=== PATIENT | female | born 1940 | race Caucasian/White ===

== ENCOUNTER → 2018-02-01 | Outpatient (CLI) | payer MEDICARE ==
--- NOTE | 2018-02-01 12:49 | CT ---
EXAMINATION TYPE: CT brain wo con, CT soft tissue neck wo con DATE OF EXAM: 02/01/2018 COMPARISON: NONE HISTORY: 77-year-old female Neoplasm of uncertain behavior involving, oral cavity, and pharynx. TECHNIQUE: Examination was done in axial plane of the head and neck without intravenous contrast. C oronal and sagittal reconstructions performed. CT DLP: 1064 (accession [id number]), 436 (accession [id number]) mGycm Automated exposure control for dose reduction was used. FINDINGS: HEAD: There is no evidence of acute intracranial hemorrhage, acute ischemic changes, mass, mass-effect, or extra-axial fluid collection. There is no effacement of cerebral sulci or basal subarachnoid cister ns. There is no hydrocephalus. There is no midline shift. Ospina-white matter distinction is preserv ed. There is a large heterogeneous lobulated mass partially filling the left maxillary sinus, extending t o the posterior right nasopharynx, history of posterior wall of the left maxillary sinus and extendin g into the medical aide space and marginating the lateral aspect of the left parapharyngeal space. Slig ht bony dehiscence along the floor of the left orbit scalloping of the medial margin of the left valente ibular condyle, neck, and mandibular ramus. There is erosion of the lateral pterygoid plate. No intra cranial extension is seen. On the axial plane, this measures 4.5 cm wide and 7.4 cm AP. Opacification of the left middle ear cavity and left mastoid air cells suggest some degree of eustach nidia tube obstruction at the nasopharynx. NECK: On the neck exam, the mass measures 6.9 cm craniocaudal as it extends down along the left soft palate to the level of the left tubal tonsils. There is some narrowing and rightward shift of the lower nasopharyngeal airway but no patricia airway co mpromise. Some motion artifacts are present. The submandibular and thyroid glands appear satisfactory. Parotid gland is atrophic. No obvious cervical lymphadenopathy identified. Limitations due to noncontrast technique. The oropharynx appears clear. The glottic and subglottic airway in the tail,. There is a partially visualized large medial right apical mass measuring at least 6.7 cm. This destro ys the right lateral aspect of the T2 vertebra and anterior aspect of the proximal right third rib. COMBINED IMPRESSION: 1. No acute intracranial abnormality seen. 2. Large destructive mass involving the left side nearly filling the left maxillary sinus, destroying through the posterior wall of the sinus, filling the left medical aide space, and extending down along the left soft palate into the lower left nasopharynx. There is some dehiscence through the floor of the left orbit as well and erosive scalloping along the medial margin of the left mandibular ramus. A pproximate dimensions are 4.5 x 7.4 x 6.9 cm. Tissue sampling recommended. 3. Second mass partially visualized measuring 6.7 cm in the medial right apex of the lung destroying the right lateral aspect of the T2 vertebral body and the anterior aspect of the proximal right third rib. Again, tissue sampling recommended. CT chest abdomen pelvis can survey the rest of the body.
== END | disposition home or self-care (01) ==
LOC: RADCTMAIN 11:25
PROVIDERS: ATTEND Otolaryngology
DX: D37.09 Neoplasm of uncertain behavior of other specified sites of the oral cavity (principal); R91.8 Other nonspecific abnormal finding of lung field
CPT/HCPCS: 70450; 70490

== ENCOUNTER 2018-02-04 19:38 | Inpatient (IN) | payer MEDICARE ==
[2018-02-04] MEDS ORDERED: SODIUM CHLORIDE 0.9% 1,000 ML IV STA (22:36)
[2018-02-04] MEDS ORDERED: MORPHINE SULFATE 4 MG/ML SYRINGE IV STA (22:36)
--- NOTE | 2018-02-04 23:02 | ED ---
General Adult HPI - General Chief complaint: Headache Stated complaint: headache; backache; eye pain Time Seen by Provider: 02/04/18 21:17 Source: patient, RN notes reviewed, old records reviewed Mode of arrival: ambulatory Limitations: no limitations - History of Present Illness Initial comments: This is a 77-year-old female to the ER for evaluation. Patient was essay for evaluation regards to throat pain. Severe facial pain and back pain. Patient has no prior history of similar symptoms, to see chiropractor with no help. Patient outpatient CAT scan for cause of pain. Patient is not taking anything for pain control, no symptoms seem to make pain worse - Related Data Home Medications Medication Instructions Recorded Confirmed Ibuprofen [Advil] 200 mg PO Q6HR PRN 02/04/18 02/04/18 Allergies Allergy/AdvReac Type Severity Reaction Status Date / Time No Known Allergies Allergy Verified 02/04/18 19:45 Review of Systems ROS Statement: Those systems with pertinent positive or pertinent negative responses have been documented in the HPI. ROS Other: All systems not noted in ROS Statement are negative. Past Medical History Past Medical History: No Reported History History of Any Multi-Drug Resistant Organisms: None Reported Past Surgical History: Orthopedic Surgery Past Psychological History: No Psychological Hx Reported Smoking Status: Current every day smoker Past Alcohol Use History: Occasional Past Drug Use History: None Reported General Exam Limitations: no limitations General appearance: alert, in no apparent distress Head exam: Present: atraumatic, normocephalic, normal inspection Eye exam: Present: normal appearance, PERRL, EOMI. Absent: scleral icterus, conjunctival injection, periorbital swelling ENT exam: Present: other (Large mass protruding from superior aspect of the oropharynx) Neck exam: Present: normal inspection. Absent: tenderness, meningismus, lymphadenopathy Respiratory exam: Present: normal lung sounds bilaterally. Absent: respiratory distress, wheezes, rales, rhonchi, stridor Cardiovascular Exam: Present: regular rate, normal rhythm, normal heart sounds. Absent: systolic murmur, diastolic murmur, rubs, gallop, clicks GI/Abdominal exam: Present: soft, normal bowel sounds. Absent: distended, tenderness, guarding, rebound, rigid Extremities exam: Present: normal inspection, full ROM, normal capillary refill. Absent: tenderness, pedal edema, joint swelling, calf tenderness Back exam: Present: normal inspection Neurological exam: Present: alert, oriented X3, CN II-XII intact Psychiatric exam: Present: normal affect, normal mood Skin exam: Present: warm, dry, intact, normal color. Absent: rash Course Vital Signs 02/04/18 02/04/18 19:41 20:45 Temperature 97.2 F L Pulse Rate 83 79 Respiratory 20 18 Rate Blood Pressure 207/91 182/87 O2 Sat by Pulse 98 96 Oximetry - Reevaluation(s) Reevaluation #1: 02/04/18 23:05 Spoke with patient at length regarding diagnosis, patient's daughter is at bedside, questions are answered Reevaluation #2: 02/04/18 23:05 Patient does have mild pain control improved EKG Findings - EKG Comments: EKG Findings:: EKG shows normal sinus rhythm rate of 70, WA 162, QRS 72, QTc 424 Medical Decision Making - Medical Decision Making 77 female the ER for evaluation of uncontrolled pain. Patient has pain related to cancer. Patient be admitted for pain control, oncology and ENT and pulmonary consultations - Radiology Data Radiology results: report reviewed (Patient computed tomography scan is reviewed including positive findings of metastatic cancer) Disposition Clinical Impression: Metastatic cancer, Oral cancer, Lung cancer, Headache Disposition: [facility]ITT[facility] Condition: Fair Referrals: Tao Gonzalez MD [Primary Care Provider] - 1-2 days
[2018-02-04 23:05] LABS: Basophils # (A) 0.1 k/uL (0-0.2); Basophils % (A) 1 %; Eosinophils # (A) 0.1 k/uL (0-0.7); Eosinophils % (A) 1 %; HCT 37.3 % (34.0-46.0); HGB 12.3 gm/dL (11.4-16.0); Lymphocytes # (A) 1.5 k/uL (1.0-4.8); Lymphocytes % (A) 12 %; MCH 27.4 pg (25.0-35.0); MCHC 32.9 g/dL (31.0-37.0); MCV 83.4 fL (80.0-100.0); Monocytes # (A) 0.5 k/uL (0-1.0); Monocytes % (A) 4 %; Neutrophils % (A) 81 %; Platelet Count 494 k/uL (150-450); RBC 4.48 m/uL (3.80-5.40); RDW 13.7 % (11.5-15.5); WBC 12.5 k/uL (3.8-10.6)
[2018-02-04 23:08] LABS: Creatine Kinase <20 U/L (30-135)
[2018-02-04 23:10] LABS: ALT 15 U/L (9-52); AST 14 U/L (14-36); Albumin 3.7 g/dL (3.5-5.0); Alkaline Phosphatase 121 U/L (38-126); Anion Gap 11 mmol/L; Blood Urea Nitrogen 11 mg/dL (7-17); Calcium 10.1 mg/dL (8.4-10.2); Carbon Dioxide 26 mmol/L (22-30); Chloride 99 mmol/L (98-107); Glucose 99 mg/dL (74-99); Phosphorus 3.3 mg/dL (2.5-4.5); Potassium 3.5 mmol/L (3.5-5.1); Sodium 136 mmol/L (137-145); Total Bilirubin 0.5 mg/dL (0.2-1.3); Total Protein 7.1 g/dL (6.3-8.2)
[2018-02-04 23:17] LABS: Partial Thromboplastin Time 23.3 sec (22.0-30.0); Prothrombin Time 10.2 sec (9.0-12.0)
[2018-02-04 23:20] LABS: Creatine Kinase MB <0.2 ng/mL (0.0-2.4); Troponin I <0.012 ng/mL (0.000-0.034)
[2018-02-05] MEDS: MORPHINE SULFATE 4 MG/ML SYRINGE IVP PRN ×5 (03:38→19:35)
[2018-02-05] MEDS ORDERED: KETOROLAC 30 MG/ML 1 ML VIAL IVP PRN (08:05)
[2018-02-05] MEDS: ENOXAPARIN 40 MG/0.4 ML SYRINGE SQ SCH (08:08)
[2018-02-05] MEDS ORDERED: RX INFO: IV CONTRAST WAS GIVEN 1 EACH MISC MISCELLANE PRN (11:00)
--- NOTE | 2018-02-05 11:00 | P.CONS ---
History of Present Illness - Reason for Consult Consult date: 02/05/18 Left maxillary sinus, right upper lung masses - History of Present Illness The patient is 77-year-old white female, who had presented to her PCP with complains of pain in the right upper back right neck and base of skull, since early 2018. This had been progressive. Patient was also complaining of some nasal congestion and fullness in the left side of her face. She was referred to ENT, and had a CT of the brain as well as soft tissue of the neck done. This revealed a 7.4 cm mass in the left maxillary sinus, causing some destruction of the inferior orbital floor, and extending into the nasopharynx and pharynx. In addition another mass at least 6.7 cm was seen in the right lung [place] with destruction of the T2 vertebra. Before the patient could follow-up with ENT, she came into the emergency room , due to progressive pain in the right neck and right upper back. In addition over the last couple of days she had also developed increasing discomfort in the left side of her face as well as mild blurring of vision from the left eye. She was therefore admitted for further management and consult placed. She denied any prior history of malignancy. She does have a long-standing history of smoking and had been cutting down recently to half pack a day Review of Systems Constitutional: Reports chronic pain, Reports weakness Eyes: left blurred vision Ears: left: decreased hearing Ears, nose, mouth and throat: Reports nasal congestion, Reports sinus pain, Reports sinus pressure Cardiovascular: Denies chest pain, Denies shortness of breath Respiratory: Denies cough Gastrointestinal: Denies abdominal pain, Denies diarrhea, Denies nausea, Denies vomiting Genitourinary: Denies dysuria, Denies hematuria Menstruation: Reports postmenopausal Musculoskeletal: Denies myalgias Integumentary: Denies pruritus, Denies rash Neurological: Denies numbness, Denies weakness Psychiatric: Denies anxiety, Denies depression Endocrine: Denies fatigue, Denies weight change Hematologic/Lymphatic: Reports as per HPI Past Medical History Past Medical History: No Reported History History of Any Multi-Drug Resistant Organisms: None Reported Past Surgical History: Orthopedic Surgery Additional Past Surgical History / Comment(s): ankle Past Anesthesia/Blood Transfusion Reactions: No Reported Reaction Past Psychological History: No Psychological Hx Reported Smoking Status: Current every day smoker Past Alcohol Use History: Occasional Past Drug Use History: None Reported - Past Family History Father Family Medical History: No Reported History, Unable to Obtain Mother Family Medical History: CVA/TIA Medications and Allergies Home Medications Medication Instructions Recorded Confirmed Type Ibuprofen [Advil] 200 mg PO Q6HR PRN 02/04/18 02/05/18 History Allergies Allergy/AdvReac Type Severity Reaction Status Date / Time No Known Allergies Allergy Verified 02/05/18 08:38 Physical Exam Vitals: Vital Signs Temp Pulse Pulse Resp BP BP Pulse Ox 02/05/18 07:00 98.3 F 88 16 159/68 95 02/05/18 00:40 186/79 02/04/18 23:45 97.9 F 82 18 199/84 96 02/04/18 23:27 82 18 181/81 97 02/04/18 22:00 86 18 189/86 97 02/04/18 20:45 79 18 182/87 96 02/04/18 19:41 97.2 F L 83 20 207/91 98 Intake and Output 02/04/18 02/05/18 02/05/18 21:59 06:59 14:59 Intake Total Balance Intake: Intake, IV Titration Amount Sodium Chloride 0.9% 1, 000 ml @ 100 mls/hr IV . Q10H STA Rx#:[id number] Other: Voiding Method Toilet Weight - Constitutional General appearance: no acute distress - EENT Mild conjunctival injection and watering left eye Eyes: EOMI, PERRLA - Neck Neck: no lymphadenopathy Thyroid: bilateral: normal size - Respiratory Respiratory: bilateral: diminished - Cardiovascular Rhythm: regular Heart sounds: normal: S1, S2 - Gastrointestinal General gastrointestinal: normal bowel sounds, soft - Integumentary Integumentary: normal - Neurologic Neurologic: CNII-XII intact - Musculoskeletal Musculoskeletal: strength equal bilaterally - Psychiatric Psychiatric: A&O x's 3, appropriate affect Results CBC & Chem 7: 02/04/18 22:45 02/04/18 22:45 Labs: Abnormal Lab Results - Last 24 Hours (Table) 02/04/18 02/04/18 02/04/18 Range/Units 22:45 22:45 22:45 WBC 12.5 H (3.8-10.6) k/uL Plt Count 494 H (150-450) k/uL Neutrophils # 10.0 H (1.3-7.7) k/uL Sodium 136 L (137-145) mmol/L Creatinine 0.40 L (0.52-1.04) mg/dL Total Creatine Kinase <20 L (30-135) U/L Comments: CT neck report reviewed CT Scan - head: report reviewed Assessment and Plan (1) Mass of right lung Narrative/Plan: This appears to be the main source of her presenting complains, as the neck and right upper back pain or the most prominent symptoms. This appears to be involving the T2 vertebra in the visualized portion. The patient will be started on steroids. Computed tomography scan of the chest will be ordered. At this point this could represent a primary site or metastasis. Lung biopsy will be ordered. Current Visit: Yes Status: Acute Code(s): R91.8 - OTHER NONSPECIFIC ABNORMAL FINDING OF LUNG FIELD SNOMED Code(s): 566281193 (2) Maxillary sinus mass Narrative/Plan: The patient is starting to develop symptoms from this, over the last 2-3 days mostly. Again, this could be a primary site with metastasis less likely. Case was extensively discussed with ENT. They will plan on an endoscopic sinus biopsy Current Visit: Yes Status: Acute Code(s): R22.0 - LOCALIZED SWELLING, MASS AND LUMP, HEAD SNOMED Code(s): 668267306 (3) Neoplasm related pain Narrative/Plan: The patient is currently on IV morphine. Toradol will be discontinued. Steroids are being added which should also help with the pain. Current Visit: Yes Status: Acute Code(s): G89.3 - NEOPLASM RELATED PAIN ( ACUTE) (CHRONIC) SNOMED Code(s): 761677711 Plan: The CT findings and implications were discussed in detail with the patient and her daughter. At this time it is not known as the patient has one primary malignancy with metastasis versus 2 separate primaries. Both are possibilities. Therefore, the plan to have biopsies from the sinus mass as well as a lung mass. At this time the patient does not have any neurologic deficits. MRI of the T -spine will be ordered and radiation oncology consulted. As noted, steroids are being started.
--- NOTE | 2018-02-05 11:20 | CONS ---
CONSULTATION REASON FOR CONSULTATION: Sinus mass. HISTORY: This is a 77-year-old white female who has a recent history of pain mainly right upper back pain, but also has developed facial pain in the left maxillary area also. The patient states that her pain in the back has been for a few months. Apparently did see a chiropractor with no improvement. She was seen in her primary care physician's office about a week ago and an oral lesion was noted and a CT scan was obtained which showed a large mass in the left nasal cavity and maxillary sinus and extending outside the sinus into the slab puller space and parapharyngeal space. There was also involvement of the nasopharynx with a left middle ear effusion noted. Incidental finding on the neck CT was a right apex lung mass with destruction of the T2 vertebrae and the 3rd rib. The patient states that she has pain in the right upper back and also left maxilla. She is admitted for pain control. Dr. Pimentel is consulted also. PAST MEDICAL HISTORY: Positive for COPD, but otherwise negative for heart, liver, kidney disease, diabetes mellitus, seizure disorder, bleeding disorder. PAST SURGICAL HISTORY: Ankle surgery. SOCIAL HISTORY: Does smoke. Alcohol consumption is occasional. MEDICATIONS: Medications at home: Ibuprofen. ALLERGIES: No known drug allergies. REVIEW OF SYSTEMS: Noncontributory other than as above. PHYSICAL EXAM: The patient is afebrile. VITAL SIGNS: Overall stable otherwise. GENERAL: A thin elderly white female in no acute distress. There is some mild fullness to the voice. HEENT: Head normocephalic and atraumatic. Ears on the right canals clear, tympanic membranes unremarkable and mobile; on the left canals clear, tympanic membrane shows a middle ear effusion, which is serous. Decreased mobility noted with pneumatic otoscopy. Nose anteriorly shows no abnormal masses or lesions. Posteriorly on the left, there is a mass lesion extending into the nasopharynx which is pink and fleshy appearing. No bleeding points. The oral cavity shows that she is edentulous. There is a mass of the left soft palate, which is rounded, smooth, pink, and solid on palpation. This is soft and nontender. There is no trismus. Good airway overall including oropharynx, hypopharynx, larynx shows no abnormal masses or lesions. No facial tenderness on palpation or masses palpated. Again, no trismus is noted with good range of motion oral excursion. NECK: Supple without adenopathy or tenderness. ASSESSMENT: 1. Left oral, nasal, maxillary sinus, nasopharynx mass. 2. Right lung mass. PLAN: I have recommended a biopsy of the left oral/sinus mass. I recommend this be done under anesthesia due to the potential of bleeding and easier to control bleeding under anesthesia and also for comfort measures and for further evaluation. I reviewed the indications, alternatives, potential benefits, risks of the procedure with the patient with the risks including, but not inclusive of the risk of general anesthesia, bleeding, infection, scarring, nondiagnostic study, need for further procedures in the future, depending on final pathology and healing. The patient understands the risks and agrees to proceed. This will likely be done tomorrow as this will need to be arranged. The patient did originally have appointment 2 days from now in the office as an outpatient. This will be canceled. The middle-ear effusion on the left is secondary to nasopharyngeal involvement. Could consider ventilation tube placement. However, this may result in chronic otorrhea also and I reviewed this option with the patient and she declined a ventilation tube at this point. In addition, the patient obviously has a 2nd lesion in the lung. Whether or not these are related or not is unknown at this point, but would potentially need biopsy at that site also. Dr. Pimentel will be seeing the patient in consultation also to manage her oncologically. Due to the lesion in the lung as well as the extent of the lesion in the maxilla on the left, the maxillary lesion would not likely be surgical even due to its extent alone. This may be dependent on the etiology amenable to radiotherapy and/or chemotherapy but histologic evaluation of the tissue would need to play a role in this also. The patient will be made n.p.o. after midnight in light of the potential biopsy tomorrow. Will work on scheduling tomorrow morning and this is likely later in the day tomorrow depending on the operating room schedule and the patient and her daughter are aware of this. If there are questions or concerns, please free to contact me. Approximately 45 minutes was spent on consultation with greater than 75% of this in consultation. MMODL / IJN: [id number] /
--- NOTE | 2018-02-05 11:23 | PCN ---
PROCEDURE NOTE PREOPERATIVE DIAGNOSIS: Left maxillary mass. POSTOP DIAGNOSIS: Left maxillary mass. PROCEDURE: Flexible laryngoscopy/nasopharyngoscopy. ANESTHESIA: None. COMPLICATIONS: None. FINDINGS: Left oral/soft palate and nasal mass as well as extending into the nasopharynx. PROCEDURE: The patient in her hospital bed in a sitting position. Informed consent was obtained. Flexible nasopharyngoscopy was performed within both nasal cavities with the above findings noted. The patient tolerated this well with no complications. No blood loss. Flexible nasopharyngoscopy was performed with systematic evaluation of the left and right nasal cavities, nasopharynx, oropharynx, hypopharynx and larynx with the above findings noted. MMODL / IJN: [id number] /
[2018-02-05] MEDS: DEXAMETHASONE SOD PHOSPHATE 4 MG/ML 1 ML VIAL IV SCH ×2 (11:52→17:45)
--- NOTE | 2018-02-05 13:50 | CT ---
EXAMINATION TYPE: CT chest w con DATE OF EXAM: 02/05/2018 COMPARISON: NONE HISTORY: Lung Mass CT DLP: 117.9 mGycm. Automated Exposure Control for Dose Reduction was Utilized. TECHNIQUE: CT scan of the thorax is performed following with IV Contrast, patient injected with 100 mL of Omnipaque 300. FINDINGS: LUNGS AND MEDIASTINUM: There is a large heterogenous right apical mass with invasion into the mediast inum measuring at least 7.0 x 5.3 x 8.0 cm in transverse by anterior posterior by craniocaudal dimens ion. There is no current compression or abutment with the superior vena cava. Adjacent mediastinal ad enopathy on the right paratracheal space and right hilum measuring up to 1.5 cm in short axis. There is impression upon the azygos vein and an deviation and the esophagus leftward. Also there is invasio n into the adjacent T2 vertebral body and posterior aspect of the second and third ribs. Focal pleura l thickening is seen lateral to this with postobstructive atelectasis on image 16 Additionally within the left lower lobe there is a spiculated heterogenous 2.2 x 1.8 x 2.1 cm nodule findings are superi mposed upon moderate centrilobular emphysematous change. OTHER: Indeterminate left adrenal gland mass has an average Hounsfield unit of 51 and measures 3.8 x 2.1 cm suspicious for metastasis. Nonspecific scattered hypointense left splenic lesions are also see n. IMPRESSION: 1. Large heterogenous right apical pulmonary mass measuring up to 7.0 x 5.3 x 8.0 cm with mass effect upon the trachea and azygos vein, adjacent osseous destruction and associated mediastinal adenopathy with segment left lower lobe pulmonary nodule. In a patient with head and neck known carcinoma be sh ould be considered metastasis until proven otherwise. 2. Indeterminate left adrenal gland mass measuring 3.8 cm highly suspicious for metastasis. 3. Nonspecific left splenic lesions. 4. Background moderate centrilobular emphysematous change.
--- NOTE | 2018-02-05 16:13 | P.CNPUL ---
History of Present Illness Consult date: 02/05/18 Reason for consult: lung mass History of present illness: 77-year-old female patient who presented to the hospital because of pain in her upper neck and upper back area posteriorly that has been gradually getting worse over this past few months. The patient prior to her presentation also felt some pain and discomfort and fullness across her left face and the face was becoming more asymmetric and swollen the left. She denied having any difficulties in swallowing. No hemoptysis. Upon arrival to the hospital the patient was found to have significant abnormalities. First and foremost, the CAT scan of the head and neck was done and showed significant amount of abnormality. Specifically, a large destructive mass was seen in the left side completely filling the left maxillary sinus and is throwing the posterior wall of the sinus and filling the left mastoid dural space and extending down to the left soft palate and extending into the nasopharynx and oropharynx. This is a large lesion and on physical exam we can visualize a large mass in the posterior oropharynx, completely invading through the soft palate and causing a shift and anatomic narrowing. The mass itself is very much vascular and irregular and friable. Note that the maxillary mass as mentioned and a CAT scan of the chest measures 4.5 x 7.4 x 6.9 cm in size. Also, a CAT scan of the chest was done that showed a 7 x 8 cm cm mass in the right upper lobe this during the right lateral aspect of the T2 vertebral spine and anterior aspect of the proximal right third rib. There is also mediastinal lymphadenopathy largest in the right hilum measuring 1.5 cm in size and there is additionally left lower lobe spiculated lesion measuring 2.2 x 1.8 x 2.1 cm in size and there is also background emphysema. And a indeterminate left adrenal mass lesion was seen 3.8 cm in size, suspicious for metastases. The patient denies having any difficulty in swallowing. She denies having any difficulties with speech. She denies having any hemoptysis. She has some chronic exertional dyspnea. She is mainly focused on her pain which is across the upper neck and upper back area. She is a chronic smoker. Review of Systems Constitutional: Reports chronic pain, Reports weakness Eyes: left blurred vision Ears: left: decreased hearing Ears, nose, mouth and throat: Reports nasal congestion, Reports sinus pain, Reports sinus pressure Cardiovascular: Denies chest pain, Denies shortness of breath Respiratory: Denies cough Gastrointestinal: Denies abdominal pain, Denies diarrhea, Denies nausea, Denies vomiting Genitourinary: Denies dysuria, Denies hematuria Menstruation: Reports postmenopausal Musculoskeletal: Denies myalgias, she has pain across her upper neck area and upper back posteriorly. Integumentary: Denies pruritus, Denies rash Neurological: Denies numbness, Denies weakness Psychiatric: Denies anxiety, Denies depression Endocrine: Denies fatigue, Denies weight change Hematologic/Lymphatic: Reports as per HPI Past Medical History Past Medical History: No Reported History History of Any Multi-Drug Resistant Organisms: None Reported Past Surgical History: Orthopedic Surgery Additional Past Surgical History / Comment(s): ankle Past Anesthesia/Blood Transfusion Reactions: No Reported Reaction Past Psychological History: No Psychological Hx Reported Smoking Status: Current every day smoker Past Alcohol Use History: Occasional Past Drug Use History: None Reported - Past Family History Father Family Medical History: No Reported History, Unable to Obtain Mother Family Medical History: CVA/TIA Medications and Allergies Home Medications Medication Instructions Recorded Confirmed Type Ibuprofen [Advil] 200 mg PO Q6HR PRN 02/04/18 02/05/18 History Allergies Allergy/AdvReac Type Severity Reaction Status Date / Time No Known Allergies Allergy Verified 02/05/18 08:38 Physical Exam Vitals: Vital Signs Temp Pulse Pulse Resp BP BP Pulse Ox 02/05/18 15:00 98.6 F 86 18 136/78 93 L 02/05/18 07:00 98.3 F 88 16 159/68 95 02/05/18 00:40 186/79 02/04/18 23:45 97.9 F 82 18 199/84 96 02/04/18 23:27 82 18 181/81 97 02/04/18 22:00 86 18 189/86 97 02/04/18 20:45 79 18 182/87 96 02/04/18 19:41 97.2 F L 83 20 207/91 98 Intake and Output 02/05/18 02/05/18 02/05/18 06:59 14:59 22:59 Intake Total Balance Intake: Intake, IV Titration Amount Sodium Chloride 0.9% 1, 000 ml @ 100 mls/hr IV . Q10H STA Rx#:[id number] Other: Voiding Method Toilet Toilet # Voids 2 - Constitutional General appearance: no acute distress - EENT Mild conjunctival injection and watering left eye, and there is also some fullness in the left face compared to the right. The size and dimension of the left eye orbit is smaller on the left compared to the right. In the posterior oropharynx, the patient has a very irregular vascular mass or Buying the soft palate and this is all just dating from the nasopharyngeal area and extending to the oropharynx and it is distorting the uvula. The masses very close to the tongue and the patient has significant crowding of the posterior pharynx. There is obvious anatomic distortion and shift of the structures due to this large mass that can be easily visualized on inspection. On the nasopharyngeal unable to visualize any abnormalities by routine examination. Eyes: EOMI, PERRLA - Neck Neck: no lymphadenopathy Thyroid: bilateral: normal size - Respiratory Respiratory: bilateral: diminished - Cardiovascular Rhythm: regular Heart sounds: normal: S1, S2 - Gastrointestinal General gastrointestinal: normal bowel sounds, soft - Integumentary Integumentary: normal - Neurologic Neurologic: CNII-XII intact - Musculoskeletal Musculoskeletal: strength equal bilaterally - Psychiatric Psychiatric: A&O x's 3, appropriate affect Results - Laboratory Findings CBC and BMP: 02/04/18 22:45 02/04/18 22:45 PT/INR, D-dimer PT 10.2 sec (9.0-12.0) 02/04/18 22:45 INR 1.0 (<1.2) 02/04/18 22:45 Abnormal lab findings: Abnormal Labs 02/04/18 02/04/18 02/04/18 22:45 22:45 22:45 WBC 12.5 H Plt Count 494 H Neutrophils # 10.0 H Sodium 136 L Creatinine 0.40 L Total Creatine Kinase <20 L - Diagnostic Findings CT scan - chest: image reviewed Assessment and Plan Plan: Assessment 1 right upper lobe mass measuring 7 x 8 cm in size that is invading the mediastinum without evidence of any SVC compression and there is also lesion in the left lower lobe and questionable adrenal metastases as the patient has adrenal lesion measuring 2.8 cm in size. In addition the patient has involvement of the T2 vertebral spine and possibly the ribs posteriorly. Findings are very highly suspicious for primary bronchogenic cancer which is metastatic at this stage 2 left maxillary sinus mass extending through the sinus structures causing this section of the sinus bone and extending posteriorly into the nasopharynx and to the oropharynx and the patient has a large visualized mass in the posterior oropharyngeal wall causing significant anatomic obstruction and narrowing on routine examination. This could be another primary versus metastatic disease from the lungs 3 back and neck pain, likely related to underlying malignancy with a possibility of metastasis involving the skeletal system and the spine 4 COPD 5 smoker Plan Would like to biopsy the lung mass. Would also like to biopsy the sinus and the posterior oropharyngeal mass which is obviously a 1 mass starting in the maxillary sinus and extending into the nasopharynx and oropharynx. This may ultimately heel turner to be 1 cancer which is metastatic although the possibility of 2 primaries cannot be completely excluded. ENT will biopsy the sinus mass tomorrow. As for the lung mass, bronchoscopy is not possible as the patient has significant narrowing of the posterior oropharynx and this makes of the sinuses extending into the nasopharynx and oropharynx and is setting a bronchoscope will cause an subject this patient to a risk of bleed which can be quite risky and subject this patient in to respiratory failure should she have excess amount of bleeding. For that reason , a fine-needle aspirate of the right lung mass needs to be considered even if this would subject this patient to a high risk of pneumothorax which could be manageable by a chest tube insertion. I would prefer to do a fine-needle aspirate over bronchoscopy for the above-mentioned reasons and I'm going to consult interventional radiology regarding the fine-needle aspirate. Unfortunately, bronchoscopy will be quite risky in this patient with a large posterior oropharyngeal and nasopharyngeal mass. Prognosis obviously poor. Patient is complaining of neck pain and ultimately she would need an MRI of the thoracic spine to rule out compression and following that the radiation therapy may need to pad this patient with some radiation and pain control. Prognosis poor. Case was discussed with the family.
[2018-02-05] MEDS: NICOTINE 21MG/24HR PATCH TRANSDERM SCH (17:45)
--- NOTE | 2018-02-05 18:17 | HP ---
HISTORY AND PHYSICAL DATE OF ADMISSION: February 04, 2018. PRESENT COMPLAINT: Pain in right upper back, face pain. HISTORY OF PRESENTING COMPLAINT: This is a patient who is a smoker, unremarkable past medical history. The patient presented to the family doctor's office with increasing pain in the throat and neck, and on February 01, 2018, the patient underwent soft tissue CT scan of the neck and that showed a large heterogeneous lobulated mass filling the left maxillary sinus extending to the posterior right nasopharynx and into the cloud infrastructure architect space. There is also slight bony dehiscence along the floor of the left orbit scalloping of the medial margin of the left mandible condyle, neck and mandibular ramus. Also erosion of the lateral pterygoid plate along with opacification of the left middle ear cavity, left some element of eustachian tube obstruction. The patient's voice slightly changed, though she is able to swallow, slightly short of breath. The patient is a smoker. According to the daughter who was in the room, the patient also losing weight. The patient has always been a small eater. CT scan of the chest also shows a large apical mass going into the mediastinum with a mass on the left side of the lung and also some affliction of the spleen and the left adrenal mass. REVIEW OF SYSTEMS: Constitutional, decreased appetite, weight loss. HEENT: Change of voice, pain in the left side of the face, and ear. Respiratory some short of breath, cardiovascular none. Gastrointestinal none. Genitourinary: None. Musculoskeletal: Pain in the right side of the back around the scapula. Gastrointestinal: None. Genitourinary: None. Psychiatry none. Neurological none. PAST MEDICAL HISTORY: None. SURGICAL HISTORY: Ankle surgery. SOCIAL HISTORY: Smokes a pack a day. Lives by herself. Alcohol occasionally. FAMILY HISTORY: Reviewed, noncontributory to presentation. HOME MEDICATIONS: Advil 200 mg q.6h p.r.n. ALLERGIES: None. PHYSICAL EXAMINATION: Temperature 98.3, pulse 88, respiration 16, blood pressure 159/68, pulse ox 95% on room air. GENERAL APPEARANCE: Thin build, sitting up. Slight facial asymmetry. Eyes pupils equal. Conjunctivae normal. HEENT: Fullness on the left side of the face. There is a mass on the roof of the mouth on the left side projecting into the oral cavity. Neck: JVD not raised. Mass not palpable. Respiratory effort increased. LUNGS: Diminished breath sounds. Cardiovascular: 1st and 2nd sounds normal. No edema. ABDOMEN: Soft, nontender. Liver and spleen not palpable. Lymphatics: No lymph nodes palpable in the neck or axilla. Psychiatry: Alert and oriented times three. Mood is slightly anxious-appearing. Neurological: Pupils equal. Cranial nerves grossly intact. Power and sensation grossly intact. INVESTIGATIONS: White count 12.5, hemoglobin 12.3, potassium 3.5. CT scan of the soft tissue of the neck and CT scan of the lungs as above including showing a mass in the right upper apex, mass in the left lung and some possible metastatic disease in the spleen and the left adrenal mass. ASSESSMENT: 1. The patient has a mass in the right upper lung and also in the nasopharyngeal area. At this point, it is not clear if these are 2 separate primaries or metastatic disease. The patient has also got involvement of the vertebral body in the ribs and possibly involvement of the adrenal gland and the spleen. 2. Chronic nicotine dependence patient is a cigarette smoker. 3. Emphysema in a smoker. PLAN: The patient is seen by Dr. José Miguel George from ENT who I spoke to who will be doing a biopsy tomorrow under anesthesia. The patient also will be seen by Dr. Galo from Pulmonary and will probably need a lung mass biopsy too. The patient also seen by Dr. Pimentel from Oncology whom I discussed. I also discussed the care with the patient and daughter at the bedside. Nicotine patch will be given. Pain control is in place. We will also start the patient on nebulized bronchodilators. Copy to Dr. Gonzalez. BONILLA / GEETHA: [id number] /
[2018-02-05] MEDS: NAPROXEN 250 MG TAB PO SCH (21:17)
[2018-02-05] MEDS: IPRATROPIUM-ALBUTEROL 3 ML NEB INHALATION SCH (21:44)
[2018-02-06] MEDS: DEXAMETHASONE SOD PHOSPHATE 4 MG/ML 1 ML VIAL IV SCH ×5 (00:38→23:50)
[2018-02-06] MEDS: IPRATROPIUM-ALBUTEROL 3 ML NEB INHALATION SCH ×3 (07:33→21:19)
[2018-02-06] MEDS: NICOTINE 21MG/24HR PATCH TRANSDERM SCH (08:54)
[2018-02-06] MEDS: NAPROXEN 250 MG TAB PO SCH ×2 (08:54→22:10)
[2018-02-06] MEDS: ENOXAPARIN 40 MG/0.4 ML SYRINGE SQ SCH (08:54)
--- NOTE | 2018-02-06 14:50 | P.CONS ---
History of Present Illness - Reason for Consult Consult date: 02/06/18 lung, head/neck mass Requesting physician: Avelino Pimentel - Chief Complaint right upper back pain - History of Present Illness The patient presented with complaints of progressive pain in the right upper back and shoulder area. She notes these have been going on for the past month, and initially she would have complete response with Advil. When the pain did not improve, she was seen and evaluated by her chiropractor and reports that that did not help either. She was ultimately assessed in the office of her primary care physician, who had noticed the abnormal mass in her soft/hard palate. She subsequently was ordered to undergo a CT scan of the brain and neck on February 01, 2018. This revealed a lobulated mass which nearly fill the left maxillary sinus, with extension to the right nasopharynx, destroying the posterior wall of the sinus entering in the reactor service operator space with bony dehiscence along the left orbit and erosion of the left lateral pterygoid plate. The mass was seen to extend along the left soft palate and was approximately 7.4 x 4.5 cm. There is also note made of a large right apical lung mass extending into the T2 vertebral body. The patient was referred to see ENT, however her symptoms progressed over the weekend and she presented to the emergency room. She presented complaining of increasing pain and pressure sensation along the left medial canthus and down the nose. She notes this just started on Tuesday, as she's previously had no difficulties with pain in the head/neck region. She notes that her dentures have been poorly fitting, however these are quite old and she felt she needed to replace them. She reports that she has occasional blurriness of her vision, left greater than right. But she denies diplopia, dyspnea, cough, hemoptysis or difficulty eating. Following admission, Dr. Rojas performed a fiberoptic exam at the bedside. This revealed a large left soft palate/nasal mass extending to the nasopharynx. A CT scan of the chest from February 05 revealed a large right apical lung mass up to 7 cm, with a 1.5 cm right paratracheal node. The lung mass was noted to extend into the mediastinum causing deviation of the esophagus, and also invades the T2 vertebral body as well as the second and third ribs. There is a 2.2 cm spiculated nodule in the left lower lung, as well as a 3.8 cm left adrenal lesion, both suspicious for metastases. Review of Systems Constitutional: Denies chills, Denies fever Eyes: left blurred vision Ears: deny: decreased hearing Ears, nose, mouth and throat: Reports sinus pressure, Denies ant. neck pain, Denies bleeding gums, Denies dental pain, Denies neck lump Cardiovascular: Denies chest pain Respiratory: Denies cough, Denies hemoptysis Gastrointestinal: Denies abdominal pain Musculoskeletal: Reports as per HPI Musculoskeletal: right: shoulder pain Neurological: Reports headaches, Denies motor disturbance, Denies numbness, Denies tingling Psychiatric: Denies confusion Past Medical History Past Medical History: No Reported History Additional Past Medical History / Comment(s): Multiple skin cancers removed History of Any Multi-Drug Resistant Organisms: None Reported Past Surgical History: Orthopedic Surgery Additional Past Surgical History / Comment(s): ankle Past Anesthesia/Blood Transfusion Reactions: No Reported Reaction Past Psychological History: No Psychological Hx Reported Smoking Status: Current every day smoker (Smoked 1 pack per day x 50 years) Past Alcohol Use History: Occasional Past Drug Use History: None Reported - Past Family History Father Family Medical History: No Reported History, Unable to Obtain Mother Family Medical History: CVA/TIA Medications and Allergies Home Medications Medication Instructions Recorded Confirmed Type Ibuprofen [Advil] 200 mg PO Q6HR PRN 02/04/18 02/05/18 History Allergies Allergy/AdvReac Type Severity Reaction Status Date / Time No Known Allergies Allergy Verified 02/05/18 08:38 Physical Exam Vitals: Vital Signs Temp Pulse Pulse Pulse Resp BP Pulse Ox 02/06/18 11:04 76 02/06/18 10:53 72 02/06/18 07:00 97.9 F 90 16 154/75 96 02/05/18 23:00 98.3 F 75 16 117/62 94 L 02/05/18 21:47 84 02/05/18 15:00 98.6 F 86 18 136/78 93 L Intake and Output 02/05/18 02/06/18 02/06/18 22:59 06:59 14:59 Intake Total 320 400 Balance 320 400 Intake: IV 200 400 normal saline 200 400 Oral 120 Other: Voiding Method Toilet Toilet Toilet # Voids 1 - Constitutional General appearance: average body habitus - EENT Eyes: EOMI, PERRLA, ptosis (Slight left ptosis) ENT: other (Large mass seen along hard/soft palate. Violaceous in appearance, replaces soft palate), no thrush - Neck Neck: no lymphadenopathy - Respiratory Respiratory: bilateral: CTA - Cardiovascular Rhythm: regular - Gastrointestinal General gastrointestinal: normal bowel sounds, no tenderness - Integumentary Integumentary: no flushed, no jaundiced - Neurologic Neurologic: CNII-XII intact - Musculoskeletal Musculoskeletal: strength equal bilaterally - Psychiatric Psychiatric: A&O x's 3 Results CBC & Chem 7: 02/04/18 22:45 02/04/18 22:45 CT scan - chest: report reviewed, image reviewed CT Scan - head: report reviewed, image reviewed Assessment and Plan Plan: 1. 77 year old female with long smoking history presents with large mass involving the soft palate, left nasal cavity, maxillary sinus with local destruction. Outside of poorly fitting dentures, the patient reports she has not had any symptoms up until this past week when she developed some pressure along the left medial canthus. This is highly suspicious for a head and neck primary. Regardless of its origin is within the oral cavity, nasal cavity or maxillary sinus, this locally extensive process would likely to be surgically inoperable. Biopsy will be performed later today. The patient will likely require palliative radiotherapy in the future. Although her noncontrast CT scan of the head was negative, the patient should also have an MRI of the brain/ skull base to rule out brain metastasis as well as direct extension of this mass. 2. Large right apical lung mass: This lesion is highly suspicious for a separate lung primary versus less likely metastasis from head and neck cancer. This mass is seen to invade the T2 vertebral body, as well as the second and third ribs on the right likely causing the patient's right upper back pain. I agree this should be biopsied as well, and should be amenable to stereotactic biopsy. The patient has an MRI of the thoracic spine pending, and based on my preliminary review there appears to be no mass effect on the spinal cord. The patient does not appear to have any radicular symptoms. As above, she will likely require palliative radiotherapy to help with control of her pain. 3. Metastatic disease: Even if the 2 dominant lesions represent separate primaries, there is still a left adrenal mass as well as a left lower lung mass which are suspicious for metastasis. Outpatient PET CT should be considered to complete this workup. We will discuss her case with the other physicians involved, and we will await final pathology. She will likely benefit from palliative radiotherapy, but as she has no emergent indication at this time we will finish her inpatient work- up. Time with Patient: Greater than 30
--- NOTE | 2018-02-06 16:50 | P.PN ---
Subjective Progress Note Date: 02/06/18 Principal diagnosis: Right upper lobe mass, rule out primary bronchogenic cancer with metastasis. Left maxillary sinus mass, rule out primary versus metastatic disease from the lungs 77-year-old female patient who presented to the hospital because of pain in her upper neck and upper back area posteriorly that has been gradually getting worse over this past few months. The patient prior to her presentation also felt some pain and discomfort and fullness across her left face and the face was becoming more asymmetric and swollen the left. She denied having any difficulties in swallowing. No hemoptysis. Upon arrival to the hospital the patient was found to have significant abnormalities. First and foremost, the CAT scan of the head and neck was done and showed significant amount of abnormality. Specifically, a large destructive mass was seen in the left side completely filling the left maxillary sinus and is throwing the posterior wall of the sinus and filling the left mastoid dural space and extending down to the left soft palate and extending into the nasopharynx and oropharynx. This is a large lesion and on physical exam we can visualize a large mass in the posterior oropharynx, completely invading through the soft palate and causing a shift and anatomic narrowing. The mass itself is very much vascular and irregular and friable. Note that the maxillary mass as mentioned and a CAT scan of the chest measures 4.5 x 7.4 x 6.9 cm in size. Also, a CAT scan of the chest was done that showed a 7 x 8 cm cm mass in the right upper lobe this during the right lateral aspect of the T2 vertebral spine and anterior aspect of the proximal right third rib. There is also mediastinal lymphadenopathy largest in the right hilum measuring 1.5 cm in size and there is additionally left lower lobe spiculated lesion measuring 2.2 x 1.8 x 2.1 cm in size and there is also background emphysema. And a indeterminate left adrenal mass lesion was seen 3.8 cm in size, suspicious for metastases. The patient denies having any difficulty in swallowing. She denies having any difficulties with speech. She denies having any hemoptysis. She has some chronic exertional dyspnea. She is mainly focused on her pain which is across the upper neck and upper back area. She is a chronic smoker. On 02/06/2018 patient seen in follow-up on oncology floor. She is resting comfortably in bed, in no acute distress. She is on room air, vital signs are stable, pulse ox is 96%. She is afebrile, lung sounds are positive for diminished breath sounds over right lower lobe, with scattered crackles. Clear on the left. Patient has slight speech slurring related to the oral pharyngeal mass originating from the left maxillary sinuses. She denies right shoulder blade or right neck pain today. She remains on Decadron IV. She is awaiting direct laryngoscopy, nasal endoscopy and biopsy of the oral pharyngeal mass by Dr. Rojas at 1700 this afternoon. She was seen by medical oncology, and radiation oncology. She is on fentanyl patch with morphine IV push for breakthrough pain. Objective - Vital Signs Vital signs: Vital Signs Temp 97.9 F 02/06/18 07:00 Pulse 76 02/06/18 11:04 Resp 16 02/06/18 07:00 BP 154/75 02/06/18 07:00 Pulse Ox 96 02/06/18 07:00 Intake & Output 02/05/18 02/06/18 02/06/18 18:59 06:59 18:59 Intake Total 720 Balance 720 Intake: IV 600 normal saline 600 Oral 120 Other: Voiding Method Toilet Toilet Toilet # Voids 2 1 - Exam Constitutional General appearance: no acute distress - EENT Mild conjunctival injection and watering left eye, and there is also some fullness in the left face compared to the right. The size and dimension of the left eye orbit is smaller on the left compared to the right. In the posterior oropharynx, the patient has a very irregular vascular mass or Buying the soft palate and this is all just dating from the nasopharyngeal area and extending to the oropharynx and it is distorting the uvula. The masses very close to the tongue and the patient has significant crowding of the posterior pharynx. There is obvious anatomic distortion and shift of the structures due to this large mass that can be easily visualized on inspection. On the nasopharyngeal unable to visualize any abnormalities by routine examination. Eyes: EOMI, PERRLA - Neck Neck: no lymphadenopathy Thyroid: bilateral: normal size - Respiratory Respiratory: bilateral: diminished, coarse crackles over right lower lobe noted. No wheezing, no rhonchi - Cardiovascular Rhythm: regular Heart sounds: normal: S1, S2 - Gastrointestinal General gastrointestinal: normal bowel sounds, soft - Integumentary Integumentary: normal - Neurologic Neurologic: CNII-XII intact - Musculoskeletal Musculoskeletal: strength equal bilaterally - Psychiatric Psychiatric: A&O x's 3, appropriate affect - Labs CBC & Chem 7: 02/04/18 22:45 02/04/18 22:45 Assessment and Plan Plan: Assessment: 1 right upper lobe mass measuring 7 x 8 cm in size that is invading the mediastinum without evidence of any SVC compression and there is also lesion in the left lower lobe and questionable adrenal metastases as the patient has adrenal lesion measuring 2.8 cm in size. In addition the patient has involvement of the T2 vertebral spine and possibly the ribs posteriorly. Findings are very highly suspicious for primary bronchogenic cancer which is metastatic at this stage 2 left maxillary sinus mass extending through the sinus structures causing this section of the sinus bone and extending posteriorly into the nasopharynx and to the oropharynx and the patient has a large visualized mass in the posterior oropharyngeal wall causing significant anatomic obstruction and narrowing on routine examination. This could be another primary versus metastatic disease from the lungs 3 back and neck pain, likely related to underlying malignancy with a possibility of metastasis involving the skeletal system and the spine 4 COPD 5 smoker Plan Patient is awaiting direct laryngoscopy, nasal endoscopy and biopsy of the oropharyngeal mass today by Dr. Rojas at 1700. Right shoulder blade and right neck pain are well controlled with a combination of IV Decadron, fentanyl patch, and IV morphine for breakthrough pain. She denies acute dyspnea, denies hemoptysis, remains on room air. Consult interventional radiology for CT- guided fine-needle aspiration biopsy of the right upper lobe mass. I performed a history & physical examination of the patient and discussed their management with my nurse practitioner, Samia Womack. I reviewed the nurse practitioner's note and agree with the documented findings and plan of care. Lung sounds are positive coarse rales over right posterior lower lobe. The findings and the impression was discussed with the patient. I attest to the documentation by the nurse practitioner. Time with Patient: Less than 30
--- NOTE | 2018-02-06 17:21 | PN ---
PROGRESS NOTE DATE OF SERVICE: February 06, 2018 PRESENTING COMPLAINT: Pain in the right upper back. INTERVAL HISTORY: This patient presented with lung mass and maxillofacial mask. Pain is reasonably well controlled. The patient is currently n.p.o. Daughter at the bedside. The patient due for a nasal mass biopsy today. REVIEW OF SYSTEMS: Done for constitutional, cardiovascular, GI, pulmonary, relevant findings as above. CURRENT MEDICATIONS: Reviewed that include fentanyl patch, IV Decadron. PHYSICAL EXAMINATION: Temperature 97.9, pulse 91, respiratory rate 16, blood pressure 150/75, pulse ox 96% on room air. GENERAL APPEARANCE: Sitting up comfortable. Eyes: Pupils equal. Conjunctivae normal. HEENT: Some facial asymmetry, fullness of the left side of the face. Oral cavity got a mass from the roof of the mouth on the left side. LUNGS: Decreased breath sounds. Respiratory effort normal. Cardiovascular 1st and 2nd sounds no edema. ABDOMEN: Soft nontender. Liver and spleen not palpable. Psychiatry: Alert and oriented x3. Mood and affect slightly anxious-appearing. INVESTIGATIONS: No blood work from today. ASSESSMENT: 1. 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 2. Chronic nicotine dependence in a cigarette smoker. 3. Emphysema in a smoker. PLAN: As per Pulmonary, we will order Interventional Radiology consultation for the FNAC of the lung mass. Dr. George is doing the nasal mass biopsy today. Care was discussed with the patient and daughter at the bedside. Follow. MMODL / IJN: [id number] /
[2018-02-06] MEDS ORDERED: PROPOFOL 10 MG/ML 20 ML VIAL IV ONE (17:54)
[2018-02-06] MEDS ORDERED: SUCCINYLCHOLINE CHLORIDE 100 MG/5 ML SYR IV ONE (17:54)
[2018-02-06] MEDS ORDERED: LIDOCAINE 1% INJ 10MG/ML (20 ML MDV) ONE (17:54)
[2018-02-06] MEDS ORDERED: IV FLUID CONTINUATION 700 ML IV ONE ×2 (17:54)
[2018-02-06] MEDS ORDERED: MIDAZOLAM 2 MG/2 ML VIAL ONE (17:54)
--- NOTE | 2018-02-06 18:09 | MR ---
EXAMINATION TYPE: MR thoracic spine wo/w con DATE OF EXAM: 02/06/2018 COMPARISON: NONE HISTORY: mets, spinal cord compression CONTRAST: Performed utilizing 7 mL intravenous Gadavist gadolinium contrast. TECHNIQUE: Multiplanar, multiecho imaging on a 3.0 Lucina magnet is performed through the thoracic spi ne. Spinal cord maintains normal signal through its visualized course. Vertebral body alignment is normal. Vertebral body heights are preserved. There is a large right posterior medial apical mass. This has extension towards the right foramen. Ne rve roots are in close approximation is the exit the foramen. The T2-3 and T3 exiting nerve roots are in close approximation with the paraspinal mass. This mass invades the T2 vertebral body and extends towards the posterior wall. This brings the mass in close approximation to but does not compress or invade thecal sac based on these images. There is some signal abnormality within the T2 and T3 verteb ral bodies. No spinal canal stenosis is evident. No neural foraminal invasion is identified. IMPRESSIONS: 1. Large posterior medial right apical mass extends towards the exiting neural foramen. The exiting n erve roots are in close approximation with the mass at the T2 and T3 levels on the right. 2. Apparent direct invasion of the T2 level with extension towards the posterior wall. Extension beyo nd the posterior wall is not identified and no thecal sac invasion or nerve root or foramen invasion is evident.
--- NOTE | 2018-02-06 18:36 | P.OP ---
Date of Procedure: 02/06/18 Preoperative Diagnosis: Left maxillary/oral mass Postoperative Diagnosis: Same Procedure(s) Performed: Nasal endoscopy Direct laryngoscopy Biopsy left soft palate lesion Anesthesia: GETA Surgeon: José Miguel George Estimated Blood Loss (ml): 2 Pathology: other (Left soft palate lesion) Condition: stable Disposition: PACU Indications for Procedure: This is a 77-year-old white female who has noticed a lesion left soft palate and her primary care physician also notices last week. Computed tomography scan shows a large lesion involving the left maxillary sinus left nasal cavity and physical exam shows a left soft palate lesion. Patient also has a large right apex of long mass. Operative Findings: Soft tissue lesion left nasal cavity, large proximal 4 cm exophytic mass left soft palate Description of Procedure: The patient was brought in the operative suite and placed in supine position. The patient underwent induction of general anesthesia with oral endotracheal intubation without difficulty. The patient was prepped and draped in usual aseptic fashion. Nasal endoscopy was performed bilaterally. There was noted to be some bulging of the medial maxillary wall with some soft tissue swelling. This also extended back into the nasopharynx with mass effect. A tooth guard was then placed and direct laryngoscopy was performed with systematic evaluation of the oropharynx hypopharynx and larynx with no abnormalities noted in these areas. The laryngoscope and tooth guard were then removed. The McIvor mouth gag was then placed to visualize the left soft and hard palate mass. This is a large fungating exophytic lesion. A biopsy approximately 1 cm in diameter was obtained with needlepoint electrocautery and sent for permanent section. Hemostasis was gained with cautery. Palpation of this mass appeared to have direct extension from the hard and soft palate into the left maxillary sinus and even mobility of the left anterior cheek. There was indicated direct bony erosion. Once hemostasis was obtained the McIvor mouth gag was removed. The patient was allowed to emerge from general anesthesia having tolerated procedure well was extubated in the operating suite and transferred to postop recovery area in satisfactory condition.
[2018-02-07] MEDS: DEXAMETHASONE SOD PHOSPHATE 4 MG/ML 1 ML VIAL IV SCH ×4 (06:15→23:46)
[2018-02-07] MEDS: IPRATROPIUM-ALBUTEROL 3 ML NEB INHALATION SCH ×3 (08:45→19:47)
[2018-02-07] MEDS: NICOTINE 21MG/24HR PATCH TRANSDERM SCH (09:08)
[2018-02-07] MEDS: NAPROXEN 250 MG TAB PO SCH ×2 (09:09→20:26)
--- NOTE | 2018-02-07 13:14 | P.PN ---
Subjective Progress Note Date: 02/07/18 Principal diagnosis: Right shoulder pain, lung mass, adrenal masses Patient is seen today in follow-up. Her shoulder pain is much better controlled , she is rating it as mild, she does have some swelling on the left side of her face, her throat is a little sore and she has a new cough after her procedure yesterday, denies fever, hemoptysis, shortness of breath. Objective - Vital Signs Vital signs: Vital Signs Temp 99 F 02/07/18 07:00 Pulse 84 02/07/18 08:54 Resp 16 02/07/18 08:00 BP 156/73 02/07/18 07:00 Pulse Ox 95 02/07/18 07:00 Intake & Output 02/06/18 02/07/18 02/07/18 18:59 06:59 18:59 Intake Total 500 1410 Output Total 2 Balance 498 1410 Intake: IV 500 100 normal saline 50 Oral 1310 Output: Estimated Blood Loss 2 Other: Voiding Method Toilet Toilet Toilet # Voids 3 1 - Constitutional General appearance: Present: no acute distress, thin - EENT EENT Comment(s): posterior oropharynx, 3-4 cm mass Eyes: Present: anicteric sclerae ENT: Present: hard of hearing - Respiratory Respiratory: bilateral: diminished - Cardiovascular Heart sounds: normal: S1, S2 - Gastrointestinal General gastrointestinal: Present: normal bowel sounds - Musculoskeletal Musculoskeletal: Present: strength equal bilaterally - Psychiatric Psychiatric: Present: A&O x's 3, appropriate affect, intact judgment & insight - Labs CBC & Chem 7: 02/04/18 22:45 02/04/18 22:45 Assessment and Plan (1) Mass of right lung Current Visit: Yes Status: Acute Priority: High Code(s): R91.8 - OTHER NONSPECIFIC ABNORMAL FINDING OF LUNG FIELD SNOMED Code(s): 946158381 (2) Maxillary sinus mass Current Visit: Yes Status: Acute Priority: High Code(s): R22.0 - LOCALIZED SWELLING, MASS AND LUMP, HEAD SNOMED Code(s): 647618216 Plan: Case was reviewed with Dr. Jon. Reviewed with the patient and her family high suspicion of malignancy, explained that this must be confirmed with pathology. Concern is also for more than 1 primary that is why the lung is being biopsied as well. We discussed completion of staging with additional imaging, as needed based on biopsy results. Reviewed with the patient and family the role of radiation for palliation of symptoms. Anticipate initial biopsy to be resulted in the next 24-48 hours. Currently lung biopsy is planned for today, anticipate pathology late this week or early next week. We discussed likely having a definitive plan of care by next week. All of the patient's and her family's questions were answered to the best of my ability. Pt family has requested that they be contacted and family meetings scheduled for delivery of results and/or plan of care. >30min spent with pt and family counseling and coordinating care.
--- NOTE | 2018-02-07 14:25 | P.PN ---
Subjective Progress Note Date: 02/07/18 Principal diagnosis: Right upper lobe mass, rule out primary bronchogenic cancer with metastasis. Left maxillary sinus mass, rule out primary versus metastatic disease from the lungs 77-year-old female patient who presented to the hospital because of pain in her upper neck and upper back area posteriorly that has been gradually getting worse over this past few months. The patient prior to her presentation also felt some pain and discomfort and fullness across her left face and the face was becoming more asymmetric and swollen the left. She denied having any difficulties in swallowing. No hemoptysis. Upon arrival to the hospital the patient was found to have significant abnormalities. First and foremost, the CAT scan of the head and neck was done and showed significant amount of abnormality. Specifically, a large destructive mass was seen in the left side completely filling the left maxillary sinus and is throwing the posterior wall of the sinus and filling the left mastoid dural space and extending down to the left soft palate and extending into the nasopharynx and oropharynx. This is a large lesion and on physical exam we can visualize a large mass in the posterior oropharynx, completely invading through the soft palate and causing a shift and anatomic narrowing. The mass itself is very much vascular and irregular and friable. Note that the maxillary mass as mentioned and a CAT scan of the chest measures 4.5 x 7.4 x 6.9 cm in size. Also, a CAT scan of the chest was done that showed a 7 x 8 cm cm mass in the right upper lobe this during the right lateral aspect of the T2 vertebral spine and anterior aspect of the proximal right third rib. There is also mediastinal lymphadenopathy largest in the right hilum measuring 1.5 cm in size and there is additionally left lower lobe spiculated lesion measuring 2.2 x 1.8 x 2.1 cm in size and there is also background emphysema. And a indeterminate left adrenal mass lesion was seen 3.8 cm in size, suspicious for metastases. The patient denies having any difficulty in swallowing. She denies having any difficulties with speech. She denies having any hemoptysis. She has some chronic exertional dyspnea. She is mainly focused on her pain which is across the upper neck and upper back area. She is a chronic smoker. On 02/06/2018 patient seen in follow-up on oncology floor. She is resting comfortably in bed, in no acute distress. She is on room air, vital signs are stable, pulse ox is 96%. She is afebrile, lung sounds are positive for diminished breath sounds over right lower lobe, with scattered crackles. Clear on the left. Patient has slight speech slurring related to the oral pharyngeal mass originating from the left maxillary sinuses. She denies right shoulder blade or right neck pain today. She remains on Decadron IV. She is awaiting direct laryngoscopy, nasal endoscopy and biopsy of the oral pharyngeal mass by Dr. Rojsa at 1700 this afternoon. She was seen by medical oncology, and radiation oncology. She is on fentanyl patch with morphine IV push for breakthrough pain. On 02/07/2018 patient seen in follow-up on oncology floor. She underwent laryngoscopy and biopsy of the oral pharyngeal mass by Dr. Rojas on 2017. Biopsy results are pending at this time. Patient was scheduled for CT- guided fine-needle aspiration biopsy of the right apical lung mass. She is on room air, with pulse ox of 95%. Hemodynamically stable, afebrile. Denies any acute distress, denies any acute dyspnea. Lung sounds are positive for crackles at the right lower lobe. She has an occasional dry nonproductive cough. She is tolerating oral intake. [place] any fever, chills, hemoptysis. Objective - Vital Signs Vital signs: Vital Signs Temp 99 F 02/07/18 07:00 Pulse 80 02/07/18 13:38 Resp 16 02/07/18 08:00 BP 156/73 02/07/18 07:00 Pulse Ox 95 02/07/18 07:00 Intake & Output 02/06/18 02/07/18 02/07/18 18:59 06:59 18:59 Intake Total 500 1410 Output Total 2 Balance 498 1410 Intake: IV 500 100 normal saline 50 Oral 1310 Output: Estimated Blood Loss 2 Other: Voiding Method Toilet Toilet Toilet # Voids 3 1 - Exam Constitutional General appearance: no acute distress - EENT Mild conjunctival injection and watering left eye, and there is also some fullness in the left face compared to the right. The size and dimension of the left eye orbit is smaller on the left compared to the right. In the posterior oropharynx, the patient has a very irregular vascular mass or Buying the soft palate and this is all just dating from the nasopharyngeal area and extending to the oropharynx and it is distorting the uvula. The masses very close to the tongue and the patient has significant crowding of the posterior pharynx. There is obvious anatomic distortion and shift of the structures due to this large mass that can be easily visualized on inspection. On the nasopharyngeal unable to visualize any abnormalities by routine examination. Eyes: EOMI, PERRLA - Neck Neck: no lymphadenopathy Thyroid: bilateral: normal size - Respiratory Respiratory: bilateral: diminished, coarse crackles over right lower lobe noted. No wheezing, no rhonchi - Cardiovascular Rhythm: regular Heart sounds: normal: S1, S2 - Gastrointestinal General gastrointestinal: normal bowel sounds, soft - Integumentary Integumentary: normal - Neurologic Neurologic: CNII-XII intact - Musculoskeletal Musculoskeletal: strength equal bilaterally - Psychiatric Psychiatric: A&O x's 3, appropriate affect - Labs CBC & Chem 7: 02/04/18 22:45 02/04/18 22:45 Assessment and Plan Plan: Assessment: 1 right upper lobe mass measuring 7 x 8 cm in size that is invading the mediastinum without evidence of any SVC compression and there is also lesion in the left lower lobe and questionable adrenal metastases as the patient has adrenal lesion measuring 2.8 cm in size. In addition the patient has involvement of the T2 vertebral spine and possibly the ribs posteriorly. Findings are very highly suspicious for primary bronchogenic cancer which is metastatic at this stage 2 left maxillary sinus mass extending through the sinus structures causing this section of the sinus bone and extending posteriorly into the nasopharynx and to the oropharynx and the patient has a large visualized mass in the posterior oropharyngeal wall causing significant anatomic obstruction and narrowing on routine examination. This could be another primary versus metastatic disease from the lungs. Patient is status post laryngoscopy and biopsy of the oropharyngeal mass on 02/06/2018, biopsy results pending 3 back and neck pain, likely related to underlying malignancy with a possibility of metastasis involving the skeletal system and the spine 4 COPD 5 smoker Plan Proceed with CT-guided fine-needle aspiration biopsy of the right upper lobe mass. Awaiting the results of the oropharyngeal mass biopsy. Patient denies any acute distress, no dyspnea, does have a occasional dry cough since her biopsy of the oropharyngeal mass, but is not causing her any acute distress. I performed a history & physical examination of the patient and discussed their management with my nurse practitioner, Samia Womack. I reviewed the nurse practitioner's note and agree with the documented findings and plan of care. Lung sounds are positive coarse rales over right posterior lower lobe. The findings and the impression was discussed with the patient. I attest to the documentation by the nurse practitioner. Time with Patient: Less than 30
--- NOTE | 2018-02-07 14:50 | PN ---
PROGRESS NOTE NARRATIVE: Patient had biopsy of a left soft palate lesion which is a maxillary mass yesterday. Pathology is still pending. She also has a pending workup of a right upper lung mass. This is not felt to be an operative mass and certainly in light of the fact that she has other issues with the lung mass. I will be out of town for the next few days and therefore will have the have Dr. Pimentel and Dr. Jon confer as far as her pathology. If there are any questions regarding this, Dr. Judge will be available or I could be reached through the office with my cell phone if necessary in the meantime. MMODL / IJN: [id number] /
--- NOTE | 2018-02-07 16:25 | PN ---
PROGRESS NOTE DATE OF SERVICE: 02/07/18. PRESENTING COMPLAINT: Pain right upper back. INTERVAL HISTORY: The patient presented with a maxillofacial mass and a lung mass. Dr. George did a biopsy of the mass in the mouth. The patient this afternoon is due for a fine-needle biopsy by Interventional Radiology. Pain is controlled. Breathing is stable. Daughter is at the bedside and a patient's cousin. REVIEW OF SYSTEMS: Done for constitutional, cardiovascular, GI, pulmonary; relevant findings as above. CURRENT MEDICATIONS: Reviewed include fentanyl patch. PHYSICAL EXAMINATION: Temperature 99, pulse 82, respiratory 16, blood pressure 156/73, pulse ox 95% on room air. GENERAL APPEARANCE: Sitting up, comfortable. EYES: Pupils equal. Conjunctivae normal. HEENT: Facial asymmetry present. There is a fullness in the left side of the face. Oral cavity mass in the roof of the mouth. LUNGS: Decreased breath sounds. No wheezing. CARDIOVASCULAR: First and second sounds, no edema. ABDOMEN: Soft, nontender. Liver and spleen not palpable. PSYCHIATRY: Alert and oriented x3. Mood and affect normal. INVESTIGATIONS: No blood work today. ASSESSMENT: 1. The patient presented with lung mass and a mass in the maxillary and the surrounding area with metastasis including the vertebral body, ribs, adrenal glands and spleen. 2. Chronic nicotine dependence in a cigarette smoker. 3. Emphysema in a smoker. PLAN: Await biopsy results. The patient is due for a fine-needle biopsy of the lung this afternoon. Care was discussed the patient and family at the bedside. MMODL / IJN: [id number] /
[2018-02-08] MEDS: DEXAMETHASONE SOD PHOSPHATE 4 MG/ML 1 ML VIAL IV SCH ×2 (05:33→12:47)
[2018-02-08] MEDS: IPRATROPIUM-ALBUTEROL 3 ML NEB INHALATION SCH ×2 (09:13→12:16)
[2018-02-08] MEDS: NICOTINE 21MG/24HR PATCH TRANSDERM SCH (09:51)
[2018-02-08] MEDS: MORPHINE SULFATE 4 MG/ML SYRINGE IVP PRN (10:02)
--- NOTE | 2018-02-08 10:33 | XR ---
EXAMINATION TYPE: XR chest 1V portable DATE OF EXAM: 02/08/2018 COMPARISON: NONE HISTORY: Post right lung biopsy TECHNIQUE: Single frontal view of the chest is obtained. FINDINGS: No sizable pneumothorax. Large right apical lung mass. Left lower lobe mass also seen. Und erlying COPD noted. Biapical pleural thickening. Diffuse osteopenia and arthropathy of the shoulders. IMPRESSION: 1. No pneumothorax post lung biopsy
--- NOTE | 2018-02-08 11:30 | CT ---
EXAMINATION TYPE: CT biopsy lung RT DATE OF EXAM: 02/08/2018 COMPARISON: NONE HISTORY: Rt lung mass bx CT DLP: 768 mGycm The procedure is discussed with the patient, the risks, complications, benefits and alternatives, wer e discussed and any questions were answered. Informed consent was obtained. The patient is placed p serge on the CT table, prepped and draped in the usual sterile fashion. Utilizing a 18-gauge core biopsy needle access into the right upper lobe mass was achieved with a sin gle 18-gauge core sample obtained. Pathology pending. All elements of maximal barrier and sterile t echnique were utilized. The patient remained stable throughout the procedure with no immediate postp rocedural complication. IMPRESSION: 1. Successful CT guided core biopsy of a right upper lobe lung mass
[2018-02-08] MEDS: NAPROXEN 250 MG TAB PO SCH (12:48)
[2018-02-08 13:08] VITALS: PULSE 73; RESP 18; TEMP 98.1
[2018-02-08 13:15] VITALS: BP 184/84
[2018-02-08] MEDS ORDERED: LISINOPRIL-HCTZ 20-12.5 MG 1 EACH TAB PO STA (13:38)
--- NOTE | 2018-02-08 13:42 | P.PN ---
Subjective Progress Note Date: 02/08/18 Principal diagnosis: Right upper lobe mass, rule out primary bronchogenic cancer with metastasis. Left maxillary sinus mass, rule out primary versus metastatic disease from the lungs 77-year-old female patient who presented to the hospital because of pain in her upper neck and upper back area posteriorly that has been gradually getting worse over this past few months. The patient prior to her presentation also felt some pain and discomfort and fullness across her left face and the face was becoming more asymmetric and swollen the left. She denied having any difficulties in swallowing. No hemoptysis. Upon arrival to the hospital the patient was found to have significant abnormalities. First and foremost, the CAT scan of the head and neck was done and showed significant amount of abnormality. Specifically, a large destructive mass was seen in the left side completely filling the left maxillary sinus and is throwing the posterior wall of the sinus and filling the left mastoid dural space and extending down to the left soft palate and extending into the nasopharynx and oropharynx. This is a large lesion and on physical exam we can visualize a large mass in the posterior oropharynx, completely invading through the soft palate and causing a shift and anatomic narrowing. The mass itself is very much vascular and irregular and friable. Note that the maxillary mass as mentioned and a CAT scan of the chest measures 4.5 x 7.4 x 6.9 cm in size. Also, a CAT scan of the chest was done that showed a 7 x 8 cm cm mass in the right upper lobe this during the right lateral aspect of the T2 vertebral spine and anterior aspect of the proximal right third rib. There is also mediastinal lymphadenopathy largest in the right hilum measuring 1.5 cm in size and there is additionally left lower lobe spiculated lesion measuring 2.2 x 1.8 x 2.1 cm in size and there is also background emphysema. And a indeterminate left adrenal mass lesion was seen 3.8 cm in size, suspicious for metastases. The patient denies having any difficulty in swallowing. She denies having any difficulties with speech. She denies having any hemoptysis. She has some chronic exertional dyspnea. She is mainly focused on her pain which is across the upper neck and upper back area. She is a chronic smoker. On 02/06/2018 patient seen in follow-up on oncology floor. She is resting comfortably in bed, in no acute distress. She is on room air, vital signs are stable, pulse ox is 96%. She is afebrile, lung sounds are positive for diminished breath sounds over right lower lobe, with scattered crackles. Clear on the left. Patient has slight speech slurring related to the oral pharyngeal mass originating from the left maxillary sinuses. She denies right shoulder blade or right neck pain today. She remains on Decadron IV. She is awaiting direct laryngoscopy, nasal endoscopy and biopsy of the oral pharyngeal mass by Dr. Rojas at 1700 this afternoon. She was seen by medical oncology, and radiation oncology. She is on fentanyl patch with morphine IV push for breakthrough pain. On 02/07/2018 patient seen in follow-up on oncology floor. She underwent laryngoscopy and biopsy of the oral pharyngeal mass by Dr. Rojas on 2017. Biopsy results are pending at this time. Patient was scheduled for CT- guided fine-needle aspiration biopsy of the right apical lung mass. She is on room air, with pulse ox of 95%. Hemodynamically stable, afebrile. Denies any acute distress, denies any acute dyspnea. Lung sounds are positive for crackles at the right lower lobe. She has an occasional dry nonproductive cough. She is tolerating oral intake. [place] any fever, chills, hemoptysis. On 02/08/2018 patient seen in follow-up. She is status post right apical pulmonary mass CT-guided fine-needle aspiration biopsy, tolerated the procedure well, no immediate complications were encountered. Patient has returned to her room on the oncology floor in stable condition. She denies any dyspnea, she is on room air, vital signs are stable. On sounds are positive for coarse rales over right lower lobe, clear on the left. Oropharyngeal mass biopsy from 2017 is still pending at this time. Patient remains on full liquid diet. Her right shoulder and neck pain are controlled at this time. She remains on a combination of IV Decadron, fentanyl patch and morphine for breakthrough pain, in addition to Naproxen. From pulmonary standpoint patient is stable for discharge home today, with follow-up with Dr. Galo early next week. Objective - Vital Signs Vital signs: Vital Signs Temp 98.1 F 02/08/18 13:06 Pulse 73 02/08/18 13:06 Resp 18 02/08/18 13:06 BP 160/74 02/08/18 13:06 Pulse Ox 97 02/08/18 13:06 Intake & Output 02/07/18 02/08/18 02/08/18 18:59 06:59 18:59 Intake Total 200 790 200 Balance 200 790 200 Intake: Oral 200 790 200 Other: Voiding Method Toilet Toilet Toilet # Voids 4 1 3 - Exam Constitutional General appearance: no acute distress - EENT Mild conjunctival injection and watering left eye, and there is also some fullness in the left face compared to the right. The size and dimension of the left eye orbit is smaller on the left compared to the right. In the posterior oropharynx, the patient has a very irregular vascular mass or Buying the soft palate and this is all just dating from the nasopharyngeal area and extending to the oropharynx and it is distorting the uvula. The masses very close to the tongue and the patient has significant crowding of the posterior pharynx. There is obvious anatomic distortion and shift of the structures due to this large mass that can be easily visualized on inspection. On the nasopharyngeal unable to visualize any abnormalities by routine examination. Eyes: EOMI, PERRLA - Neck Neck: no lymphadenopathy Thyroid: bilateral: normal size - Respiratory Respiratory: bilateral: diminished, coarse crackles over right lower lobe noted. No wheezing, no rhonchi - Cardiovascular Rhythm: regular Heart sounds: normal: S1, S2 - Gastrointestinal General gastrointestinal: normal bowel sounds, soft - Integumentary Integumentary: normal - Neurologic Neurologic: CNII-XII intact - Musculoskeletal Musculoskeletal: strength equal bilaterally - Psychiatric Psychiatric: A&O x's 3, appropriate affect - Labs CBC & Chem 7: 02/04/18 22:45 02/04/18 22:45 Assessment and Plan Plan: Assessment: 1 right upper lobe mass measuring 7 x 8 cm in size that is invading the mediastinum without evidence of any SVC compression and there is also lesion in the left lower lobe and questionable adrenal metastases as the patient has adrenal lesion measuring 2.8 cm in size. In addition the patient has involvement of the T2 vertebral spine and possibly the ribs posteriorly. Findings are very highly suspicious for primary bronchogenic cancer which is metastatic at this stage 2 left maxillary sinus mass extending through the sinus structures causing this section of the sinus bone and extending posteriorly into the nasopharynx and to the oropharynx and the patient has a large visualized mass in the posterior oropharyngeal wall causing significant anatomic obstruction and narrowing on routine examination. This could be another primary versus metastatic disease from the lungs. Patient is status post laryngoscopy and biopsy of the oropharyngeal mass on 02/06/2018, biopsy results pending 3 back and neck pain, likely related to underlying malignancy, MRI of the thoracic spine from 02/06/2018 showed large posterior medial right apical mass extending towards the exiting neural valencia. There is apparent direct invasion of the T2 level with extension towards the posterior wall. 4 COPD 5 smoker Plan Patient is status post CT-guided fine-needle biopsy of the right apical mass, tolerated the procedure well, denies any dyspnea, vital signs remain stable. No evidence of any complication postprocedure. From pulmonary standpoint she stable for discharge home today, with follow-up appointment with Dr. Galo early next week to go over the results of the right lung biopsy. Patient will also follow-up with Dr. George in regards to the biopsy results of the oropharyngeal mass, as well as follow-up with Dr. Pimentel I performed a history & physical examination of the patient and discussed their management with my nurse practitioner, Samia Womack. I reviewed the nurse practitioner's note and agree with the documented findings and plan of care. Lung sounds are positive coarse rales over right posterior lower lobe. The findings and the impression was discussed with the patient. I attest to the documentation by the nurse practitioner. Time with Patient: Less than 30
--- NOTE | 2018-02-08 23:23 | DS ---
DISCHARGE SUMMARY DATE OF ADMISSION: 02/05/2018. DATE OF DISCHARGE: 02/08/2018. FINAL DIAGNOSES: 1. Lung mass and maxillary mass with suspicious metastasis to the vertebral body, ribs, adrenal glands and spleen. 2. Chronic nicotine dependence in a cigarette smoker. 3. Emphysema in a smoker. 4. Essential hypertension, new diagnosis. HOSPITAL COURSE: This patient presented with upper back pain, found to have a mass in the maxilla extending to the roof of the mouth and also right lung mass extending to the vertebral body, ribs, and possibly involving the spleen and adrenal gland. Interventional Radiology did carry out a fine-needle core biopsy of the lung today. Dr. George did a biopsy of the oromaxillary mass, results of which are pending. The patient, post procedure, is doing well. I did talk to the patient and daughter. They will follow up on the biopsy results with different consultants. Prognosis does not appear to be good. CONSULTATIONS: 1. Dr. Hinds/Clover from Pulmonary. 2. Dr. Scott from Interventional Radiology. 3. Dr. Pimentel from Oncology. 4. Dr. George from ENT. DISCHARGE MEDICATIONS: 1. Dexamethasone 4 mg p.o. q.i.d. 2. DuoNeb t.i.d. 3. Zestoretic 16/11.5 one tab p.o. b.i.d. 4. Naproxen 5 mg p.o. b.i.d. 5. Nicotine patch. 6. Fentanyl 25 mcg patch every 72 hours. FOLLOWUP: 1. Dr. Pimentel on 02/15/2018. 2. Dr. Gonzalez on 02/14/2018. 3. Dr. George on 02/15/2018. 4. Dr. Galo on 03/21/2018. EXAM: Lungs decreased breath sounds. The patient has a mass in the oromaxillary area. Psychiatry, AO x3. . MMODL / IJN: [id number] /
== END 2018-02-08 16:25 | disposition home or self-care (01) | DRG 137 ==
LOC: EC 19:38 → 5ONC 22:36 → OBSVTOIN 02-05 16:56
PROVIDERS: ADMIT Hospitalist; ATTEND Hospitalist
PROC: 0CJY8ZZ Inspection of Mouth and Throat, Via Natural or Artificial Opening Endoscopic (ICD-10-PCS; 2018-02-05)
PROC: 0CJS8ZZ Inspection of Larynx, Via Natural or Artificial Opening Endoscopic (ICD-10-PCS; 2018-02-05)
PROC: 0CB3XZX Excision of Soft Palate, External Approach, Diagnostic (ICD-10-PCS; principal; 2018-02-06 12:35)
PROC: 0CJS8ZZ Inspection of Larynx, Via Natural or Artificial Opening Endoscopic (ICD-10-PCS; 2018-02-06 12:35)
PROC: 0BBC3ZX Excision of Right Upper Lung Lobe, Percutaneous Approach, Diagnostic (ICD-10-PCS; 2018-02-08)
DX: C31.0 Malignant neoplasm of maxillary sinus (principal); C34.11 Malignant neoplasm of upper lobe, right bronchus or lung; C79.51 Secondary malignant neoplasm of bone; C79.72 Secondary malignant neoplasm of left adrenal gland; J43.9 Emphysema, unspecified; F17.210 Nicotine dependence, cigarettes, uncomplicated; G89.3 Neoplasm related pain (acute) (chronic); I10 Essential (primary) hypertension
CPT/HCPCS: 36415; 71045; 71260; 72157; 77012; 77334; 80053; 82550; 82553; 83735; 84100; 84484; 85025; 85610; 85730; 88305; 88341; 88342; 93005; 94640; 96361; 96374; 99285

== ENCOUNTER → 2018-02-11 | Outpatient (CLI) | payer MEDICARE ==
--- NOTE | 2018-02-14 15:52 | PE ---
EXAMINATION TYPE: PET CT fusion skull to thigh DATE OF EXAM: 02/11/2018 COMPARISON: Exams dated 02/01/2018, 02/05/2018, 02/06/2018 and 02/08/2018. HISTORY: Initial treatment strategy (PS). 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 No prior radiation therapy, ch emotherapy, or surgical excision. TECHNIQUE: Following the intravenous administration of 13.742 mCi of F-18 FDG, whole body images are performed from the skull base to the midthigh. Images are reviewed on the computer in the coronal, axial, and sagittal planes. Reconstructed rotating images are created on independent workstation and reviewed on the computer. A localization and attenuation correction CT is performed in conjunction with the PET scan. SCAN: Initial FINDINGS: Mediastinal background: 2.03 Abdominal background: 2.81 SKULL BASE AND NECK: There is hypermetabolic activity within the expansile, destructive, erosive lef t maxillary mass that extends into the jig and fixture builder apprentice space, nasopharynx and oropharynx. The maximum SUV of this mass is 14.47. Again this is difficult to accurately measure however this measures at least u p to 7.0 x 6.4 cm in anterior posterior by transverse dimension. Incidental note is made of upper eso phageal activity with a maximum SUV of 2.89, likely physiologic. CHEST, MEDIASTINUM, AND HILAR REGION: Intense hypermetabolic activity is seen of predominantly the pe riphery of the right low upper lobe mass with central necrosis measuring at least 9.9 x 6.9 cm. Maxim um SUV of 22.88. This mass is again noted to be destructive of the T3 vertebral body and rib with upt tiffani in the T3 vertebral body of up to 9.76. This mass also blends in with right hilar medial temporal lymph nodes. No enlarged pretracheal, right paratracheal, left paratracheal, subcarinal, or left hil ar adenopathy is seen. No supraclavicular adenopathy is noted. The left lower lobe approximately 2.3 cm pulmonary nodule is also hypermetabolic with a maximum SUV of 6.33. ABDOMEN AND PELVIS: No suspicious hypermetabolic uptake. Physiologic excretion is seen within an ecta tic right ureter and right lateral urinary bladder diverticulum. The previously seen indeterminate le ft adrenal gland mass measuring 3.8 cm demonstrates fat attenuation on this noncontrast exam and is c ompatible with a benign adrenal myelolipoma or lipid rich adenoma. No hypermetabolic uptake is seen w ithin this adrenal gland mass. No uptake is seen within the indeterminate splenic lesions, favored to represent benign cysts or lymphangiomas. OSSEOUS STRUCTURES: Diffuse osseous activity is similar to that of abdominal background with a maximu m SUV of 2.86 (abdominal background 2.81). OTHER CT: There is moderate background centrilobular emphysematous change. Biliary sludge is incident ally noted within the gallbladder. Extensive calcific atheromatous changes are seen of the abdominal aorta and its branches. No evidence of bowel dilatation. Moderate amount retained colonic stool is no jasmyne. The unenhanced liver, pancreas, right adrenal gland kidneys are grossly unremarkable. No focal s uspicious osseous lesion. IMPRESSION: 1. Large erosive and destructive left maxillary sinus mass extending into the nasopharynx and orophar ynx as well as the jig and fixture builder apprentice space, biopsy-proven neoplasm, with no surrounding adjacent adenopathy or suspicious hypermetabolic adenopathy within the head or neck. 2. Aggressive and erosive right upper lobe pulmonary mass (biopsy proven neoplasm) with intense hyper metabolic activity and findings compatible with contralateral metastasis of the left lower lobe as we ll as metastatic right hilar adenopathy. Focal hypermetabolic uptake activity within the T3 vertebral body and rib relate to the osseous erosion. 3. No evidence of intra-abdominal metastatic disease below the diaphragm.
== END | disposition home or self-care (01) ==
LOC: RADPETMAIN 14:28
PROVIDERS: ATTEND Internal Medicine Hematology & Oncology
DX: C34.11 Malignant neoplasm of upper lobe, right bronchus or lung (principal); C31.0 Malignant neoplasm of maxillary sinus
CPT/HCPCS: 78815; A9552

== ENCOUNTER 2018-02-19 00:09 | Inpatient (IN) | payer MEDICARE ==
--- NOTE | 2018-02-19 00:29 | ED ---
Dizziness HPI - General Chief Complaint: Dizziness Stated Complaint: Dizziness Time Seen by Provider: 02/19/18 00:18 Source: patient, family, EMS Mode of arrival: EMS Limitations: no limitations - History of Present Illness Initial Comments: This patient is a 77-year-old woman who presents to be evaluated for constellation of symptoms that are been developing over the course the evening. She was having some dizziness, feeling nauseated, and vomited 3 times feeling clammy and having some generalized weakness and fatigue. The symptoms did come on tonight after she had taken medication. Patient's daughters phoned her oncologist who recommended that they go to the emergency department if the symptoms did not resolve. When the symptoms continued she presented here. 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 She was scheduled to start oncology treatments next week. MD Complaint: dizziness -: hour(s) Description: off-balance History of Same: No History of Trauma: No Severity: severe Improves With: nothing Worsens With: nothing Associated Symptoms: weakness - Related Data Home Medications Medication Instructions Recorded Confirmed Dexamethasone 4 mg PO TID 02/19/18 02/19/18 HYDROcodone/APAP 5-325MG [[place] 1 tab PO Q4H PRN 02/19/18 02/19/18 5-325] Omeprazole [PriLOSEC] 40 mg PO AC-BID 02/19/18 02/19/18 Previous Rx's Medication Instructions Recorded Ipratropium-Albuterol Nebulize 3 ml INHALATION RT-TID #90 02/08/18 [Duoneb 0.5 mg-3 mg/3 ml Soln] ampul.neb Naproxen [Naprosyn] 500 mg PO BID #30 tab 02/08/18 fentaNYL 25MCG/HR PATCH [Duragesic 1 patch TRANSDERM Q72H #5 patch 02/08/18 25MCG/HR] Allergies Allergy/AdvReac Type Severity Reaction Status Date / Time No Known Allergies Allergy Verified 02/19/18 00:13 Review of Systems ROS Statement: Those systems with pertinent positive or pertinent negative responses have been documented in the HPI. ROS Other: All systems not noted in ROS Statement are negative. Constitutional: Reports: chills, weakness. Denies: fever Respiratory: Denies: cough, dyspnea Cardiovascular: Denies: chest pain, palpitations Gastrointestinal: Reports: nausea, vomiting, constipation. Denies: abdominal pain, diarrhea Genitourinary: Denies: dysuria, hematuria Musculoskeletal: Reports: back pain Skin: Denies: rash Neurological: Reports: weakness. Denies: headache, numbness, paresthesias Past Medical History Past Medical History: No Reported History Additional Past Medical History / Comment(s): Multiple skin cancers removed, Lung CA (per daughter cancer is within neck/head.) History of Any Multi-Drug Resistant Organisms: None Reported Past Surgical History: Orthopedic Surgery Additional Past Surgical History / Comment(s): ankle Past Anesthesia/Blood Transfusion Reactions: No Reported Reaction Past Psychological History: No Psychological Hx Reported Smoking Status: Former smoker Past Alcohol Use History: Occasional Past Drug Use History: None Reported - Past Family History Father Family Medical History: No Reported History, Unable to Obtain Mother Family Medical History: CVA/TIA General Exam Limitations: no limitations General appearance: alert, in no apparent distress, cachectic Head exam: Present: atraumatic, normocephalic Eye exam: Present: normal appearance. Absent: scleral icterus, conjunctival injection ENT exam: Present: other (Patient has mass from the hard palate, there is an open ulcer healing by secondary intention related to recent biopsy.) Neck exam: Present: normal inspection, full ROM Respiratory exam: Present: normal lung sounds bilaterally, wheezes (Trace expiratory wheeze). Absent: respiratory distress, rales, rhonchi, stridor Cardiovascular Exam: Present: normal rhythm, bradycardia (Rate proximally 56 bpm ), normal heart sounds. Absent: systolic murmur, diastolic murmur, rubs, gallop GI/Abdominal exam: Present: soft, hypoactive bowel sounds. Absent: distended, tenderness, guarding, rebound, organomegaly, mass, bruit Extremities exam: Present: normal inspection, normal capillary refill. Absent: pedal edema, calf tenderness Back exam: Present: normal inspection. Absent: CVA tenderness (R), CVA tenderness (L) Neurological exam: Present: alert. Absent: motor sensory deficit Skin exam: Present: warm, dry, intact, normal color. Absent: rash Course Vital Signs 02/19/18 02/19/18 02/19/18 00:13 00:34 00:39 Temperature 96.5 F L Pulse Rate 56 L 57 L Pulse Rate [ 57 L Radiologist ] Respiratory 18 18 Rate Blood Pressure 180/79 158/70 O2 Sat by Pulse 96 96 Oximetry 02/19/18 01:53 Temperature 97.0 F L Pulse Rate 64 Pulse Rate [ Radiologist ] Respiratory 18 Rate Blood Pressure 155/66 O2 Sat by Pulse 97 Oximetry Medical Decision Making - Lab Data Result diagrams: 02/19/18 00:30 02/19/18 00:30 Lab Results 02/19/18 02/19/18 02/19/18 Range/Units 00:30 00:30 00:30 WBC 17.7 H (3.8-10.6) k/uL RBC 4.92 (3.80-5.40) m/uL Hgb 13.2 (11.4-16.0) gm/dL Hct 40.7 (34.0-46.0) % MCV 82.7 (80.0-100.0) fL MCH 26.8 (25.0-35.0) pg MCHC 32.3 (31.0-37.0) g/dL RDW 13.8 (11.5-15.5) % Plt Count 405 (150-450) k/uL Neutrophils % 91 % Lymphocytes % 3 % Monocytes % 4 % Eosinophils % 0 % Basophils % 0 % Neutrophils # 16.2 H (1.3-7.7) k/uL Lymphocytes # 0.5 L (1.0-4.8) k/uL Monocytes # 0.8 (0-1.0) k/uL Eosinophils # 0.0 (0-0.7) k/uL Basophils # 0.0 (0-0.2) k/uL PT 10.2 (9.0-12.0) sec INR 1.0 (<1.2) APTT 21.0 L (22.0-30.0) sec D-Dimer 1.30 H (<0.60) mg/L FEU Sodium 124 L (137-145) mmol/L Potassium 4.8 (3.5-5.1) mmol/L Chloride 94 L (98-107) mmol/L Carbon Dioxide 21 L (22-30) mmol/L Anion Gap 9 mmol/L BUN 25 H (7-17) mg/dL Creatinine 0.40 L (0.52-1.04) mg/dL Est GFR (CKD-EPI)AfAm >90 (>60 ml/min/1.73 sqM) Est GFR (CKD-EPI)NonAf >90 (>60 ml/min/1.73 sqM) Glucose 139 H (74-99) mg/dL Calcium 9.5 (8.4-10.2) mg/dL Magnesium 2.0 (1.6-2.3) mg/dL Total Bilirubin 0.6 (0.2-1.3) mg/dL AST 13 L (14-36) U/L ALT 16 (9-52) U/L Alkaline Phosphatase 101 (38-126) U/L Troponin I (0.000-0.034) ng/mL Total Protein 6.2 L (6.3-8.2) g/dL Albumin 3.4 L (3.5-5.0) g/dL Urine Color Urine Appearance (Clear) Urine pH (5.0-8.0) Ur Specific [place] (1.001-1.035) Urine Protein (Negative) Urine Glucose (UA) (Negative) Urine Ketones (Negative) Urine Blood (Negative) Urine Nitrite (Negative) Urine Bilirubin (Negative) Urine Urobilinogen (<2.0) mg/dL Ur Leukocyte Esterase (Negative) 02/19/18 02/19/18 Range/Units 00:30 01:50 WBC (3.8-10.6) k/uL RBC (3.80-5.40) m/uL Hgb (11.4-16.0) gm/dL Hct (34.0-46.0) % MCV (80.0-100.0) fL MCH (25.0-35.0) pg MCHC (31.0-37.0) g/dL RDW (11.5-15.5) % Plt Count (150-450) k/uL Neutrophils % % Lymphocytes % % Monocytes % % Eosinophils % % Basophils % % Neutrophils # (1.3-7.7) k/uL Lymphocytes # (1.0-4.8) k/uL Monocytes # (0-1.0) k/uL Eosinophils # (0-0.7) k/uL Basophils # (0-0.2) k/uL PT (9.0-12.0) sec INR (<1.2) APTT (22.0-30.0) sec D-Dimer (<0.60) mg/L FEU Sodium (137-145) mmol/L Potassium (3.5-5.1) mmol/L Chloride (98-107) mmol/L Carbon Dioxide (22-30) mmol/L Anion Gap mmol/L BUN (7-17) mg/dL Creatinine (0.52-1.04) mg/dL Est GFR (CKD-EPI)AfAm (>60 ml/min/1.73 sqM) Est GFR (CKD-EPI)NonAf (>60 ml/min/1.73 sqM) Glucose (74-99) mg/dL Calcium (8.4-10.2) mg/dL Magnesium (1.6-2.3) mg/dL Total Bilirubin (0.2-1.3) mg/dL AST (14-36) U/L ALT (9-52) U/L Alkaline Phosphatase (38-126) U/L Troponin I <0.012 (0.000-0.034) ng/mL Total Protein (6.3-8.2) g/dL Albumin (3.5-5.0) g/dL Urine Color Yellow Urine Appearance Clear (Clear) Urine pH 7.0 (5.0-8.0) Ur Specific [place] 1.010 (1.001-1.035) Urine Protein Negative (Negative) Urine Glucose (UA) Negative (Negative) Urine Ketones Negative (Negative) Urine Blood Negative (Negative) Urine Nitrite Negative (Negative) Urine Bilirubin Negative (Negative) Urine Urobilinogen <2.0 (<2.0) mg/dL Ur Leukocyte Esterase Negative (Negative) - EKG Data -: EKG Interpreted by Mo EKG shows normal: sinus rhythm, axis (Normal), intervals (Normal), QRS complexes (Normal), ST-T waves (Normal) Rate: bradycardia (Rate 55 bpm) Interpretation: normal EKG Disposition Clinical Impression: Metastatic cancer, Hyponatremia Disposition: ADMITTED IP TO THIS HOSP
[2018-02-19 00:42] LABS: Basophils % (A) 0 %; Eosinophils % (A) 0 %; HCT 40.7 % (34.0-46.0); HGB 13.2 gm/dL (11.4-16.0); Lymphocytes # (A) 0.5 k/uL (1.0-4.8); Lymphocytes % (A) 3 %; MCH 26.8 pg (25.0-35.0); MCHC 32.3 g/dL (31.0-37.0); MCV 82.7 fL (80.0-100.0); Mean Platelet Volume 7.6; Monocytes # (A) 0.8 k/uL (0-1.0); Monocytes % (A) 4 %; Neutrophils # (A) 16.2 k/uL (1.3-7.7); Neutrophils % (A) 91 %; Platelet Count 405 k/uL (150-450); RBC 4.92 m/uL (3.80-5.40); RDW 13.8 % (11.5-15.5); WBC 17.7 k/uL (3.8-10.6)
[2018-02-19 00:53] LABS: ALT 16 U/L (9-52); AST 13 U/L (14-36); Albumin 3.4 g/dL (3.5-5.0); Alkaline Phosphatase 101 U/L (38-126); Anion Gap 9 mmol/L; Blood Urea Nitrogen 25 mg/dL (7-17); Calcium 9.5 mg/dL (8.4-10.2); Carbon Dioxide 21 mmol/L (22-30); Chloride 94 mmol/L (98-107); Glucose 139 mg/dL (74-99); Potassium 4.8 mmol/L (3.5-5.1); Sodium 124 mmol/L (137-145); Total Bilirubin 0.6 mg/dL (0.2-1.3); Total Protein 6.2 g/dL (6.3-8.2)
[2018-02-19 00:57] LABS: D-Dimer 1.3 mg/L FEU (<0.60)
[2018-02-19 01:03] LABS: Prothrombin Time 10.2 sec (9.0-12.0)
--- NOTE | 2018-02-19 01:04 | XR ---
EXAM: XR Chest, 1 View CLINICAL HISTORY: ITS.REASON XR Reason: syncope TECHNIQUE: Frontal view of the chest. COMPARISON: 02/08/18 IMPRESSION: No significant change since 02/08/18. No acute cardiopulmonary process. Mass in the right apical lung is again seen.
[2018-02-19 02:06] LABS: Appearance,Urine Clear (Clear); Bilirubin,Urine Negative (Negative); Blood,Urine Negative (Negative); Color,Urine Yellow; Glucose,Urine (UA) Negative (Negative); Ketones,Urine Negative (Negative); Leukocyte Esterase,Urine Negative (Negative); Nitrite,Urine Negative (Negative); Protein,Urine Negative (Negative); Urobilinogen,Urine <2.0 mg/dL (<2.0)
[2018-02-19] MEDS ORDERED: NALOXONE 0.4 MG/ML 1 ML VIAL IV PRN (02:23)
[2018-02-19] MEDS ORDERED: DOCUSATE 100 MG CAP PO PRN (02:23)
[2018-02-19] MEDS ORDERED: ACETAMINOPHEN TAB 325 MG TAB PO PRN (02:23)
[2018-02-19] MEDS ORDERED: ONDANSETRON 4 MG/2 ML VIAL IVP PRN (02:23)
[2018-02-19] MEDS ORDERED: RX INFO: IV CONTRAST WAS GIVEN 1 EACH MISC MISCELLANE PRN (02:25)
--- NOTE | 2018-02-19 03:03 | CT ---
EXAM: CT Angiography Chest With Intravenous Contrast CLINICAL HISTORY: ITS.REASON CT Reason: Pain TECHNIQUE: Axial computed tomographic angiography images of the chest with intravenous contrast using pulmonary embolism protocol. CTDI is 18 mGy and DLP is 250 mGy-cm. This CT exam was performed using one or more of the following dose reduction techniques: automated exposure control, adjustment of the mA and/or kV according to patient size, and/or use of iterative reconstruction technique. MIP reconstructed images were created and reviewed. COMPARISON: 02/05/2018 CTA of the chest IMPRESSION: No pulmonary embolism. No new acute changes. Otherwise unchanged right apical lung mass in addition to smaller lesions in the left lower lobe compared to 02/05/2018.
[2018-02-19] MEDS: MORPHINE SULFATE/PF 10MG/10ML VL IV PRN ×4 (03:46→21:09)
[2018-02-19] MEDS: SODIUM CHLORIDE 0.9% 1,000 ML IV SCH ×4 (03:47→23:18)
[2018-02-19] MEDS: IPRATROPIUM-ALBUTEROL 3 ML NEB INHALATION SCH ×3 (07:24→21:27)
[2018-02-19] MEDS: DEXAMETHASONE 4 MG TAB PO SCH ×4 (08:01→21:11)
[2018-02-19] MEDS: NAPROXEN 250 MG TAB PO SCH ×2 (08:01→21:10)
[2018-02-19] MEDS: PANTOPRAZOLE 40 MG TABLET PO SCH ×2 (09:27→16:50)
[2018-02-19] MEDS: SODIUM CHLORIDE TAB 1 GM TAB PO SCH ×2 (17:30→21:10)
[2018-02-19] MEDS: HYDROcodone/APAP 5-325MG 1 EACH TAB PO PRN (22:34)
[2018-02-19 23:08] VITALS: RESP 16
--- NOTE | 2018-02-20 00:01 | HP ---
HISTORY AND PHYSICAL PRESENTING COMPLAINT: Weak, tired, dizzy. HISTORY OF PRESENTING COMPLAINT: This is a pleasant 77-year-old patient who was in the hospital about 10 days ago. The patient unfortunately was found to have two tumors, one in the oral cavity and another one in the lung. Biopsies of both were carried out. 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 The patient was due to be started on chemotherapy by Dr. Pimentel shortly. The patient at home became very dizzy, lethargic, has not been eating much, only drinking some water. Was brought into the ER. The patient was discovered to have a sodium down to 124. Admitted for the same. The patient has been feeling weak and tired. Decreased appetite. Does have a bowel movement. Pain is reasonably controlled. REVIEW OF SYSTEMS: CONSTITUTIONAL: Tired, decreased appetite. Weight loss. HEENT: Tumor mass in the mouth. RESPIRATORY: Baseline some shortness of breath. CARDIOVASCULAR: None. GASTROINTESTINAL: None. GENITOURINARY: None. MUSCULOSKELETAL: None. DERMATOLOGIC: None. HEMATOLOGIC: None. LYMPHATICS: None. PSYCHIATRY: Some anxiety. NEUROLOGICAL: None. PAST MEDICAL HISTORY: Primary salivary gland tumor, adenocarcinoma, lung cancer, squamous cell, emphysema, essential hypertension but now blood pressure medications discontinued because blood pressure is running low. PAST SURGICAL HISTORY: Orthopedic surgery, ankle biopsy . SOCIAL HISTORY: The patient has smoked a pack a day for many years up until about 2 weeks ago. Living by herself. Alcohol occasionally in the past. FAMILY HISTORY: Reviewed and noncontributory to presentation. HOME MEDICATIONS: 1. Fentanyl 25 mcg patch every 72 hours. 2. Prilosec 40 mg b.i.d. 3. DuoNeb t.i.d. 4. [place] 5 one tab q.4h p.r.n. 5. Dexamethasone 4 mg t.i.d. ALLERGIES: None. PHYSICAL EXAMINATION: VITAL SIGNS ON PRESENTATION: Temperature 96.5, pulse 56, respiratory 18, blood pressure 158/70, pulse 96% on room air. Blood pressure later today 117/65. GENERAL APPEARANCE: Sitting up, tired appearing. EYES: Pupils equal. Conjunctivae pale. HEENT: External nose and ears normal. Oral cavity, soft palate tumor. Respiratory effort increased. LUNGS: Diminished breath sounds. CARDIOVASCULAR: First and second sounds, no edema. ABDOMEN: Soft, nontender. Liver and spleen not palpable. LYMPHATIC: No lymph node palpable in the neck or axillae. PSYCHIATRY: Alert and oriented x3. Mood and affect anxious-appearing. MUSCULOSKELETAL: Diffuse wasting of muscle, BMI 18.7. INVESTIGATIONS: White count 13.7, hemoglobin 13.2, sodium 124, potassium 4.8, BUN 25, creatinine 0.40, albumin 3.4. ASSESSMENT: 1. Hyponatremia suspect hypoosmolar from decreased solid intake, component of SIADH cannot be ruled out. 2. Metabolic acidosis. 3. Moderate protein calorie malnutrition with decreased muscle mass, low albumin from poor oral intake. 4. Emphysema. 5. likely reactive. PLAN: Patient is put on normal saline. Free fluids will be cut back. The patient will be put on fluid restriction of 1000 mL a day. Salt tablets also added. We will also add some bicarbonate. The patient's pain is otherwise controlled. Care was discussed at length with the patient's family at the bedside including her sister and daughter. It was emphasized that the patient will need some help at home and they will look into that. Perhaps the social work lecturer will look at the same. At the same time we will add some nutritional supplement. MMODL / IJN: [id number] /
[2018-02-20 05:58] VITALS: BP 123/66; TEMP 97.4
[2018-02-20] MEDS: DEXAMETHASONE 4 MG TAB PO SCH ×2 (07:45→13:51)
[2018-02-20] MEDS: SODIUM CHLORIDE TAB 1 GM TAB PO SCH ×2 (07:45→13:50)
[2018-02-20] MEDS: PANTOPRAZOLE 40 MG TABLET PO SCH (07:45)
[2018-02-20] MEDS: MORPHINE SULFATE/PF 10MG/10ML VL IV PRN (07:45)
[2018-02-20] MEDS: NAPROXEN 250 MG TAB PO SCH (07:47)
[2018-02-20] MEDS: IPRATROPIUM-ALBUTEROL 3 ML NEB INHALATION SCH ×2 (08:12→13:11)
[2018-02-20 08:42] LABS: Basophils % (A) 0 %; Eosinophils % (A) 0 %; HCT 37.4 % (34.0-46.0); HGB 11.6 gm/dL (11.4-16.0); Lymphocytes # (A) 0.9 k/uL (1.0-4.8); Lymphocytes % (A) 5 %; MCH 26.5 pg (25.0-35.0); MCHC 30.9 g/dL (31.0-37.0); MCV 85.6 fL (80.0-100.0); Mean Platelet Volume 7.7; Monocytes # (A) 0.8 k/uL (0-1.0); Monocytes % (A) 4 %; Neutrophils # (A) 16.5 k/uL (1.3-7.7); Neutrophils % (A) 90 %; Platelet Count 345 k/uL (150-450); RBC 4.38 m/uL (3.80-5.40); RDW 14.3 % (11.5-15.5); WBC 18.4 k/uL (3.8-10.6)
[2018-02-20 08:57] LABS: Anion Gap 9 mmol/L; Blood Urea Nitrogen 17 mg/dL (7-17); Calcium 9.7 mg/dL (8.4-10.2); Carbon Dioxide 26 mmol/L (22-30); Chloride 98 mmol/L (98-107); Glucose 90 mg/dL (74-99); Potassium 4.9 mmol/L (3.5-5.1); Sodium 133 mmol/L (137-145)
[2018-02-20] MEDS: HYDROcodone/APAP 5-325MG 1 EACH TAB PO PRN (10:24)
[2018-02-20 11:18] VITALS: BMI 18.7
[2018-02-20] MEDS ORDERED: DOCUSATE 100 MG CAP PO SCH (11:30)
[2018-02-20] MEDS ORDERED: HYDROcodone/APAP 5-325MG 1 EACH TAB PO PRN (11:30)
--- NOTE | 2018-02-20 13:05 | P.CONS ---
History of Present Illness - Reason for Consult Consult date: 02/20/18 2 primary malignancies Requesting physician: Florentin Celestin - Chief Complaint confusion, weakness, vomiting Review of Systems 10 point ROS as stated in HPI Past Medical History Past Medical History: No Reported History Additional Past Medical History / Comment(s): Multiple skin cancers removed, Lung CA (per daughter cancer is within neck/head.) History of Any Multi-Drug Resistant Organisms: None Reported Past Surgical History: Orthopedic Surgery Additional Past Surgical History / Comment(s): ankle Past Anesthesia/Blood Transfusion Reactions: No Reported Reaction Past Psychological History: No Psychological Hx Reported Smoking Status: Former smoker Past Alcohol Use History: Occasional Past Drug Use History: None Reported - Past Family History Father Family Medical History: No Reported History, Unable to Obtain Mother Family Medical History: CVA/TIA Medications and Allergies Home Medications Medication Instructions Recorded Confirmed Type Ipratropium-Albuterol Nebulize 3 ml INHALATION RT-TID #90 02/08/18 02/19/18 Rx [Duoneb 0.5 mg-3 mg/3 ml Soln] ampul.neb fentaNYL 25MCG/HR PATCH [Duragesic 1 patch TRANSDERM Q72H #5 patch 02/08/18 Rx 25MCG/HR] Dexamethasone 4 mg PO TID 02/19/18 History Dexamethasone See Taper PO DIRECTED 02/19/18 History Docusate [Colace] 200 mg PO HS 02/19/18 02/19/18 History HYDROcodone/APAP 5-325MG [[place] 1 tab PO Q4H PRN 02/19/18 02/19/18 History 5-325] Omeprazole [PriLOSEC] 40 mg PO AC-BID 02/19/18 02/19/18 History Allergies Allergy/AdvReac Type Severity Reaction Status Date / Time No Known Allergies Allergy Verified 02/19/18 07:53 Physical Exam Vitals: Vital Signs Temp Pulse Pulse Pulse Resp BP Pulse Ox 02/20/18 08:23 72 02/20/18 08:13 70 02/20/18 05:57 97.4 F L 97 16 123/66 99 02/19/18 23:00 96.6 F L 92 16 161/70 94 L 02/19/18 21:41 78 02/19/18 21:30 78 97 02/19/18 21:28 57 L 72 18 02/19/18 15:00 97.0 F L 72 18 117/65 98 Intake and Output 02/19/18 02/20/18 02/20/18 22:59 06:59 14:59 Intake Total 800 Output Total 4 Balance -4 800 Intake: Intake, IV Titration 800 Amount Sodium Chloride 0.9% 1, 800 000 ml @ 120 mls/hr IV . Q8H20M GRABIEL Rx#:[id number] Output: Stool 4 Other: # Voids 1 Weight 52.617 kg 52.617 kg - Constitutional General appearance: cooperative, no acute distress, thin - EENT left posterior hard/soft palet mass, approx 5cm, necrotic center, no bleeding or drainage, no airway/esophageal obstruction, no thrush Eyes: anicteric sclerae, EOMI - Neck Neck: no lymphadenopathy - Respiratory Respiratory: right: other (peripheral broncial breath sounds), left: diminished - Cardiovascular Rhythm: regular leg Peripheral Edema: bilateral: None - Gastrointestinal General gastrointestinal: normal bowel sounds, soft - Integumentary Integumentary: normal - Neurologic Neurologic: CNII-XII intact - Musculoskeletal Musculoskeletal: strength equal bilaterally - Psychiatric Psychiatric: A&O x's 3, appropriate affect, intact judgment & insight Results CBC & Chem 7: 02/20/18 08:06 02/20/18 08:06 Labs: Abnormal Lab Results - Last 24 Hours (Table) 02/20/18 02/20/18 Range/Units 08:06 08:06 WBC 18.4 H (3.8-10.6) k/uL MCHC 30.9 L (31.0-37.0) g/dL Neutrophils # 16.5 H (1.3-7.7) k/uL Lymphocytes # 0.9 L (1.0-4.8) k/uL Sodium 133 L (137-145) mmol/L Creatinine 0.46 L (0.52-1.04) mg/dL Chest x-ray: report reviewed CT scan - chest: report reviewed Assessment and Plan (1) Hyponatremia Narrative/Plan: Likely the underlying cause of her presenting symptoms. Likely secondary to malignancy. Presenting symptoms are much improved with correction of Na+. Pt will need to have Na+ supplementation and monitoring, it may improve with treatment of malignancy. 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 Plan is for neoadjuvant chemo followed by chem/radiation. There is potential for cure as the 2 masses (tonsil and lung ) represent primary malignancies with no definite evidence of metastatic disease. Pt is due to start chemotherapy this . She will keep this appt. Pt has requested her PPI Rx be changed to 40mg so she does not have to take as many pills at home-this will be prescribed. Pt has been using norco 1 tab every 4 hours, Rx adjusted Cont 2 colace daily Pt will need bicarb Rx
[2018-02-20 13:28] VITALS: PULSE 72
[2018-02-20] MEDS: SODIUM CHLORIDE 0.9% 1,000 ML IV SCH (13:44)
--- NOTE | 2018-02-21 06:13 | DS ---
DISCHARGE SUMMARY DATE OF ADMISSION: 02/19/2018. DATE OF DISCHARGE: 02/20/2018. FINAL DIAGNOSES: 1. Hyponatremia suspect hypoosmolar. 2. Metabolic acidosis. 3. Moderate protein calorie malnutrition from decreased oral intake. 4. Emphysema. 5. Squamous cell carcinoma of the lung. 6. Adenocarcinoma of the salivary glands. HOSPITAL COURSE: This pleasant, but unfortunate lady with 2 dual primary cancers as above presented not feeling well, tired, dizziness. Found to have a low sodium of 124. The patient responded well to IV fluids and salt tablets. Sodium did come up to 133. Feeling much better today, tolerating a diet. The patient is due to get chemotherapy by Dr. Pimentel. Care was discussed with the patient's sister. They are arranging for some help at home. Patient told to keep her salt intake a bit up. The patient's pain is well controlled with current medications. CONSULTATION: Dr. Pimentel from Oncology. DISCHARGE MEDICATIONS: 1. DuoNeb t.i.d. 2. Duragesic patch every 72 hours. 3. Dexamethasone 4 mg t.i.d. 4. [place] 5 one tablet q.4 p.r.n. 5. Protonix 40 mg a day. 6. Metamucil 0.4 gram p.o. q.48 hours. Follow up with Amanda Art on 02/22/2018; Dr. Gonzalez in 3 days. Diet as advised to the patient. MMSOFYL / GEETHA: [id number] /
== END 2018-02-20 15:47 | disposition home health service (06) | DRG 641 ==
LOC: EC 00:09 → 4MS4W 02:23
PROVIDERS: ADMIT Hospitalist; ATTEND Hospitalist
DX: E87.1 Hypo-osmolality and hyponatremia (principal); E44.0 Moderate protein-calorie malnutrition; C34.91 Malignant neoplasm of unspecified part of right bronchus or lung; E87.2 Acidosis; I95.9 Hypotension, unspecified; J43.9 Emphysema, unspecified; C08.9 Malignant neoplasm of major salivary gland, unspecified; I10 Essential (primary) hypertension; Z79.899 Other long term (current) drug therapy; Z79.52 Long term (current) use of systemic steroids; Z85.118 Personal history of other malignant neoplasm of bronchus and lung; Z85.828 Personal history of other malignant neoplasm of skin; Z87.891 Personal history of nicotine dependence
CPT/HCPCS: 36415; 71045; 71275; 80048; 80053; 81003; 83735; 83930; 84484; 85025; 85379; 85610; 85730; 93005; 94640; 99285

== ENCOUNTER 2018-03-18 03:39 | Inpatient (IN) | payer MEDICARE ==
[2018-03-18] MEDS ORDERED: MORPHINE SULFATE 4MG/4ML SYRG IV STA (04:04)
[2018-03-18] MEDS ORDERED: MORPHINE SULFATE 4MG/4ML SYRG ONE (04:08)
--- NOTE | 2018-03-18 04:09 | ED ---
General Adult HPI - General Chief complaint: Recheck/Abnormal Lab/Rx Stated complaint: Rt side pain Time Seen by Provider: 03/18/18 03:45 Source: patient, EMS Mode of arrival: EMS Limitations: no limitations - History of Present Illness Initial comments: This patient is a 77-year-old woman, currently receiving treatment for lung cancer, who presents with right sided chest wall pain. History is from both the patient and her daughter. They relate that the patient was having these pains at her last chemotherapy session . She describes pain as being sharp, moderate intensity, worse with movement and breathing, and it is somewhat relieved with the [place] though it is not resolved. Patient denies associated symptoms. No fever or chills. No cough or sputum. No leg pain or swelling. No dyspnea, diaphoresis, nausea or vomiting, palpitations or syncope. Onset/Timin -: days(s) Location: chest, right Radiation: non-radiation Quality: aching Consistency: constant Improves with: none Worsens with: none Treatments Prior to Arrival: none - Related Data Home Medications Medication Instructions Recorded Confirmed HYDROcodone/APAP 5-325MG [[place] 1 - 2 tab PO Q4-6H PRN 02/19/18 03/18/18 5-325] Cools Magic Mouthwash 5 ml PO QID 03/18/18 03/18/18 Docusate [Colace] 200 mg PO DAILY 03/18/18 03/18/18 Previous Rx's Medication Instructions Recorded Ipratropium-Albuterol Nebulize 3 ml INHALATION RT-TID #90 02/08/18 [Duoneb 0.5 mg-3 mg/3 ml Soln] ampul.neb fentaNYL 25MCG/HR PATCH [Duragesic 1 patch TRANSDERM Q72H #5 patch 02/08/18 25MCG/HR] Pantoprazole [Protonix] 40 mg PO DAILY #30 tablet. 02/20/18 Psyllium Husk [Metamucil] 0.4 gm PO Q48H #1 capsule 02/20/18 Allergies Allergy/AdvReac Type Severity Reaction Status Date / Time No Known Allergies Allergy Verified 03/18/18 11:02 Review of Systems ROS Statement: Those systems with pertinent positive or pertinent negative responses have been documented in the HPI. ROS Other: All systems not noted in ROS Statement are negative. Constitutional: Denies: fever, chills Respiratory: Denies: cough, dyspnea, hemoptysis Cardiovascular: Reports: chest pain. Denies: palpitations, dyspnea on exertion , orthopnea, edema, syncope Gastrointestinal: Denies: abdominal pain, nausea, vomiting Genitourinary: Denies: dysuria, hematuria Musculoskeletal: Denies: back pain Skin: Denies: rash Neurological: Denies: headache Past Medical History Past Medical History: No Reported History Additional Past Medical History / Comment(s): Multiple skin cancers removed, Lung CA (per daughter cancer is within neck/head.) History of Any Multi-Drug Resistant Organisms: None Reported Past Surgical History: Orthopedic Surgery Additional Past Surgical History / Comment(s): ankle Past Anesthesia/Blood Transfusion Reactions: No Reported Reaction Past Psychological History: No Psychological Hx Reported Smoking Status: Former smoker Past Alcohol Use History: Occasional Past Drug Use History: None Reported - Past Family History Father Family Medical History: No Reported History, Unable to Obtain Mother Family Medical History: CVA/TIA General Exam Limitations: no limitations General appearance: alert, in no apparent distress, cachectic Head exam: Present: atraumatic, normocephalic Eye exam: Present: normal appearance. Absent: scleral icterus, conjunctival injection Respiratory exam: Present: normal lung sounds bilaterally, chest wall tenderness (Right midaxillary line just above the costal margin). Absent: respiratory distress, wheezes, rales, rhonchi, stridor, decreased breath sounds , prolonged expiratory Cardiovascular Exam: Present: regular rate, normal rhythm, normal heart sounds. Absent: systolic murmur, diastolic murmur, rubs, gallop GI/Abdominal exam: Present: soft. Absent: distended, tenderness, guarding, rebound, rigid, mass Extremities exam: Present: normal inspection, normal capillary refill. Absent: pedal edema, calf tenderness Back exam: Present: normal inspection. Absent: CVA tenderness (R), CVA tenderness (L) Neurological exam: Present: alert Skin exam: Present: warm, dry, intact, normal color. Absent: rash Course Vital Signs 03/18/18 03/18/18 03:47 06:41 Temperature 97.6 F Pulse Rate 100 94 Respiratory 18 18 Rate Blood Pressure 121/68 115/61 O2 Sat by Pulse 95 98 Oximetry EKG Findings - EKG Results: EKG: sinus rhythm (Rate 99 bpm), normal axis, normal ST/T - UT, Pacemaker, Normal: Myocardial infarction: inferior UT (old age indeterminate) (Q waves in lead 3 suggestive of old inferior infarct.) Medical Decision Making - Lab Data Result diagrams: 03/19/18 05:45 03/18/18 04:00 Lab Results 03/18/18 03/18/18 03/18/18 Range/Units 04:00 04:00 04:00 WBC 7.7 (3.8-10.6) k/uL RBC 4.14 (3.80-5.40) m/uL Hgb 11.4 (11.4-16.0) gm/dL Hct 34.2 (34.0-46.0) % MCV 82.7 (80.0-100.0) fL MCH 27.4 (25.0-35.0) pg MCHC 33.2 (31.0-37.0) g/dL RDW 16.4 H (11.5-15.5) % Plt Count 269 (150-450) k/uL Neutrophils % 77 % Lymphocytes % 19 % Monocytes % 2 % Eosinophils % 0 % Basophils % 0 % Neutrophils # 6.0 (1.3-7.7) k/uL Lymphocytes # 1.5 (1.0-4.8) k/uL Monocytes # 0.2 (0-1.0) k/uL Eosinophils # 0.0 (0-0.7) k/uL Basophils # 0.0 (0-0.2) k/uL Anisocytosis Slight PT 10.2 (9.0-12.0) sec INR 1.0 (<1.2) APTT 20.1 L (22.0-30.0) sec D-Dimer 8.73 H (<0.60) mg/L FEU Sodium 126 L (137-145) mmol/L Potassium 5.4 H (3.5-5.1) mmol/L Chloride 92 L (98-107) mmol/L Carbon Dioxide 25 (22-30) mmol/L Anion Gap 9 mmol/L BUN 22 H (7-17) mg/dL Creatinine 0.30 L (0.52-1.04) mg/dL Est GFR (CKD-EPI)AfAm >90 (>60 ml/min/1.73 sqM) Est GFR (CKD-EPI)NonAf >90 (>60 ml/min/1.73 sqM) Glucose 82 (74-99) mg/dL Calcium 9.0 (8.4-10.2) mg/dL Total Bilirubin 0.8 (0.2-1.3) mg/dL AST 35 (14-36) U/L ALT 25 (9-52) U/L Alkaline Phosphatase 116 (38-126) U/L Total Protein 6.1 L (6.3-8.2) g/dL Albumin 3.3 L (3.5-5.0) g/dL Critical Care Time Critical Care Time: Yes (35 minutes) Disposition Clinical Impression: Acute pulmonary embolus, Chest pain Disposition: ADMITTED IP TO THIS [facility] Condition: Serious Is patient prescribed a controlled substance at d/c from ED?: No
[2018-03-18] MEDS ORDERED: MORPHINE SULFATE 4MG/4ML SYRG IVP STA (04:10)
--- NOTE | 2018-03-18 04:30 | XR ---
EXAM: XR Chest, 2 Views CLINICAL HISTORY: Chest pain TECHNIQUE: Frontal and lateral views of the chest. COMPARISON: Chest x-ray from 325 8 FINDINGS: Persistent right apical mass unchanged from prior study. Interval development of consolidation in the right lower lobe IMPRESSION: Interval development of right lower lobe infiltrate. Persistent right apical mass.
[2018-03-18 04:42] LABS: Albumin 3.3 g/dL (3.5-5.0); Anion Gap 9 mmol/L; Carbon Dioxide 25 mmol/L (22-30); Chloride 92 mmol/L (98-107); Glucose 82 mg/dL (74-99); Sodium 126 mmol/L (137-145); Total Bilirubin 0.8 mg/dL (0.2-1.3); Total Protein 6.1 g/dL (6.3-8.2)
[2018-03-18 04:43] LABS: Anisocytosis Slight; Basophils % (A) 0 %; Eosinophils % (A) 0 %; HCT 34.2 % (34.0-46.0); HGB 11.4 gm/dL (11.4-16.0); Lymphocytes # (A) 1.5 k/uL (1.0-4.8); Lymphocytes % (A) 19 %; MCH 27.4 pg (25.0-35.0); MCHC 33.2 g/dL (31.0-37.0); MCV 82.7 fL (80.0-100.0); Mean Platelet Volume 7.2; Monocytes # (A) 0.2 k/uL (0-1.0); Monocytes % (A) 2 %; Neutrophils % (A) 77 %; Platelet Count 269 k/uL (150-450); RBC 4.14 m/uL (3.80-5.40); RDW 16.4 % (11.5-15.5); WBC 7.7 k/uL (3.8-10.6)
[2018-03-18 05:00] LABS: ALT 25 U/L (9-52); AST 35 U/L (14-36); Alkaline Phosphatase 116 U/L (38-126); Blood Urea Nitrogen 22 mg/dL (7-17); Potassium 5.4 mmol/L (3.5-5.1)
[2018-03-18] MEDS ORDERED: SODIUM CHLORIDE 0.9% 500 ML IV STA (05:02)
[2018-03-18] MEDS ORDERED: LEVOFLOXACIN 750MG-D5W PMX 750 MG in DEXTROSE/WATER 1 150ML.BAG IVPB STA (05:02)
[2018-03-18 05:15] LABS: Prothrombin Time 10.2 sec (9.0-12.0)
[2018-03-18 05:18] LABS: D-Dimer 8.73 mg/L FEU (<0.60); Partial Thromboplastin Time 20.1 sec (22.0-30.0)
[2018-03-18] MEDS ORDERED: ENOXAPARIN 60 MG/0.6 ML SYRINGE SQ STA (05:18)
[2018-03-18] MEDS ORDERED: RX INFO: IV CONTRAST WAS GIVEN 1 EACH MISC MISCELLANE PRN (05:19)
[2018-03-18] MEDS ORDERED: HEPARIN SODIUM,PORCINE 10,000 UNIT/ML 1 ML VIAL IV ONE (05:47)
[2018-03-18] MEDS ORDERED: HEPARIN SODIUM,PORCINE 5,000 UNIT/ML 1 ML VIAL IV PRN (05:47)
[2018-03-18] MEDS ORDERED: ONDANSETRON 4 MG/2 ML VIAL IVP PRN (05:52)
[2018-03-18] MEDS ORDERED: HYDROcodone/APAP 5-325MG 1 EACH TAB PO PRN (05:52)
[2018-03-18] MEDS ORDERED: MORPHINE ORAL SOLN 10 MG/5 ML CUP PO PRN (05:52)
[2018-03-18] MEDS ORDERED: NALOXONE 0.4 MG/ML 1 ML VIAL IV PRN ×2 (05:52→08:45)
--- NOTE | 2018-03-18 06:12 | CT ---
EXAM: CT Angiography Chest With Intravenous Contrast CLINICAL HISTORY: Chest pain TECHNIQUE: Axial computed tomographic angiography images of the chest with intravenous contrast using pulmonary embolism protocol. CTDI is 54.20 mGy and DLP is 135.0 mGy-cm. This CT exam was performed using one or more of the following dose reduction techniques: automated exposure control, adjustment of the mA and/or kV according to patient size, and/or use of iterative reconstruction technique. MIP reconstructed images were created and reviewed. Coronal and sagittal reformatted images were created and reviewed. COMPARISON: 02/19/18 FINDINGS: Again noted is large right apical lung mass unchanged in size or configuration compared to 02/19/18. This demonstrates invasion into the vertebral bodies of the thoracic spine and appears to end stent and into the spinal canal at to at T2-3 Stable appearance to the left lower lobe mass. Interval development of bilateral pulmonary emboli. Emboli are identified within the right lower lobe left lower lobe right middle lobe pulmonary arterial tree. Interval development of lung changes in the distribution of pulmonary emboli suggestive of areas of pulmonary ischemia and/or infarct These correspond to IMPRESSION: Bilateral pulmonary emboli with parenchymal changes suggestive of pulmonary ischemia and/or infarct. Relatively stable appearance to right apical mass and left lower lobe mass [employer] 03/18/18 06:17 Call Doctor Regarding Pulmonary Embolism, called Dr. Hendricks on 03/18 06:17 (-04:00)
[2018-03-18] MEDS: HEPARIN SOD,PORK IN 0.45% NACL 25,000 UNIT in 0.45% NACL 1 500ML.BAG IV SCH (06:32)
[2018-03-18] MEDS: SODIUM CHLORIDE 0.9% 1,000 ML IV SCH (07:03)
[2018-03-18] MEDS ORDERED: CALCIUM CARBONATE 500 MG CHEWABLE PO PRN (08:45)
[2018-03-18] MEDS ORDERED: NON-FORMULARY DRUG (Psyllium Husk [Metamucil] 0.4 GM) PO SCH (08:45)
[2018-03-18] MEDS ORDERED: ACETAMINOPHEN TAB 325 MG TAB PO PRN (08:45)
[2018-03-18] MEDS ORDERED: ALPRAZolam 0.25 MG TAB PO PRN (08:45)
[2018-03-18] MEDS ORDERED: DEXAMETHASONE 4 MG TAB PO SCH (09:00)
[2018-03-18] MEDS: PANTOPRAZOLE 40 MG TABLET PO SCH (11:40)
[2018-03-18] MEDS: FAMOTIDINE 20 MG TAB PO SCH ×2 (11:40→20:41)
[2018-03-18 12:00] VITALS: BMI 19.2
[2018-03-18] MEDS: IPRATROPIUM-ALBUTEROL 3 ML NEB INHALATION SCH ×2 (12:57→20:11)
[2018-03-18] MEDS ORDERED: [UNRECOGNIZED DRUG - OTHER] PO SCH (13:00)
--- NOTE | 2018-03-18 13:03 | HP ---
HISTORY AND PHYSICAL DATE OF ADMISSION: 03/18/2018 DATE OF SERVICE: 03/18/2018 PRESENTING COMPLAINT: Right-sided chest pain. HISTORY OF PRESENTING COMPLAINT: This is a very pleasant 77-year-old patient who actually has two malignancies. 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 Patient did get a second round of her chemotherapy [address] Pimentel. Patient is also diagnosed to have SIADH. Other medical conditions include emphysema from smoking, protein-calorie malnutrition. Patient started having for the last 2-3 days increasing pain on the right side of the chest. She said it became much worse last night, early hours of this morning. She called her daughter, who brought her in. CT scan of the chest did show bilateral pulmonary embolism and possibly pulmonary infarction from multiple pulmonary emboli. She was started on IV heparin and admitted. Since chemotherapy, the patient has been eating a bit better. With starting on IV heparin, left-sided pleuritic chest pain is actually a bit better. REVIEW OF SYSTEMS: CONSTITUTIONAL: Tired. HEENT: Tumor, mass in the mouth. RESPIRATORY: As above. CARDIOVASCULAR: None. GASTROINTESTINAL: None. GENITOURINARY: None. MUSCULOSKELETAL: None. DERMATOLOGICAL: None. HEMATOLOGICAL: None. LYMPHATICS: None. PSYCHIATRY: Anxiety. NEUROLOGICAL: None. PAST MEDICAL HISTORY: 1. Primary salivary gland tumor, adenocarcinoma. 2. Lung cancer, squamous cell. 3. Emphysema. 4. Essential hypertension. Blood pressure was discontinued low blood pressure. 5. SIADH. PAST SURGICAL HISTORY: 1. Orthopedic surgery. 2. Ankle surgery. SOCIAL HISTORY: Patient smoked a pack a day for many years, stopped about a month ago. Lives alone. Alcohol occasionally. FAMILY HISTORY: Reviewed; noncontributory to presentation. HOME MEDICATIONS: 1. Fentanyl 25 mcg patch. 2. Metamucil every 48 hours. 3. Protonix 40 mg a day. 4. DuoNeb t.i.d. 5. [place] 5 one to two tablets q.4 p.r.n. 6. Cools Magic Mouthwash 5 mL p.o. q.i.d. ALLERGIES: NONE. PHYSICAL EXAMINATION: Temperature 97.7, pulse 91, respiration 16, blood pressure 100/58, pulse ox 95% on room air. GENERAL APPEARANCE: Sitting up, tired-appearing. EYES: Pupils equal. Conjunctivae pale. HEENT: External appearance of nose and ears normal. Oral cavity soft tumor. RESPIRATORY: Effort increased. LUNGS: Decreased breath sounds. CARDIOVASCULAR: First and second sounds normal. No edema. ABDOMEN: Soft, non-tender. Liver and spleen not palpable. LYMPHATIC: No lymph node palpable in neck or axillae. PSYCHIATRY: Alert and oriented x3. Mood and affect normal. MUSCULOSKELETAL: Diffuse wasting of the muscles. ASSESSMENT: 1. Acute pulmonary infarctions, primarily in the right side, secondary to pulmonary embolism. 2. Moderate protein-calorie malnutrition from decreased oral intake. 3. 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 4. Adenocarcinoma of the primary salivary gland. 5. Squamous cell carcinoma of the lung. 6. IV heparin monitoring. PLAN: Patient's home medications are resumed. Patient is put on IV heparin. Patient is on bedrest. Patient's pleuritic pain is actually getting better. Care was discussed with the patient and daughter at the bedside. Questions were answered. MMODL / IJN: [id number] /
--- NOTE | 2018-03-18 15:24 | P.CNPUL ---
History of Present Illness Consult date: 03/18/18 Reason for consult: chest pain History of present illness: A 77-year-old female patient presented to the hospital because of acute pain over the right lateral chest area that was sharp and somewhat pleuritic in nature. The pain was of a moderate intensity. No hemoptysis. No fever chills or night sweats. She is known to have extensive history of malignancy. I've seen her during her previous admission. The patient has a large lung mass that turned out to be's, cell carcinoma. 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 The patient is under the care of Dr. Pimentel. No nausea. No vomiting. No dysphagia. No abdominal pain. A CT angios the chest was done in the emergency department and the patient was found to have pulmonary embolism. The patient has bilateral pulmonary emboli, and emboli were identified in the right lower lobe in the left lower lobe along with the right middle lobe pulmonary artery branches. There is also evidence of limited parenchymal changes in the right lung base which could be related to ischemia/early infarct. The right upper lobe/apical mass was again visualized. There is the first episode and the patient does not have any previous history of DVT or pulmonary embolism. No swelling in lower extremities. The patient is currently on IV heparin. Review of Systems Constitutional: Reports chronic pain, Reports weakness Eyes: left blurred vision Ears: left: decreased hearing Ears, nose, mouth and throat: Reports nasal congestion, Reports sinus pain, Reports sinus pressure Cardiovascular: Pleuritic chest pain, Denies shortness of breath Respiratory: Denies cough, and the patient is having pleuritic chest pain on the right Gastrointestinal: Denies abdominal pain, Denies diarrhea, Denies nausea, Denies vomiting Genitourinary: Denies dysuria, Denies hematuria Menstruation: Reports postmenopausal Musculoskeletal: Denies myalgias, she has pain across her upper neck area and upper back posteriorly. 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, Multiple skin cancers, 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 History of Any Multi-Drug Resistant Organisms: None Reported Past Surgical History: Orthopedic Surgery Additional Past Surgical History / Comment(s): ankle Past Anesthesia/Blood Transfusion Reactions: No Reported Reaction Past Psychological History: No Psychological Hx Reported Smoking Status: Former smoker Past Alcohol Use History: Occasional Past Drug Use History: None Reported - Past Family History Father Family Medical History: No Reported History, Unable to Obtain Mother Family Medical History: CVA/TIA Medications and Allergies Home Medications Medication Instructions Recorded Confirmed Type Ipratropium-Albuterol Nebulize 3 ml INHALATION RT-TID #90 02/08/18 03/18/18 Rx [Duoneb 0.5 mg-3 mg/3 ml Soln] ampul.neb fentaNYL 25MCG/HR PATCH [Duragesic 1 patch TRANSDERM Q72H #5 patch 02/08/18 Rx 25MCG/HR] HYDROcodone/APAP 5-325MG [[place] 1 - 2 tab PO Q4-6H PRN 02/19/18 03/18/18 History 5-325] Pantoprazole [Protonix] 40 mg PO DAILY #30 tablet. 02/20/18 03/18/18 Rx Psyllium Husk [Metamucil] 0.4 gm PO Q48H #1 capsule 02/20/18 03/18/18 Rx Cools Magic Mouthwash 5 ml PO QID 03/18/18 03/18/18 History Docusate [Colace] 200 mg PO DAILY 03/18/18 03/18/18 History Allergies Allergy/AdvReac Type Severity Reaction Status Date / Time No Known Allergies Allergy Verified 03/18/18 11:02 Physical Exam Vitals: Vital Signs Temp Pulse Pulse Resp BP BP Pulse Ox 03/18/18 13:09 96 03/18/18 12:57 96 03/18/18 11:51 97.7 F 91 16 100/58 95 03/18/18 08:25 97.5 F L 93 16 100/58 96 03/18/18 07:50 97.5 F L 93 16 100/58 96 03/18/18 07:06 97.0 F L 70 18 91/51 95 03/18/18 06:41 94 18 115/61 98 03/18/18 03:47 97.6 F 100 18 121/68 95 Intake and Output 03/18/18 03/18/18 03/18/18 06:59 14:59 22:59 Intake Total 240 Balance 240 Intake: Oral 240 Other: Weight 53.977 kg 53.977 kg - Constitutional General appearance: no acute distress - EENT In the posterior oropharynx, the patient has a very irregular vascular mass over the soft palate Eyes: EOMI, PERRLA - Neck Neck: no lymphadenopathy Thyroid: bilateral: normal size - Respiratory Respiratory: bilateral: diminished - Cardiovascular Rhythm: regular Heart sounds: normal: S1, S2 - Gastrointestinal General gastrointestinal: normal bowel sounds, soft - Integumentary Integumentary: normal - Neurologic Neurologic: CNII-XII intact - Musculoskeletal Musculoskeletal: strength equal bilaterally - Psychiatric Psychiatric: A&O x's 3, appropriate affect Results - Laboratory Findings CBC and BMP: 03/18/18 04:00 03/18/18 04:00 PT/INR, D-dimer PT 10.2 sec (9.0-12.0) 03/18/18 04:00 INR 1.0 (<1.2) 03/18/18 04:00 D-Dimer 8.73 mg/L FEU (<0.60) H 03/18/18 04:00 Abnormal lab findings: Abnormal Labs 03/18/18 03/18/18 03/18/18 04:00 04:00 04:00 RDW 16.4 H APTT 20.1 L D-Dimer 8.73 H Sodium 126 L Potassium 5.4 H Chloride 92 L BUN 22 H Creatinine 0.30 L Total Protein 6.1 L Albumin 3.3 L 03/18/18 12:39 RDW APTT 59.5 H D-Dimer Sodium Potassium Chloride BUN Creatinine Total Protein Albumin - Diagnostic Findings CT scan - chest: image reviewed Assessment and Plan Plan: Assessment 1 acute bilateral pulmonary embolism with secondary pleuritic chest pain, currently on IV heparin. This is expected as the patient is extensive malignant history probably she is hypercoagulable. 2 squamous cell carcinoma of the lung and the patient has a large right upper lobe mass measuring 7 x 8 cm in size injury during the mediastinum without causing any SVC compression and the patient also has possible lesions in the left lower lobe and the adrenal and her disease likely metastatic in nature at this point in time. 3 adenocarcinoma of the soft palate and the patient has left maxillary sinus mass and the patient was found to have a large erosive and destructive left maxillary sinus mass extending into the nasopharynx and oropharynx as well as the section plotter operator space. 4 chronic back and neck pain, and the patient has a focal uptake within the T3 vertebral body and rib consistent with malignancy 5 chronic hyponatremia, malignancy-induced 6 COPD 7 smoker Plan Continued IV heparin the patient can be transitioned to oral anticoagulation tomorrow either any form of Xarelto or Eliquis. She will need long-term anticoagulation base and an underlying history of malignancy. Prognosis poor baseline above-mentioned comorbidities.
[2018-03-18] MEDS: MAG HYDROX/AL HYDROX/SIMETH 30 ML, diphenhydrAMINE ELIXIR 75 MG, LIDOCAINE VISCOUS 30 ML PO SCH ×6 (16:50→20:41)
[2018-03-18] MEDS: HYDROcodone/APAP 5-325MG 1 EACH TAB PO PRN ×2 (16:50→22:10)
[2018-03-18] MEDS ORDERED: MELATONIN 3 MG TABLET PO PRN (21:00)
[2018-03-19] MEDS: HEPARIN SOD,PORK IN 0.45% NACL 25,000 UNIT in 0.45% NACL 1 500ML.BAG IV SCH (05:27)
[2018-03-19] MEDS: HYDROcodone/APAP 5-325MG 1 EACH TAB PO PRN ×3 (05:29→22:09)
[2018-03-19] MEDS: SODIUM CHLORIDE 0.9% 1,000 ML IV SCH (05:38)
[2018-03-19 06:19] LABS: Anisocytosis Slight; Basophils % (A) 0 %; Eosinophils % (A) 0 %; HCT 32.4 % (34.0-46.0); HGB 10.6 gm/dL (11.4-16.0); Lymphocytes # (A) 0.8 k/uL (1.0-4.8); Lymphocytes % (A) 19 %; MCH 27.9 pg (25.0-35.0); MCHC 32.8 g/dL (31.0-37.0); MCV 85.1 fL (80.0-100.0); Mean Platelet Volume 7.3; Monocytes # (A) 0.1 k/uL (0-1.0); Monocytes % (A) 2 %; Neutrophils # (A) 3.3 k/uL (1.3-7.7); Neutrophils % (A) 78 %; Platelet Count 237 k/uL (150-450); RDW 16.4 % (11.5-15.5); WBC 4.2 k/uL (3.8-10.6)
[2018-03-19] MEDS: MAG HYDROX/AL HYDROX/SIMETH 30 ML, diphenhydrAMINE ELIXIR 75 MG, LIDOCAINE VISCOUS 30 ML PO SCH ×12 (06:33→22:03)
[2018-03-19] MEDS: FAMOTIDINE 20 MG TAB PO SCH ×2 (07:30→22:02)
[2018-03-19] MEDS: PANTOPRAZOLE 40 MG TABLET PO SCH (07:30)
[2018-03-19] MEDS: IPRATROPIUM-ALBUTEROL 3 ML NEB INHALATION SCH ×3 (08:27→20:19)
--- NOTE | 2018-03-19 12:33 | P.PN ---
Subjective Progress Note Date: 03/19/18 A 77-year-old female patient presented to the hospital because of acute pain over the right lateral chest area that was sharp and somewhat pleuritic in nature. The pain was of a moderate intensity. No hemoptysis. No fever chills or night sweats. She is known to have extensive history of malignancy. I've seen her during her previous admission. The patient has a large lung mass that turned out to be's, cell carcinoma. 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 The patient is under the care of Dr. Pimentel. No nausea. No vomiting. No dysphagia. No abdominal pain. A CT angios the chest was done in the emergency department and the patient was found to have pulmonary embolism. The patient has bilateral pulmonary emboli, and emboli were identified in the right lower lobe in the left lower lobe along with the right middle lobe pulmonary artery branches. There is also evidence of limited parenchymal changes in the right lung base which could be related to ischemia/early infarct. The right upper lobe/apical mass was again visualized. There is the first episode and the patient does not have any previous history of DVT or pulmonary embolism. No swelling in lower extremities. The patient is currently on IV heparin. On 03/19/2018, the patient is calm and comfortable. We are still looking for coverage regarding various oral anticoagulants for this patient to decide on her discharge. She is free of any chest pain. No pleurisy. No hemoptysis. She is on IV heparin. Hemodynamically stable. No other significant events overnight. She will need long-term anticoagulation regarding this pulmonary embolism that was diagnosed during this current hospitalization and she has history of extensive malignancies and she would be a good candidate for long- term anticoagulation. No bleeding complications. Hemoglobin stable at 10.6. Objective - Vital Signs Vital signs: Vital Signs Temp 97.7 F 03/19/18 11:45 Pulse 110 H 03/19/18 11:45 Resp 18 03/19/18 11:45 BP 138/71 03/19/18 11:45 Pulse Ox 97 03/19/18 11:45 Intake & Output 03/18/18 03/19/18 03/19/18 18:59 06:59 18:59 Intake Total 720 445.271 68.653 Output Total 200 Balance 720 245.271 68.653 Weight 53.977 kg 51.6 kg Intake: Intake, IV Titration 445.271 68.653 Amount Heparin Sod,Pork in 0.45% 445.271 68.653 NaCl 25,000 unit In 0.45 % NaCl 1 500ml.bag @ 18 UNITS/KG/HR 19.43 mls/hr IV .Q24H [facility] Rx#: [id number] Oral 720 Output: Urine 200 Other: Voiding Method Bedside Commode Bedside Commode # Voids 1 1 - Exam General appearance: no acute distress - EENT In the posterior oropharynx, the patient has a very irregular vascular mass over the soft palate Eyes: EOMI, PERRLA - Neck Neck: no lymphadenopathy Thyroid: bilateral: normal size - Respiratory Respiratory: bilateral: diminished - Cardiovascular Rhythm: regular Heart sounds: normal: S1, S2 - Gastrointestinal General gastrointestinal: normal bowel sounds, soft - Integumentary Integumentary: normal - Neurologic Neurologic: CNII-XII intact - Musculoskeletal Musculoskeletal: strength equal bilaterally - Psychiatric Psychiatric: A&O x's 3, appropriate affect - Labs CBC & Chem 7: 03/19/18 05:45 03/18/18 04:00 Labs: Abnormal Lab Results - Last 24 Hours (Table) 03/18/18 03/19/18 03/19/18 Range/Units 12:39 05:45 07:45 Hgb 10.6 L (11.4-16.0) gm/dL Hct 32.4 L (34.0-46.0) % RDW 16.4 H (11.5-15.5) % Lymphocytes # 0.8 L (1.0-4.8) k/uL APTT 59.5 H 45.4 H (22.0-30.0) sec Assessment and Plan Plan: Assessment 1 acute bilateral pulmonary embolism with secondary pleuritic chest pain, currently on IV heparin. This is expected as the patient is extensive malignant history probably she is hypercoagulable. 2 squamous cell carcinoma of the lung and the patient has a large right upper lobe mass measuring 7 x 8 cm in size injury during the mediastinum without causing any SVC compression and the patient also has possible lesions in the left lower lobe and the adrenal and her disease likely metastatic in nature at this point in time. 3 adenocarcinoma of the soft palate and the patient has left maxillary sinus mass and the patient was found to have a large erosive and destructive left maxillary sinus mass extending into the nasopharynx and oropharynx as well as the pyrometallurgical engineer space. 4 chronic back and neck pain, and the patient has a focal uptake within the T3 vertebral body and rib consistent with malignancy 5 chronic hyponatremia, malignancy-induced 6 COPD 7 smoker Plan Continued IV heparin the patient and the choice of anticoagulants with largely dependent on her coverage. Would recommend oral anticoagulation with either Xarelto or Eliquis. She is hemodynamically stable. She has no specific complaints. She wants to go home to continue her treatment for her malignancies. We'll sign off the case and we will leave the rest of the management up to medicine. The patient is stable for now.
[2018-03-19 20:50] LABS: Anion Gap 9 mmol/L; Blood Urea Nitrogen 13 mg/dL (7-17); Carbon Dioxide 27 mmol/L (22-30); Chloride 93 mmol/L (98-107); Glucose 93 mg/dL (74-99); Potassium 4.2 mmol/L (3.5-5.1); Sodium 129 mmol/L (137-145)
[2018-03-19 20:51] LABS: Calcium 8.3 mg/dL (8.4-10.2)
--- NOTE | 2018-03-19 21:55 | PN ---
PROGRESS NOTE DATE OF SERVICE: 03/19/2018. PRESENTING COMPLAINT: Right chest pain. INTERVAL HISTORY: This patient with dual malignancies presents with acute pulmonary embolism and pulmonary infarction. Right chest pain from infarction is actually better. Breathing is better. Patient getting IV heparin. Daughter at the bedside. The patient is coughing up some clear sputum, which is element probably from chronic bronchitis component of COPD. REVIEW OF SYSTEMS: Done for constitutional, cardiovascular, GI, pulmonary; relevant findings as above. CURRENT MEDICATIONS: Reviewed that include IV heparin. PHYSICAL EXAMINATION: Temperature 97.7 pulse 102, respirations 16, blood pressure 130/71, pulse ox 97% on room appearance. GENERAL APPEARANCE: Sitting up in bed, tired. EYES: Pupils equal. Conjunctivae pale. HEENT: The external nose and ears are normal. 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 Respiratory effort normal. LUNGS: Decreased breath sounds. CARDIOVASCULAR: First and second heart sounds normal. ABDOMEN: Soft, nontender. Liver and spleen not palpable. PSYCHIATRY: Alert and oriented x3. Mood and affect normal. INVESTIGATIONS: White count 4.2, hemoglobin 10.6. ASSESSMENT: 1. Acute pulmonary infarction secondary to to acute pulmonary embolism with clinical improvement. 2. IV heparin monitoring. 3. Moderate protein calorie malnutrition with decreased oral intake. 4. 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 6. Squamous cell carcinoma of the lung. 7. Patient undergoing chemotherapy therapy. 8. Normocytic anemia, likely from underlying malignancy. 9. Hyponatremia, likely hypoosmolar, probably from underlying malignancy. PLAN: The patient will be continued on IV heparin. Later tonight patient can be switched over to Eliquis. This was discussed in detail with the patient's daughter. Several questions were answered. Repeat check of patient's BMP. MMODL / IJN: [id number] /
[2018-03-19] MEDS: APIXABAN 5 MG TAB PO SCH (22:02)
[2018-03-20 06:01] LABS: Anisocytosis Slight; Basophils % (A) 1 %; Eosinophils % (A) 0 %; HCT 27.7 % (34.0-46.0); Lymphocytes # (A) 0.7 k/uL (1.0-4.8); Lymphocytes % (A) 25 %; MCH 27.7 pg (25.0-35.0); MCHC 32.6 g/dL (31.0-37.0); Monocytes # (A) 0.1 k/uL (0-1.0); Monocytes % (A) 2 %; Neutrophils % (A) 71 %; Platelet Count 267 k/uL (150-450); RBC 3.26 m/uL (3.80-5.40); RDW 16.1 % (11.5-15.5); WBC 2.9 k/uL (3.8-10.6)
[2018-03-20] MEDS: SODIUM CHLORIDE 0.9% 1,000 ML IV SCH (06:04)
[2018-03-20] MEDS: HYDROcodone/APAP 5-325MG 1 EACH TAB PO PRN ×2 (06:40→13:52)
[2018-03-20] MEDS: MAG HYDROX/AL HYDROX/SIMETH 30 ML, diphenhydrAMINE ELIXIR 75 MG, LIDOCAINE VISCOUS 30 ML PO SCH ×6 (06:43→13:53)
[2018-03-20] MEDS: APIXABAN 5 MG TAB PO SCH (07:26)
[2018-03-20] MEDS: FAMOTIDINE 20 MG TAB PO SCH (07:26)
[2018-03-20] MEDS: PANTOPRAZOLE 40 MG TABLET PO SCH (07:26)
[2018-03-20 07:33] VITALS: BP 116/55; RESP 16; TEMP 97.5
[2018-03-20] MEDS: IPRATROPIUM-ALBUTEROL 3 ML NEB INHALATION SCH ×2 (08:39→13:57)
[2018-03-20 14:09] VITALS: PULSE 90
--- NOTE | 2018-03-20 15:04 | P.PN ---
Subjective Progress Note Date: 03/20/18 Principal diagnosis: Acute bilateral pulmonary embolism and history of advanced metastatic squamous cell carcinoma of the lung. A 77-year-old female patient presented to the hospital because of acute pain over the right lateral chest area that was sharp and somewhat pleuritic in nature. The pain was of a moderate intensity. No hemoptysis. No fever chills or night sweats. She is known to have extensive history of malignancy. I've seen her during her previous admission. The patient has a large lung mass that turned out to be's, cell carcinoma. 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 The patient is under the care of Dr. Pimentel. No nausea. No vomiting. No dysphagia. No abdominal pain. A CT angios the chest was done in the emergency department and the patient was found to have pulmonary embolism. The patient has bilateral pulmonary emboli, and emboli were identified in the right lower lobe in the left lower lobe along with the right middle lobe pulmonary artery branches. There is also evidence of limited parenchymal changes in the right lung base which could be related to ischemia/early infarct. The right upper lobe/apical mass was again visualized. There is the first episode and the patient does not have any previous history of DVT or pulmonary embolism. No swelling in lower extremities. The patient is currently on IV heparin. On 03/19/2018, the patient is calm and comfortable. We are still looking for coverage regarding various oral anticoagulants for this patient to decide on her discharge. She is free of any chest pain. No pleurisy. No hemoptysis. She is on IV heparin. Hemodynamically stable. No other significant events overnight. She will need long-term anticoagulation regarding this pulmonary embolism that was diagnosed during this current hospitalization and she has history of extensive malignancies and she would be a good candidate for long- term anticoagulation. No bleeding complications. Hemoglobin stable at 10.6. Patient was reevaluated on 03/20/2018, feeling better, breathing easier, asymptomatic, no cough no wheezing no shortness of breath at rest. Patient was already started on the Eliquis, planning to be discharged home tomorrow. 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 Objective - Vital Signs Vital signs: Vital Signs Temp 97.5 F L 03/20/18 07:32 Pulse 90 03/20/18 14:07 Resp 16 03/20/18 07:32 BP 116/55 03/20/18 07:32 Pulse Ox 95 03/20/18 07:32 Intake & Output 03/19/18 03/20/18 03/20/18 18:59 06:59 18:59 Intake Total 1028.653 600 Output Total 600 350 Balance 1028.653 -600 250 Intake: Intake, IV Titration 68.653 Amount Heparin Sod,Pork in 0.45% 68.653 NaCl 25,000 unit In 0.45 % NaCl 1 500ml.bag @ 18 UNITS/KG/HR 19.43 mls/hr IV .Q24H [facility] Rx#: [id number] Oral 960 600 Output: Urine 600 350 Other: Voiding Method Bedside Commode Bedside Commode Bedside Commode # Voids 1 1 - Exam General appearance: no acute distress - EENT In the posterior oropharynx, the patient has a very irregular vascular mass over the hard palate Eyes: EOMI, PERRLA - Neck Neck: no lymphadenopathy Thyroid: bilateral: normal size - Respiratory Respiratory: bilateral: diminished - Cardiovascular Rhythm: regular Heart sounds: normal: S1, S2 - Gastrointestinal General gastrointestinal: normal bowel sounds, soft - Integumentary Integumentary: normal - Neurologic Neurologic: CNII-XII intact - Musculoskeletal Musculoskeletal: strength equal bilaterally - Psychiatric Psychiatric: A&O x's 3, appropriate affect - Labs CBC & Chem 7: 03/20/18 05:25 03/19/18 20:00 Labs: Abnormal Lab Results - Last 24 Hours (Table) 03/19/18 03/19/18 03/20/18 Range/Units 15:08 20:00 05:25 WBC 2.9 L (3.8-10.6) k/uL RBC 3.26 L (3.80-5.40) m/uL Hgb 9.0 L D (11.4-16.0) gm/dL Hct 27.7 L (34.0-46.0) % RDW 16.1 H (11.5-15.5) % Lymphocytes # 0.7 L (1.0-4.8) k/uL APTT 54.6 H (22.0-30.0) sec Sodium 129 L (137-145) mmol/L Chloride 93 L (98-107) mmol/L Creatinine 0.30 L (0.52-1.04) mg/dL Calcium 8.3 L (8.4-10.2) mg/dL Assessment and Plan Assessment: 1 acute bilateral pulmonary embolism with secondary pleuritic chest pain, currently on IV heparin. This is expected as the patient is extensive malignant history probably she is hypercoagulable. 2 squamous cell carcinoma of the lung and the patient has a large right upper lobe mass measuring 7 x 8 cm in size injury during the mediastinum without causing any SVC compression and the patient also has possible lesions in the left lower lobe and the adrenal and her disease likely metastatic in nature at this point in time. 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 Recommendation: Continue present supportive care measures, consider discharge planning in the next 24 hours. Follow-up on her sodium on outpatient basis. Time with Patient: Less than 30
--- NOTE | 2018-03-21 00:07 | DS ---
DISCHARGE SUMMARY DATE OF ADMISSION: 03/18/2018. DATE OF DISCHARGE: 03/20/2018 FINAL DIAGNOSES: 1. Acute bilateral pulmonary embolism causing acute pulmonary infarction secondary to underlying malignancy. 2. IV heparin monitoring. 3. Moderate protein-calorie malnutrition with decreased oral intake. 4. 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 6. Squamous cell cancer of the lung, getting chemotherapy. 7. Normocytic anemia, likely from underlying malignancy. 8. Hyponatremia, likely hypo-osmolar, from underlying malignancy. HOSPITAL COURSE: This patient has dual primary malignancy, getting chemotherapy. She presented with pain on the right side, found to have acute pulmonary embolism, pulmonary infarction; initially put on IV heparin. When symptoms improved, patient was switched over to Eliquis. Today care was discussed the patient and daughter in detail. Questions were answered. PHYSICAL EXAMINATION: LUNGS: Decreased breath sounds. CARDIOVASCULAR: First and second sounds normal. CONSULTATION: Dr. Galo from Pulmonary. DISCHARGE MEDICATIONS: 1. DuoNeb t.i.d. 2. Duragesic 25 mcg patch every 72 hours. 3. [place] 5 one to two tablets q.4 p.r.n. 4. Protonix 40 mg a day. 5. Cools Magic Mouthwash 5 mL p.o. q.i.d. 6. Eliquis 10 mg twice a day for 7 days, then 5 mg b.i.d. 7. Senokot S 1 tablet p.o. b.i.d. DISCONTINUED: Colace and Metamucil. FOLLOWUP: Follow up with Dr. Pimentel in one week. Follow up with Dr. Gonzalez in 3 days. Labs: CBC and BMP in 3-5 days. MMODL / IJN: [id number] /
== END 2018-03-20 15:35 | disposition home or self-care (01) | DRG 176 ==
LOC: EC 03:39 → 6SEL 05:52
PROVIDERS: ADMIT Hospitalist; ATTEND Hospitalist
DX: I26.99 Other pulmonary embolism without acute cor pulmonale (principal); E44.0 Moderate protein-calorie malnutrition; C34.11 Malignant neoplasm of upper lobe, right bronchus or lung; Z68.1 Body mass index [BMI] 19.9 or less, adult; E22.2 Syndrome of inappropriate secretion of antidiuretic hormone; I10 Essential (primary) hypertension; D63.0 Anemia in neoplastic disease; G89.29 Other chronic pain; C05.1 Malignant neoplasm of soft palate; M54.9 Dorsalgia, unspecified; M54.2 Cervicalgia; J43.9 Emphysema, unspecified; Z87.891 Personal history of nicotine dependence; Z82.3 Family history of stroke; Z92.21 Personal history of antineoplastic chemotherapy; Z79.899 Other long term (current) drug therapy; Z85.828 Personal history of other malignant neoplasm of skin
CPT/HCPCS: 36415; 71046; 71275; 80048; 80053; 85025; 85379; 85610; 85730; 93005; 94640; 94760; 96365; 96375; 99291

== ENCOUNTER 2018-03-28 23:37 | Observation (INO) | payer MEDICARE ==
--- NOTE | 2018-03-29 00:28 | ED ---
General Adult HPI - General Chief complaint: Shortness of Breath Stated complaint: TIAN Time Seen by Provider: 03/29/18 00:10 Source: patient, RN notes reviewed Mode of arrival: wheelchair Limitations: no limitations - History of Present Illness Initial comments: Patient is a pleasant 77-year-old female presenting to the emergency department with dyspnea. Patient had some fatigue the other day. Patient had 2 episodes of exertional dyspnea prior to arrival. Symptoms are now resolved. Patient believes oxygen helped. No significant cough. Patient is on chemotherapy for stage III lung cancer. 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 No chest pain. Patient was in the hospital less than 2 weeks ago and diagnosed with pulmonary embolism. Patient is on eliquis for this. - Related Data Home Medications Medication Instructions Recorded Confirmed HYDROcodone/APAP 5-325MG [[place] 1 - 2 tab PO Q4-6H PRN 02/19/18 03/28/18 5-325] Cools Magic Mouthwash 5 ml PO QID 03/18/18 03/28/18 Previous Rx's Medication Instructions Recorded Ipratropium-Albuterol Nebulize 3 ml INHALATION RT-TID #90 02/08/18 [Duoneb 0.5 mg-3 mg/3 ml Soln] ampul.neb fentaNYL 25MCG/HR PATCH [Duragesic 1 patch TRANSDERM Q72H #5 patch 02/08/18 25MCG/HR] Pantoprazole [Protonix] 40 mg PO DAILY #30 tablet. 02/20/18 Apixaban [Eliquis] 10 mg PO DIRECTED #60 tab 03/20/18 Sennosides-Docusate Sodium 1 tab PO BID #60 tablet 03/20/18 [Senokot-S] Allergies Allergy/AdvReac Type Severity Reaction Status Date / Time No Known Allergies Allergy Verified 03/18/18 11:02 Review of Systems ROS Statement: Those systems with pertinent positive or pertinent negative responses have been documented in the HPI. ROS Other: All systems not noted in ROS Statement are negative. Constitutional: Denies: fever Eyes: Denies: eye pain ENT: Denies: ear pain Respiratory: Reports: dyspnea Cardiovascular: Denies: chest pain Endocrine: Reports: fatigue Gastrointestinal: Denies: abdominal pain Genitourinary: Denies: dysuria Musculoskeletal: Denies: back pain Skin: Denies: rash Neurological: Denies: headache Past Medical History Past Medical History: No Reported History, Cancer Additional Past Medical History / Comment(s): Multiple skin cancers removed, Lung CA (per daughter cancer is within neck/head.) History of Any Multi-Drug Resistant Organisms: None Reported Past Surgical History: Orthopedic Surgery Additional Past Surgical History / Comment(s): ankle Past Anesthesia/Blood Transfusion Reactions: No Reported Reaction Past Psychological History: No Psychological Hx Reported Smoking Status: Former smoker Past Alcohol Use History: Occasional Past Drug Use History: None Reported - Past Family History Father Family Medical History: No Reported History, Unable to Obtain Mother Family Medical History: CVA/TIA General Exam Limitations: no limitations General appearance: alert, in no apparent distress Head exam: Present: atraumatic Eye exam: Present: normal appearance ENT exam: Present: other (Left upper mouth mass that is not obstructing the airway.) Neck exam: Present: normal inspection Respiratory exam: Present: normal lung sounds bilaterally Cardiovascular Exam: Present: tachycardia GI/Abdominal exam: Present: soft. Absent: tenderness Extremities exam: Present: normal inspection. Absent: pedal edema, calf tenderness Neurological exam: Present: alert Psychiatric exam: Present: normal affect, normal mood Skin exam: Present: normal color Course Vital Signs 03/28/18 03/29/18 23:38 00:35 Temperature 99.1 F Pulse Rate 117 H 99 Respiratory 20 15 Rate Blood Pressure 128/69 121/63 O2 Sat by Pulse 97 Oximetry EKG Findings - EKG Comments: EKG Findings:: Sinus tachycardia 105. IA 144. QRS 70. QT 294. QTC 388. Normal axis. Downward QRS in lead [address] No acute ST change. Medical Decision Making - Medical Decision Making Patient reevaluated. Patient remains tachycardic. Patient is still somewhat short of breath. Patient and family updated on results and plan. Practitioner Alysha livestock judging coach has been paged for admission for Dr. Saldaña, covering for Dr. villagran, who admits for Dr. Gonzalez. Dr. Hinds will be placed on consult. - Lab Data Result diagrams: 03/29/18 00:15 03/29/18 00:15 Lab Results 03/29/18 03/29/18 03/29/18 Range/Units 00:15 00:15 00:15 WBC 10.3 (3.8-10.6) k/uL RBC 3.52 L (3.80-5.40) m/uL Hgb 9.6 L (11.4-16.0) gm/dL Hct 29.3 L (34.0-46.0) % MCV 83.1 (80.0-100.0) fL MCH 27.3 (25.0-35.0) pg MCHC 32.8 (31.0-37.0) g/dL RDW 16.7 H (11.5-15.5) % Plt Count 611 H D (150-450) k/uL Neutrophils % 62 % Lymphocytes % 28 % Monocytes % 5 % Eosinophils % 0 % Basophils % 0 % Neutrophils # 6.4 (1.3-7.7) k/uL Lymphocytes # 2.9 (1.0-4.8) k/uL Monocytes # 0.5 (0-1.0) k/uL Eosinophils # 0.0 (0-0.7) k/uL Basophils # 0.0 (0-0.2) k/uL Anisocytosis Slight PT (9.0-12.0) sec INR (<1.2) APTT (22.0-30.0) sec Sodium 133 L (137-145) mmol/L Potassium 4.8 (3.5-5.1) mmol/L Chloride 100 (98-107) mmol/L Carbon Dioxide 23 (22-30) mmol/L Anion Gap 10 mmol/L BUN 13 (7-17) mg/dL Creatinine 0.30 L (0.52-1.04) mg/dL Est GFR (CKD-EPI)AfAm >90 (>60 ml/min/1.73 sqM) Est GFR (CKD-EPI)NonAf >90 (>60 ml/min/1.73 sqM) Glucose 98 (74-99) mg/dL Calcium 9.5 (8.4-10.2) mg/dL Total Bilirubin 0.2 (0.2-1.3) mg/dL AST 18 (14-36) U/L ALT 16 (9-52) U/L Alkaline Phosphatase 94 (38-126) U/L Total Creatine Kinase <20 L (30-135) U/L CK-MB (CK-2) 0.3 (0.0-2.4) ng/mL CK-MB (CK-2) Rel Index Troponin I <0.012 (0.000-0.034) ng/mL NT-Pro-B Natriuret Pep pg/mL Total Protein 5.6 L (6.3-8.2) g/dL Albumin 3.0 L (3.5-5.0) g/dL Influenza Type A RNA (Not Detectd) Influenza Type B (PCR) (Not Detectd) 03/29/18 03/29/18 03/29/18 Range/Units 00:15 00:15 00:27 WBC (3.8-10.6) k/uL RBC (3.80-5.40) m/uL Hgb (11.4-16.0) gm/dL Hct (34.0-46.0) % MCV (80.0-100.0) fL MCH (25.0-35.0) pg MCHC (31.0-37.0) g/dL RDW (11.5-15.5) % Plt Count (150-450) k/uL Neutrophils % % Lymphocytes % % Monocytes % % Eosinophils % % Basophils % % Neutrophils # (1.3-7.7) k/uL Lymphocytes # (1.0-4.8) k/uL Monocytes # (0-1.0) k/uL Eosinophils # (0-0.7) k/uL Basophils # (0-0.2) k/uL Anisocytosis PT 11.4 (9.0-12.0) sec INR 1.2 H (<1.2) APTT 26.6 (22.0-30.0) sec Sodium (137-145) mmol/L Potassium (3.5-5.1) mmol/L Chloride (98-107) mmol/L Carbon Dioxide (22-30) mmol/L Anion Gap mmol/L BUN (7-17) mg/dL Creatinine (0.52-1.04) mg/dL Est GFR (CKD-EPI)AfAm (>60 ml/min/1.73 sqM) Est GFR (CKD-EPI)NonAf (>60 ml/min/1.73 sqM) Glucose (74-99) mg/dL Calcium (8.4-10.2) mg/dL Total Bilirubin (0.2-1.3) mg/dL AST (14-36) U/L ALT (9-52) U/L Alkaline Phosphatase (38-126) U/L Total Creatine Kinase (30-135) U/L CK-MB (CK-2) (0.0-2.4) ng/mL CK-MB (CK-2) Rel Index Troponin I (0.000-0.034) ng/mL NT-Pro-B Natriuret Pep 267 pg/mL Total Protein (6.3-8.2) g/dL Albumin (3.5-5.0) g/dL Influenza Type A RNA Not Detected (Not Detectd) Influenza Type B (PCR) Not Detected (Not Detectd) - Radiology Data Radiology results: report reviewed (Computed tomography scan of the chest shows no significant change and pulmonary emboli. No new emboli. Multiple thoracic abnormalities consistent with malignancy. Increased pleural fluid. Increase atelectasis right base.), image reviewed (Two-view chest x-ray shows multiple chronic changes.) Disposition Clinical Impression: Dyspnea Disposition: ADMITTED IP TO THIS HOSP Is patient prescribed a controlled substance at d/c from ED?: No Referrals: Tao Gonzalez MD [Primary Care Provider] - 1-2 days Decision Time: 03:11
[2018-03-29 00:52] LABS: Anisocytosis Slight; Basophils % (A) 0 %; Eosinophils % (A) 0 %; HCT 29.3 % (34.0-46.0); HGB 9.6 gm/dL (11.4-16.0); Lymphocytes # (A) 2.9 k/uL (1.0-4.8); Lymphocytes % (A) 28 %; MCH 27.3 pg (25.0-35.0); MCHC 32.8 g/dL (31.0-37.0); MCV 83.1 fL (80.0-100.0); Mean Platelet Volume 6.9; Monocytes # (A) 0.5 k/uL (0-1.0); Monocytes % (A) 5 %; Neutrophils # (A) 6.4 k/uL (1.3-7.7); Neutrophils % (A) 62 %; RBC 3.52 m/uL (3.80-5.40); RDW 16.7 % (11.5-15.5); WBC 10.3 k/uL (3.8-10.6)
--- NOTE | 2018-03-29 01:00 | XR ---
EXAMINATION TYPE: XR chest 2V DATE OF EXAM: 03/29/2018 COMPARISON: 03/18/2018 HISTORY: Difficulty breathing TECHNIQUE: Frontal and lateral views of the chest are obtained. FINDINGS: There is pleural thickening at the right lung apex. There is infiltrate at the right later al lung base. There is no gross heart failure. Thoracic aorta is atheromatous. There is some mild inf iltrate in the lateral right upper lobe. The left lung is relatively clear. There is a 1.5 cm infiltr ate at the left lung base. IMPRESSION: No heart failure. Bilateral chronic pulmonary infiltrates that are worse on the right si de. There is significant pleural and pulmonary mass like thickening at the right lung apex. This is c onsistent with malignancy that is evident on the chest CT scan of 03/18/2018. I see no new pulmonary i nfiltrate compared to last exam.
[2018-03-29 01:01] LABS: ALT 16 U/L (9-52); AST 18 U/L (14-36); Alkaline Phosphatase 94 U/L (38-126); Anion Gap 10 mmol/L; Blood Urea Nitrogen 13 mg/dL (7-17); Calcium 9.5 mg/dL (8.4-10.2); Carbon Dioxide 23 mmol/L (22-30); Chloride 100 mmol/L (98-107); Glucose 98 mg/dL (74-99); Potassium 4.8 mmol/L (3.5-5.1); Sodium 133 mmol/L (137-145); Total Bilirubin 0.2 mg/dL (0.2-1.3); Total Protein 5.6 g/dL (6.3-8.2)
[2018-03-29 01:05] LABS: Platelet Count 611 k/uL (150-450)
[2018-03-29 01:19] LABS: Creatine Kinase <20 U/L (30-135)
[2018-03-29 01:20] LABS: INR 1.2 (<1.2); Partial Thromboplastin Time 26.6 sec (22.0-30.0); Prothrombin Time 11.4 sec (9.0-12.0)
[2018-03-29 01:31] LABS: Creatine Kinase MB 0.3 ng/mL (0.0-2.4); Troponin I <0.012 ng/mL (0.000-0.034)
[2018-03-29] MEDS ORDERED: RX INFO: IV CONTRAST WAS GIVEN 1 EACH MISC MISCELLANE PRN (02:10)
--- NOTE | 2018-03-29 02:46 | CT ---
EXAMINATION TYPE: CT angio chest DATE OF EXAM: 03/29/2018 2:28 AM COMPARISON: 03/18/2018 HISTORY: Pain, TIAN, R/O PE CT DLP: 123.30 mGycm Automated exposure control for dose reduction was used. CONTRAST: CTA scan of the thorax is performed with IV Contrast, patient injected with 70 mL of Isovue 370, pulm onary embolism protocol. There are 3-D post processed images.. FINDINGS: There is a 6.5 cm mass at the right lung apex. There is adjacent destructive changes in the upper tho racic spine involving T2 and T3 vertebral bodies. There is slight compression deformity of T3 vertebr a. There is mass extension also into the spinal canal at the T2 level with some effacement of the the aleida sac. There are multiple patchy areas of pulmonary infiltrate in the right mid and lower lung field. These measure up to 3 cm. There is also some lingular infiltrate on the left side in the lingula left upper lobe. There is atelectasis at the right posterior lung base with right pleural effusion. There is sm all left pleural effusion. There is a 2 cm area of infiltrate in the anterior segment left lower lobe . This is somewhat spiculated and could relate to a primary tumor or metastatic disease. There is a 2 .5 cm mass involving left adrenal gland that is partly visualized and consistent with metastatic dise ase. Thoracic aorta is atheromatous. There is no evidence of aortic aneurysm or dissection. There are small filling defects in both lower lobe pulmonary arteries. IMPRESSION: Bilateral lower lobe pulmonary emboli appear not significantly different than the recent CT scan of 03/18/2018. I see no evidence of any new emboli. Multiple thoracic abnormalities as above consistent with malignancy. There is increased pleural fluid compared to old exam. There is increased atelectasis at the right lung base compared to old exam.
[2018-03-29] MEDS ORDERED: NALOXONE 0.4 MG/ML 1 ML VIAL IV PRN (03:11)
[2018-03-29] MEDS ORDERED: ACETAMINOPHEN TAB 325 MG TAB PO PRN (03:11)
[2018-03-29] MEDS ORDERED: HYDROcodone/APAP 5-325MG 1 EACH TAB PO STA (04:14)
[2018-03-29 04:55] VITALS: BMI 18.3
[2018-03-29 08:18] VITALS: BP 124/58; PULSE 93; RESP 18; TEMP 98.3
[2018-03-29] MEDS ORDERED: IPRATROPIUM-ALBUTEROL 3 ML NEB INHALATION PRN (10:21)
--- NOTE | 2018-03-29 10:21 | P.CNPUL ---
History of Present Illness Consult date: 03/29/18 Reason for consult: dyspnea, cough, pneumonia, pulmonary embolism, abnormal CXR/ CT Chief complaint: Shortness of breath, chest congestion History of present illness: Pulmonary consult dated 03/29/2018 This is a 77-year-old female who presents to the emergency department with complaints of shortness of breath cough chest congestion minimal phlegm production. Hasn't been feeling well for a couple days prior to admission. She has a recent history of a diagnosis of non-small cell lung cancer. She apparently had a right upper lobe lesion which was biopsied by interventional radiology via fine-needle aspiration. Apparently she has stage III disease. She's undergone 2 rounds of chemotherapy with another one apparently planned. 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 The patient was also found recently to have pulmonary embolism. For that she was placed on a factor X a inhibitor. Repeat computed tomography scan showed similar findings of a large mass in the right upper lobe as well as chronic PE, unchanged from prior computed tomography scan. Clinically, the patient looks well in no acute distress. Her cough is wet and congested. A bit of phlegm production. No fever or chills. No nausea vomiting or diarrhea. No chest pain. The patient's prior medical history her past medical history is essentially otherwise unremarkable. She has no known ALLERGIES. Home medications included Eliquis Protonix fentanyl patch Senokot cools solution [place] and updrafts Review of Systems A 12 point review of system is positive for cough minimal shortness of breath chest congestion and minimal phlegm production. Past Medical History Past Medical History: Cancer Additional Past Medical History / Comment(s): Multiple skin cancers removed, Lung CA (per daughter cancer is within neck/head.) left sinus cancer. 2 cycles of chemo complete. radiation to begin soon. History of Any Multi-Drug Resistant Organisms: None Reported Past Surgical History: Orthopedic Surgery Additional Past Surgical History / Comment(s): ankle Past Anesthesia/Blood Transfusion Reactions: No Reported Reaction Past Psychological History: No Psychological Hx Reported Smoking Status: Former smoker Past Alcohol Use History: Occasional Past Drug Use History: None Reported - Past Family History Father Family Medical History: No Reported History, Unable to Obtain Mother Family Medical History: CVA/TIA Medications and Allergies Home Medications Medication Instructions Recorded Confirmed Type Ipratropium-Albuterol Nebulize 3 ml INHALATION RT-TID #90 02/08/18 03/29/18 Rx [Duoneb 0.5 mg-3 mg/3 ml Soln] ampul.neb fentaNYL 25MCG/HR PATCH [Duragesic 1 patch TRANSDERM Q72H #5 patch 02/08/1801/15 Rx 25MCG/HR] HYDROcodone/APAP 5-325MG [[place] 1 - 2 tab PO Q4-6H PRN 02/19/18 03/29/18 History 5-325] Pantoprazole [Protonix] 40 mg PO DAILY #30 tablet. 02/20/18 03/29/18 Rx Cools Magic Mouthwash 5 ml PO QID 03/18/18 03/29/18 History Apixaban [Eliquis] 5 mg PO BID 03/29/18 03/29/18 History Megestrol [Megace] 400 mg PO DAILY 03/29/18 03/29/18 History Sennosides-Docusate Sodium 2 tab PO HS 03/29/18 03/29/18 History [Senokot-S] Allergies Allergy/AdvReac Type Severity Reaction Status Date / Time No Known Allergies Allergy Verified 03/29/18 07:55 Physical Exam Osteopathic Statement: *. No significant issues noted on an osteopathic structural exam other than those noted in the History and Physical/Consult. Vitals: Vital Signs Temp Pulse Pulse Resp BP BP Pulse Ox 03/29/18 07:30 98.3 F 93 18 124/58 98 03/29/18 04:55 97.2 F L 100 16 96 03/29/18 03:00 99.2 F 98 19 135/61 98 03/29/18 00:35 99 15 121/63 03/28/18 23:38 99.1 F 117 H 20 128/69 97 Intake and Output 03/28/18 03/29/18 03/29/18 22:59 06:59 14:59 Intake Total 360 Balance 360 Intake: Oral 360 Other: Voiding Method Toilet Toilet # Voids 1 Weight 51.71 kg No acute distress, oriented 3. Not requiring oxygen therapy. HEENT examination is grossly unremarkable. Mucous membranes are moist. No oral lesions. Neck supple. Full range of motion. No adenopathy thyromegaly or neck vein distention. Cardiovascular examination reveals regular rhythm rate. S1-S2 normal. No S3 or S4. No discernible murmur noted. Lungs reveal coarse rhonchi. Breath sounds equal. Slight prolongation on forced maneuver. Her cough is wet and congested sounding. Abdomen soft bowel sounds are heard. No masses or tenderness. Extremities are intact. No cyanosis clubbing or edema. Skin is without rash or lesion. Neurologic examination is brief but nonfocal. Results - Laboratory Findings CBC and BMP: 03/29/18 00:15 03/29/18 00:15 PT/INR, D-dimer PT 11.4 sec (9.0-12.0) 03/29/18 00:15 INR 1.2 (<1.2) H 03/29/18 00:15 Abnormal lab findings: Abnormal Labs 03/29/18 03/29/18 03/29/18 00:15 00:15 00:15 RBC 3.52 L Hgb 9.6 L Hct 29.3 L RDW 16.7 H Plt Count 611 H D INR Sodium 133 L Creatinine 0.30 L Total Creatine Kinase <20 L Total Protein 5.6 L Albumin 3.0 L 03/29/18 00:15 RBC Hgb Hct RDW Plt Count INR 1.2 H Sodium Creatinine Total Creatine Kinase Total Protein Albumin - Diagnostic Findings Chest x-ray: image reviewed CT scan - chest: image reviewed (X-ray labs and CAT scans and medications are all reviewed.) Assessment and Plan Assessment: Assessment Shortness of breath and chest congestion without any new chest x-ray or CT findings, most consistent with a mild COPD exacerbation. Stage III non-small cell lung cancer, squamous cell type, status post 2 rounds of chemotherapy Tonsillar adenocarcinoma of the sinuses History of recent pulmonary embolism, currently on a factor X a inhibitor History of multiple skin cancers History of gastroesophageal reflux disease. Plan: Plan dated 03/29/2018 The patient's medications and labs will be reviewed. X-rays are reviewed including chest x-ray and CAT scan. There is no evidence of any progression of pulmonary emboli and there are no new pulmonary emboli. The patient is really on a factor X a inhibitor. We'll make sure the patient has adequate medication for her COPD exacerbation. She looks pretty good and I suspect discharge in the next 24-48 hours. No additional recommendations are made. We'll continue to follow. Prognosis is guarded. Time with Patient: Greater than 30
--- NOTE | 2018-03-29 10:47 | P.HPIM ---
History of Present Illness 77-year-old female who presents to the emergency department with complaints of shortness of breath cough chest congestion minimal phlegm production. Hasn't been feeling well for a couple days prior to admission. She has a recent history of a diagnosis of non-small cell lung cancer. She apparently had a right upper lobe lesion which was biopsied by interventional radiology via fine- needle aspiration. Apparently she has stage III disease. She's undergone 2 rounds of chemotherapy with another one apparently planned. 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 The patient was also found recently to have pulmonary embolism. For that she was placed on a factor X a inhibitor. Repeat computed tomography scan showed similar findings of a large mass in the right upper lobe as well as chronic PE, unchanged from prior computed tomography scan. Clinically, the patient looks well in no acute distress. Her cough is wet and congested. A bit of phlegm production. No fever or chills. No nausea vomiting or diarrhea. No chest pain. The patient' s prior medical history her past medical history is essentially otherwise unremarkable. She has no known ALLERGIES. Patient is pretty status improved there is no significant wheezing. Patient may have had mild COPD exacerbation CAT scan is not consistent with pneumonia patient will be discharged on Augmentin for bronchitis along with the shot steroid taper and will be discharged today area before discharge will ablate the patient make sure patient is saturating okay and patient's vitals are okay. Review of Systems REVIEW OF SYSTEMS: CONSTITUTIONAL: No fever, no malaise, no fatigue. HEENT: No recent visual problems or hearing problems. Denied any sore throat. CARDIOVASCULAR: No chest pain, orthopnea, PND, no palpitations, no syncope. PULMONARY: As mentioned in HPI GASTROINTESTINAL: No diarrhea, no nausea, no vomiting, no abdominal pain. Normoactive bowel sounds. NEUROLOGICAL: No headaches, no weakness, no numbness. HEMATOLOGICAL: Denies any bleeding or petechiae. GENITOURINARY: Denies any burning micturition, frequency, or urgency. MUSCULOSKELETAL/RHEUMATOLOGICAL: Denies any joint pain, swelling, or any muscle pain. ENDOCRINE: Denies any polyuria or polydipsia. The rest of the 14-point review of systems is negative. Past Medical History Past Medical History: Cancer Additional Past Medical History / Comment(s): Multiple skin cancers removed, Lung CA (per daughter cancer is within neck/head.) left sinus cancer. 2 cycles of chemo complete. radiation to begin soon. History of Any Multi-Drug Resistant Organisms: None Reported Past Surgical History: Orthopedic Surgery Additional Past Surgical History / Comment(s): ankle Past Anesthesia/Blood Transfusion Reactions: No Reported Reaction Past Psychological History: No Psychological Hx Reported Smoking Status: Former smoker Past Alcohol Use History: Occasional Past Drug Use History: None Reported - Past Family History Father Family Medical History: No Reported History, Unable to Obtain Mother Family Medical History: CVA/TIA Medications and Allergies Home Medications Medication Instructions Recorded Confirmed Type Ipratropium-Albuterol Nebulize 3 ml INHALATION RT-TID #90 02/08/18 03/29/18 Rx [Duoneb 0.5 mg-3 mg/3 ml Soln] ampul.neb fentaNYL 25MCG/HR PATCH [Duragesic 1 patch TRANSDERM Q72H #5 patch 02/08/1801/15 Rx 25MCG/HR] HYDROcodone/APAP 5-325MG [[place] 1 - 2 tab PO Q4-6H PRN 02/19/18 03/29/18 History 5-325] Pantoprazole [Protonix] 40 mg PO DAILY #30 tablet.dr 02/20/18 03/29/18 Rx Cools Magic Mouthwash 5 ml PO QID 03/18/18 03/29/18 History Amoxic-Pot Clav 875-125Mg 1 tab PO Q12HR #10 tablet 03/29/18 Rx [Augmentin 875-125] Apixaban [Eliquis] 5 mg PO BID 03/29/18 03/29/18 History Budesonide-Formot 160-4.5 Mcg 2 puff INHALATION BID #1 inhaler 03/29/18 Rx [Symbicort 160-4.5 Mcg Inhaler] Megestrol [Megace] 400 mg PO DAILY 03/29/18 03/29/18 History Sennosides-Docusate Sodium 2 tab PO HS 03/29/18 03/29/18 History [Senokot-S] predniSONE 10 mg PO DAILY #30 tab 03/29/18 Rx Allergies Allergy/AdvReac Type Severity Reaction Status Date / Time No Known Allergies Allergy Verified 03/29/18 07:55 Physical Exam Vitals: Vital Signs Temp Pulse Pulse Resp BP BP Pulse Ox 05/02/18 07:30 98.3 F 93 18 124/58 98 03/29/18 04:55 97.2 F L 100 16 96 03/29/18 03:00 99.2 F 98 19 135/61 98 03/29/18 00:35 99 15 121/63 03/28/18 23:38 99.1 F 117 H 20 128/69 97 Intake and Output 03/28/18 03/29/18 03/29/18 22:59 06:59 14:59 Intake Total 360 Balance 360 Intake: Oral 360 Other: Voiding Method Toilet Toilet # Voids 1 Weight 51.71 kg PHYSICAL EXAMINATION: GENERAL: The patient is alert and oriented x3, not in any acute distress. And built HEENT: Pupils are round and equally reacting to light. EOMI. No scleral icterus. No conjunctival pallor. Normocephalic, atraumatic. No pharyngeal erythema. No thyromegaly. CARDIOVASCULAR: S1 and S2 present. No murmurs, rubs, or gallops. PULMONARY: Chest is clear to auscultation, no wheezing or crackles. ABDOMEN: Soft, nontender, nondistended, normoactive bowel sounds. No palpable organomegaly. MUSCULOSKELETAL: No joint swelling or deformity. EXTREMITIES: No cyanosis, clubbing, or pedal edema. NEUROLOGICAL: Gross neurological examination did not reveal any focal deficits. SKIN: No rashes. Results CBC & Chem 7: 03/29/18 00:15 03/29/18 00:15 Labs: Abnormal Lab Results - Last 24 Hours (Table) 03/29/18 03/29/18 03/29/18 Range/Units 00:15 00:15 00:15 RBC 3.52 L (3.80-5.40) m/uL Hgb 9.6 L (11.4-16.0) gm/dL Hct 29.3 L (34.0-46.0) % RDW 16.7 H (11.5-15.5) % Plt Count 611 H D (150-450) k/uL INR (<1.2) Sodium 133 L (137-145) mmol/L Creatinine 0.30 L (0.52-1.04) mg/dL Total Creatine Kinase <20 L (30-135) U/L Total Protein 5.6 L (6.3-8.2) g/dL Albumin 3.0 L (3.5-5.0) g/dL 03/29/18 Range/Units 00:15 RBC (3.80-5.40) m/uL Hgb (11.4-16.0) gm/dL Hct (34.0-46.0) % RDW (11.5-15.5) % Plt Count (150-450) k/uL INR 1.2 H (<1.2) Sodium (137-145) mmol/L Creatinine (0.52-1.04) mg/dL Total Creatine Kinase (30-135) U/L Total Protein (6.3-8.2) g/dL Albumin (3.5-5.0) g/dL Thrombosis Risk Factor Assmnt - Choose All That Apply Other Risk Factors: Yes Each Risk Factor Represents 2 Points: Malignancy Each Risk Factor Represents 3 Points: Age 75 years or older, History of DVT/PE Other congenital or acquired thrombophilia - If yes, enter type in comment: No Thrombosis Risk Factor Assessment Total Risk Factor Score: 8 Thrombosis Risk Factor Assessment Level: High Risk Assessment and Plan Plan: Shortness of breath: Secondary to mild COPD exacerbation and chest CT is not consistent with pneumonia although there are some infiltrates patient will be discharged with antibiotics for bronchitis discharged steroid taper and the inhaled steroids patient does have her inhaled inhalational treatments at home which she'll continue which is albuterol and ipratropium. -History of lung cancer with recent pulmonary embolism patient is on anti- correlation will be continued Caitlyn PE appears to be fairly stable without any change. Stage III non-small cell lung cancer, squamous cell type, status post 2 rounds of chemotherapy Tonsillar adenocarcinoma of the sinuses History of recent pulmonary embolism, currently on a factor X a inhibitor History of multiple skin cancers History of gastroesophageal reflux disease.
--- NOTE | 2018-03-29 10:48 | P.DS ---
Providers Date of admission: 03/29/18 03:11 Attending physician: Dl Saldaña Consults: 03/29/18 03:12 Consult Physician Urgent Consulting Provider: Sanjay Hinds Consult Reason/Comments: Dyspnea Do you want consulting provider notified?: Yes Consult Physician Urgent Consulting Provider: Avelino Pimentel Consult Reason/Comments: Oncological care Do you want consulting provider notified?: Yes [facility] Course: Refer to my HPI Plan - Discharge Summary Discharge Rx Participant: No New Discharge Prescriptions: New Amoxic-Pot Clav 875-125Mg [Augmentin 875-125] 1 tab PO Q12HR #10 tablet Budesonide-Formot 160-4.5 Mcg [Symbicort 160-4.5 Mcg Inhaler] 2 puff INHALATION BID #1 inhaler predniSONE 10 mg PO DAILY #30 tab No Action fentaNYL 25MCG/HR PATCH [Duragesic 25MCG/HR] 1 patch TRANSDERM Q72H #5 patch Ipratropium-Albuterol Nebulize [Duoneb 0.5 mg-3 mg/3 ml Soln] 3 ml INHALATION RT-TID #90 ampul.neb HYDROcodone/APAP 5-325MG [[place] 5-325] 1 - 2 tab PO Q4-6H PRN PRN Reason: Breakthrough Pain Pantoprazole [Protonix] 40 mg PO DAILY #30 tablet.dr [place] Magic Mouthwash 5 ml PO QID Apixaban [Eliquis] 5 mg PO BID Sennosides-Docusate Sodium [Senokot-S] 2 tab PO HS Megestrol [Megace] 400 mg PO DAILY Discharge Medication List Ipratropium-Albuterol Nebulize [Duoneb 0.5 mg-3 mg/3 ml Soln] 3 ml INHALATION RT -TID #90 ampul.arnold 02/08/18 [Rx] fentaNYL 25MCG/HR PATCH [Duragesic 25MCG/HR] 1 patch TRANSDERM Q72H #5 patch [Rx] HYDROcodone/APAP 5-325MG [[place] 5-325] 1 - 2 tab PO Q4-6H PRN 02/19/18 [History] Pantoprazole [Protonix] 40 mg PO DAILY #30 tablet. 02/20/18 [Rx] Cools Magic Mouthwash 5 ml PO QID 03/18/18 [History] Amoxic-Pot Clav 875-125Mg [Augmentin 875-125] 1 tab PO Q12HR #10 tablet [Rx] Apixaban [Eliquis] 5 mg PO BID 03/29/18 [History] Budesonide-Formot 160-4.5 Mcg [Symbicort 160-4.5 Mcg Inhaler] 2 puff INHALATION BID #1 inhaler 03/29/18 [Rx] Megestrol [Megace] 400 mg PO DAILY 03/29/18 [History] Sennosides-Docusate Sodium [Senokot-S] 2 tab PO HS 03/29/18 [History] predniSONE 10 mg PO DAILY #30 tab 03/29/18 [Rx] Follow up Appointment(s)/Referral(s): aTo Gonzalez MD [Primary Care Provider] - 3 Days Discharge Disposition: HOME SELF-CARE
--- NOTE | 2018-03-29 12:49 | P.CONS ---
History of Present Illness - Reason for Consult Consult date: 03/29/18 malignancy, on chemotherapy Requesting physician: Vincent Ley - Chief Complaint TIAN - History of Present Illness Mrs. Posadas is a very pleasant 77-year-old female patient of Dr. Pimentel. She was diagnosed just about 6 weeks ago with 2 malignancies and is currently s/p 2 cycles of chemo with overall good tolerance and improved malignancy symptoms, decreased back and neck pain, fullness in her left frontal sinus is less. Last night she was having difficulty in breathing and inability to expectorate that frightened her so she had her family bring her to the emergency department for evaluation. CT was done no evidence of progressive or new PE, there are multiple bilateral lung infiltrates noted, patient is being treated for pneumonia. She states breathing much better since admission, no fevers, chills, she is still tolerating oral intake no dysphagia, odynophagia, nausea or vomiting, pleuritic type chest pain, abdominal pain, changes in bowel or bladder habits, energy levels are fair. She was diagnosed with PE 03/18, tolerating eliqus, no s/s bleeding. Malignancy history: Pt had complaints of progressive pain in the right upper back, right neck, nasal congestion, fullness in the left side of her face and base of skull that started early 2017, seen by ENT, CT of the brain and soft tissue of the neck, revealed a 7.4 cm mass in the left maxillary sinus, causing some destruction of the inferior orbital floor, extending into the nasopharynx and pharynx, another mass, at least 6.7 cm, seen in the right lung apex with destruction of the T2 vertebra. On 02/07 she had biopsy of soft palate mass, positive for adenocarcinoma of the tonsil and 02/08 lung was biopsied, path positive for non-small cell lung cancer. Patient has started chemotherapy and is status post 2 cycles. Review of Systems 14 popint ROS as stated in HPI Past Medical History Past Medical History: Cancer Additional Past Medical History / Comment(s): Multiple skin cancers removed, Lung CA (per daughter cancer is within neck/head.) left sinus cancer. 2 cycles of chemo complete. radiation to begin soon. History of Any Multi-Drug Resistant Organisms: None Reported Past Surgical History: Orthopedic Surgery Additional Past Surgical History / Comment(s): ankle Past Anesthesia/Blood Transfusion Reactions: No Reported Reaction Past Psychological History: No Psychological Hx Reported Smoking Status: Former smoker Past Alcohol Use History: Occasional Past Drug Use History: None Reported - Past Family History Father Family Medical History: No Reported History, Unable to Obtain Mother Family Medical History: CVA/TIA Medications and Allergies Home Medications Medication Instructions Recorded Confirmed Type Ipratropium-Albuterol Nebulize 3 ml INHALATION RT-TID #90 02/08/18 03/29/18 Rx [Duoneb 0.5 mg-3 mg/3 ml Soln] ampul.neb fentaNYL 25MCG/HR PATCH [Duragesic 1 patch TRANSDERM Q72H #5 patch 02/08/1801/15 Rx 25MCG/HR] HYDROcodone/APAP 5-325MG [[place] 1 - 2 tab PO Q4-6H PRN 02/19/18 03/29/18 History 5-325] Pantoprazole [Protonix] 40 mg PO DAILY #30 tablet. 02/20/18 03/29/18 Rx Cools Magic Mouthwash 5 ml PO QID 03/18/18 03/29/18 History Amoxic-Pot Clav 875-125Mg 1 tab PO Q12HR #10 tablet 03/29/18 Rx [Augmentin 875-125] Apixaban [Eliquis] 5 mg PO BID 03/29/18 03/29/18 History Budesonide-Formot 160-4.5 Mcg 2 puff INHALATION BID #1 inhaler 03/29/18 Rx [Symbicort 160-4.5 Mcg Inhaler] Megestrol [Megace] 400 mg PO DAILY 03/29/18 03/29/18 History Sennosides-Docusate Sodium 2 tab PO HS 03/29/18 03/29/18 History [Senokot-S] predniSONE 10 mg PO DAILY #30 tab 03/29/18 Rx Allergies Allergy/AdvReac Type Severity Reaction Status Date / Time No Known Allergies Allergy Verified 03/29/18 07:55 Physical Exam Vitals: Vital Signs Temp Pulse Pulse Resp BP BP Pulse Ox 03/29/18 11:17 97 03/29/18 07:30 98.3 F 93 18 124/58 98 03/29/18 04:55 97.2 F L 100 16 96 03/29/18 03:00 99.2 F 98 19 135/61 98 03/29/18 00:35 99 15 121/63 03/28/18 23:38 99.1 F 117 H 20 128/69 97 Intake and Output 03/28/18 03/29/18 03/29/18 22:59 06:59 14:59 Intake Total 360 Balance 360 Intake: Oral 360 Other: Voiding Method Toilet Toilet # Voids 1 Weight 51.71 kg 51.71 kg - Constitutional General appearance: cooperative, no acute distress, thin - EENT 4.5-5 cm mass at the hard palet/soft palet juncture, left side of mouth, less red, there is some central necrosis and sloughing, no active bleeding no signs or symptoms of infectious-type drainage. Frontal sinuses less painful to palpation, less fullness noted, less swelling/ puffiness in the frontal sinus areas Eyes: anicteric sclerae - Neck Neck: lymphadenopathy - Respiratory Respiratory: left: diminished - Cardiovascular Heart sounds: normal: S1, S2 leg Peripheral Edema: bilateral: None - Gastrointestinal General gastrointestinal: normal bowel sounds, soft - Integumentary Integumentary: normal - Neurologic Neurologic: CNII-XII intact - Musculoskeletal Musculoskeletal: strength equal bilaterally - Psychiatric Psychiatric: A&O x's 3, appropriate affect, intact judgment & insight Results CBC & Chem 7: 03/29/18 00:15 03/29/18 00:15 Labs: Abnormal Lab Results - Last 24 Hours (Table) 03/29/18 03/29/18 03/29/18 Range/Units 00:15 00:15 00:15 RBC 3.52 L (3.80-5.40) m/uL Hgb 9.6 L (11.4-16.0) gm/dL Hct 29.3 L (34.0-46.0) % RDW 16.7 H (11.5-15.5) % Plt Count 611 H D (150-450) k/uL INR (<1.2) Sodium 133 L (137-145) mmol/L Creatinine 0.30 L (0.52-1.04) mg/dL Total Creatine Kinase <20 L (30-135) U/L Total Protein 5.6 L (6.3-8.2) g/dL Albumin 3.0 L (3.5-5.0) g/dL 03/29/18 Range/Units 00:15 RBC (3.80-5.40) m/uL Hgb (11.4-16.0) gm/dL Hct (34.0-46.0) % RDW (11.5-15.5) % Plt Count (150-450) k/uL INR 1.2 H (<1.2) Sodium (137-145) mmol/L Creatinine (0.52-1.04) mg/dL Total Creatine Kinase (30-135) U/L Total Protein (6.3-8.2) g/dL Albumin (3.5-5.0) g/dL Chest x-ray: report reviewed CT scan - chest: report reviewed Assessment and Plan (1) Acute pulmonary embolus Narrative/Plan: Patient is tolerating eliquis, no signs or symptoms of bleeding. Continue eliquis Current Visit: No Status: Acute Priority: Medium Code(s): I26.99 - OTHER PULMONARY EMBOLISM WITHOUT ACUTE COR PULMONALE SNOMED Code(s): 551549568 (2) Squamous cell carcinoma of right lung Current Visit: Yes Status: Acute Priority: High Code(s): C34.91 - MALIGNANT NEOPLASM OF UNSP PART OF RIGHT BRONCHUS OR LUNG SNOMED Code(s): 78367723048853339 (3) Oral cancer Current Visit: Yes Status: Acute Priority: High Code(s): C06.9 - MALIGNANT NEOPLASM OF MOUTH, UNSPECIFIED SNOMED Code(s): 249356841 Plan: Patient is currently doing very well on chemotherapy. Subjective symptoms of malignancy are improving. Plan is to continue with chemotherapy on schedule, patient is due for next treatment in about 10 days. Patient will be reevaluated prior to receiving her treatment. Patient verbalized understanding the plan. No other acute interventions from a hematology/oncology standpoint at this time. Attests: I performed a history and physical examination of this patient, discussed with dictator. I agree with the dictator's note, documented as scribe.
[2018-03-29] MEDS ORDERED: IPRATROPIUM-ALBUTEROL 3 ML NEB INHALATION SCH (13:00)
[2018-03-29] MEDS ORDERED: SYMBICORT 160-4.5 MCG INHALER INHALATION SCH (20:00)
[2018-03-30] MEDS ORDERED: predniSONE 20 MG TAB PO SCH (09:00)
== END 2018-03-29 13:00 | disposition home or self-care (01) ==
LOC: EC 23:37 → 5ONC 03-29 03:11
PROVIDERS: ADMIT Hospitalist; ATTEND Hospitalist
DX: J44.1 Chronic obstructive pulmonary disease with (acute) exacerbation (principal); C34.11 Malignant neoplasm of upper lobe, right bronchus or lung; C31.9 Malignant neoplasm of accessory sinus, unspecified; I27.82 Chronic pulmonary embolism; K21.9 Gastro-esophageal reflux disease without esophagitis; Z79.01 Long term (current) use of anticoagulants; Z79.891 Long term (current) use of opiate analgesic; Z79.51 Long term (current) use of inhaled steroids; Z79.899 Other long term (current) drug therapy; Z87.891 Personal history of nicotine dependence; Z85.828 Personal history of other malignant neoplasm of skin; Z82.3 Family history of stroke
CPT/HCPCS: 99285 ×2; 36415; 93005; 83880; 80053; 82550; 82553; 84484; 85025; 85610; 85730; 87040; 87502; 71046; 71275; G0378; Q9967

== ENCOUNTER 2018-04-01 23:30 | Emergency (ER) | payer MEDICARE ==
[2018-04-02] MEDS ORDERED: SODIUM CHLORIDE 0.9% 500 ML IV ONE (00:18)
[2018-04-02 00:59] LABS: Anisocytosis Slight; Basophils # (A) 0.1 k/uL (0-0.2); Basophils % (A) 0 %; Eosinophils % (A) 0 %; HCT 31.2 % (34.0-46.0); Lymphocytes # (A) 2.2 k/uL (1.0-4.8); Lymphocytes % (A) 15 %; MCH 26.8 pg (25.0-35.0); MCHC 32.1 g/dL (31.0-37.0); MCV 83.7 fL (80.0-100.0); Mean Platelet Volume 6.7; Monocytes # (A) 0.7 k/uL (0-1.0); Monocytes % (A) 5 %; Neutrophils # (A) 11.4 k/uL (1.3-7.7); Neutrophils % (A) 78 %; Platelet Count 586 k/uL (150-450); RBC 3.72 m/uL (3.80-5.40); RDW 17.5 % (11.5-15.5); WBC 14.7 k/uL (3.8-10.6)
[2018-04-02 01:05] LABS: ALT 8 U/L (9-52); AST 15 U/L (14-36); Albumin 3.3 g/dL (3.5-5.0); Alkaline Phosphatase 100 U/L (38-126); Anion Gap 13 mmol/L; Blood Urea Nitrogen 13 mg/dL (7-17); Calcium 10.2 mg/dL (8.4-10.2); Carbon Dioxide 23 mmol/L (22-30); Chloride 99 mmol/L (98-107); Glucose 105 mg/dL (74-99); Potassium 4.3 mmol/L (3.5-5.1); Sodium 135 mmol/L (137-145); Total Bilirubin 0.1 mg/dL (0.2-1.3); Total Protein 6.1 g/dL (6.3-8.2)
--- NOTE | 2018-04-02 01:25 | XR ---
EXAM: XR Chest, 2 Views CLINICAL HISTORY: Pain TECHNIQUE: Frontal and lateral views of the chest. COMPARISON: CT 03/29/2018, CXR 03/29/2018 FINDINGS: Lungs: Stable masslike consolidation in the right lung apex and patchy areas of consolidation throughout the right lung. Stable bilateral pulmonary hyperinflation. Bilateral peribronchial thickening. Left apical pleural parenchymal scar. Pleural space: Small bilateral pleural effusions. No pneumothorax. Heart: Stable cardiomediastinal silhouette. Mediastinum: See above. Bones/joints: No acute osseous abnormality. IMPRESSION: No significant interval change since prior examination.
[2018-04-02 01:40] LABS: Appearance,Urine Clear (Clear); Bilirubin,Urine Negative (Negative); Blood,Urine Negative (Negative); Color,Urine Yellow; Glucose,Urine (UA) Negative (Negative); Ketones,Urine Negative (Negative); Leukocyte Esterase,Urine Negative (Negative); Nitrite,Urine Negative (Negative); PH, Urine 6.5 (5.0-8.0); Protein,Urine Negative (Negative); Specific Gravity,Urine 1.012 (1.001-1.035); Urobilinogen,Urine <2.0 mg/dL (<2.0)
[2018-04-02] MEDS ORDERED: RX INFO: IV CONTRAST WAS GIVEN 1 EACH MISC MISCELLANE PRN (02:46)
--- NOTE | 2018-04-02 03:43 | CT ---
EXAM: CT Angiography Chest With Intravenous Contrast CLINICAL HISTORY: ITS.REASON CT Reason: Pain TECHNIQUE: Axial computed tomographic angiography images of the chest with intravenous contrast using pulmonary embolism protocol. CTDI is 46.5 mGy and DLP is 195.6 mGy-cm. This CT exam was performed using one or more of the following dose reduction techniques: automated exposure control, adjustment of the mA and/or kV according to patient size, and/or use of iterative reconstruction technique. MIP reconstructed images were created and reviewed. Coronal and sagittal reformatted images were created and reviewed. COMPARISON: 03/18/18 FINDINGS: Pulmonary arteries: Filling defects are noted within multiple right lower lung subsegmental branches with partial occlusion. Configuration is similar to previous exam, with overall decreased severity, favoring residual component. No definitive new or enlarging pulmonary emboli are identified. Aorta: Stable appearance to the aorta with ascending aortic ectasia to caliber of 3 cm. Stable diffuse atherosclerotic changes are present. Lungs: Stable dominant right upper lobe lung mass with invasion of the mediastinum and adjacent suprahilar as well as multiple right-sided thoracic vertebrae and posterior ribs.. Approximate measurements on today's examination 6.5 x 5.7 x 7.5 cm. Multifocal airspace opacities in the upper lobes and superior segment of the lower lobes are again noted, slightly progressed. Airspace disease also noted within the right lower lobe which is more confluent and smaller in size could be related atelectasis, infarct, or infiltrate. Focal airspace disease is also again noted within the dependent left lower lobe with slightly more rounded configuration. Somewhat spiculated appearing airspace space disease in the more anterior left lower lobe is likely slightly smaller in size. Pleural space: Small right pleural effusion. No pneumothorax. Heart: Stable cardiomegaly. No significant pericardial effusion. Bones/joints: Stable chronic osseous changes. No acute fracture. No dislocation. Soft tissues: No acute interval changes. Lymph nodes: No acute interval changes. Adrenals: Stable left adrenal nodule measuring 2.7 cm and low-density favoring adenoma. IMPRESSION: 1. Multiple right lower lobe subsegmental pulmonary emboli, appearance favoring residual component from the previously seen emboli. 2. Large right apical lung mass with regional invasion, not significantly changed in appearance. 3. Slightly progressed pulmonary infiltrates in the upper lobes and evolving airspace disease in the lower lobes as noted above. Component of pulmonary infarct not excluded along the periphery of the right lower lobe. 4. Small right pleural effusion. 5. Otherwise relatively stable findings as compared to the recent previous exam. [employer] 04/02/18 03:37 Call Doctor Regarding Above results, called ANDRES Leiva on 04/02 03:37 (-04:00)
[2018-04-02 03:50] VITALS: BP 121/59; PULSE 85; RESP 20; TEMP 98.2
--- NOTE | 2018-04-02 03:55 | ED ---
Back Pain HPI - General Chief Complaint: Back Pain/Injury Stated Complaint: Back Pain Time Seen by Provider: 04/01/18 23:52 Source: patient Limitations: physical limitation - History of Present Illness Initial Comments: 77 year-old female patient presents to the emergency department today for evaluation of right mid back pain to right flank pain. Patient states that this started a few hours ago. Patient states that she is unable to get comfortable. She denies any shortness of breath, nausea, vomiting, hematuria, dysuria, urinary frequency, urinary urgency with this. Patient was recently diagnosed with metastatic right lung cancer and also recently diagnosed with multiple pulmonary embolisms. Patient states that this pain is similar to when she was diagnosed with the pulmonary embolisms. She is currently taking Eliquis. Patient denies taking any pain medication for her symptoms. States that she does wear a pain patch. Patient states other than this pain she is feeling well. Patient is currently undergoing chemotherapy. Patient denies any recent rash, fever, chills, chest pain, abdominal pain, diarrhea, constipation, numbness, tingling, dizziness, weakness, headache, visual changes, or any other complaints. - Related Data Home Medications Medication Instructions Recorded Confirmed HYDROcodone/APAP 5-325MG [[place] 1 - 2 tab PO Q4-6H PRN 02/19/18 03/29/18 5-325] Cools Magic Mouthwash 5 ml PO QID 03/18/18 03/29/18 Apixaban [Eliquis] 5 mg PO BID 03/29/18 03/29/18 Megestrol [Megace] 400 mg PO DAILY 03/29/18 03/29/18 Sennosides-Docusate Sodium 2 tab PO HS 03/29/18 03/29/18 [Senokot-S] Previous Rx's Medication Instructions Recorded Ipratropium-Albuterol Nebulize 3 ml INHALATION RT-TID #90 02/08/18 [Duoneb 0.5 mg-3 mg/3 ml Soln] ampul.neb fentaNYL 25MCG/HR PATCH [Duragesic 1 patch TRANSDERM Q72H #5 patch 02/08/18 25MCG/HR] Pantoprazole [Protonix] 40 mg PO DAILY #30 tablet. 02/20/18 Amoxic-Pot Clav 875-125Mg 1 tab PO Q12HR #10 tablet 03/29/18 [Augmentin 875-125] Budesonide-Formot 160-4.5 Mcg 2 puff INHALATION BID #1 inhaler 03/29/18 [Symbicort 160-4.5 Mcg Inhaler] predniSONE 10 mg PO DAILY #30 tab 03/29/18 Allergies Allergy/AdvReac Type Severity Reaction Status Date / Time No Known Allergies Allergy Verified 04/01/18 23:36 Review of Systems ROS Statement: Those systems with pertinent positive or pertinent negative responses have been documented in the HPI. ROS Other: All systems not noted in ROS Statement are negative. Past Medical History Past Medical History: Cancer Additional Past Medical History / Comment(s): Multiple skin cancers removed, Lung CA (per daughter cancer is within neck/head.) left sinus cancer. 2 cycles of chemo complete 03/16/2018. radiation to begin soon. History of Any Multi-Drug Resistant Organisms: None Reported Past Surgical History: Orthopedic Surgery Additional Past Surgical History / Comment(s): ankle, Past Anesthesia/Blood Transfusion Reactions: No Reported Reaction Past Psychological History: No Psychological Hx Reported Smoking Status: Former smoker Past Alcohol Use History: Occasional Past Drug Use History: None Reported - Past Family History Father Family Medical History: No Reported History, Unable to Obtain Mother Family Medical History: CVA/TIA General Exam Limitations: physical limitation General appearance: alert, in no apparent distress, other (This is a well- developed, well-nourished adult female patient in no acute distress. Vital signs upon presentation are temperature 98.2F, pulse 85, respirations 20, blood pressure 121/59, pulse ox 96% on room air.) Eye exam: Present: normal appearance, PERRL, EOMI. Absent: scleral icterus, conjunctival injection, periorbital swelling ENT exam: Present: normal exam, normal oropharynx, mucous membranes moist Respiratory exam: Present: normal lung sounds bilaterally. Absent: respiratory distress, wheezes, rales, rhonchi, stridor Cardiovascular Exam: Present: regular rate, normal rhythm, normal heart sounds. Absent: systolic murmur, diastolic murmur, rubs, gallop, clicks GI/Abdominal exam: Present: soft, normal bowel sounds. Absent: distended, tenderness, guarding, rebound, rigid Back exam: Present: normal inspection Neurological exam: Present: alert, oriented X3, CN II-XII intact Psychiatric exam: Present: normal affect, normal mood Skin exam: Present: warm, dry, intact, normal color. Absent: rash Course Vital Signs 04/02/18 03:49 Temperature 98.2 F Pulse Rate 85 Respiratory 20 Rate Blood Pressure 121/59 O2 Sat by Pulse 96 Oximetry Medical Decision Making - Medical Decision Making 77-year-old female patient presents to emergency department today for evaluation of right mid back pain. Physical examination is unremarkable. Labs reviewed and showed no acute changes. I did discuss findings and results with the family was quite concerned that she may have developed a new pulmonary embolism. We did discuss the possibility of performing a repeat computed tomography scan however did discuss the risks versus benefits that she has had [address] scans with contrast. They did discuss it with both the patient and another family member and have requested that we perform the computed tomography scan. CT angios of the chest was performed, I did receive a verbal report from the radiologist to found no acute changes, did show interval improvement of the present pulmonary embolisms. No evidence of new pulmonary embolus. I did discuss these findings with the patient. We discussed pain management and follow-up with her oncologist as well as her primary care physician. Return parameters were discussed in detail. They verbalize understanding and agree with this plan. - Lab Data Result diagrams: 04/02/18 00:30 04/02/18 00:30 Lab Results 04/02/18 04/02/18 04/02/18 Range/Units 00:30 00:30 01:13 WBC 14.7 H (3.8-10.6) k/uL RBC 3.72 L (3.80-5.40) m/uL Hgb 10.0 L (11.4-16.0) gm/dL Hct 31.2 L (34.0-46.0) % MCV 83.7 (80.0-100.0) fL MCH 26.8 (25.0-35.0) pg MCHC 32.1 (31.0-37.0) g/dL RDW 17.5 H (11.5-15.5) % Plt Count 586 H (150-450) k/uL Neutrophils % 78 % Lymphocytes % 15 % Monocytes % 5 % Eosinophils % 0 % Basophils % 0 % Neutrophils # 11.4 H (1.3-7.7) k/uL Lymphocytes # 2.2 (1.0-4.8) k/uL Monocytes # 0.7 (0-1.0) k/uL Eosinophils # 0.0 (0-0.7) k/uL Basophils # 0.1 (0-0.2) k/uL Anisocytosis Slight Sodium 135 L (137-145) mmol/L Potassium 4.3 (3.5-5.1) mmol/L Chloride 99 (98-107) mmol/L Carbon Dioxide 23 (22-30) mmol/L Anion Gap 13 mmol/L BUN 13 (7-17) mg/dL Creatinine 0.30 L (0.52-1.04) mg/dL Est GFR (CKD-EPI)AfAm >90 (>60 ml/min/1.73 sqM) Est GFR (CKD-EPI)NonAf >90 (>60 ml/min/1.73 sqM) Glucose 105 H (74-99) mg/dL Calcium 10.2 (8.4-10.2) mg/dL Total Bilirubin 0.1 L (0.2-1.3) mg/dL AST 15 (14-36) U/L ALT 8 L (9-52) U/L Alkaline Phosphatase 100 (38-126) U/L Total Protein 6.1 L (6.3-8.2) g/dL Albumin 3.3 L (3.5-5.0) g/dL Urine Color Yellow Urine Appearance Clear (Clear) Urine pH 6.5 (5.0-8.0) Ur Specific [place] 1.012 (1.001-1.035) Urine Protein Negative (Negative) Urine Glucose (UA) Negative (Negative) Urine Ketones Negative (Negative) Urine Blood Negative (Negative) Urine Nitrite Negative (Negative) Urine Bilirubin Negative (Negative) Urine Urobilinogen <2.0 (<2.0) mg/dL Ur Leukocyte Esterase Negative (Negative) - Radiology Data Radiology results: report reviewed, image reviewed Two-view x-ray of the chest was obtained. There is a stable masslike consolidation in the right lung apex and patchy areas of consolidation throughout the right lung. Stable bilateral pulmonary hyperinflation. Bilateral peribronchial thickening. Left apical pleural parenchymal scar. Pleural space show small bilateral pleural effusions. No pneumothorax. Heart is stable cardiac mediastinal silhouette. Bones and joints are no acute osseous abnormality. Impression by Dr. García shows no significant interval change since prior examination. CTA of the chest was performed. Report was reviewed in its entirety. Impression by Dr. Estrada shows multiple right lower lobe subsegmental pulmonary emboli, appearance favoring residual component from the previously seen emboli. Large right apical lung mass with regional invasion, not significantly changed in appearance. Slightly progressed pulmonary infiltrates in the upper lobes an evolving airspace disease in the lower lobes as noted above. Component of pulmonary infarct not excluded along the periphery of the right lower lobe. Small right pleural effusion. Otherwise relatively stable findings as compared to the recent previous exam. Disposition Clinical Impression: Right-sided back pain Disposition: HOME SELF-CARE Condition: Good Instructions: Flank Pain (ED), Back Pain (ED) Additional Instructions: Take home pain medications as directed. Apply warm compresses to the right back. Follow-up with your oncologist in her primary care physician for recheck in 1-2 days. Return here immediately for any new, worsening, or concerning symptoms. Is patient prescribed a controlled substance at d/c from ED?: No Referrals: Tao Gonzalez MD [Primary Care Provider] - 1-2 days Time of Disposition: 03:55
== END 2018-04-02 04:04 | disposition home or self-care (01) ==
LOC: EC 23:30
DX: M54.9 Dorsalgia, unspecified (principal); I26.99 Other pulmonary embolism without acute cor pulmonale; J90 Pleural effusion, not elsewhere classified; R10.9 Unspecified abdominal pain; C34.91 Malignant neoplasm of unspecified part of right bronchus or lung; C31.9 Malignant neoplasm of accessory sinus, unspecified; Z87.891 Personal history of nicotine dependence; Z79.01 Long term (current) use of anticoagulants; Z79.899 Other long term (current) drug therapy; Z85.828 Personal history of other malignant neoplasm of skin; Z98.890 Other specified postprocedural states
CPT/HCPCS: 36415; 93005; 80053; 85025; 81003; 71046; 71275; 99284; 96360; 96361 ×2; Q9967

== ENCOUNTER 2018-04-09 11:19 | Emergency (ER) | payer MEDICARE ==
[2018-04-09] MEDS ORDERED: SODIUM CHLORIDE 0.9% 500 ML IV STA ×2 (12:09→13:55)
[2018-04-09] MEDS ORDERED: SODIUM CHLORIDE 0.9% 1,000 ML IV STA (12:09)
--- NOTE | 2018-04-09 12:15 | ED ---
Dizziness HPI - General Chief Complaint: Dizziness Stated Complaint: Dehydration Time Seen by Provider: 04/09/18 11:50 Source: patient, family, RN notes reviewed Mode of arrival: ambulatory Limitations: no limitations - History of Present Illness Initial Comments: This is a 77-year-old female history lung cancer and mouth cancer who just had chemotherapy 3 days ago who presents with complaints of dizziness and lightheadedness. She's had a history of low sodium in the past and dehydration she's been given fluids and Gatorade as well as salt but this morning was still very dizzy. No headache fevers chills runny nose sore throat dysuria hematuria. Patient has had a cough with some phlegm production. No other current modifying factors MD Complaint: dizziness, lightheadedness - Related Data Home Medications Medication Instructions Recorded Confirmed HYDROcodone/APAP 5-325MG [[place] 1 - 2 tab PO Q4-6H PRN 02/19/18 04/09/18 5-325] Cools Magic Mouthwash 5 ml PO QID 03/18/18 04/09/18 Apixaban [Eliquis] 5 mg PO BID 03/29/18 04/09/18 Megestrol [Megace] 400 mg PO DAILY 03/29/18 04/09/18 Sennosides-Docusate Sodium 2 tab PO HS 03/29/18 04/09/18 [Senokot-S] Budesonide-Formot 160-4.5 Mcg 2 puff INHALATION RT-BID 04/09/18 04/09/18 [Symbicort 160-4.5 Mcg Inhaler] Previous Rx's Medication Instructions Recorded Ipratropium-Albuterol Nebulize 3 ml INHALATION RT-TID #90 02/08/18 [Duoneb 0.5 mg-3 mg/3 ml Soln] ampul.neb fentaNYL 25MCG/HR PATCH [Duragesic 1 patch TRANSDERM Q72H #5 patch 02/08/18 25MCG/HR] Pantoprazole [Protonix] 40 mg PO DAILY #30 tablet. 02/20/18 Allergies Allergy/AdvReac Type Severity Reaction Status Date / Time No Known Allergies Allergy Verified 04/09/18 12:34 Review of Systems ROS Statement: Those systems with pertinent positive or pertinent negative responses have been documented in the HPI. ROS Other: All systems not noted in ROS Statement are negative. Past Medical History Past Medical History: Cancer Additional Past Medical History / Comment(s): Multiple skin cancers removed, Lung CA (per daughter cancer is within neck/head.) left sinus cancer. 2 cycles of chemo complete. radiation to begin soon. History of Any Multi-Drug Resistant Organisms: None Reported Past Surgical History: Orthopedic Surgery Additional Past Surgical History / Comment(s): ankle Past Anesthesia/Blood Transfusion Reactions: No Reported Reaction Past Psychological History: No Psychological Hx Reported Smoking Status: Former smoker Past Alcohol Use History: Occasional Past Drug Use History: None Reported - Past Family History Father Family Medical History: No Reported History, Unable to Obtain Mother Family Medical History: CVA/TIA General Exam - General Exam Comments Initial Comments: This is a well-developed asthenic appearing female Limitations: no limitations General appearance: alert, in no apparent distress Head exam: Present: atraumatic, normocephalic, other (Thinning hair) Eye exam: Present: normal appearance, PERRL, EOMI. Absent: scleral icterus, conjunctival injection, periorbital swelling ENT exam: Present: mucous membranes dry, other (Lesion noted on the roof of the mouth consistent with a cancer stated. No bleeding) Neck exam: Present: normal inspection. Absent: tenderness, meningismus, lymphadenopathy Respiratory exam: Present: decreased breath sounds, other (Basilar crackles) Cardiovascular Exam: Present: normal rhythm, tachycardia GI/Abdominal exam: Present: soft, normal bowel sounds. Absent: distended, tenderness, guarding, rebound, rigid Extremities exam: Present: normal inspection, full ROM, normal capillary refill. Absent: tenderness, pedal edema, joint swelling, calf tenderness Back exam: Present: normal inspection Neurological exam: Present: alert, oriented X3, CN II-XII intact Psychiatric exam: Present: normal affect, normal mood Skin exam: Present: warm, dry, intact, normal color. Absent: rash Course Vital Signs 04/09/18 04/09/18 04/09/18 11:29 13:03 13:06 Temperature 98.9 F Pulse Rate 110 H 93 96 Respiratory 18 18 16 Rate Blood Pressure 113/65 135/58 133/60 O2 Sat by Pulse 99 97 98 Oximetry 04/09/18 14:30 Temperature Pulse Rate 99 Respiratory 20 Rate Blood Pressure 115/64 O2 Sat by Pulse 97 Oximetry EKG Findings - EKG Results: EKG: interpreted by MARTINA, sinus rhythm (Normal sinus rhythm rate of 100 UT interval 134 QRS duration 64 QT since QTC of 304/[address]-T wave changes) Medical Decision Making - Medical Decision Making The patient is feeling much improved after IV hydration and did have a long discussion with her and her daughter regarding findings patient will be discharged she is follow-up with her doctor return when necessary we did discuss different hydration options a nutritional options. - Lab Data Result diagrams: 04/09/18 11:50 04/09/18 11:50 Lab Results 04/09/18 04/09/18 04/09/18 Range/Units 11:50 11:50 11:50 WBC 13.1 H (3.8-10.6) k/uL RBC 3.83 (3.80-5.40) m/uL Hgb 10.7 L (11.4-16.0) gm/dL Hct 32.6 L (34.0-46.0) % MCV 85.0 (80.0-100.0) fL MCH 28.0 (25.0-35.0) pg MCHC 33.0 (31.0-37.0) g/dL RDW 17.6 H (11.5-15.5) % Plt Count 499 H (150-450) k/uL Neutrophils % 82 % Lymphocytes % 14 % Monocytes % 3 % Eosinophils % 0 % Basophils % 0 % Neutrophils # 10.8 H (1.3-7.7) k/uL Lymphocytes # 1.9 (1.0-4.8) k/uL Monocytes # 0.4 (0-1.0) k/uL Eosinophils # 0.0 (0-0.7) k/uL Basophils # 0.0 (0-0.2) k/uL Anisocytosis Slight Sodium 129 L (137-145) mmol/L Potassium 4.8 (3.5-5.1) mmol/L Chloride 93 L (98-107) mmol/L Carbon Dioxide 23 (22-30) mmol/L Anion Gap 13 mmol/L BUN 15 (7-17) mg/dL Creatinine 0.27 L (0.52-1.04) mg/dL Est GFR (CKD-EPI)AfAm >90 (>60 ml/min/1.73 sqM) Est GFR (CKD-EPI)NonAf >90 (>60 ml/min/1.73 sqM) Glucose 96 (74-99) mg/dL Calcium 9.7 (8.4-10.2) mg/dL Magnesium 1.8 (1.6-2.3) mg/dL Total Bilirubin 0.9 (0.2-1.3) mg/dL AST 26 (14-36) U/L ALT 19 (9-52) U/L Alkaline Phosphatase 96 (38-126) U/L Total Creatine Kinase <20 L (30-135) U/L CK-MB (CK-2) 0.5 (0.0-2.4) ng/mL CK-MB (CK-2) Rel Index Troponin I <0.012 (0.000-0.034) ng/mL Total Protein 6.7 (6.3-8.2) g/dL Albumin 3.6 (3.5-5.0) g/dL Urine Color Urine Appearance (Clear) Urine pH (5.0-8.0) Ur Specific [place] (1.001-1.035) Urine Protein (Negative) Urine Glucose (UA) (Negative) Urine Ketones (Negative) Urine Blood (Negative) Urine Nitrite (Negative) Urine Bilirubin (Negative) Urine Urobilinogen (<2.0) mg/dL Ur Leukocyte Esterase (Negative) 04/09/18 Range/Units 13:31 WBC (3.8-10.6) k/uL RBC (3.80-5.40) m/uL Hgb (11.4-16.0) gm/dL Hct (34.0-46.0) % MCV (80.0-100.0) fL MCH (25.0-35.0) pg MCHC (31.0-37.0) g/dL RDW (11.5-15.5) % Plt Count (150-450) k/uL Neutrophils % % Lymphocytes % % Monocytes % % Eosinophils % % Basophils % % Neutrophils # (1.3-7.7) k/uL Lymphocytes # (1.0-4.8) k/uL Monocytes # (0-1.0) k/uL Eosinophils # (0-0.7) k/uL Basophils # (0-0.2) k/uL Anisocytosis Sodium (137-145) mmol/L Potassium (3.5-5.1) mmol/L Chloride (98-107) mmol/L Carbon Dioxide (22-30) mmol/L Anion Gap mmol/L BUN (7-17) mg/dL Creatinine (0.52-1.04) mg/dL Est GFR (CKD-EPI)AfAm (>60 ml/min/1.73 sqM) Est GFR (CKD-EPI)NonAf (>60 ml/min/1.73 sqM) Glucose (74-99) mg/dL Calcium (8.4-10.2) mg/dL Magnesium (1.6-2.3) mg/dL Total Bilirubin (0.2-1.3) mg/dL AST (14-36) U/L ALT (9-52) U/L Alkaline Phosphatase (38-126) U/L Total Creatine Kinase (30-135) U/L CK-MB (CK-2) (0.0-2.4) ng/mL CK-MB (CK-2) Rel Index Troponin I (0.000-0.034) ng/mL Total Protein (6.3-8.2) g/dL Albumin (3.5-5.0) g/dL Urine Color Light Yellow Urine Appearance Clear (Clear) Urine pH 6.5 (5.0-8.0) Ur Specific [place] 1.006 (1.001-1.035) Urine Protein Negative (Negative) Urine Glucose (UA) Negative (Negative) Urine Ketones Negative (Negative) Urine Blood Negative (Negative) Urine Nitrite Negative (Negative) Urine Bilirubin Negative (Negative) Urine Urobilinogen <2.0 (<2.0) mg/dL Ur Leukocyte Esterase Negative (Negative) - Radiology Data Radiology results: report reviewed (I did review the imaging and report no acute findings.), image reviewed Disposition Clinical Impression: Orthostatic hypotension, Dehydration, Dizziness Disposition: HOME SELF-CARE Condition: Good Instructions: Dizziness (ED), Dehydration (ED) Is patient prescribed a controlled substance at d/c from ED?: No Referrals: Tao Gonzalez MD [Primary Care Provider] - 1-2 days
[2018-04-09 12:26] LABS: Anisocytosis Slight; Basophils % (A) 0 %; Eosinophils % (A) 0 %; HCT 32.6 % (34.0-46.0); HGB 10.7 gm/dL (11.4-16.0); Lymphocytes # (A) 1.9 k/uL (1.0-4.8); Lymphocytes % (A) 14 %; Mean Platelet Volume 7.1; Monocytes # (A) 0.4 k/uL (0-1.0); Monocytes % (A) 3 %; Neutrophils # (A) 10.8 k/uL (1.3-7.7); Neutrophils % (A) 82 %; Platelet Count 499 k/uL (150-450); RBC 3.83 m/uL (3.80-5.40); RDW 17.6 % (11.5-15.5); WBC 13.1 k/uL (3.8-10.6)
--- NOTE | 2018-04-09 12:28 | XR ---
EXAMINATION TYPE: XR chest 2V DATE OF EXAM: 04/09/2018 HISTORY: cough. REFERENCE: Previous study dated 04/02/2018. FINDINGS: The lungs are overinflated. There is a masslike density adjacent to the trachea on the righ t displacing the trachea towards the left. The heart is mildly enlarged. There is chronic pleural par enchymal change in the right upper lobe. No pleural fluid is seen. IMPRESSION: NO SIGNIFICANT INTERVAL CHANGE IN THE APPEARANCE OF THE CHEST.
[2018-04-09 12:38] LABS: Albumin 3.6 g/dL (3.5-5.0); Anion Gap 13 mmol/L; Calcium 9.7 mg/dL (8.4-10.2); Carbon Dioxide 23 mmol/L (22-30); Chloride 93 mmol/L (98-107); Glucose 96 mg/dL (74-99); Sodium 129 mmol/L (137-145); Total Bilirubin 0.9 mg/dL (0.2-1.3); Total Protein 6.7 g/dL (6.3-8.2)
[2018-04-09 12:39] LABS: ALT 19 U/L (9-52); AST 26 U/L (14-36); Alkaline Phosphatase 96 U/L (38-126); Blood Urea Nitrogen 15 mg/dL (7-17); Magnesium 1.8 mg/dL (1.6-2.3); Potassium 4.8 mmol/L (3.5-5.1)
[2018-04-09 12:48] LABS: Creatine Kinase <20 U/L (30-135)
[2018-04-09 13:01] LABS: Creatine Kinase MB 0.5 ng/mL (0.0-2.4); Troponin I <0.012 ng/mL (0.000-0.034)
[2018-04-09 13:39] LABS: Appearance,Urine Clear (Clear); Bilirubin,Urine Negative (Negative); Blood,Urine Negative (Negative); Color,Urine Light Yellow; Glucose,Urine (UA) Negative (Negative); Ketones,Urine Negative (Negative); Leukocyte Esterase,Urine Negative (Negative); Nitrite,Urine Negative (Negative); PH, Urine 6.5 (5.0-8.0); Protein,Urine Negative (Negative); Specific Gravity,Urine 1.006 (1.001-1.035); Urobilinogen,Urine <2.0 mg/dL (<2.0)
[2018-04-09] MEDS ORDERED: HYDROcodone/APAP 5-325MG 1 EACH TAB PO STA (14:25)
[2018-04-09 15:15] VITALS: BP 133/60; PULSE 87; RESP 18; TEMP 97.8
== END 2018-04-09 15:10 | disposition home or self-care (01) ==
LOC: EC 11:19
DX: I95.1 Orthostatic hypotension (principal); E86.0 Dehydration; Z85.118 Personal history of other malignant neoplasm of bronchus and lung; Z85.22 Personal history of malignant neoplasm of nasal cavities, middle ear, and accessory sinuses; Z85.828 Personal history of other malignant neoplasm of skin; Z85.818 Personal history of malignant neoplasm of other sites of lip, oral cavity, and pharynx; Z92.21 Personal history of antineoplastic chemotherapy; Z87.891 Personal history of nicotine dependence; Z79.01 Long term (current) use of anticoagulants; Z79.51 Long term (current) use of inhaled steroids; Z79.899 Other long term (current) drug therapy
CPT/HCPCS: 36415; 71046; 80053; 81003; 82550; 82553; 83735; 84484; 85025; 93005; 96360; 96361; 99284

== ENCOUNTER → 2018-04-22 | Outpatient (CLI) | payer MEDICARE ==
--- NOTE | 2018-04-25 08:39 | PE ---
EXAMINATION TYPE: PET CT fusion skull to thigh DATE OF EXAM: 04/22/2018 CLINICAL HISTORY: Solitary pulmonary nodule, completed chemotherapy February 11, 2018. 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 TECHNIQUE: Following the intravenous administration of 14.13 mCi of F-18 FDG, whole body images are performed from the skull base to the midthigh. Images are reviewed on the computer in the coronal, axial, and sagittal planes. Reconstructed rotating images are created on independent workstation and reviewed on the computer. A non-contrast CT is performed in conjunction with the PET scan. COMPARISON: CTA chest April 02, [address] February 05, 2018. CT neck February 01, 2018. PET CT January Subsequent scan FINDINGS: SKULL BASE AND NECK: There is persistent large left parapharyngeal mass invading left maxillary sinu s and the nasopharyngeal airway extending posteriorly to level of the horizontal ramus of mandible me asuring approximately 7.0 x 3.9 cm axial image 14 with max SUV of 14.19. Lesion crosses the midline. Oropharyngeal and machinist linotype space extension are redemonstrated. Lesion fairly stable in size and max SUV from prior. No new areas of abnormal hypermetabolic uptake are seen. CHEST, MEDIASTINUM, AND HILAR REGION: There is persistent large right apical mass with mediastinal an d apical extension destroying portions of upper, mass measures 7.7 x 5.8 cm axial image 47 not signif icantly changed in size from recent PET/CT thoracic vertebra, max SUV is 25.86. Near extension to rig ht hilum level is redemonstrated felt stable. There is more prominent or increased destruction of the right T3 vertebra with extension to neural foraminal level and early encroachment into spinal canal seen on axial image 39 new from the prior. There is background chronic emphysematous change. There is interval resolution of abnormal hypermetab olic uptake in left lower lobe anterior nodule, there is persistent residual spiculation measuring 1. 6 x 1.5 cm axial image 95 diminished in size from prior. ABDOMEN AND PELVIS: No new suspicious hypermetabolic uptake in abdomen or pelvis is seen. OSSEOUS STRUCTURES: Mild hypermetabolic uptake left anterior third rib axial image 65 with max SUV of 2.53. No additional areas of suspicious abnormal hypermetabolic uptake are seen. Bone findings can c ontinued to be followed. OTHER CT: Coronary artery calcification is redemonstrated which is noted marker for coronary artery d isease. There is new posterior left basilar masslike consolidation without abnormal hypermetabolic uptake ganesh suring 3.7 x 1.5 cm axial image 106 favoring round atelectasis. There is stable 2.7 x 1.9 cm a metabolic left adrenal mass with Hounsfield units averaging -8 consist ent with benign etiology. Splenic lesions are not as well seen on current study. Dependent density in gallbladder consistent with small stones and/or gallbladder sludge is redemonstr ated. Scattered pelvic phleboliths are seen. There is moderate calcified plaque in aorta extending into branch vessels. There is facet arthropathy lower lumbar spine. There is multilevel spurring in the spine. IMPRESSION: Overall mixed response, large left maxillary sinus mass is stable in size and max SUV. Ag gressive right upper lobe mass fairly stable in size and max SUV though increased T3 destruction and encroachment on anterolateral aspect of spinal canal is now noted at this level. Interval improvement in left lower lobe mass which is now ametabolic. Nonspecific left anterior third rib lesion can be f ollowed. Otherwise no new suspicious masses or metastatic lesions seen.
== END | disposition home or self-care (01) ==
LOC: RADPETMAIN 08:21
PROVIDERS: ATTEND Internal Medicine Hematology & Oncology
DX: R91.1 Solitary pulmonary nodule (principal); R93.8 Abnormal findings on diagnostic imaging of other specified body structures
CPT/HCPCS: 78815; A9552

== ENCOUNTER 2018-04-26 09:16 | Inpatient (IN) | payer MEDICARE ==
--- NOTE | 2018-04-26 09:51 | ED ---
Fall HPI - General Chief Complaint: Fall Stated Complaint: FALL, RT HIP INJURY Time Seen by Provider: 04/26/18 09:19 Source: patient, family, EMS Mode of arrival: EMS Limitations: physical limitation - History of Present Illness Initial Comments: This a 77-year-old female presents emergency Department chief complaint of right hip pain. Patient that she undergo her walker to try to change a close and fell onto her right hip region. She states that hurts with any movement. She denies any head, neck upper back pain. She states that she bumped her low back but states that she has minimal discomfort. Patient has nausea and diarrhea constipation. There is no syncopal episode and no chest pain or shortness breath. Patient currently is being treated for lung cancer along with a tumor on her Face. Patient states that she also gets hydration at home. Patient has a history of anemia. - Related Data Home Medications Medication Instructions Recorded Confirmed HYDROcodone/APAP 5-325MG [[place] 1 - 2 tab PO Q4-6H PRN 02/19/18 04/26/18 5-325] Apixaban [Eliquis] 5 mg PO BID 03/29/18 04/26/18 Megestrol [Megace] 400 mg PO DAILY 03/29/18 04/26/18 Sennosides-Docusate Sodium 2 tab PO HS 03/29/18 04/26/18 [Senokot-S] ALPRAZolam [Xanax] 0.25 mg PO HS 04/26/18 04/26/18 Previous Rx's Medication Instructions Recorded Ipratropium-Albuterol Nebulize 3 ml INHALATION RT-TID #90 02/08/18 [Duoneb 0.5 mg-3 mg/3 ml Soln] ampul.neb fentaNYL 25MCG/HR PATCH [Duragesic 1 patch TRANSDERM Q72H #5 patch 02/08/18 25MCG/HR] Pantoprazole [Protonix] 40 mg PO DAILY #30 tablet. 02/20/18 Allergies Allergy/AdvReac Type Severity Reaction Status Date / Time No Known Allergies Allergy Verified 04/26/18 09:29 Review of Systems ROS Statement: Those systems with pertinent positive or pertinent negative responses have been documented in the HPI. ROS Other: All systems not noted in ROS Statement are negative. Past Medical History Past Medical History: Cancer, Deep Vein Thrombosis (DVT) Additional Past Medical History / Comment(s): Multiple skin cancers removed, Lung CA (per daughter cancer is within neck/head.) left sinus cancer. 3 cycles of chemo complete. Apr 06 2018 was last tx. History of Any Multi-Drug Resistant Organisms: None Reported Past Surgical History: Orthopedic Surgery Additional Past Surgical History / Comment(s): ankle Past Anesthesia/Blood Transfusion Reactions: No Reported Reaction Past Psychological History: Anxiety Smoking Status: Former smoker Past Alcohol Use History: Occasional Past Drug Use History: None Reported - Past Family History Father Family Medical History: No Reported History, Unable to Obtain Mother Family Medical History: CVA/TIA General Exam Limitations: physical limitation General appearance: alert, in no apparent distress Neck exam: Present: normal inspection, full ROM. Absent: tenderness, meningismus, lymphadenopathy Respiratory exam: Present: rales. Absent: normal lung sounds bilaterally, respiratory distress, wheezes, rhonchi, stridor Cardiovascular Exam: Present: regular rate, normal rhythm, normal heart sounds. Absent: systolic murmur, diastolic murmur, rubs, gallop, clicks GI/Abdominal exam: Present: soft, normal bowel sounds. Absent: distended, tenderness, guarding, rebound, rigid Extremities exam: Present: other (There is rotation noted of the right hip and mild shortening neurovascular intact tenderness to palpation with the right hip) Skin exam: Present: warm, dry, intact, normal color. Absent: rash Course Vital Signs 04/26/18 09:21 Temperature 98.3 F Pulse Rate 93 Respiratory 18 Rate Blood Pressure 132/59 O2 Sat by Pulse 94 L Oximetry Medical Decision Making - Lab Data Result diagrams: 04/26/18 10:02 04/26/18 10:02 Lab Results 04/26/18 04/26/18 04/26/18 Range/Units 10:02 10:02 10:02 WBC 11.0 H (3.8-10.6) k/uL RBC 3.24 L (3.80-5.40) m/uL Hgb 9.4 L (11.4-16.0) gm/dL Hct 29.4 L (34.0-46.0) % MCV 90.6 (80.0-100.0) fL MCH 29.1 (25.0-35.0) pg MCHC 32.1 (31.0-37.0) g/dL RDW 18.8 H (11.5-15.5) % Plt Count 541 H (150-450) k/uL Neutrophils % 75 % Lymphocytes % 18 % Monocytes % 5 % Eosinophils % 0 % Basophils % 0 % Neutrophils # 8.2 H (1.3-7.7) k/uL Lymphocytes # 2.0 (1.0-4.8) k/uL Monocytes # 0.5 (0-1.0) k/uL Eosinophils # 0.0 (0-0.7) k/uL Basophils # 0.0 (0-0.2) k/uL Hypochromasia Slight Anisocytosis Slight PT 11.0 (9.0-12.0) sec INR 1.1 (<1.2) APTT 24.5 (22.0-30.0) sec Sodium 133 L (137-145) mmol/L Potassium 5.2 H (3.5-5.1) mmol/L Chloride 99 (98-107) mmol/L Carbon Dioxide 23 (22-30) mmol/L Anion Gap 11 mmol/L BUN 7 (7-17) mg/dL Creatinine 0.28 L (0.52-1.04) mg/dL Est GFR (CKD-EPI)AfAm >90 (>60 ml/min/1.73 sqM) Est GFR (CKD-EPI)NonAf >90 (>60 ml/min/1.73 sqM) Glucose 90 (74-99) mg/dL Calcium 10.0 (8.4-10.2) mg/dL Total Bilirubin 0.7 (0.2-1.3) mg/dL AST 40 H (14-36) U/L ALT 18 (9-52) U/L Alkaline Phosphatase 86 (38-126) U/L Total Protein 6.4 (6.3-8.2) g/dL Albumin 3.4 L (3.5-5.0) g/dL Disposition Clinical Impression: Fall, Closed right hip fracture Disposition: ADMITTED IP TO THIS [facility] Condition: Stable Referrals: Tao Gonzalez MD [Primary Care Provider] - 1-2 days
[2018-04-26 10:20] LABS: Anisocytosis Slight; Basophils % (A) 0 %; Eosinophils % (A) 0 %; HCT 29.4 % (34.0-46.0); HGB 9.4 gm/dL (11.4-16.0); Hypochromasia Slight; Lymphocytes % (A) 18 %; MCH 29.1 pg (25.0-35.0); MCHC 32.1 g/dL (31.0-37.0); MCV 90.6 fL (80.0-100.0); Mean Platelet Volume 6.8; Monocytes # (A) 0.5 k/uL (0-1.0); Monocytes % (A) 5 %; Neutrophils # (A) 8.2 k/uL (1.3-7.7); Neutrophils % (A) 75 %; Platelet Count 541 k/uL (150-450); RBC 3.24 m/uL (3.80-5.40); RDW 18.8 % (11.5-15.5)
[2018-04-26 10:31] LABS: INR 1.1 (<1.2); Partial Thromboplastin Time 24.5 sec (22.0-30.0)
--- NOTE | 2018-04-26 10:33 | XR ---
EXAMINATION TYPE: XR chest 2V DATE OF EXAM: 04/26/2018 COMPARISON: NONE INDICATION: Cough TECHNIQUE: Frontal and lateral views of the chest are obtained. FINDINGS: The heart size is normal. The pulmonary vasculature is normal. There is tracheal deviation to the right There is a right upper lobe consolidation. Correlate for pneumonia or atelectasis. Some minimal infil trate is at the right costophrenic angle. Small nodules not excluded. These should be followed to [facility] esc[facility].. IMPRESSION: 1. Right upper lobe consolidation. Correlate for atelectasis or pneumonia. 2. Nodule or atelectasis at the right costophrenic angle. Follow-up chest x-ray is recommended.
--- NOTE | 2018-04-26 10:34 | XR ---
EXAMINATION TYPE: XR Hip RT and AP Pelvis DATE OF EXAM: 04/26/2018 COMPARISON: NONE HISTORY: Fall down stairs, pain TECHNIQUE: 2 views right hip supplemented with an AP pelvis FINDINGS: There is an intertrochanteric fracture of the right hip. There is diastases of the fracture fragments. Femoral heads articulate with the acetabulum. There is mild right and moderate left and hip joint spa ce degenerative change. Pubic symphysis and sacroiliac joints are normal. Nonspecific bowel gas is pr esent. IMPRESSION: 1. Intertrochanteric fracture right hip
[2018-04-26 10:37] LABS: Anion Gap 11 mmol/L; Carbon Dioxide 23 mmol/L (22-30); Chloride 99 mmol/L (98-107); Glucose 90 mg/dL (74-99); Sodium 133 mmol/L (137-145); Total Bilirubin 0.7 mg/dL (0.2-1.3)
[2018-04-26 10:39] LABS: ALT 18 U/L (9-52); AST 40 U/L (14-36); Albumin 3.4 g/dL (3.5-5.0); Blood Urea Nitrogen 7 mg/dL (7-17); Potassium 5.2 mmol/L (3.5-5.1); Total Protein 6.4 g/dL (6.3-8.2)
[2018-04-26 10:40] LABS: Alkaline Phosphatase 86 U/L (38-126)
[2018-04-26] MEDS ORDERED: ONDANSETRON 4 MG/2 ML VIAL IVP PRN (10:46)
[2018-04-26] MEDS ORDERED: NALOXONE 0.4 MG/ML 1 ML VIAL IV PRN (10:46)
[2018-04-26] MEDS: MORPHINE SULFATE 2 MG/ML SYRINGE IV PRN ×3 (11:45→20:13)
[2018-04-26 12:37] VITALS: BMI 17.2
[2018-04-26] MEDS ORDERED: IPRATROPIUM-ALBUTEROL 3 ML NEB INHALATION PRN (12:55)
[2018-04-26] MEDS ORDERED: IPRATROPIUM-ALBUTEROL 3 ML NEB INHALATION SCH (13:00)
[2018-04-26] MEDS: HYDROcodone/APAP 5-325MG 1 EACH TAB PO PRN ×3 (14:00→22:41)
[2018-04-26 15:17] LABS: Amorphous Sediment,Urine Rare /hpf; Appearance,Urine Cloudy (Clear); Bilirubin,Urine Negative (Negative); Blood,Urine Negative (Negative); Color,Urine Yellow; Glucose,Urine (UA) Negative (Negative); Ketones,Urine Negative (Negative); Leukocyte Esterase,Urine Negative (Negative); Mucus,Urine Rare /hpf; Nitrite,Urine Negative (Negative); Protein,Urine Negative (Negative); RBC,Urine 1 /hpf (0-5); Specific Gravity,Urine 1.009 (1.001-1.035); Urobilinogen,Urine <2.0 mg/dL (<2.0); WBC,Urine <1 /hpf (0-5)
[2018-04-26] MEDS: IPRATROPIUM-ALBUTEROL 3 ML NEB INHALATION SCH ×2 (15:55→20:07)
--- NOTE | 2018-04-26 21:30 | P.HPOR ---
History of Present Illness H&P Date: 04/26/18 Chief Complaint: Right hip pain This is a 77 year old female with history of fall in her home sustaining injury to her right hip. On exam and X-ray in the emergency department, the patient is found to have an intertrochanteric fracture of the right hip. She is admitted to our service for surgical intervention and care. She has a history of lung cancer and is currently in treatment. Past Medical History Past Medical History: Cancer, Deep Vein Thrombosis (DVT) Additional Past Medical History / Comment(s): Multiple skin cancers removed, Lung CA (per daughter cancer is within neck/head.) left sinus cancer. 3 cycles of chemo complete. Apr 06 2018 was last tx. 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 on EKG History of Any Multi-Drug Resistant Organisms: None Reported Past Surgical History: Orthopedic Surgery Additional Past Surgical History / Comment(s): ankle Past Anesthesia/Blood Transfusion Reactions: No Reported Reaction Past Psychological History: Anxiety Smoking Status: Former smoker Past Alcohol Use History: Occasional Past Drug Use History: None Reported - Past Family History Father Family Medical History: No Reported History, Unable to Obtain Additional Family Medical History / Comment(s): bad heart Mother Family Medical History: CVA/TIA Medications and Allergies Home Medications Medication Instructions Recorded Confirmed Type Ipratropium-Albuterol Nebulize 3 ml INHALATION RT-TID #90 02/08/18 04/26/18 Rx [Duoneb 0.5 mg-3 mg/3 ml Soln] ampul.neb fentaNYL 25MCG/HR PATCH [Duragesic 1 patch TRANSDERM Q72H #5 patch 02/08/18 Rx 25MCG/HR] HYDROcodone/APAP 5-325MG [[place] 1 - 2 tab PO Q4-6H PRN 02/19/18 04/26/18 History 5-325] Pantoprazole [Protonix] 40 mg PO DAILY #30 tablet.dr 02/20/18 04/26/18 Rx Apixaban [Eliquis] 5 mg PO BID 03/29/18 04/26/18 History Megestrol [Megace] 400 mg PO DAILY 03/29/18 04/26/18 History Sennosides-Docusate Sodium 2 tab PO HS 03/29/18 04/26/18 History [Senokot-S] ALPRAZolam [Xanax] 0.25 mg PO HS 04/26/18 04/26/18 History Allergies Allergy/AdvReac Type Severity Reaction Status Date / Time No Known Allergies Allergy Verified 04/26/18 09:29 Physical Examination This is a pleasant 77 year old female in no acute distress. She is alert and oriented X3. Her daughter is present at bedside. Exam of the head and neck reveal no obvious deformity. No pain with cervical motion. Exam of the upper extremities is unremarkable. She has fairly good motion to the shoulders, elbows, wrists and fingers. Exam of the lower extremities reveals shortening and external rotation of the right leg. She has full foot and ankle motion. Pedal pulse is +2/4. Neurovascular status to the lower extremity is intact. Results X-rays of the right hip and pelvis reveal a displaced intertrochanteric fracture. - Labs Labs: Abnormal Lab Results - Last 24 Hours (Table) 04/26/18 04/26/18 Range/Units 10:02 10:02 WBC 11.0 H (3.8-10.6) k/uL RBC 3.24 L (3.80-5.40) m/uL Hgb 9.4 L (11.4-16.0) gm/dL Hct 29.4 L (34.0-46.0) % RDW 18.8 H (11.5-15.5) % Plt Count 541 H (150-450) k/uL Neutrophils # 8.2 H (1.3-7.7) k/uL Sodium 133 L (137-145) mmol/L Potassium 5.2 H (3.5-5.1) mmol/L Creatinine 0.28 L (0.52-1.04) mg/dL AST 40 H (14-36) U/L Albumin 3.4 L (3.5-5.0) g/dL H & H 04/26/18 Range/Units 10:02 Hgb 9.4 L (11.4-16.0) gm/dL Hct 29.4 L (34.0-46.0) % Coagulation 04/26/18 Range/Units 10:02 INR 1.1 (<1.2) Result Diagrams: 04/26/18 10:02 04/26/18 10:02 Assessment and Plan (1) Closed right hip fracture Current Visit: Yes Status: Acute Code(s): S72.001A - FRACTURE OF UNSP PART OF NECK OF RIGHT FEMUR, INIT SNOMED Code(s): 515398232 (2) Fall Current Visit: Yes Status: Acute Code(s): W19.XXXA - UNSPECIFIED FALL, INITIAL ENCOUNTER SNOMED Code(s): 9115610 (3) Lung cancer Current Visit: No Status: Acute Code(s): C34.90 - MALIGNANT NEOPLASM OF UNSP PART OF UNSP BRONCHUS OR LUNG SNOMED Code(s): 520284674 (4) Oral cancer Current Visit: No Status: Acute Priority: High Code(s): C06.9 - MALIGNANT NEOPLASM OF MOUTH, UNSPECIFIED SNOMED Code(s): 384943483 (5) Squamous cell carcinoma of right lung Current Visit: No Status: Acute Priority: High Code(s): C34.91 - MALIGNANT NEOPLASM OF UNSP PART OF RIGHT BRONCHUS OR LUNG SNOMED Code(s): 64683817199670707 Plan: The clinical and Xray findings were discussed with the patient and her daughter. It is recommended she undergo closed reduction with insertion IT nail of the right hip. The procedure was discussed in detail including the possible risks and outcomes. She will most likely require inpatient rehab post operatively. Due to her anticoagulation therapy, we are holding off on surgery until Tuesday.
[2018-04-26] MEDS: SENNOSIDES-DOCUSATE SODIUM 1 EACH TAB PO SCH (22:25)
--- NOTE | 2018-04-26 23:19 | CONS ---
CONSULTATION DATE OF CONSULTATION: 04/26/2018 REASON FOR CONSULTATION: Medical management requested by Dr. Garcia. CONSULTATION: This is a very pleasant 77-year-old patient who is here with her daughter who has 2 separate malignancies. 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 The patient completed 2 rounds of chemotherapy by Dr. Pimentel. The patient also has SIADH. The patient's other chronic stable medical conditions include emphysema from smoking, protein-calorie malnutrition. The patient was taking off her T-shirt when she slipped and fell, fracturing her right femur. The patient has pain at the same. The patient also about 5 weeks ago was in the hospital with bilateral pulmonary embolism for which the patient has been on anticoagulation. This was discontinued in the ER. Patient's breathing otherwise stable. The patient has been eating okay and weight has been around 107 pounds. The patient denies any other cardiac history. REVIEW OF SYSTEMS: CONSTITUTIONAL: Tired. HEENT: Tumor mass in the roof of the mouth. RESPIRATORY: Baseline shortness of breath. CARDIOVASCULAR: None. GASTROINTESTINAL: None. GENITOURINARY: None. MUSCULOSKELETAL: Some pain in the joints. DERMATOLOGICAL: None. HEMATOLOGIC: None. LYMPHATICS: None. PSYCHIATRY: Anxiety. NEUROLOGICAL: None. PAST MEDICAL HISTORY: Primary salivary gland tumor adenocarcinoma, lung cancer squamous cell, emphysema, essential hypertension, SIADH, bilateral pulmonary embolism. PAST SURGICAL HISTORY: Orthopedic surgery, ankle surgery. SOCIAL HISTORY: Patient smoked a pack a day for many years, stopped about 2 months ago. Lives by herself. Daughter is involved in the care. Alcohol occasionally. FAMILY HISTORY: Reviewed, noncontributory to presentation. HOME MEDICATIONS: 1. Duragesic patch 25 mcg an hour. 2. Senokot-S 2 tablets p.o. q.h.s. 3. Protonix 40 mg a day. 4. Megace 400 mg p.o. daily. 5. DuoNeb t.i.d. 6. [place] 5, 1-2 tablets q.4-6 p.r.n. 7. Eliquis 5 mg p.o. b.i.d. 8. Xanax 0.25 p.o. q.h.s. ALLERGIES: None. EXAMINATION: VITAL SIGNS: On presentation, temperature 98.3 pulse 93, respirations 18, blood pressure 132/59, pulse ox 94% on room air. GENERAL APPEARANCE: Thin built, BMI 17.3. Sitting up, awake. EYES: Pupils equal, conjunctivae pale. HEENT: External nose and ears normal. Oral cavity: Has a tumor mass in the roof of the mouth on the left side and significant loss of scalp hair. NECK: JVD unable to assess. Mass not palpable. RESPIRATORY: Effort normal. LUNGS: Diminished breath sounds. CARDIOVASCULAR: First and second sounds sounds normal. No edema. ABDOMEN: Soft, nontender. Liver and spleen not palpable. LYMPHATIC: No lymph node palpable in neck or axillae. PSYCHIATRY: Alert and oriented x3. Mood and affect normal. NEUROLOGICAL: Pupils equal. Cranial nerve grossly intact. Power and sensation grossly intact. MUSCULOSKELETAL: Limited range of motion around the right hip and evidence of osteoarthritis, especially in the hands. INVESTIGATIONS: White count 11, hemoglobin 9.4, platelets 554. Potassium 5.2, BUN 7, creatinine 0.28. Chest x-ray showed right upper lobe consolidation. Recent PET scan was done and hip x- ray, intertrochanteric fracture right hip. ASSESSMENT: 1. Acute intertrochanteric fracture of the right hip secondary to fall. 2. Chronic bilateral pulmonary embolism about 6 weeks ago, including pulmonary infarction for which patient is on Eliquis. 3. Moderate protein-calorie malnutrition from decreased oral intake from underlying malignancy. 4. 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 5. Adenocarcinoma of the primary salivary gland, status post chemotherapy. 6. Squamous cell cancer of the lung getting chemotherapy. 7. Normocytic anemia from underlying malignancy. PLAN: Patient's home medications will be resumed. The patient's Eliquis is being held. Patient will 5 half-life status. The patient should be okay to proceed for surgery on Tuesday. The day following the surgery, patient should be put back on Eliquis because she is a high risk, given her bilateral pulmonary embolism and underlying malignancy. The patient is a moderate risk from cardiopulmonary, given her age, limited exercise tolerance and multiple comorbidities. This was explained to the patient and daughter. They accept the same. Thank you, Dr. Garcia. MMODL / IJN: [id number] /
[2018-04-27] MEDS: MORPHINE SULFATE 2 MG/ML SYRINGE IV PRN ×5 (00:32→22:39)
[2018-04-27] MEDS: ALPRAZolam 0.25 MG TAB PO SCH (00:33)
[2018-04-27] MEDS: HEPARIN SODIUM,PORCINE/D5W PMX 25,000 UNIT in DEXTROSE/WATER 1 500ML.BAG IV SCH (00:34)
[2018-04-27] MEDS ORDERED: MORPHINE SULFATE 2 MG/ML SYRINGE ONE (05:45)
[2018-04-27] MEDS: IPRATROPIUM-ALBUTEROL 3 ML NEB INHALATION SCH ×4 (07:10→20:30)
[2018-04-27] MEDS: HYDROcodone/APAP 5-325MG 1 EACH TAB PO PRN ×4 (07:39→20:24)
[2018-04-27] MEDS: PANTOPRAZOLE 40 MG TABLET PO SCH (07:39)
[2018-04-27] MEDS: MEGESTROL 400 MG/10 ML CUP PO SCH (07:40)
--- NOTE | 2018-04-27 09:04 | P.PN ---
Subjective Progress Note Date: 04/27/18 Principal diagnosis: Closed IT fracture of right femur Patient is lying in bed comfortably eating breakfast with her daughter at bedside. She sustained a closed IT fracture of her right femur yesterday when she fell onto her right side. Her pain is well controlled and she has no concerns at this time. She is to undergo closed reduction and insertion of an IT nail in the OR tomorrow. Her daughter has concerns about anesthesia and the risk of intubation given her current active lung/trachea cancer. She is taking eliquis for a PE and her active malignancy which has been held at this time until after surgery. She is in agreement and has no questions at this time. Objective - Vital Signs Vital signs: Vital Signs Temp 99.1 F 04/27/18 07:00 Pulse 94 04/27/18 07:23 Resp 14 04/27/18 07:00 BP 108/63 04/27/18 07:00 Pulse Ox 95 04/27/18 07:00 Intake & Output 04/26/18 04/27/18 04/27/18 18:59 06:59 18:59 Intake Total 350 Output Total 50 850 Balance -50 -500 Weight 48.534 kg Intake: Oral 350 Output: Urine 50 850 - Exam Exam is unchanged from yesterday. She is alert and oriented, lying in bed comfortably eating breakfast, in no acute distress - Labs CBC & Chem 7: 04/26/18 10:02 04/26/18 10:02 Labs: Abnormal Lab Results - Last 24 Hours (Table) 04/26/18 04/26/18 04/26/18 Range/Units 10:02 10:02 14:45 WBC 11.0 H (3.8-10.6) k/uL RBC 3.24 L (3.80-5.40) m/uL Hgb 9.4 L (11.4-16.0) gm/dL Hct 29.4 L (34.0-46.0) % RDW 18.8 H (11.5-15.5) % Plt Count 541 H (150-450) k/uL Neutrophils # 8.2 H (1.3-7.7) k/uL Sodium 133 L (137-145) mmol/L Potassium 5.2 H (3.5-5.1) mmol/L Creatinine 0.28 L (0.52-1.04) mg/dL AST 40 H (14-36) U/L Albumin 3.4 L (3.5-5.0) g/dL Urine Appearance Cloudy H (Clear) Amorphous Sediment Rare H (None) /hpf Urine Mucus Rare H (None) /hpf Assessment and Plan Assessment: Closed IT fracture of right femur Acute right hip pain Fall Active lung cancer Chronic pulmonary embolism Chronic anticoagulation - on eliquis (1) Closed right hip fracture Current Visit: Yes Status: Acute Code(s): S72.001A - FRACTURE OF UNSP PART OF NECK OF RIGHT FEMUR, INIT SNOMED Code(s): 817990404 (2) Fall Current Visit: Yes Status: Acute Code(s): W19.XXXA - UNSPECIFIED FALL, INITIAL ENCOUNTER SNOMED Code(s): 9079680 (3) Lung cancer Current Visit: No Status: Acute Code(s): C34.90 - MALIGNANT NEOPLASM OF UNSP PART OF UNSP BRONCHUS OR LUNG SNOMED Code(s): 888697785 (4) Oral cancer Current Visit: No Status: Acute Priority: High Code(s): C06.9 - MALIGNANT NEOPLASM OF MOUTH, UNSPECIFIED SNOMED Code(s): 255772663 (5) Squamous cell carcinoma of right lung Current Visit: No Status: Acute Priority: High Code(s): C34.91 - MALIGNANT NEOPLASM OF UNSP PART OF RIGHT BRONCHUS OR LUNG SNOMED Code(s): 87223437858722040 Plan: The clinical and Xray findings were discussed with the patient and her daughter. It is recommended she undergo closed reduction with insertion IT nail of the right hip. The procedure was discussed in detail including the possible risks and outcomes. She will most likely require inpatient rehab post operatively. Due to her anticoagulation therapy, we are holding off on surgery until Tuesday. Time with Patient: Less than 30
[2018-04-27] MEDS ORDERED: guaiFENesin SYRUP 100MG/5ML 200 MG/10 ML CUP PO PRN (09:52)
--- NOTE | 2018-04-27 10:35 | P.CNPUL ---
History of Present Illness Consult date: 04/26/18 Chief complaint: Preoperative pulmonary clearance, right hip intertrochanteric fracture History of present illness: 77-year-old female patient known to me from previous hospitalizations. The patient came in today because of right hip pain. The patient apparently fell at home while walking on her walker and she came in with a right hip pain and difficulty with movement. She was diagnosed having a closed fracture of the right intertrochanteric area and the patient will be taken to the operating room within the next 48 hours for ORIF. A pulmonary evaluation was requested Patient has been diagnosed recently having to separate malignancies. Specifically the patient presented back in January 2018 because of pain in her upper back and neck area and it was gradually getting worse. The patient also reports fullness across her left face and there was some asymmetric bulge within the left facial area. She was subsequently diagnosed having a large right upper lobe mass measuring 7 x 8 cm in size left aspect of which was approaching the T2 vertebral spine and anterior leads was reaching the right third rib. There was evidence of mediastinal lymphadenopathy largest in the right hilum measuring 1.5 cm in size and addition to a left lower lobe. The lesion measuring 2.2 x 1.8 x 2.1 cm in size and background emphysema. As for the CAT scan of the neck showed a large posterior oropharyngeal mass completely invading the soft palate causing anatomic shift in addition to the maxillary masses was measuring 4.5 x 7.4 x 6.9 cm in size. 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 The patient as such was diagnosed having to malignancies and she was started on systemic chemotherapy to which she was tolerating well and the showed a completed 2 cycles of systemic chemo. She had another hospitalization in February 2018 for shortness of breath and the CAT scan of the chest was done and showed multiple bilateral pulmonary segmental emboli and for that reason the patient was started on IV heparin and was later on switched to Eliquis. She another hospitalization back in 03/29/2018 for increased shortness of breath and at that time the patient was given the diagnosis of COPD exacerbation treated and discharged home. The most recent PET scan was obtained on it showed a persistent large left maxillary sinus mass that was stable in size and aggressive right upper lobe mass fairly stable in size and SUV with he 2/3 destruction and encroachment of the anterior lateral aspect of the spinal canal was noted. There was interval improvement of the left lower lobe mass which was not metabolically active at that point and there was also nonspecific left anterior third rib lesion, without any other areas of suspicious metastatic lesions. Note that the MRI of the thoracic spine that was done on 02/06/2018 showed a right apical mass that was very close in approximation with the T2/T3 spine and there was direct invasion of the T2 level with extension towards the posterior wall and there is no fecal sac invasion or nerve root or 4 mL invasion based on that MRI. Review of Systems Constitutional: Reports chronic pain, Reports weakness Eyes: left blurred vision Ears: left: decreased hearing Ears, nose, mouth and throat: Reports nasal congestion, Reports sinus pain, Reports sinus pressure Cardiovascular: Pleuritic chest pain, Denies shortness of breath Respiratory: Denies cough, and the patient is having pleuritic chest pain on the right Gastrointestinal: Denies abdominal pain, Denies diarrhea, Denies nausea, Denies vomiting Genitourinary: Denies dysuria, Denies hematuria Menstruation: Reports postmenopausal Musculoskeletal: Denies myalgias, she has pain across her upper neck area and upper back posteriorly. 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, 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, Multiple skin cancers, 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, pulmonary embolism, bilateral and the patient has been maintained on Eliquis, COPD History of Any Multi-Drug Resistant Organisms: None Reported Past Surgical History: Orthopedic Surgery Additional Past Surgical History / Comment(s): ankle Past Anesthesia/Blood Transfusion Reactions: No Reported Reaction Past Psychological History: Anxiety Smoking Status: Former smoker Past Alcohol Use History: Occasional Past Drug Use History: None Reported - Past Family History Father Family Medical History: No Reported History, Unable to Obtain Additional Family Medical History / Comment(s): bad heart Mother Family Medical History: CVA/TIA Medications and Allergies Home Medications Medication Instructions Recorded Confirmed Type Ipratropium-Albuterol Nebulize 3 ml INHALATION RT-TID #90 02/08/18 04/26/18 Rx [Duoneb 0.5 mg-3 mg/3 ml Soln] ampul.neb fentaNYL 25MCG/HR PATCH [Duragesic 1 patch TRANSDERM Q72H #5 patch 02/08/18 Rx 25MCG/HR] HYDROcodone/APAP 5-325MG [Chelan 1 - 2 tab PO Q4-6H PRN 02/19/18 04/26/18 History 5-325] Pantoprazole [Protonix] 40 mg PO DAILY #30 tablet.dr 02/20/18 04/26/18 Rx Apixaban [Eliquis] 5 mg PO BID 03/29/18 04/26/18 History Megestrol [Megace] 400 mg PO DAILY 03/29/18 04/26/18 History Sennosides-Docusate Sodium 2 tab PO HS 03/29/18 04/26/18 History [Senokot-S] ALPRAZolam [Xanax] 0.25 mg PO HS 04/26/18 04/26/18 History Allergies Allergy/AdvReac Type Severity Reaction Status Date / Time No Known Allergies Allergy Verified 04/26/18 09:29 Physical Exam Vitals: Vital Signs Temp Pulse Resp BP Pulse Ox 04/26/18 12:45 92 04/26/18 12:38 88 04/26/18 11:44 98.8 F 94 18 124/60 93 L 04/26/18 09:21 98.3 F 93 18 132/59 94 L Intake and Output 04/26/18 04/26/18 04/26/18 06:59 14:59 22:59 Output Total 50 Balance -50 Output: Urine 50 Other: Weight 48.534 kg - Constitutional General appearance: no acute distress - EENT In the posterior oropharynx, the patient has a very irregular vascular mass over the soft palate Eyes: EOMI, PERRLA - Neck Neck: no lymphadenopathy Thyroid: bilateral: normal size - Respiratory Respiratory: bilateral: diminished - Cardiovascular Rhythm: regular Heart sounds: normal: S1, S2 - Gastrointestinal General gastrointestinal: normal bowel sounds, soft - Integumentary Integumentary: normal - Neurologic Neurologic: CNII-XII intact - Musculoskeletal Musculoskeletal: strength equal bilaterally, the patient's right lower extremity is extremely irritated and is consistent with fracture, neurovascularly intact. - Psychiatric Psychiatric: A&O x's 3, appropriate affect Results - Laboratory Findings CBC and BMP: 04/26/18 10:02 04/26/18 10:02 PT/INR, D-dimer PT 11.0 sec (9.0-12.0) 04/26/18 10:02 INR 1.1 (<1.2) 04/26/18 10:02 Abnormal lab findings: Abnormal Labs 04/26/18 04/26/18 10:02 10:02 WBC 11.0 H RBC 3.24 L Hgb 9.4 L Hct 29.4 L RDW 18.8 H Plt Count 541 H Neutrophils # 8.2 H Sodium 133 L Potassium 5.2 H Creatinine 0.28 L AST 40 H Albumin 3.4 L - Diagnostic Findings Chest x-ray: image reviewed Assessment and Plan Plan: 1 acute fall related right hip fracture, intertrochanteric, awaiting surgery 2 recent diagnosis of bilateral pulmonary embolism, establish in January 2018, currently on Eliquis 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 The disease is likely metastatic in nature this point in time the patient has received 2 sessions of systemic chemotherapy 5 chronic back pain 6 chronic neck pain with evidence of focal uptake within the T3 vertebral body and ribs highly suspicious for malignancy. The most recent PET scan showed evidence of encroachment of the anterolateral aspect of the spinal canal. This could've contributed to the patient's weakness and loss imbalance and fall. 7 hyponatremia, chronic, malignancy-induced 8 COPD 9 smoker Plan Stop Eliquis for now. High surgical risk for postoperative pulmonary complications based above-mentioned medical problems and comorbidities. We will recommend spinal surgery knowing that the patient has a obstructive mass in her posterior oropharynx extending to the sinuses and this may hinder our ability to intubate this patient without causing any significant trauma to her airways. As such, spinal anesthesia may be an alternative to complete this surgery. Will need immediate anticoagulation postop especially with her recent pulmonary embolism. Continue the DuoNeb nebulized treatments around the clock. Chelan for pain control. We'll follow. Prognosis poor
[2018-04-27] MEDS: HEPARIN SODIUM,PORCINE 5,000 UNIT/ML 1 ML VIAL IV PRN ×2 (11:13→17:53)
--- NOTE | 2018-04-27 12:03 | P.PN ---
Subjective Progress Note Date: 04/27/18 Principal diagnosis: Preoperative pulmonary clearance, right hip intratrochanteric fracture 77-year-old female patient known to me from previous hospitalizations. The patient came in today because of right hip pain. The patient apparently fell at home while walking on her walker and she came in with a right hip pain and difficulty with movement. She was diagnosed having a closed fracture of the right intertrochanteric area and the patient will be taken to the operating room within the next 48 hours for ORIF. A pulmonary evaluation was requested Patient has been diagnosed recently having to separate malignancies. Specifically the patient presented back in January 2018 because of pain in her upper back and neck area and it was gradually getting worse. The patient also reports fullness across her left face and there was some asymmetric bulge within the left facial area. She was subsequently diagnosed having a large right upper lobe mass measuring 7 x 8 cm in size left aspect of which was approaching the T2 vertebral spine and anterior leads was reaching the right third rib. There was evidence of mediastinal lymphadenopathy largest in the right hilum measuring 1.5 cm in size and addition to a left lower lobe. The lesion measuring 2.2 x 1.8 x 2.1 cm in size and background emphysema. As for the CAT scan of the neck showed a large posterior oropharyngeal mass completely invading the soft palate causing anatomic shift in addition to the maxillary masses was measuring 4.5 x 7.4 x 6.9 cm in size. 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 The patient as such was diagnosed having to malignancies and she was started on systemic chemotherapy to which she was tolerating well and the showed a completed 2 cycles of systemic chemo. She had another hospitalization in February 2018 for shortness of breath and the CAT scan of the chest was done and showed multiple bilateral pulmonary segmental emboli and for that reason the patient was started on IV heparin and was later on switched to Eliquis. She another hospitalization back in 03/29/2018 for increased shortness of breath and at that time the patient was given the diagnosis of COPD exacerbation treated and discharged home. The most recent PET scan was obtained on it showed a persistent large left maxillary sinus mass that was stable in size and aggressive right upper lobe mass fairly stable in size and SUV with he 2/3 destruction and encroachment of the anterior lateral aspect of the spinal canal was noted. There was interval improvement of the left lower lobe mass which was not metabolically active at that point and there was also nonspecific left anterior third rib lesion, without any other areas of suspicious metastatic lesions. Note that the MRI of the thoracic spine that was done on 02/06/2018 showed a right apical mass that was very close in approximation with the T2/T3 spine and there was direct invasion of the T2 level with extension towards the posterior wall and there is no fecal sac invasion or nerve root or 4 mL invasion based on that MRI. On 04/27/2018 patient seen in follow-up on the surgical floor. She is awake, alert, in no acute distress, denies any chest pain or dyspnea, she is on room air, with a pulse ox of 95%, vital signs are stable, she is afebrile. States she is having significant amount of pain in the right hip with any repositioning , otherwise fairly comfortable if there is no movement of the right extremity. Lung sounds are congested on today's exam, there are scattered rhonchi, patient at times is able to expectorate some whitish yellowish sputum, her cough is congested. We will add Mucinex, she is receiving nebulized treatments, we will request that incentive spirometry to the bedside. Her surgery is scheduled for Tuesday on 04/28/2018 Objective - Vital Signs Vital signs: Vital Signs Temp 99.1 F 04/27/18 07:00 Pulse 90 04/27/18 11:32 Resp 14 04/27/18 07:00 BP 108/63 04/27/18 07:00 Pulse Ox 95 04/27/18 07:00 Intake & Output 04/26/18 04/27/18 04/27/18 18:59 06:59 18:59 Intake Total 350 401.347 Output Total 50 850 Balance -50 -500 401.347 Weight 48.534 kg 48.534 kg Intake: Intake, IV Titration 186.347 Amount Heparin Sodium,Porcine/ 186.347 D5w Pmx 25,000 unit In Dextrose/Water 1 500ml. bag @ 18 UNITS/KG/HR 17. 47 mls/hr IV .Q24H [facility] Rx #:[id number] Oral 350 215 Output: Urine 50 850 Other: Voiding Method Indwelling Catheter - Exam - Constitutional General appearance: no acute distress - EENT In the posterior oropharynx, the patient has a very irregular vascular mass over the soft palate Eyes: EOMI, PERRLA - Neck Neck: no lymphadenopathy Thyroid: bilateral: normal size - Respiratory Respiratory: bilateral: Diminished, with scattered rhonchi, patient has a congested cough - Cardiovascular Rhythm: regular Heart sounds: normal: S1, S2 - Gastrointestinal General gastrointestinal: normal bowel sounds, soft - Integumentary Integumentary: normal - Neurologic Neurologic: CNII-XII intact - Musculoskeletal Musculoskeletal: strength equal bilaterally, the patient's right lower extremity is shortened and externally rotated and is consistent with fracture, neurovascularly intact. 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 The disease is likely metastatic in nature this point in time the patient has received 2 sessions of systemic chemotherapy 5 chronic back pain 6 chronic neck pain with evidence of focal uptake within the T3 vertebral body and ribs highly suspicious for malignancy. The most recent PET scan showed evidence of encroachment of the anterolateral aspect of the spinal canal. This could've contributed to the patient's weakness and loss imbalance and fall. 7 hyponatremia, chronic, malignancy-induced 8 COPD 9 smoker Plan: Continue nebulized bronchodilators, we will add Mucinex, we'll request incentive spirometry. Patient denies any dyspnea, she is on room air. Her Eliquis is on hold, and she remains on heparin drip for anticoagulation in view of her recent diagnosis of bilateral pulmonary embolism. Patient is scheduled for her surgery on 04/28/2018 and spinal anesthesia would be a good alternative to complete the surgery in view of a large obstructive mass in her posterior oropharynx. We will continue to follow I performed a history & physical examination of the patient and discussed their management with my nurse practitioner, Samia Womack. I reviewed the nurse practitioner's note and agree with the documented findings and plan of care. Lung sounds are positive for some scattered rhonchi bilaterally. The findings and the impression was discussed with the patient. I attest to the documentation by the nurse practitioner. Time with Patient: Less than 30
--- NOTE | 2018-04-27 19:40 | P.CONS ---
History of Present Illness - Reason for Consult Consult date: 04/27/18 Lung and Sinus Cancer History Requesting physician: Tl Ignacio - Chief Complaint Hip Fracture - History of Present Illness Ms. Posadas is a pleasant white female, initially seen in consult at [facility] on 02/05/18. She had presented to her PCP with complains of pain in her right upper back, right neck and base of the skull since early 2017 , that had been progressive since. She had also been complaining of nasal congestion and fullness in the left side of her face since then. She was initially seen by ENT with CT scan of the brain and soft tissue of the neck revealing a 7.4 cm mass in the left maxillary sinus extending into the nasopharynx and oropharynx. In addition a 6.7 cm mass was seen in the right lung [place] with destruction of the T2 vertebra. The patient was admitted with progressive symptoms. She was started on IV steroids with symptomatic improvement. CT scan of the chest confirmed a 75.3 8 cm mass in the right upper lobe with invasion into the adjacent T2. A 2.2 cm nodule was seen in the left lower lobe. MRI of the thoracic spine from 02/06/18 showed no evidence of cord compression. The patient had a biopsy of the maxillary sinus mass on 02/06/18. 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 CT-guided biopsy of the lung mass from 02/11/18 was positive for squamous cell carcinoma. The patient was discharged on a fentanyl patch and Decadron. She had a PET scan on 02/11/18. This confirmed uptake in the large maxillary sinus mass but showed no adjacent adenopathy. Right upper lobe pulmonary mass also showed significant uptake. Uptake was noted in the right hilum, as well as a left lower lobe nodule. Uptake was noted in the T8 2/3 vertebral body and rib due to direct extension. 04/06/18-Completed 3 cycles of carbo/taxol, treatment for 2 primary malignancies. 04/25/18 - PET scan reveal mixed response. Will likely require radiation intervention to better control disease processes. She now presented to the Emergency room after a fall at home. She complained of right hip pain and difficulty with movement. Diagnostics revealed a closed fracture of the right intertrochanter area. ORIF is planned. She was scheduled to see Dr. Pimentel today in office to review PET scan. I discussed findings with patient and daughter Brittany Review of Systems A 14 point review of systems asssessed and completed and all negative except HPI Past Medical History Past Medical History: Cancer, Deep Vein Thrombosis (DVT) Additional Past Medical History / Comment(s): Multiple skin cancers removed, Lung CA (per daughter cancer is within neck/head.) left sinus cancer. 3 cycles of chemo complete. Apr 06 2018 was last tx. 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 on EKG History of Any Multi-Drug Resistant Organisms: None Reported Past Surgical History: Orthopedic Surgery Additional Past Surgical History / Comment(s): ankle Past Anesthesia/Blood Transfusion Reactions: No Reported Reaction Past Psychological History: Anxiety Smoking Status: Former smoker Past Alcohol Use History: Occasional Past Drug Use History: None Reported - Past Family History Father Family Medical History: No Reported History, Unable to Obtain Additional Family Medical History / Comment(s): bad heart Mother Family Medical History: CVA/TIA Medications and Allergies Home Medications Medication Instructions Recorded Confirmed Type Ipratropium-Albuterol Nebulize 3 ml INHALATION RT-TID #90 02/08/18 04/26/18 Rx [Duoneb 0.5 mg-3 mg/3 ml Soln] ampul.neb fentaNYL 25MCG/HR PATCH [Duragesic 1 patch TRANSDERM Q72H #5 patch 02/08/18 Rx 25MCG/HR] HYDROcodone/APAP 5-325MG [Gurdon 1 - 2 tab PO Q4-6H PRN 02/19/18 04/26/18 History 5-325] Pantoprazole [Protonix] 40 mg PO DAILY #30 tablet. 02/20/18 04/26/18 Rx Apixaban [Eliquis] 5 mg PO BID 03/29/18 04/26/18 History Megestrol [Megace] 400 mg PO DAILY 03/29/18 04/26/18 History Sennosides-Docusate Sodium 2 tab PO HS 03/29/18 04/26/18 History [Senokot-S] ALPRAZolam [Xanax] 0.25 mg PO HS 04/26/18 04/26/18 History Allergies Allergy/AdvReac Type Severity Reaction Status Date / Time No Known Allergies Allergy Verified 04/26/18 09:29 Physical Exam Vitals: Vital Signs Temp Pulse Pulse Resp BP BP Pulse Ox 04/27/18 07:23 94 04/27/18 07:10 96 04/27/18 00:26 97.9 F 99 16 137/60 94 L 04/26/18 20:24 92 04/26/18 20:08 90 04/26/18 20:00 99 16 04/26/18 19:35 99.1 F 99 130/66 94 L 04/26/18 16:05 92 04/26/18 15:55 90 04/26/18 15:30 98.8 F 59 L 16 105/65 91 L 04/26/18 15:23 98.3 F 96 16 104/71 96 04/26/18 12:45 92 04/26/18 12:38 88 04/26/18 11:44 98.8 F 94 18 124/60 93 L 04/26/18 09:21 98.3 F 93 18 132/59 94 L Intake and Output 04/26/18 04/27/18 04/27/18 22:59 06:59 14:59 Intake Total 350 Output Total 50 800 Balance 300 -800 Intake: Oral 350 Output: Urine 50 800 - Constitutional General appearance: no acute distress, thin - EENT Eyes: EOMI, PERRLA ENT: normal oropharynx, pharyngeal erythema - Neck Neck: normal ROM - Respiratory Respiratory: bilateral: diminished (No increased effort) - Cardiovascular Heart rate: 104 Rhythm: regular - Gastrointestinal General gastrointestinal: soft, tenderness - Integumentary Integumentary: pale - Musculoskeletal Musculoskeletal: generalized weakness, strength equal bilaterally - Psychiatric Psychiatric: A&O x's 3, appropriate affect, intact judgment & insight Results CBC & Chem 7: 04/26/18 10:02 04/26/18 10:02 Labs: Abnormal Lab Results - Last 24 Hours (Table) 04/26/18 04/26/18 04/26/18 Range/Units 10:02 10:02 14:45 WBC 11.0 H (3.8-10.6) k/uL RBC 3.24 L (3.80-5.40) m/uL Hgb 9.4 L (11.4-16.0) gm/dL Hct 29.4 L (34.0-46.0) % RDW 18.8 H (11.5-15.5) % Plt Count 541 H (150-450) k/uL Neutrophils # 8.2 H (1.3-7.7) k/uL Sodium 133 L (137-145) mmol/L Potassium 5.2 H (3.5-5.1) mmol/L Creatinine 0.28 L (0.52-1.04) mg/dL AST 40 H (14-36) U/L Albumin 3.4 L (3.5-5.0) g/dL Urine Appearance Cloudy H (Clear) Amorphous Sediment Rare H (None) /hpf Urine Mucus Rare H (None) /hpf Assessment and Plan Plan: Assessment and Recommendations: 1. 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 Intertrochanter Right Hip Surgery - Status Post Fall - Orthopedics Following - Awaiting ORIF 4. Recent diagnosis of bilateral pulmonary embolism, in January 2018, currently on Eliquis - Likely Hold Eliquis at this time for surgical intervention - Heparin drip and restart AC therapy post sx. 5. Acute on chronic pain - Neck and Back with evidence of focal uptake within the T3 vertebral body and ribs highly suspicious for malignancy. - The most recent PET scan showed evidence of encroachment of the anterolateral aspect of the spinal canal. - This could've contributed to the patient's weakness and loss imbalance and fall. A previous MRI did identify this in January, repeat MRI if concern for possible cord involvement. 6. 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
[2018-04-27] MEDS: SENNOSIDES-DOCUSATE SODIUM 1 EACH TAB PO SCH (20:25)
[2018-04-28] MEDS: HEPARIN SODIUM,PORCINE/D5W PMX 25,000 UNIT in DEXTROSE/WATER 1 500ML.BAG IV SCH (00:15)
[2018-04-28] MEDS: ALPRAZolam 0.25 MG TAB PO SCH ×2 (00:16→22:23)
[2018-04-28] MEDS: HYDROcodone/APAP 5-325MG 1 EACH TAB PO PRN (00:16)
[2018-04-28] MEDS: MORPHINE SULFATE 2 MG/ML SYRINGE IV PRN ×4 (05:56→21:34)
[2018-04-28] MEDS: PANTOPRAZOLE 40 MG TABLET PO SCH (07:55)
[2018-04-28] MEDS: MEGESTROL 400 MG/10 ML CUP PO SCH (07:56)
[2018-04-28 08:07] LABS: Anisocytosis Slight; Basophils % (A) 0 %; Eosinophils % (A) 0 %; HCT 28.5 % (34.0-46.0); HGB 8.9 gm/dL (11.4-16.0); Hypochromasia Moderate; Lymphocytes # (A) 2.1 k/uL (1.0-4.8); Lymphocytes % (A) 21 %; MCH 29.2 pg (25.0-35.0); MCHC 31.4 g/dL (31.0-37.0); MCV 93.2 fL (80.0-100.0); Mean Platelet Volume 6.8; Monocytes # (A) 0.6 k/uL (0-1.0); Monocytes % (A) 6 %; Neutrophils # (A) 6.7 k/uL (1.3-7.7); Neutrophils % (A) 69 %; Platelet Count 525 k/uL (150-450); RBC 3.06 m/uL (3.80-5.40); RDW 18.5 % (11.5-15.5); Reticulocyte % 3.4 % (0.5-2.0); WBC 9.8 k/uL (3.8-10.6)
[2018-04-28] MEDS: IPRATROPIUM-ALBUTEROL 3 ML NEB INHALATION SCH ×4 (08:30→20:03)
[2018-04-28 11:25] LABS: INR 1.1 (<1.2); Partial Thromboplastin Time 22.6 sec (22.0-30.0); Prothrombin Time 10.7 sec (9.0-12.0)
[2018-04-28] MEDS ORDERED: IV FLUID CONTINUATION 800 ML IV ONE (12:02)
[2018-04-28] MEDS ORDERED: PROPOFOL 10 MG/ML 20 ML VIAL IV ONE (12:36)
[2018-04-28] MEDS ORDERED: KETAMINE 10 MG/ML 20 ML VIAL ONE (12:36)
[2018-04-28] MEDS ORDERED: fentaNYL (PF) 50 MCG/ML 2 ML AMP ONE (12:36)
[2018-04-28] MEDS ORDERED: MIDAZOLAM 2 MG/2 ML VIAL ONE (12:36)
[2018-04-28] MEDS ORDERED: SODIUM CHLORIDE 0.9% 50 ML with ceFAZolin 2,000 MG IV ONE ×2 (12:41)
--- NOTE | 2018-04-28 13:56 | P.PN ---
Subjective Progress Note Date: 04/28/18 Principal diagnosis: Preoperative pulmonary clearance, right hip intratrochanteric fracture 77-year-old female patient known to me from previous hospitalizations. The patient came in today because of right hip pain. The patient apparently fell at home while walking on her walker and she came in with a right hip pain and difficulty with movement. She was diagnosed having a closed fracture of the right intertrochanteric area and the patient will be taken to the operating room within the next 48 hours for ORIF. A pulmonary evaluation was requested Patient has been diagnosed recently having to separate malignancies. Specifically the patient presented back in January 2018 because of pain in her upper back and neck area and it was gradually getting worse. The patient also reports fullness across her left face and there was some asymmetric bulge within the left facial area. She was subsequently diagnosed having a large right upper lobe mass measuring 7 x 8 cm in size left aspect of which was approaching the T2 vertebral spine and anterior leads was reaching the right third rib. There was evidence of mediastinal lymphadenopathy largest in the right hilum measuring 1.5 cm in size and addition to a left lower lobe. The lesion measuring 2.2 x 1.8 x 2.1 cm in size and background emphysema. As for the CAT scan of the neck showed a large posterior oropharyngeal mass completely invading the soft palate causing anatomic shift in addition to the maxillary masses was measuring 4.5 x 7.4 x 6.9 cm in size. 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 The patient as such was diagnosed having to malignancies and she was started on systemic chemotherapy to which she was tolerating well and the showed a completed 2 cycles of systemic chemo. She had another hospitalization in February 2018 for shortness of breath and the CAT scan of the chest was done and showed multiple bilateral pulmonary segmental emboli and for that reason the patient was started on IV heparin and was later on switched to Eliquis. She another hospitalization back in 03/29/2018 for increased shortness of breath and at that time the patient was given the diagnosis of COPD exacerbation treated and discharged home. The most recent PET scan was obtained on it showed a persistent large left maxillary sinus mass that was stable in size and aggressive right upper lobe mass fairly stable in size and SUV with he 2/3 destruction and encroachment of the anterior lateral aspect of the spinal canal was noted. There was interval improvement of the left lower lobe mass which was not metabolically active at that point and there was also nonspecific left anterior third rib lesion, without any other areas of suspicious metastatic lesions. Note that the MRI of the thoracic spine that was done on 02/06/2018 showed a right apical mass that was very close in approximation with the T2/T3 spine and there was direct invasion of the T2 level with extension towards the posterior wall and there is no fecal sac invasion or nerve root or 4 mL invasion based on that MRI. On 04/27/2018 patient seen in follow-up on the surgical floor. She is awake, alert, in no acute distress, denies any chest pain or dyspnea, she is on room air, with a pulse ox of 95%, vital signs are stable, she is afebrile. States she is having significant amount of pain in the right hip with any repositioning , otherwise fairly comfortable if there is no movement of the right extremity. Lung sounds are congested on today's exam, there are scattered rhonchi, patient at times is able to expectorate some whitish yellowish sputum, her cough is congested. We will add Mucinex, she is receiving nebulized treatments, we will request that incentive spirometry to the bedside. Her surgery is scheduled for Tuesday on 04/28/2018 On 04/28/2018 patient seen in follow-up. Her surgery has been scheduled for 11: 30 this morning, she denies any respiratory difficulty, no shortness of breath no chest pain, she is on room air, pulse ox is 100%. Lung sounds are less congested today, clear to auscultation. She continues on nebulized treatments, she is compliant with her incentive spirometry, she has moderate amount of discomfort from her right hip, and she is being medicated with IV morphine. Vital signs remain stable, we'll see the patient after her surgery. Objective - Vital Signs Vital signs: Vital Signs Temp 97.8 F 04/28/18 12:03 Pulse 95 04/28/18 12:03 Resp 16 04/28/18 12:03 BP 123/66 04/28/18 12:03 Pulse Ox 100 04/28/18 12:03 Intake & Output 04/27/18 04/28/18 04/28/18 18:59 06:59 18:59 Intake Total 076.465 8928.441 900 Output Total 1400 350 Balance 743.680 365.441 550 Weight 48.534 kg Intake: IV 900 Intake, IV Titration 328.680 185.441 Amount Heparin Sodium,Porcine/ 328.680 185.441 D5w Pmx 25,000 unit In Dextrose/Water 1 500ml. bag @ 18 UNITS/KG/HR 17. 47 mls/hr IV .Q24H [facility] Rx #:[id number] Oral 415 1580 Output: Urine 1400 300 Uretheral (Dubose) 250 Estimated Blood Loss 50 Other: Voiding Method Indwelling Catheter Indwelling Catheter Indwelling Catheter - Exam - Constitutional General appearance: no acute distress - EENT In the posterior oropharynx, the patient has a very irregular vascular mass over the soft palate Eyes: EOMI, PERRLA - Neck Neck: no lymphadenopathy Thyroid: bilateral: normal size - Respiratory Respiratory: bilateral: Clear bilaterally, no rhonchi, no wheezing, no rales. - Cardiovascular Rhythm: regular Heart sounds: normal: S1, S2 - Gastrointestinal General gastrointestinal: normal bowel sounds, soft - Integumentary Integumentary: normal - Neurologic Neurologic: CNII-XII intact - Musculoskeletal Musculoskeletal: strength equal bilaterally, the patient's right lower extremity is shortened and externally rotated and is consistent with fracture, neurovascularly intact. - Psychiatric Psychiatric: A&O x's 3, appropriate affect - Labs CBC & Chem 7: 04/28/18 07:40 04/26/18 10:02 Labs: Abnormal Lab Results - Last 24 Hours (Table) 04/27/18 04/27/18 04/28/18 Range/Units 16:52 23:57 07:40 RBC 3.06 L (3.80-5.40) m/uL Hgb 8.9 L (11.4-16.0) gm/dL Hct 28.5 L (34.0-46.0) % RDW 18.5 H (11.5-15.5) % Plt Count 525 H (150-450) k/uL Retic Count 3.4 H (0.5-2.0) % APTT 34.1 H 42.1 H (22.0-30.0) sec 04/28/18 Range/Units 07:40 RBC (3.80-5.40) m/uL Hgb (11.4-16.0) gm/dL Hct (34.0-46.0) % RDW (11.5-15.5) % Plt Count (150-450) k/uL Retic Count (0.5-2.0) % APTT 41.7 H (22.0-30.0) sec Assessment and Plan Plan: Assessment: 1 acute fall related right hip fracture, intertrochanteric, awaiting surgery on 04/28/2018 2 recent diagnosis of bilateral pulmonary embolism, establish in January 2018, currently on Eliquis 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 The disease is likely metastatic in nature this point in time the patient has received 2 sessions of systemic chemotherapy 5 chronic back pain 6 chronic neck pain with evidence of focal uptake within the T3 vertebral body and ribs highly suspicious for malignancy. The most recent PET scan showed evidence of encroachment of the anterolateral aspect of the spinal canal. This could've contributed to the patient's weakness and loss imbalance and fall. 7 hyponatremia, chronic, malignancy-induced 8 COPD 9 smoker Plan: Patient remains stable from pulmonary standpoint, and is awaiting to undergo her right hip surgery today. Continue nebulized bronchodilators, continue the Mucinex and encourage incentive spirometry. Patient denies any dyspnea, she is on room air. Her Eliquis is on hold, patient was placed on heparin drip in the preop period. We will see the patient in the postoperative period I performed a history & physical examination of the patient and discussed their management with my nurse practitioner, Samia Womack. I reviewed the nurse practitioner's note and agree with the documented findings and plan of care. Lung sounds are clear. The findings and the impression was discussed with the patient. I attest to the documentation by the nurse practitioner. Time with Patient: Less than 30
[2018-04-28] MEDS ORDERED: MORPHINE SULFATE 2 MG/ML SYRINGE IV PRN ×3 (14:16)
[2018-04-28] MEDS ORDERED: NALOXONE 0.4 MG/ML 1 ML VIAL IV PRN (14:16)
[2018-04-28] MEDS ORDERED: MAGNESIUM HYDROXIDE 2,400 MG/10 ML CUP PO PRN (14:16)
--- NOTE | 2018-04-28 14:40 | FL ---
Fluoroscopy HISTORY: Fracture 23 seconds fluoroscopy time supplied to the referring clinician. 2intraoperative C-arm images documen t the procedure. See dictated report from orthopedic surgery.
--- NOTE | 2018-04-28 14:40 | XR ---
Limited right hip HISTORY: Fracture 2 intraoperative C-arm images document the procedure.
[2018-04-28] MEDS: LACTATED RINGERS 1,000 ML IV SCH (15:29)
[2018-04-28] MEDS: ceFAZolin IN SWFI 2 GM/20 ML SYRINGE IVP SCH (15:34)
--- NOTE | 2018-04-28 16:20 | P.OP ---
Date of Procedure: 04/28/18 Procedure(s) Performed: PREOPERATIVE DIAGNOSIS: Right hip intertrochanteric fracture. POSTOPERATIVE DIAGNOSIS: Right hip intertrochanteric fracture. OPERATION: Right hip intertrochanteric fracture closed reduction and intramedullary nailing using Synthes IT nail. DEVELOPMENT DIRECTOR: Kristy Benitez (Assistance with: Patient positioning, retraction, exposure, hemostasis, fixation, irrigation, closure, dressing) ANESTHESIA: Spinal ESTIMATED BLOOD LOSS: 50 mL. COMPLICATIONS: None OPERATIVE FINDINGS: See dictation INDICATIONS: Mrs. Posadas is a 77-year-old female with a history of right intertrochanteric fracture. The patient presents to the operating room today for closed reduction and intramedullary nailing. I discussed the risks of surgery in detail as being inclusive of but not limited to: Bleeding, infection , scarring, discomfort, blood vessel and/or nerve damage, need for further surgery, malunion, nonunion, gait disturbance including persistent or permanent limp, limb length inequality, arthritis, hardware failure, blood clot, pulmonary embolism, , and other risks. The consent form has been signed. PROCEDURE: After appropriate consent was obtained, the patient was taken to the operating room and placed in supine position. Spinal anesthetic was administered and after confirmation of adequate anesthesia, the patient was carefully placed in the supine position on the operating room table in the fracture table. The patient was placed up against a well-padded peroneal post. Care was taken to make sure about that all pressure points were adequately padded. The affected leg was placed in boot traction and the unaffected leg was placed in a well leg hinojosa. Using gentle longitudinal distraction as well as adduction and internal rotation , the fracture was reduced as assessed by AP and lateral C-arm imaging. Once a satisfactory reduction had been obtained, the thigh was prepped and draped in the usual aseptic fashion using ChloraPrep. Ioban drape was used for the case and the patient received intravenous antibiotics prior to incision. Timeout was called, confirming patient identity, side, procedure, and administration of antibiotics. The incision was then created with a #10 blade just proximal to the greater trochanter laterally. It was carried down through skin into the subcutaneous tissues and through fascia. Hemostasis was obtained using electrocautery. The tip of the greater trochanter was palpated and a guide pin was placed at the tip and directed into the femoral shaft as assessed with C-arm imaging. Once optimal pin position had been obtained, a 17 mm reamer was used over the guide pin to create a path for the IT nail. IT nail selected was assembled to the insertion jig on the back table and bushings were checked for accuracy. The nail was then inserted using gentle mallet taps until it was fully deployed. The amount of rotation of the implant was assessed based on the amount of anteversion of the femoral neck. This was rotated to match the patient's femoral neck anteversion and the helical blade guide was placed through the insertion jig and through an incision on the lateral side of the thigh more distal than the first. Once this guide was placed against the lateral cortex of the femur, a guide pin was drilled into the central region of the femoral head and neck as based on AP and lateral C-arm imaging. Once optimal pin position had been obtained, the guidewire was measured and appropriately sized helical blade was selected. The path for the helical blade was prepared using a tapered reamer. The helical blade was then inserted using gentle mallet taps along the guidewire until it was fully deployed. There was no displacement of the fracture during this step. The anti-rotation screw was locked down and the insertion apparatus for the helical blade was removed. The guide pin was then removed. Traction was then removed from the leg and the distal interlock was placed through the jig using standard technique. Finally, the insertion jig for the nail was removed and final C-arm images were taken and saved in both AP and lateral planes. The final x-rays showed satisfactory positioning of the implant and good reduction of the fracture. The top of the nail was plugged with a small quantity of bone wax and the incisions were then thoroughly irrigated with normal saline. Final hemostasis was obtained using electrocautery and closure of the fascia was performed using 0-Vicryl suture. 2-0 Vicryl suture was used in the subcutaneous tissues and standard skin closure was performed. Sterile dressing was then applied and the patient was carefully removed from the fracture table frame and placed onto the stretcher. The patient tolerated the procedure well. There were no complications and above noted blood loss. The patient was then subsequently transferred to recovery room in stable condition. Sponge and needle counts were correct.
[2018-04-28 17:11] LABS: Anisocytosis Slight; Basophils % (A) 0 %; Eosinophils % (A) 0 %; HCT 26.1 % (34.0-46.0); HGB 8.1 gm/dL (11.4-16.0); Hypochromasia Moderate; Lymphocytes # (A) 1.8 k/uL (1.0-4.8); Lymphocytes % (A) 14 %; MCH 28.7 pg (25.0-35.0); MCHC 31.1 g/dL (31.0-37.0); MCV 92.3 fL (80.0-100.0); Mean Platelet Volume 6.6; Monocytes # (A) 0.6 k/uL (0-1.0); Monocytes % (A) 5 %; Neutrophils # (A) 9.9 k/uL (1.3-7.7); Neutrophils % (A) 78 %; Platelet Count 540 k/uL (150-450); RBC 2.83 m/uL (3.80-5.40); RDW 18.4 % (11.5-15.5); WBC 12.7 k/uL (3.8-10.6)
[2018-04-28 17:12] LABS: Folate, Serum 11.9 ng/mL
--- NOTE | 2018-04-28 18:03 | PN ---
PROGRESS NOTE DATE OF SERVICE: 04/27/2018 PRESENTING COMPLAINT: Right femur fracture. INTERVAL HISTORY: Patient is status post right femur fracture, also has 2 separate malignancies and a recent PE for which the patient is on IV heparin. The patient is seen by me yesterday on 04/27/2018. Breathing is stable. REVIEW OF SYSTEMS: Done for constitutional, cardiovascular, GI, pulmonary; relevant findings as above. CURRENT MEDICATIONS: Reviewed that include IV heparin, IV fluids. PHYSICAL EXAMINATION: Temperature 97.1, pulse 81, respirations 18, blood pressure 117/57, pulse ox 93%. GENERAL APPEARANCE: Sitting up on the bed, tired-appearing. EYES: Pupils equal. Conjunctivae pale. HEENT: External appearance of nose and ears normal. Oral cavity normal. NECK: JVD not raised. Mass not palpable. RESPIRATORY: Effort normal. LUNGS: Decreased breath sounds. CARDIOVASCULAR: First and second sounds normal. No edema. ABDOMEN: Soft, nontender. Liver and spleen not palpable. PSYCHIATRY: Alert and oriented x3. Mood and affect a bit tired-appearing. MUSCULOSKELETAL: Limited range of motion around the right hip. INVESTIGATIONS: PTT noted. ASSESSMENT: 1. Right intertrochanteric fracture of the right hip secondary to fall. 2. Chronic bilateral pulmonary embolism 6 weeks ago for which patient has been on Eliquis. 3. IV heparin monitoring. 4. Moderate protein-calorie malnutrition from decreased oral intake from underlying malignancy. 5. 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 6. Adenocarcinoma with the primary salivary gland, status post chemotherapy. 7. Squamous cell cancer of the lung getting chemotherapy. 8. Normocytic anemia from underlying malignancy. PLAN: Continue current medication and treatment plan. Care was discussed with the patient. IV heparin will be discontinued 6 hours before surgery. Care was discussed with the patient and daughter. Questions were answered. MMODL / IJN: [id number] /
[2018-04-28 19:19] LABS: Iron Saturation 6.33 (12.00-45.00)
[2018-04-28] MEDS: SENNOSIDES-DOCUSATE SODIUM 1 EACH TAB PO SCH (22:21)
[2018-04-28] MEDS: APIXABAN 5 MG TAB PO SCH (22:21)
--- NOTE | 2018-04-28 23:34 | PN ---
PROGRESS NOTE DATE OF SERVICE: 04/28/2018 PRESENTING COMPLAINT: Right femur fracture. INTERVAL HISTORY: The patient is status post IM nailing of the right femur, resting in bed, lethargic after pain medications. I ordered Eliquis to be resumed if okay with Orthopedics. Daughter is at the bedside. The patient is tired. REVIEW OF SYSTEMS: Cannot be done, as patient rather lethargic. CURRENT MEDICATIONS: Reviewed that include: 1. Eliquis. 2. IV cefazolin. 3. Duragesic patch. 4. [place]. EXAMINATION: Temperature 98.1, pulse 106, respirations 16, blood pressure 112/66, pulse ox 95% on 2L. GENERAL APPEARANCE: Lying in bed, lethargic, but arousable. EYES: Pupils equal. Conjunctivae pale. HEENT: External appearance of nose and ears normal. Oral cavity normal. NECK: JVD unable to assess. Mass not palpable. RESPIRATORY: Effort normal. LUNGS: Decreased breath sounds. CARDIOVASCULAR: First and second sounds normal. No edema. ABDOMEN: Soft, nontender. Liver, spleen not palpable. PSYCHIATRY: Patient is lethargic from pain medications. EXTREMITIES: Dressing over the right hip. INVESTIGATIONS: Hemoglobin is 8.1. Iron 14, ferritin 1148. B12, folate are normal. ASSESSMENT: 1. Right intertrochanteric fracture of the right femur followed by intramedullary nailing. 2. Chronic bilateral pulmonary embolism 6 weeks ago. Eliquis is being resumed tonight. 3. IV heparin was discontinued prior to surgery. 4. Moderate protein-calorie malnutrition from decreased oral intake from underlying malignancy. 5. 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 6. Adenocarcinoma of the primary salivary gland, getting chemotherapy. 7. Squamous cell carcinoma lung with chemotherapy. 8. Normocytic anemia from underlying malignancy. PLAN: Care was discussed with the daughter at the bedside. I spoke earlier with Dr. Pimentel. He will decide about further chemo and radiation treatment in conjunction with Dr. Jon. Prognosis is guarded, given overall prognosis. MMODL / IJN: [id number] /
[2018-04-29 00:21] LABS: Glucose,Whole Blood 102 mg/dL (75-99)
[2018-04-29] MEDS: HYDROcodone/APAP 5-325MG 1 EACH TAB PO PRN ×6 (01:20→22:54)
[2018-04-29] MEDS: ceFAZolin IN SWFI 2 GM/20 ML SYRINGE IVP SCH (01:20)
[2018-04-29] MEDS: LACTATED RINGERS 1,000 ML IV SCH ×3 (01:48→22:03)
[2018-04-29] MEDS: IPRATROPIUM-ALBUTEROL 3 ML NEB INHALATION SCH ×4 (07:54→19:45)
[2018-04-29] MEDS: APIXABAN 5 MG TAB PO SCH ×2 (09:19→22:02)
[2018-04-29] MEDS: PANTOPRAZOLE 40 MG TABLET PO SCH (09:19)
[2018-04-29] MEDS: MEGESTROL 400 MG/10 ML CUP PO SCH (09:19)
--- NOTE | 2018-04-29 12:05 | P.PN ---
Subjective Progress Note Date: 04/29/18 Principal diagnosis: Right IT Fx Patient is seen at bedside this morning. She is postop day #1 from closed reduction internal fixation with IT nail for right hip fracture. She has pain at the surgical site as expected but denies any new complaints. She denies numbness, tingling or calf pain. Review of systems is negative for fever, chills, chest pain, shortness of breath or other Objective - Vital Signs Vital signs: Vital Signs Temp 97.3 F L 04/29/18 09:52 Pulse 108 H 04/29/18 11:24 Resp 20 04/29/18 09:52 BP 115/61 04/29/18 09:52 Pulse Ox 94 L 04/29/18 09:52 Intake & Output 04/28/18 04/29/18 04/29/18 18:59 06:59 18:59 Intake Total 750 1150 Output Total 700 300 Balance 50 850 Intake: IV 750 Intake, IV Titration 1150 Amount Lactated Ringers 1,000 ml 1150 @ 100 mls/hr IV .Q10H GRABIEL Rx#:[id number] Output: Urine 650 300 Uretheral (Dubose) 250 Estimated Blood Loss 50 Other: Voiding Method Indwelling Catheter Indwelling Catheter Indwelling Catheter # Voids 300 - Exam Inspection reveals a benign surgical wound. There is no active bleeding or drainage. Neurovascular status is intact throughout the lower extremity with motor and sensation fully intact. Calf is soft and nontender. 2+ dorsalis pedis pulse and less than 2 second cap refill is present - Constitutional General appearance: Present: no acute distress - Labs CBC & Chem 7: 04/28/18 16:34 04/26/18 10:02 Labs: Abnormal Lab Results - Last 24 Hours (Table) 04/28/18 04/28/18 04/29/18 Range/Units 07:40 16:34 00:12 WBC 12.7 H (3.8-10.6) k/uL RBC 2.83 L (3.80-5.40) m/uL Hgb 8.1 L (11.4-16.0) gm/dL Hct 26.1 L (34.0-46.0) % RDW 18.4 H (11.5-15.5) % Plt Count 540 H (150-450) k/uL Neutrophils # 9.9 H (1.3-7.7) k/uL POC Glucose (mg/dL) 102 H (75-99) mg/dL Iron 14 L (50-170) ug/dL Ferritin 1148.3 H (10.0-291.0) ng/mL Assessment and Plan (1) Closed right hip fracture Narrative/Plan: She will continue with routine postop orthopedic protocol including pain management, wound care, physical therapy, DVT prophylaxis and medical management. Expect that she will transfer to rehab in next few days. Current Visit: Yes Status: Acute Priority: Medium Code(s): S72.001A - FRACTURE OF UNSP PART OF NECK OF RIGHT FEMUR, INIT SNOMED Code(s): 013633610 Time with Patient: Less than 30
--- NOTE | 2018-04-29 12:50 | P.PN ---
Subjective Progress Note Date: 04/29/18 77-year-old female patient known to me from previous hospitalizations. The patient came in today because of right hip pain. The patient apparently fell at home while walking on her walker and she came in with a right hip pain and difficulty with movement. She was diagnosed having a closed fracture of the right intertrochanteric area and the patient will be taken to the operating room within the next 48 hours for ORIF. A pulmonary evaluation was requested Patient has been diagnosed recently having to separate malignancies. Specifically the patient presented back in January 2018 because of pain in her upper back and neck area and it was gradually getting worse. The patient also reports fullness across her left face and there was some asymmetric bulge within the left facial area. She was subsequently diagnosed having a large right upper lobe mass measuring 7 x 8 cm in size left aspect of which was approaching the T2 vertebral spine and anterior leads was reaching the right third rib. There was evidence of mediastinal lymphadenopathy largest in the right hilum measuring 1.5 cm in size and addition to a left lower lobe. The lesion measuring 2.2 x 1.8 x 2.1 cm in size and background emphysema. As for the CAT scan of the neck showed a large posterior oropharyngeal mass completely invading the soft palate causing anatomic shift in addition to the maxillary masses was measuring 4.5 x 7.4 x 6.9 cm in size. 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 The patient as such was diagnosed having to malignancies and she was started on systemic chemotherapy to which she was tolerating well and the showed a completed 2 cycles of systemic chemo. She had another hospitalization in February 2018 for shortness of breath and the CAT scan of the chest was done and showed multiple bilateral pulmonary segmental emboli and for that reason the patient was started on IV heparin and was later on switched to Eliquis. She another hospitalization back in 03/29/2018 for increased shortness of breath and at that time the patient was given the diagnosis of COPD exacerbation treated and discharged home. The most recent PET scan was obtained on it showed a persistent large left maxillary sinus mass that was stable in size and aggressive right upper lobe mass fairly stable in size and SUV with he 2/3 destruction and encroachment of the anterior lateral aspect of the spinal canal was noted. There was interval improvement of the left lower lobe mass which was not metabolically active at that point and there was also nonspecific left anterior third rib lesion, without any other areas of suspicious metastatic lesions. Note that the MRI of the thoracic spine that was done on 02/06/2018 showed a right apical mass that was very close in approximation with the T2/T3 spine and there was direct invasion of the T2 level with extension towards the posterior wall and there is no fecal sac invasion or nerve root or 4 mL invasion based on that MRI. On 04/27/2018 patient seen in follow-up on the surgical floor. She is awake, alert, in no acute distress, denies any chest pain or dyspnea, she is on room air, with a pulse ox of 95%, vital signs are stable, she is afebrile. States she is having significant amount of pain in the right hip with any repositioning , otherwise fairly comfortable if there is no movement of the right extremity. Lung sounds are congested on today's exam, there are scattered rhonchi, patient at times is able to expectorate some whitish yellowish sputum, her cough is congested. We will add Mucinex, she is receiving nebulized treatments, we will request that incentive spirometry to the bedside. Her surgery is scheduled for Tuesday on 04/28/2018 On 04/28/2018 patient seen in follow-up. Her surgery has been scheduled for 11: 30 this morning, she denies any respiratory difficulty, no shortness of breath no chest pain, she is on room air, pulse ox is 100%. Lung sounds are less congested today, clear to auscultation. She continues on nebulized treatments, she is compliant with her incentive spirometry, she has moderate amount of discomfort from her right hip, and she is being medicated with IV morphine. Vital signs remain stable, we'll see the patient after her surgery. On 2017, the patient is seen for a follow-up. The patient underwent ORIF of the right hip fracture without any complication this was done under spinal anesthesia. No respiratory distress. Surgical site is dry clean and intact. Pulses in lower extremities are intact. The patient is no specific complaints. She is pulling approximately 500 on the incentive spirometer. Eliquis was restarted yesterday for long-term and to coagulation specialist that the patient has had recent pulmonary embolism. Objective - Vital Signs Vital signs: Vital Signs Temp 97.3 F L 04/29/18 09:52 Pulse 108 H 04/29/18 11:24 Resp 20 04/29/18 09:52 BP 115/61 04/29/18 09:52 Pulse Ox 94 L 04/29/18 09:52 Intake & Output 04/28/18 04/29/18 04/29/18 18:59 06:59 18:59 Intake Total 750 1150 Output Total 700 300 Balance 50 850 Intake: IV 750 Intake, IV Titration 1150 Amount Lactated Ringers 1,000 ml 1150 @ 100 mls/hr IV .Q10H GRABIEL Rx#:[id number] Output: Urine 650 300 Uretheral (Dubose) 250 Estimated Blood Loss 50 Other: Voiding Method Indwelling Catheter Indwelling Catheter Indwelling Catheter # Voids 300 - Exam - Exam - Constitutional General appearance: no acute distress - EENT In the posterior oropharynx, the patient has a very irregular vascular mass over the soft palate Eyes: EOMI, PERRLA - Neck Neck: no lymphadenopathy Thyroid: bilateral: normal size - Respiratory Respiratory: bilateral: Clear bilaterally, no rhonchi, no wheezing, no rales. - Cardiovascular Rhythm: regular Heart sounds: normal: S1, S2 - Gastrointestinal General gastrointestinal: normal bowel sounds, soft - Integumentary Integumentary: normal, the surgical wound site over the right hip area dry clean and intact. Pulses in lower extremities are also present. - Neurologic Neurologic: CNII-XII intact - Musculoskeletal Musculoskeletal: strength equal bilaterally, the patient's right lower extremity is shortened and externally rotated and is consistent with fracture, neurovascularly intact. - Psychiatric Psychiatric: A&O x's 3, appropriate affect - Labs CBC & Chem 7: 04/28/18 16:34 04/26/18 10:02 Labs: Abnormal Lab Results - Last 24 Hours (Table) 04/28/18 04/28/18 04/29/18 Range/Units 07:40 16:34 00:12 WBC 12.7 H (3.8-10.6) k/uL RBC 2.83 L (3.80-5.40) m/uL Hgb 8.1 L (11.4-16.0) gm/dL Hct 26.1 L (34.0-46.0) % RDW 18.4 H (11.5-15.5) % Plt Count 540 H (150-450) k/uL Neutrophils # 9.9 H (1.3-7.7) k/uL POC Glucose (mg/dL) 102 H (75-99) mg/dL Iron 14 L (50-170) ug/dL Ferritin 1148.3 H (10.0-291.0) ng/mL Assessment and Plan Plan: 1 acute fall related right hip fracture, intertrochanteric,, the patient is status post ORIF of right hip fracture the patient is postop day #1. Surgery was done under spinal anesthesia. The patient adequate pain control. Hemodynamically stable. 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 The disease is likely metastatic in nature this point in time the patient has received 2 sessions of systemic chemotherapy 5 chronic back pain 6 chronic neck pain with evidence of focal uptake within the T3 vertebral body and ribs highly suspicious for malignancy. The most recent PET scan showed evidence of encroachment of the anterolateral aspect of the spinal canal. This could've contributed to the patient's weakness and loss imbalance and fall. 7 hyponatremia, chronic, malignancy-induced 8 COPD 9 smoker Plan Agree on restarting Eliquis. Continue using incentive spirometer. Aggressive pulmonary toileting. Fentanyl patch for pain control in conjunction with [place] 5 on yesterday's basis. Will need rehabilitation. We'll follow.
[2018-04-29] MEDS: ALPRAZolam 0.25 MG TAB PO SCH (22:02)
[2018-04-29] MEDS: SENNOSIDES-DOCUSATE SODIUM 1 EACH TAB PO SCH (22:03)
[2018-04-30] MEDS: HYDROcodone/APAP 5-325MG 1 EACH TAB PO PRN ×5 (06:59→23:32)
[2018-04-30] MEDS: IPRATROPIUM-ALBUTEROL 3 ML NEB INHALATION SCH ×4 (07:15→19:53)
[2018-04-30] MEDS: MEGESTROL 400 MG/10 ML CUP PO SCH (09:46)
[2018-04-30] MEDS: PANTOPRAZOLE 40 MG TABLET PO SCH (09:47)
[2018-04-30] MEDS: APIXABAN 5 MG TAB PO SCH ×2 (09:47→22:19)
[2018-04-30] MEDS: LACTATED RINGERS 1,000 ML IV SCH ×2 (11:09→23:32)
--- NOTE | 2018-04-30 12:37 | P.PN ---
Subjective Progress Note Date: 04/30/18 Principal diagnosis: Right IT Fx Patient is seen at bedside this morning. She is postop day #2 from closed reduction internal fixation with IT nail for right hip fracture. She has pain at the surgical site as expected but denies any new complaints. She denies numbness, tingling or calf pain. Review of systems is negative for fever, chills, chest pain, shortness of breath or other Objective - Vital Signs Vital signs: Vital Signs Temp 98 F 04/30/18 06:52 Pulse 104 H 04/30/18 11:28 Resp 18 04/30/18 06:52 BP 132/73 04/30/18 06:52 Pulse Ox 95 04/30/18 06:52 Intake & Output 04/29/18 04/30/18 04/30/18 18:59 06:59 18:59 Intake Total 1140 Output Total 500 840 450 Balance -500 300 -450 Weight 48.534 kg Intake: Intake, IV Titration 750 Amount Lactated Ringers 1,000 ml 750 @ 100 mls/hr IV .Q10H GRABIEL Rx#:[id number] Oral 390 Output: Urine 500 840 450 Uretheral (Dubose) 140 450 Other: Voiding Method Indwelling Catheter Indwelling Catheter Indwelling Catheter - Exam Inspection reveals a benign surgical wound. There is no active bleeding or drainage. Neurovascular status is intact throughout the lower extremity with motor and sensation fully intact. Calf is soft and nontender. 2+ dorsalis pedis pulse and less than 2 second cap refill is present - Constitutional General appearance: Present: no acute distress - Labs CBC & Chem 7: 04/28/18 16:34 04/26/18 10:02 Labs: Abnormal Lab Results - Last 24 Hours (Table) 04/28/18 Range/Units 07:40 Iron 14 L (50-170) ug/dL TIBC 221 L (228-460) ug/dL Iron Saturation 6.33 L (12.00-45.00) Assessment and Plan (1) Closed right hip fracture Narrative/Plan: She will continue with routine postop orthopedic protocol including pain management, wound care, physical therapy, DVT prophylaxis and medical management. Expect that she will transfer to rehab in next few days. Current Visit: Yes Status: Acute Priority: Medium Code(s): S72.001A - FRACTURE OF UNSP PART OF NECK OF RIGHT FEMUR, INIT SNOMED Code(s): 653736983 Time with Patient: Less than 30
[2018-04-30 12:45] LABS: Anisocytosis Slight; Basophils % (A) 0 %; Eosinophils % (A) 0 %; HCT 25.7 % (34.0-46.0); Hypochromasia Slight; Lymphocytes # (A) 1.3 k/uL (1.0-4.8); Lymphocytes % (A) 12 %; MCH 28.8 pg (25.0-35.0); MCHC 31.3 g/dL (31.0-37.0); MCV 91.9 fL (80.0-100.0); Mean Platelet Volume 6.8; Monocytes # (A) 0.5 k/uL (0-1.0); Monocytes % (A) 5 %; Neutrophils # (A) 8.5 k/uL (1.3-7.7); Neutrophils % (A) 80 %; Platelet Count 560 k/uL (150-450); RBC 2.79 m/uL (3.80-5.40); RDW 18.2 % (11.5-15.5); WBC 10.6 k/uL (3.8-10.6)
--- NOTE | 2018-04-30 15:28 | PN ---
PROGRESS NOTE DATE OF SERVICE: April 30, 2018. PRESENTING COMPLAINT: Right femur fracture. INTERVAL HISTORY: The patient is status post right femur fracture with IM nailing. Sitting up in a chair. Daughter is present. Eating small amounts. Pain is controlled. REVIEW OF SYSTEMS: Done for constitutional, cardiovascular, GI, pulmonary, musculoskeletal and relevant findings above. CURRENT MEDICATIONS: Reviewed. PHYSICAL EXAMINATION: Afebrile. Pulse 100. Respirations 16, blood pressure 132/73, pulse ox 95% on 2 L. GENERAL APPEARANCE: Sitting up in a chair awake. EYES: Pupils equal. Conjunctivae pale. HEENT: External appearance of nose and ears normal. Oral cavity normal. NECK: JVD unable to assess. Mass not palpable. RESPIRATORY: Effort normal. LUNGS: Decreased breath sounds. CARDIOVASCULAR: 1st and 2nd sounds normal. No edema. ABDOMEN: Soft, nontender. Liver and spleen not palpable. PSYCHIATRY: Alert and oriented times three. Mood and affect normal. EXTREMITIES: Dressing over the right femur site. INVESTIGATIONS: White count 10.6, hemoglobin 8. ASSESSMENT: 1. Right IT fracture, followed by IM nailing. 2. Chronic bilateral pulmonary embolism. The patient back on [facility]. 3. Moderate protein-calorie malnutrition from decreased oral intake from underlying malignancy. 4. 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 6. Squamous cell carcinoma of the lung. The patient is getting chemotherapy. 7. Normocytic anemia from underlying malignancy. PLAN: Patient encouraged to improve oral intake. Patient will go to rehab. Further decision by Oncology Dr. Jon about further treatment plan. Care was discussed with daughter and the patient at the patient's bedside. MMODL / IJN: [id number] /
--- NOTE | 2018-04-30 15:31 | PN ---
PROGRESS NOTE DATE OF SERVICE: 04/29/18. PRESENTING COMPLAINT: Right femur fracture. INTERVAL HISTORY: Patient is seen by me yesterday. Status post IM nailing of the right femur. Sitting up on a chair, tired. Daughter is at the bedside. Did tolerate some breakfast. Breathing is stable. Tired appearing. REVIEW OF SYSTEMS: Done for constitutional, cardiovascular, GI, pulmonary, musculoskeletal; relevant findings as above. CURRENT MEDICATIONS: Current medications reviewed. PHYSICAL EXAMINATION: Temperature 97.3, pulse 94, respiratory 20, blood pressure 105/61, pulse ox 94% on 2 L. GENERAL APPEARANCE: Sitting up on a chair, awake tired-appearing. EYES: Pupils equal. Conjunctivae pale. HEENT: External appearance of nose and ears normal. Oral cavity normal. NECK: JVD unable to assess. Mass not palpable. RESPIRATORY: Effort normal. Lungs, decreased breath sounds. CARDIOVASCULAR: First and second sounds, no edema. ABDOMEN: Soft, nontender. Liver and spleen not palpable. PSYCHIATRY: Alert and oriented x3. Mood and affect normal. INVESTIGATIONS: Accu-Cheks 102. ASSESSMENT: 1. Right IT fracture of the right femur followed by IM nailing. 2. Chronic bilateral pulmonary embolism restarted on Eliquis. 3. Moderate protein-calorie malnutrition decreased oral intake from underlying malignancy. 4. 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 5. Adenocarcinoma primary salivary gland, getting chemo. 6. Squamous cell carcinoma of the lung with chemo. 7. Normocytic anemia, underlying malignancy. PLAN: Care was discussed again with the daughter at the bedside. The patient encouraged to increase oral intake. PT and OT is on the case. MMODL / IJN: [id number] /
[2018-04-30] MEDS: SENNOSIDES-DOCUSATE SODIUM 1 EACH TAB PO SCH (22:19)
[2018-04-30] MEDS: ALPRAZolam 0.25 MG TAB PO SCH (23:32)
[2018-05-01] MEDS: LACTATED RINGERS 1,000 ML IV SCH ×2 (02:13→12:08)
[2018-05-01] MEDS: HYDROcodone/APAP 5-325MG 1 EACH TAB PO PRN ×3 (05:51→14:46)
--- NOTE | 2018-05-01 08:02 | P.DS ---
Providers Date of admission: 04/26/18 11:09 Expected date of discharge: 05/01/18 Attending physician: Orlin Garcia Consults: 04/26/18 10:46 Consult Physician Stat Consulting Provider: Avelino Pimentel Consult Reason/Comments: Lung cancer Do you want consulting provider notified?: Yes Consult Physician Stat Consulting Provider: Florentin Celestin Consult Reason/Comments: Surgical clearance Do you want consulting provider notified?: Yes 04/26/18 12:55 Consult Physician Urgent Consulting Provider: Jesus Galo Consult Reason/Comments: Pre op eval Do you want consulting provider notified?: Yes Primary care physician: Tao Gonzalez - Discharge Diagnosis(es) (1) Closed right hip fracture Current Visit: Yes Status: Acute Priority: Medium (2) Fall Current Visit: Yes Status: Acute (3) Lung cancer Current Visit: No Status: Acute (4) Oral cancer Current Visit: No Status: Acute Priority: High (5) Squamous cell carcinoma of right lung Current Visit: No Status: Acute Priority: High Hospital Course: This is a 77-year-old female who is admitted to [facility] on 04/26/2018 after falling and sustaining injury to the right hip. On exam and x- ray in the emergency department he is found to have an intertrochanteric fracture of the right hip. He is admitted to our service for surgical intervention and care. The patient has history of metastatic lung cancer. Dr. Pimentel and Dr. Galo have been consulted. Patient is taken to surgery for close reduction and insertion of intertrochanteric nail of the right hip. The procedure was performed without complication or sequelae. The patient is doing fairly well postoperatively. Vital signs and labs are stable on postoperative day #3. Patient is discharged to inpatient rehab in good condition. Please see med rec for accurate list of discharge medications. Patient Condition at Discharge: Stable Plan - Discharge Summary Discharge Rx Participant: No New Discharge Prescriptions: New HYDROcodone/APAP 5-325MG [[place] 5-325] 1 - 2 each PO Q4-6H PRN #90 tab PRN Reason: Pain Sennosides-Docusate Sodium [Senokot-S] 1 tab PO BID #60 tablet No Action fentaNYL 25MCG/HR PATCH [Duragesic 25MCG/HR] 1 patch TRANSDERM Q72H #5 patch Ipratropium-Albuterol Nebulize [Duoneb 0.5 mg-3 mg/3 ml Soln] 3 ml INHALATION RT-TID #90 ampul.neb HYDROcodone/APAP 5-325MG [[place] 5-325] 1 - 2 tab PO Q4-6H PRN PRN Reason: Breakthrough Pain Pantoprazole [Protonix] 40 mg PO DAILY #30 tablet. Apixaban [Eliquis] 5 mg PO BID Sennosides-Docusate Sodium [Senokot-S] 2 tab PO HS Megestrol [Megace] 400 mg PO DAILY ALPRAZolam [Xanax] 0.25 mg PO HS Discharge Medication List Ipratropium-Albuterol Nebulize [Duoneb 0.5 mg-3 mg/3 ml Soln] 3 ml INHALATION RT -TID #90 ampul.neb 02/08/18 [Rx] fentaNYL 25MCG/HR PATCH [Duragesic 25MCG/HR] 1 patch TRANSDERM Q72H #5 patch [Rx] HYDROcodone/APAP 5-325MG [[place] 5-325] 1 - 2 tab PO Q4-6H PRN 02/19/18 [History] Pantoprazole [Protonix] 40 mg PO DAILY #30 tablet. 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 May shower if no drainage from incisions. Medical to manage anticoagulation. Discharge Disposition: TRANSFER TO SNF/ECF
[2018-05-01] MEDS: APIXABAN 5 MG TAB PO SCH (08:06)
[2018-05-01] MEDS: MEGESTROL 400 MG/10 ML CUP PO SCH (08:06)
[2018-05-01] MEDS: PANTOPRAZOLE 40 MG TABLET PO SCH (08:06)
[2018-05-01] MEDS: IPRATROPIUM-ALBUTEROL 3 ML NEB INHALATION SCH ×3 (08:37→16:47)
--- NOTE | 2018-05-01 12:30 | P.PN ---
Subjective Progress Note Date: 05/01/18 Principal diagnosis: Preoperative pulmonary clearance, right hip intratrochanteric fracture 77-year-old female patient known to me from previous hospitalizations. The patient came in today because of right hip pain. The patient apparently fell at home while walking on her walker and she came in with a right hip pain and difficulty with movement. She was diagnosed having a closed fracture of the right intertrochanteric area and the patient will be taken to the operating room within the next 48 hours for ORIF. A pulmonary evaluation was requested Patient has been diagnosed recently having to separate malignancies. Specifically the patient presented back in January 2018 because of pain in her upper back and neck area and it was gradually getting worse. The patient also reports fullness across her left face and there was some asymmetric bulge within the left facial area. She was subsequently diagnosed having a large right upper lobe mass measuring 7 x 8 cm in size left aspect of which was approaching the T2 vertebral spine and anterior leads was reaching the right third rib. There was evidence of mediastinal lymphadenopathy largest in the right hilum measuring 1.5 cm in size and addition to a left lower lobe. The lesion measuring 2.2 x 1.8 x 2.1 cm in size and background emphysema. As for the CAT scan of the neck showed a large posterior oropharyngeal mass completely invading the soft palate causing anatomic shift in addition to the maxillary masses was measuring 4.5 x 7.4 x 6.9 cm in size. 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 The patient as such was diagnosed having to malignancies and she was started on systemic chemotherapy to which she was tolerating well and the showed a completed 2 cycles of systemic chemo. She had another hospitalization in February 2018 for shortness of breath and the CAT scan of the chest was done and showed multiple bilateral pulmonary segmental emboli and for that reason the patient was started on IV heparin and was later on switched to Eliquis. She another hospitalization back in 03/29/2018 for increased shortness of breath and at that time the patient was given the diagnosis of COPD exacerbation treated and discharged home. The most recent PET scan was obtained on it showed a persistent large left maxillary sinus mass that was stable in size and aggressive right upper lobe mass fairly stable in size and SUV with he 2/3 destruction and encroachment of the anterior lateral aspect of the spinal canal was noted. There was interval improvement of the left lower lobe mass which was not metabolically active at that point and there was also nonspecific left anterior third rib lesion, without any other areas of suspicious metastatic lesions. Note that the MRI of the thoracic spine that was done on 02/06/2018 showed a right apical mass that was very close in approximation with the T2/T3 spine and there was direct invasion of the T2 level with extension towards the posterior wall and there is no fecal sac invasion or nerve root or 4 mL invasion based on that MRI. On 04/27/2018 patient seen in follow-up on the surgical floor. She is awake, alert, in no acute distress, denies any chest pain or dyspnea, she is on room air, with a pulse ox of 95%, vital signs are stable, she is afebrile. States she is having significant amount of pain in the right hip with any repositioning , otherwise fairly comfortable if there is no movement of the right extremity. Lung sounds are congested on today's exam, there are scattered rhonchi, patient at times is able to expectorate some whitish yellowish sputum, her cough is congested. We will add Mucinex, she is receiving nebulized treatments, we will request that incentive spirometry to the bedside. Her surgery is scheduled for Tuesday on 04/28/2018 On 04/28/2018 patient seen in follow-up. Her surgery has been scheduled for 11: 30 this morning, she denies any respiratory difficulty, no shortness of breath no chest pain, she is on room air, pulse ox is 100%. Lung sounds are less congested today, clear to auscultation. She continues on nebulized treatments, she is compliant with her incentive spirometry, she has moderate amount of discomfort from her right hip, and she is being medicated with IV morphine. Vital signs remain stable, we'll see the patient after her surgery. On 2017, the patient is seen for a follow-up. The patient underwent ORIF of the right hip fracture without any complication this was done under spinal anesthesia. No respiratory distress. Surgical site is dry clean and intact. Pulses in lower extremities are intact. The patient is no specific complaints. She is pulling approximately 500 on the incentive spirometer. Eliquis was restarted yesterday for long-term and to coagulation specialist that the patient has had recent pulmonary embolism. On 05/01/2018 patient seen again on surgical floor, she is awake, alert, denies any acute distress, currently on 2 L per nasal cannula, and her O2 saturation is 99%, vital signs are stable, she is afebrile, and some mild to moderate discomfort from her right hip postsurgical site. She is sitting up in the chair , tolerating activity well, lung sounds are positive for a few bibasilar crackles, at the left lower base. No wheezing, no chest congestion, no sputum production, she is compliant with her incentive spirometry, she is able to achieve 750-1000 ML on the incentive spirometry today. Eliquis has been restarted, she has been stable, and is anticipating discharge tomorrow would've subacute rehab today. Objective - Vital Signs Vital signs: Vital Signs Temp 98.8 F 05/01/18 07:25 Pulse 93 05/01/18 11:21 Resp 16 05/01/18 07:25 BP 119/62 05/01/18 07:25 Pulse Ox 99 05/01/18 07:25 Intake & Output 04/30/18 05/01/18 05/01/18 18:59 06:59 18:59 Intake Total 800 1832 Output Total 550 1560 Balance 250 272 Weight 48.534 kg Intake: Intake, IV Titration 800 822 Amount Lactated Ringers 1,000 ml 800 822 @ 100 mls/hr IV .Q10H GRABIEL Rx#:[id number] Oral 1010 Output: Urine 550 1560 Uretheral (Dubose) 450 Other: Voiding Method Bedside Commode Bedside Commode Bedside Commode # Voids 1 1 # Bowel Movements 0 - Exam - Constitutional General appearance: no acute distress - EENT In the posterior oropharynx, the patient has a very irregular vascular mass over the soft palate Eyes: EOMI, PERRLA - Neck Neck: no lymphadenopathy Thyroid: bilateral: normal size - Respiratory Respiratory: bilateral: Clear bilaterally, no rhonchi, no wheezing, a few scattered rales at the left posterior lower base - Cardiovascular Rhythm: regular Heart sounds: normal: S1, S2 - Gastrointestinal General gastrointestinal: normal bowel sounds, soft - Integumentary Integumentary: normal - Neurologic Neurologic: CNII-XII intact - Musculoskeletal Musculoskeletal: strength equal bilaterally, right hip reveals a surgical incision, clean dry and intact, well approximated, covered with a surgical dressing, no active bleeding or drainage. Neurovascular status is intact, with motor and sensation fully intact. 2+ dorsalis pedis pulse, no calf tenderness - Psychiatric Psychiatric: A&O x's 3, appropriate affect - Labs CBC & Chem 7: 04/30/18 12:05 04/26/18 10:02 Labs: Abnormal Lab Results - Last 24 Hours (Table) 04/30/18 Range/Units 12:05 RBC 2.79 L (3.80-5.40) m/uL Hgb 8.0 L (11.4-16.0) gm/dL Hct 25.7 L (34.0-46.0) % RDW 18.2 H (11.5-15.5) % Plt Count 560 H (150-450) k/uL Neutrophils # 8.5 H (1.3-7.7) k/uL Assessment and Plan Plan: Assessment: 1 acute fall related right hip fracture, intertrochanteric, status post closed reduction internal fixation with IT nail, postop day 3 2 recent diagnosis of bilateral pulmonary embolism, establish in January 2018, currently on Eliquis 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 The disease is likely metastatic in nature this point in time the patient has received 2 sessions of systemic chemotherapy 5 chronic back pain 6 chronic neck pain with evidence of focal uptake within the T3 vertebral body and ribs highly suspicious for malignancy. The most recent PET scan showed evidence of encroachment of the anterolateral aspect of the spinal canal. This could've contributed to the patient's weakness and loss imbalance and fall. 7 hyponatremia, chronic, malignancy-induced 8 COPD 9 smoker Plan: No acute complaints from pulmonary standpoint, continue encouraging incentive spirometry, patient remains stable from pulmonary standpoint, anticipate discharge to subacute rehab today. I performed a history & physical examination of the patient and discussed their management with my nurse practitioner, Samia Womack. I reviewed the nurse practitioner's note and agree with the documented findings and plan of care. Lung sounds are positive for a few crackles at the left posterior lower base. The findings and the impression was discussed with the patient. I attest to the documentation by the nurse practitioner. Time with Patient: Less than 30
[2018-05-01 15:18] VITALS: BP 95/59; RESP 18; TEMP 98
--- NOTE | 2018-05-01 16:14 | P.PN ---
Progress Note - Text Progress Note Date: 05/01/18 The patient's PET scan results and implications have been discussed with her. The next step in her treatment would be to start chemotherapy and radiation concurrently. The case was discussed with radiation oncology. As the patient has had a major surgery, we have to wait still she is adequately recovered from the same prior to starting chemotherapy/radiation. Therefore at this time of the recommendation was for the patient to be discharged to subacute rehabilitation. She will be assessed in follow-up in about 2 weeks by us, and radiation oncology, with a plan to begin treatment AFTER she has completed rehabilitation.
[2018-05-01 17:00] VITALS: PULSE 90
--- NOTE | 2018-05-01 18:17 | PN ---
PROGRESS NOTE DATE OF SERVICE: 05/01/2018 PRESENTING COMPLAINT: Right femur fracture. INTERVAL HISTORY: Patient is status post right femur fracture IM nailing. Sitting up in a chair. Tolerating some diet. Pain is controlled. Daughter is present. REVIEW OF SYSTEMS: Done for constitutional, cardiovascular, GI, pulmonary, musculoskeletal; relevant findings as above. CURRENT MEDICATIONS: Reviewed. PHYSICAL EXAMINATION: Temperature 98, pulse 104, respiration 18, blood pressure 95/59, pulse ox 99%. GENERAL APPEARANCE: Sitting up, comfortable. EYES: Pupils equal. Conjunctivae pale. HEENT: External appearance of nose and ears normal. Oral cavity normal. NECK: JVD unable to assess. Mass not palpable. RESPIRATORY: Effort normal. LUNGS: Decreased breath sounds. CARDIOVASCULAR: First and second sounds normal. No edema. ABDOMEN: Soft, non-tender. Liver and spleen not palpable. PSYCHIATRY: Awake. Answering questions. EXTREMITIES: Dressing over the right femur. INVESTIGATIONS: White count 10.6, hemoglobin 8 from yesterday. ASSESSMENT: 1. Right intertrochanteric fracture followed by intramedullary nailing. 2. Chronic bilateral pulmonary embolism. Patient is back on Eliquis. 3. Moderate protein-calorie malnutrition from decreased oral intake from underlying malignancy. 4. 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 5. 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 Patient is status post chemotherapy. 6. Normocytic anemia from underlying malignancy. PLAN: I did talk to the patient and her daughter. Dr. Pimentel will further determine about the course of treatment at this point. Treatment is on hold. Patient will require rehab. Pain is well controlled. MMODL / IJN: [id number] /
== END 2018-05-01 17:45 | DRG 481 ==
LOC: EC 09:16 → 3SUR 11:09
PROVIDERS: ADMIT Orthopaedic Surgery; ATTEND Orthopaedic Surgery
PROC: 0QS636Z Reposition Right Upper Femur with Intramedullary Internal Fixation Device, Percutaneous Approach (ICD-10-PCS; principal; 2018-04-28 13:05)
DX: S72.141A Displaced intertrochanteric fracture of right femur, initial encounter for closed fracture (principal); C34.91 Malignant neoplasm of unspecified part of right bronchus or lung; C33 Malignant neoplasm of trachea; E22.2 Syndrome of inappropriate secretion of antidiuretic hormone; E44.0 Moderate protein-calorie malnutrition; I27.82 Chronic pulmonary embolism; C79.51 Secondary malignant neoplasm of bone; Z68.1 Body mass index [BMI] 19.9 or less, adult; C05.1 Malignant neoplasm of soft palate; C31.0 Malignant neoplasm of maxillary sinus; D63.0 Anemia in neoplastic disease; F41.9 Anxiety disorder, unspecified; G89.29 Other chronic pain; I10 Essential (primary) hypertension; I25.2 Old myocardial infarction; J43.9 Emphysema, unspecified; K59.00 Constipation, unspecified; M54.2 Cervicalgia; R19.7 Diarrhea, unspecified; M54.9 Dorsalgia, unspecified; Z79.01 Long term (current) use of anticoagulants; Z79.899 Other long term (current) drug therapy; Z92.21 Personal history of antineoplastic chemotherapy; Z85.828 Personal history of other malignant neoplasm of skin; Z87.891 Personal history of nicotine dependence; Z82.3 Family history of stroke; W01.0XXA Fall on same level from slipping, tripping and stumbling without subsequent striking against object, initial encounter; Y92.009 Unspecified place in unspecified non-institutional (private) residence as the place of occurrence of the external cause
CPT/HCPCS: 36415; 51702; 71046; 73502; 80053; 81001; 82607; 82728; 82746; 83540; 83550; 83921; 85025; 85045; 85610; 85730; 86850; 86900; 86901; 94640; 94760; 96374; 99285

== ENCOUNTER 2018-05-31 17:36 | Inpatient (IN) | payer MEDICARE ==
[2018-05-31 18:34] LABS: Anisocytosis Slight; Basophils % (A) 0 %; Eosinophils % (A) 0 %; HCT 31.8 % (34.0-46.0); HGB 9.9 gm/dL (11.4-16.0); Lymphocytes # (A) 0.1 k/uL (1.0-4.8); Lymphocytes % (A) 1 %; MCH 27.6 pg (25.0-35.0); MCHC 31.1 g/dL (31.0-37.0); MCV 88.7 fL (80.0-100.0); Mean Platelet Volume 6.4; Monocytes # (A) 0.7 k/uL (0-1.0); Monocytes % (A) 3 %; Neutrophils # (A) 23.4 k/uL (1.3-7.7); Neutrophils % (A) 96 %; Platelet Count 473 k/uL (150-450); RBC 3.58 m/uL (3.80-5.40); RDW 16.4 % (11.5-15.5); WBC 24.4 k/uL (3.8-10.6)
[2018-05-31 18:43] LABS: INR 1.4 (<1.2); Prothrombin Time 13.1 sec (9.0-12.0)
[2018-05-31 18:46] LABS: ALT 20 U/L (9-52); AST 13 U/L (14-36); Albumin 3.1 g/dL (3.5-5.0); Alkaline Phosphatase 81 U/L (38-126); Anion Gap 11 mmol/L; Blood Urea Nitrogen 11 mg/dL (7-17); Calcium 10.1 mg/dL (8.4-10.2); Carbon Dioxide 26 mmol/L (22-30); Chloride 90 mmol/L (98-107); Glucose 119 mg/dL (74-99); Magnesium 1.6 mg/dL (1.6-2.3); Potassium 4.1 mmol/L (3.5-5.1); Sodium 127 mmol/L (137-145); Total Bilirubin 0.3 mg/dL (0.2-1.3); Total Protein 5.6 g/dL (6.3-8.2)
--- NOTE | 2018-05-31 18:50 | XR ---
EXAMINATION TYPE: XR chest 2V DATE OF EXAM: 05/31/2018 COMPARISON: 04/26/2018 HISTORY: Difficulty breathing TECHNIQUE: Frontal and lateral views of the chest are obtained. FINDINGS: There is masslike pleural thickening in the right upper lobe and right paratracheal region . This measures 7 x 7 cm. The left lung is clear. Thoracic aorta is atheromatous. There is no heart f ailure. Heart size is normal. There are chest leads. IMPRESSION: Right upper lobe masslike density without significant change compared to last exam. No h eart failure.
[2018-05-31] MEDS ORDERED: SODIUM CHLORIDE 0.9% 500 ML IV STA (18:54)
[2018-05-31] MEDS ORDERED: CEFEPIME 2 GM in SODIUM CHLORIDE 0.9% 50 ML IVPB ONE (19:00)
[2018-05-31] MEDS ORDERED: VANCOMYCIN 1,000 MG in SODIUM CHLORIDE 0.9% 250 ML IVPB ONE (19:30)
--- NOTE | 2018-05-31 20:26 | CT ---
EXAMINATION TYPE: CT abdomen pelvis w con DATE OF EXAM: 05/31/2018 COMPARISON: None HISTORY: Patient poor historian. Pain, constipation, distention. CT DLP: 462.3 mGycm Automated exposure control for dose reduction was used. TECHNIQUE: Helical acquisition of images was performed from the lung bases through the pelvis. CONTRAST: Performed without Oral Contrast and with IV Contrast, patient injected with 100 mL of Isovue 300. FINDINGS: There is patchy infiltrate in pleural thickening at the posterior lung bases. There is no pleural eff usion. Liver and spleen appear normal. Bile ducts are not dilated. There is some calcification in the depend ent gallbladder. There is no evidence of a pancreatic mass. Spleen appears normal. There is a 2.7 x 1.5 cm left adrenal mass. This has low attenuation. Kidneys show satisfactory contra st opacification. There is no hydronephrosis. There is 13 mm cortical cyst on the lower pole right ki dney. There is no evidence of free air. There is 10% anterior wedging of L2 vertebra. This is probably old. Bladder distends smoothly. There is no evidence of a pelvic mass. There is right hip nailing fixing old fracture. There is no ascites. I see no intestinal wall thickening. There is no evidence of a bow el obstruction. Abdominal aorta is atheromatous. There is no retroperitoneal adenopathy. Upper abdomi nal aorta measures 3 cm. IMPRESSION: NO EVIDENCE OF A NONACUTE ABDOMEN. THERE ARE CHRONIC INFILTRATES AND PLEURAL THICKENING AT THE LUNG B ASES THAT APPEARS IMPROVED SLIGHTLY COMPARED TO 04/02/[address] SCAN. LOW-DENSITY LEFT ADRENAL MASS SUGGESTS BENIGN ETIOLOGY.
[2018-05-31] MEDS ORDERED: ACETAMINOPHEN TAB 325 MG TAB PO PRN (20:33)
[2018-05-31] MEDS ORDERED: NALOXONE 0.4 MG/ML 1 ML VIAL IV PRN (20:33)
[2018-05-31] MEDS ORDERED: HYDROcodone/APAP 5-325MG 1 EACH TAB PO STA (20:40)
--- NOTE | 2018-05-31 20:40 | ED ---
General Adult HPI - General Chief complaint: Shortness of Breath Stated complaint: Difficulty Breathing Source: patient Mode of arrival: EMS - History of Present Illness Initial comments: HPI Macro Chief Complaint: Pyrexia History of Present Illness: 77-year-old female with past medical history of lung and oral cancer presents with pyrexia of unclear etiology. Patient was spiking temperatures as recently as yesterday. She underwent a workup at the facility from where she came from. Patient chest x-ray showed no acute processes. Patient also had a urinalysis that showed no acute processes. Patient spiked another temperature 102.7. Here for further medical management. Patient has history of lung cancer undergoing radiation therapy. Patient says she is feeling mildly short of breath. Denies any chest pain. Past Medical History: Cancer of the lung, oral cancer, screams of carcinoma Past Surgical History:[reviewed, none to report] Social History: [denies alcohol, tobacco or illicit drug use] Family History: reviewed and noncontributory The ROS documented in this emergency department record has been reviewed and confirmed by me. Those systems with pertinent positive or negative responses have been documented in the HPI. All other systems are other negative and/or noncontributory. - Related Data Home Medications Medication Instructions Recorded Confirmed Apixaban [Eliquis] 5 mg PO BID 03/29/18 05/31/18 Sennosides-Docusate Sodium 2 tab PO HS 03/29/18 05/31/18 [Senokot-S] ALPRAZolam [Xanax] 0.25 mg PO DAILY 05/31/18 05/31/18 Albuterol Nebulized [Ventolin 2.5 mg INHALATION RT-Q4H PRN 05/31/18 05/31/18 Nebulized] Bisacodyl [Dulcolax] 10 mg RECTAL DAILY PRN 05/31/18 05/31/18 Dexamethasone [Hexadrol] 4 mg PO Q8HR 05/31/18 05/31/18 Ferrous Sulfate [Feosol] 325 mg PO DAILY 05/31/18 05/31/18 HYDROcodone/APAP 5-325MG [[place] 1 tab PO Q4HR PRN 05/31/18 05/31/18 5-325] Lactulose 10 gm PO BID 05/31/18 05/31/18 Menthol/Zinc Oxide [Calmoseptine 1 applic TOPICAL BID 05/31/18 05/31/18 Ointment] Previous Rx's Medication Instructions Recorded Ipratropium-Albuterol Nebulize 3 ml INHALATION RT-TID #90 02/08/18 [Duoneb 0.5 mg-3 mg/3 ml Soln] ampul.arnold Pantoprazole [Protonix] 40 mg PO DAILY #30 tablet. 02/20/18 Megestrol [Megace] 400 mg PO DAILY #3 cup 05/01/18 Sennosides-Docusate Sodium 1 tab PO BID #60 tablet 05/01/18 [Senokot-S] fentaNYL 25MCG/HR PATCH [Duragesic 1 patch TRANSDERM Q72H #3 patch 05/01/18 25MCG/HR] Allergies Allergy/AdvReac Type Severity Reaction Status Date / Time No Known Allergies Allergy Verified 05/31/18 18:05 Review of Systems ROS Statement: Those systems with pertinent positive or pertinent negative responses have been documented in the HPI. ROS Other: All systems not noted in ROS Statement are negative. Past Medical History Past Medical History: Cancer, Deep Vein Thrombosis (DVT), Pulmonary Embolus (PE) Additional Past Medical History / Comment(s): Multiple skin cancers removed, Lung CA (per daughter cancer is within neck/head.) left sinus cancer. 3 cycles of chemo complete. Apr 06 2018 was last tx. 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 on EKG History of Any Multi-Drug Resistant Organisms: None Reported Past Surgical History: Orthopedic Surgery Additional Past Surgical History / Comment(s): ankle Past Anesthesia/Blood Transfusion Reactions: No Reported Reaction Past Psychological History: Anxiety Smoking Status: Former smoker Past Alcohol Use History: Occasional Past Drug Use History: None Reported - Past Family History Father Family Medical History: No Reported History, Unable to Obtain Additional Family Medical History / Comment(s): bad heart Mother Family Medical History: CVA/TIA General Exam - General Exam Comments Initial Comments: Vitals: Vital signs upon arrival shows low-grade temperature 99.1, heart rate of 120 PHYSICAL EXAM: General Impression: Alert and oriented x3, not in acute distress HEENT: Normocephalic atraumatic, extra-ocular movements intact, pupils equal and reactive to light bilaterally, mucous membranes moist. Cardiovascular: Heart regular rate and rhythm, S1&S2 audible, no murmurs, rubs or gallops Chest: Bilateral lung rhonchi Abdomen: Bowel sounds present, abdomen soft, non-tender, non-distended, no organomegaly Musculoskeletal: Pulses present and equal in all extremities, no peripheral edema Motor: Power 5/5 bilaterally, no focal deficits noted Neurological: CN II-XII grossly intact, no focal motor or sensory deficits noted Skin: Intact with no visualized rashes, stage I decubitus ulcer to the coccyx Psych: Normal affect and mood Course Vital Signs 05/31/18 05/31/18 17:45 18:32 Temperature 99.1 F Pulse Rate 120 H Respiratory 18 18 Rate Blood Pressure 135/67 O2 Sat by Pulse 96 Oximetry Medical Decision Making - Medical Decision Making ED course: Patient is a 77-year-old female presents with pyrexia of unclear etiology. Patient does report some dyspnea however patient does not feel that symptoms are acutely worsened. Patient denies any other symptoms. Patient does have history of cancer and is undergoing radiation therapy. Vital signs upon arrival shows low-grade temperature and tachycardia. Laboratory evaluation obtained. Leukocytosis of 24.4. Hemoglobin 9.9. Coag panel unremarkable. Chemistry panel shows sodium of 127, chloride of 90, glucose of 119. Chest x-ray shows no acute processes. There is findings of stable right upper lobe lung mass. Patient refusing urine analysis because she reports she did urinate already her daughter at bedside states that her hair was evaluated nursing found to be negative. CT abdomen and pelvis obtained showing no acute processes. EKG shows sinus tachycardia. At this point there is strong clinical suspicion that patient's symptoms are secondary to pulmonary infection that is not seen on x-ray. Patient severely rhonchorous on auscultation of the lungs. Given positive lung findings on auscultation there is no clinical suspicion of pulmonary emboli at this time. Patient also not complaining of any lower extremities symptoms. Patient given vancomycin and cefepime. She'll be admitted to inpatient for further care. EKG Interpretation: A 12 lead EKG was obtained. It was interpreted by myself and attending physician. There is a P wave before every QRS complex. Rate is 108. Rhythm is sinus tachycardia,. Interval 136, respirations 62, QTc 47. QT is not prolonged. No ST segment depression or elevation. Overall, this EKG is unremarkable - Lab Data Result diagrams: 05/31/18 18:25 05/31/18 18:25 Lab Results 05/31/18 05/31/18 05/31/18 Range/Units 18:25 18:25 18:25 WBC 24.4 H (3.8-10.6) k/uL RBC 3.58 L (3.80-5.40) m/uL Hgb 9.9 L (11.4-16.0) gm/dL Hct 31.8 L (34.0-46.0) % MCV 88.7 (80.0-100.0) fL MCH 27.6 (25.0-35.0) pg MCHC 31.1 (31.0-37.0) g/dL RDW 16.4 H (11.5-15.5) % Plt Count 473 H (150-450) k/uL Neutrophils % 96 % Lymphocytes % 1 % Monocytes % 3 % Eosinophils % 0 % Basophils % 0 % Neutrophils # 23.4 H (1.3-7.7) k/uL Lymphocytes # 0.1 L (1.0-4.8) k/uL Monocytes # 0.7 (0-1.0) k/uL Eosinophils # 0.0 (0-0.7) k/uL Basophils # 0.0 (0-0.2) k/uL Anisocytosis Slight PT 13.1 H (9.0-12.0) sec INR 1.4 H (<1.2) Sodium 127 L (137-145) mmol/L Potassium 4.1 (3.5-5.1) mmol/L Chloride 90 L (98-107) mmol/L Carbon Dioxide 26 (22-30) mmol/L Anion Gap 11 mmol/L BUN 11 (7-17) mg/dL Creatinine 0.30 L (0.52-1.04) mg/dL Est GFR (CKD-EPI)AfAm >90 (>60 ml/min/1.73 sqM) Est GFR (CKD-EPI)NonAf >90 (>60 ml/min/1.73 sqM) Glucose 119 H (74-99) mg/dL Plasma Lactic Acid Jace (0.7-2.0) mmol/L Calcium 10.1 (8.4-10.2) mg/dL Magnesium 1.6 (1.6-2.3) mg/dL Total Bilirubin 0.3 (0.2-1.3) mg/dL AST 13 L (14-36) U/L ALT 20 (9-52) U/L Alkaline Phosphatase 81 (38-126) U/L Troponin I (0.000-0.034) ng/mL Total Protein 5.6 L (6.3-8.2) g/dL Albumin 3.1 L (3.5-5.0) g/dL 05/31/18 05/31/18 Range/Units 18:25 18:55 WBC (3.8-10.6) k/uL RBC (3.80-5.40) m/uL Hgb (11.4-16.0) gm/dL Hct (34.0-46.0) % MCV (80.0-100.0) fL MCH (25.0-35.0) pg MCHC (31.0-37.0) g/dL RDW (11.5-15.5) % Plt Count (150-450) k/uL Neutrophils % % Lymphocytes % % Monocytes % % Eosinophils % % Basophils % % Neutrophils # (1.3-7.7) k/uL Lymphocytes # (1.0-4.8) k/uL Monocytes # (0-1.0) k/uL Eosinophils # (0-0.7) k/uL Basophils # (0-0.2) k/uL Anisocytosis PT (9.0-12.0) sec INR (<1.2) Sodium (137-145) mmol/L Potassium (3.5-5.1) mmol/L Chloride (98-107) mmol/L Carbon Dioxide (22-30) mmol/L Anion Gap mmol/L BUN (7-17) mg/dL Creatinine (0.52-1.04) mg/dL Est GFR (CKD-EPI)AfAm (>60 ml/min/1.73 sqM) Est GFR (CKD-EPI)NonAf (>60 ml/min/1.73 sqM) Glucose (74-99) mg/dL Plasma Lactic Acid Jace 1.8 (0.7-2.0) mmol/L Calcium (8.4-10.2) mg/dL Magnesium (1.6-2.3) mg/dL Total Bilirubin (0.2-1.3) mg/dL AST (14-36) U/L ALT (9-52) U/L Alkaline Phosphatase (38-126) U/L Troponin I <0.012 (0.000-0.034) ng/mL Total Protein (6.3-8.2) g/dL Albumin (3.5-5.0) g/dL Disposition Clinical Impression: Sepsis Disposition: ADMITTED IP TO THIS HOSP Condition: Fair Referrals: Luis Antonio Oro MD [Primary Care Provider] - 1-2 days
[2018-05-31] MEDS: SODIUM CHLORIDE 0.9% 1,000 ML IV SCH (20:47)
[2018-06-01] MEDS ORDERED: HEPARIN SODIUM,PORCINE 5,000 UNIT/ML 1 ML VIAL SQ SCH
[2018-06-01 01:12] LABS: Appearance,Urine Clear (Clear); Bilirubin,Urine Negative (Negative); Blood,Urine Negative (Negative); Color,Urine Light Yellow; Glucose,Urine (UA) Negative (Negative); Ketones,Urine Negative (Negative); Leukocyte Esterase,Urine Negative (Negative); Nitrite,Urine Negative (Negative); PH, Urine 7.5 (5.0-8.0); Protein,Urine Negative (Negative); Urobilinogen,Urine <2.0 mg/dL (<2.0)
[2018-06-01 02:31] VITALS: BMI 17.8
[2018-06-01] MEDS ORDERED: BISACODYL 10 MG SUPP RECTAL PRN (03:17)
[2018-06-01] MEDS ORDERED: ALBUTEROL NEBULIZED 2.5 MG/3 ML INHALATION PRN ×2 (03:17→13:00)
[2018-06-01] MEDS: HYDROcodone/APAP 5-325MG 1 EACH TAB PO PRN ×4 (03:31→16:28)
[2018-06-01] MEDS: LACTULOSE 20 GM/30 ML CUP PO SCH ×2 (07:28→20:11)
[2018-06-01] MEDS: APIXABAN 5 MG TAB PO SCH ×2 (07:28→20:11)
[2018-06-01] MEDS: DEXAMETHASONE 4 MG TAB PO SCH ×2 (07:28→16:28)
[2018-06-01] MEDS: FERROUS SULFATE 325 MG TAB PO SCH (07:28)
[2018-06-01] MEDS: MENTHOL-ZINC OXIDE OINT 113 GM TUBE TOPICAL SCH ×2 (07:29→20:11)
[2018-06-01] MEDS: PANTOPRAZOLE 40 MG TABLET PO SCH (07:29)
[2018-06-01] MEDS: MEGESTROL 400 MG/10 ML CUP PO SCH (07:29)
[2018-06-01] MEDS: SENNOSIDES-DOCUSATE SODIUM 1 EACH TAB PO SCH ×2 (07:36→20:12)
[2018-06-01] MEDS: IPRATROPIUM-ALBUTEROL 3 ML NEB INHALATION SCH ×5 (08:51→23:08)
[2018-06-01] MEDS: SODIUM CHLORIDE 0.9% 1,000 ML IV SCH (09:31)
--- NOTE | 2018-06-01 17:59 | HP ---
HISTORY AND PHYSICAL DATE OF SERVICE: 06/01/2018 PRESENTING COMPLAINT: Short of breath, cough, wheezing. HISTORY OF PRESENTING COMPLAINT: This is a 77-year-old patient, well known to me, who has had two different malignancies. 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 The patient is being followed by Dr. Pimentel and has had two rounds of chemotherapy and just finished radiation treatment yesterday. Patient has also had SIADH, protein-calorie malnutrition, emphysema. Patient is also on anticoagulation for PE. At this point her malignancy is stable and further workup was due. The patient yesterday became short of breath, had difficulty with wheezing, some cough, low-grade fever, congestion in the chest, and was brought in for the same. The patient received bronchodilator, with which she actually felt better. There was no sputum production. Patient was slightly delirious, according to her daughter at the bedside, and admitted for the same. Patient otherwise is rather weak and tired. She is able to answer some simple questions. REVIEW OF SYSTEMS: CONSTITUTIONAL: Tired. HEENT: Tumor masses, roof of the mouth. RESPIRATORY: As above. CARDIOVASCULAR: None. GASTROINTESTINAL: None. GENITOURINARY: None. MUSCULOSKELETAL: Pain in the joints. DERMATOLOGICAL: None. HEMATOLOGICAL: None. LYMPHATICS: None. PSYCHIATRY: Confused at times. NEUROLOGICAL: None. PAST MEDICAL HISTORY: 1. Primary salivary gland tumor adenocarcinoma. 2. Lung cancer; squamous cell carcinoma. 3. Emphysema. 4. Essential hypertension. 5. SIADH. 6. Bilateral pulmonary embolism. PAST SURGICAL HISTORY: 1. Orthopedic surgery. 2. Ankle surgery. SOCIAL HISTORY: Patient smoked a pack of cigarettes for many years; stopped a few months ago. Currently a resident of [facility]. Daughter is very involved in her care. Alcohol occasionally. FAMILY HISTORY: Reviewed; noncontributory to presentation. HOME MEDICATIONS: 1. Fentanyl patch 50 mcg every 72 hours. 2. Senokot-S two tablets at night, one tablet b.i.d. 3. Protonix 40 mg a day. 4. Calmoseptine topically b.i.d. 5. Megace 400 mg p.o. daily. 6. Lactulose 100 grams p.o. b.i.d. 7. DuoNeb t.i.d. 8. [place] 5 one tablet q.4 p.r.n. 9. Iron 325 p.o. daily. 10.Hexadrol 4 mg p.o. q.8. 11.Dulcolax 10 mg rectally daily p.r.n. 12.Eliquis 5 mg p.o. b.i.d. 13.Ventolin 2.5 q.4 p.r.n. 14.Xanax 0.25 p.o. at bedtime. ALLERGIES: NONE. PHYSICAL EXAMINATION: VITAL SIGNS ON PRESENTATION: Temperature 99.1, pulse 120, respiration 18, blood pressure 135/67, pulse ox 96% on 2 L. GENERAL APPEARANCE: Thin build. BMI 17.8. Lying in bed. EYES: Pupils equal. Conjunctivae normal. HEENT: External appearance of nose and ears normal. Oral cavity reveals tumor mass in the roof of the mouth. Decreased hair. NECK: JVD not raised. Mass not palpable. RESPIRATORY: Effort increased. LUNGS: Decreased breath sounds. Mild wheezing. CARDIOVASCULAR: First and second sounds normal. No edema. ABDOMEN: Soft, non-tender. Liver and spleen not palpable. PSYCHIATRY: Patient is able to answer simple questions. Mood and affect somewhat low. LYMPHATIC: No lymph node palpable in neck or axillae. NEUROLOGICAL: Pupils equal. No facial asymmetry. Power and sensation grossly intact. INVESTIGATIONS: White count 24.4, hemoglobin 9.9, potassium 4.1, sodium 127, BUN 11, creatinine 0.30. UA negative. Chest x-ray reveals no infiltrate. ASSESSMENT: 1. Acute severe chronic obstructive pulmonary disease exacerbation from acute tracheobronchitis in an ex-smoker. 2. Chronic bilateral pulmonary embolism, for which patient is chronically on Eliquis. 3. Moderate protein-calorie malnutrition from decreased oral intake. 4. Adenocarcinoma of the primary salivary gland, status post chemotherapy. 5. Squamous cell cancer of the lung; getting chemotherapy. 6. Normocytic anemia from underlying malignancy. 7. Medical debility. 8. Syndrome of inappropriate antidiuretic hormone. PLAN: Patient has been put on DuoNeb, to which she is responding. Will put the patient on ceftriaxone for any bacterial component. Other home medications are resumed. Care was discussed with the patient and her family. Patient has doing better with the bronchodilators. Continue current medication and treatment plan. Will follow. MMODL / IJN: [id number] /
[2018-06-01] MEDS: methylPREDNISolone SOD SUCCI 40 MG/ML 1 ML VIAL IV SCH (18:34)
[2018-06-01] MEDS: cefTRIAXone IN SWFI 1,000 MG/10 ML SYRINGE IVP SCH (18:34)
[2018-06-01] MEDS: ALPRAZolam 0.25 MG TAB PO SCH (20:11)
[2018-06-02] MEDS: methylPREDNISolone SOD SUCCI 40 MG/ML 1 ML VIAL IV SCH ×3 (00:06→17:19)
[2018-06-02] MEDS: DEXAMETHASONE 4 MG TAB PO SCH ×4 (00:06→23:43)
[2018-06-02] MEDS: HYDROcodone/APAP 5-325MG 1 EACH TAB PO PRN ×5 (00:20→23:43)
[2018-06-02] MEDS: IPRATROPIUM-ALBUTEROL 3 ML NEB INHALATION SCH ×7 (03:15→23:07)
[2018-06-02] MEDS: SODIUM CHLORIDE 0.9% 1,000 ML IV SCH ×3 (04:01→23:47)
[2018-06-02] MEDS: LACTULOSE 20 GM/30 ML CUP PO SCH ×2 (08:06→20:27)
[2018-06-02] MEDS: SENNOSIDES-DOCUSATE SODIUM 1 EACH TAB PO SCH ×2 (08:07→20:26)
[2018-06-02] MEDS: FERROUS SULFATE 325 MG TAB PO SCH (08:07)
[2018-06-02] MEDS: PANTOPRAZOLE 40 MG TABLET PO SCH (08:07)
[2018-06-02] MEDS: MEGESTROL 400 MG/10 ML CUP PO SCH (08:07)
[2018-06-02] MEDS: APIXABAN 5 MG TAB PO SCH ×2 (08:07→20:26)
[2018-06-02] MEDS: cefTRIAXone IN SWFI 1,000 MG/10 ML SYRINGE IVP SCH (08:22)
[2018-06-02] MEDS: MENTHOL-ZINC OXIDE OINT 113 GM TUBE TOPICAL SCH ×2 (08:26→20:27)
[2018-06-02 11:28] LABS: Anisocytosis Slight; HCT 30.3 % (34.0-46.0); HGB 9.8 gm/dL (11.4-16.0); MCH 28.8 pg (25.0-35.0); MCHC 32.3 g/dL (31.0-37.0); Mean Platelet Volume 6.9; Platelet Count 271 k/uL (150-450); RDW 16.3 % (11.5-15.5); WBC 21.1 k/uL (3.8-10.6)
[2018-06-02 11:44] LABS: Anion Gap 10 mmol/L; Blood Urea Nitrogen 9 mg/dL (7-17); Calcium 9.2 mg/dL (8.4-10.2); Carbon Dioxide 26 mmol/L (22-30); Chloride 93 mmol/L (98-107); Glucose 110 mg/dL (74-99); Potassium 3.8 mmol/L (3.5-5.1); Sodium 129 mmol/L (137-145)
--- NOTE | 2018-06-02 18:01 | P.CONS ---
History of Present Illness - Reason for Consult Consult date: 06/02/18 Cancer Requesting physician: Florentin Celestin - Chief Complaint Fever - History of Present Illness Ms. Posadas is a pleasant white female, initially seen in consult at [facility] on 02/05/18. She had presented to her PCP with complains of pain in her right upper back, right neck and base of the skull since early 2017 , that had been progressive since. She had also been complaining of nasal congestion and fullness in the left side of her face since then. She was initially seen by ENT with CT scan of the brain and soft tissue of the neck revealing a 7.4 cm mass in the left maxillary sinus extending into the nasopharynx and oropharynx. In addition a 6.7 cm mass was seen in the right lung [place] with destruction of the T2 vertebra. The patient was admitted with progressive symptoms. She was started on IV steroids with symptomatic improvement. CT scan of the chest confirmed a 75.3 8 cm mass in the right upper lobe with invasion into the adjacent T2. A 2.2 cm nodule was seen in the left lower lobe. MRI of the thoracic spine from 02/06/18 showed no evidence of cord compression. The patient had a biopsy of the maxillary sinus mass on 02/06/18. 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 CT-guided biopsy of the lung mass from 02/11/18 was positive for squamous cell carcinoma. The patient was discharged on a fentanyl patch and Decadron. She had a PET scan on 02/11/18. This confirmed uptake in the large maxillary sinus mass but showed no adjacent adenopathy. Right upper lobe pulmonary mass also showed significant uptake. Uptake was noted in the right hilum, as well as a left lower lobe nodule. Uptake was noted in the T8 2/3 vertebral body and rib due to direct extension. The patient was seen for her first office visit on 02/16/18. She was started on Carbo - Taxol , and is s/p 3 cycles, completing those on . She required home IV hydration. She then fell and broke her rt hip and was admitted in late 04/14. PET scan on 04/22/18 showed stable findings with possibly some progression. She had ORIF on 04/28/18 and was discharged to [facility]. Ms Posadas was seen in Medical Oncology office on 05/29/18 - The pt had started XRT to the RUL mass. For now, the intent is palliative. She is too weak still at this time, to have more definitive , aggressive treatment with combined chemo RT. The same was d/w the pt and family - Continue RT to complete 2 wks - Continue PT. Reassess in 3 wks with repeat scans. Further recommendations will be made depending on the pt'sPS - Labs from 05/29/18 show stable Hgb at 9.7. WBC was 17.1, and plt 508. Her chem panel showed low K+ and Na of 127. K+ supplementation has been started. - Continue Megace for increasing appetite 06/02/18 - She presented to [facility] on 06/01/18 with complaints of fevers. [place] Culture and Imaging was completed and patient has remained afebrile since admission. Chest Xray negative for acute process. She complains of increasing Shortness of Breath, Denies chest pain. Patient Review of Systems A 14 point review of systems assessed and completed and all negative except HPI. Patient poor historian, daughter at bedside. Past Medical History Past Medical History: Cancer, Myocardial Infarction ([place]), Pulmonary Embolus ([place]) Additional Past Medical History / Comment(s): Multiple skin cancers removed, Lung CA (per daughter cancer is within neck/head.) left sinus cancer. 3 cycles of chemo complete. Apr 06 2018 was last tx. bilateral PE chronic, emphysema, adenocarcinoma primary salivary gland, squamous cell carcinoma of right lung, Last Myocardial Infarction Date:: unsure History of Any Multi-Drug Resistant Organisms: None Reported Past Surgical History: Orthopedic Surgery Additional Past Surgical History / Comment(s): ankle, right IT fracture of right femur surgery 3 weeks ago to fix it per daughter Past Anesthesia/Blood Transfusion Reactions: No Reported Reaction Past Psychological History: Anxiety Smoking Status: Former smoker Past Alcohol Use History: Occasional Past Drug Use History: None Reported - Past Family History Father Family Medical History: No Reported History, Unable to Obtain Additional Family Medical History / Comment(s): bad heart Mother Family Medical History: CVA/TIA Medications and Allergies Home Medications Medication Instructions Recorded Confirmed Type Ipratropium-Albuterol Nebulize 3 ml INHALATION RT-TID #90 02/08/18 06/01/18 Rx [Duoneb 0.5 mg-3 mg/3 ml Soln] ampul.neb Pantoprazole [Protonix] 40 mg PO DAILY #30 tablet. 02/20/18 06/01/18 Rx Apixaban [Eliquis] 5 mg PO BID 03/29/18 06/01/18 History Sennosides-Docusate Sodium 2 tab PO HS 03/29/18 06/01/18 History [Senokot-S] Megestrol [Megace] 400 mg PO DAILY #3 cup 05/01/18 06/01/18 Rx Sennosides-Docusate Sodium 1 tab PO BID #60 tablet 05/01/18 06/01/18 Rx [Senokot-S] ALPRAZolam [Xanax] 0.25 mg PO HS 05/31/18 06/01/18 History Albuterol Nebulized [Ventolin 2.5 mg INHALATION RT-Q4H PRN 05/31/18 06/01/18 History Nebulized] Bisacodyl [Dulcolax] 10 mg RECTAL DAILY PRN 05/31/18 05/31/18 History Dexamethasone [Hexadrol] 4 mg PO Q8HR 05/31/18 06/01/18 History Ferrous Sulfate [Feosol] 325 mg PO DAILY 05/31/18 06/01/18 History HYDROcodone/APAP 5-325MG [[place] 1 tab PO Q4HR PRN 05/31/18 06/01/18 History 5-325] Lactulose 10 gm PO BID 05/31/18 06/01/18 History Menthol/Zinc Oxide [Calmoseptine 1 applic TOPICAL BID 05/31/18 06/01/18 History Ointment] fentaNYL 50MCG/HR PATCH [Duragesic 50 mcg TRANSDERM Q72H 06/01/18 06/01/18 History 50MCG/HR] Allergies Allergy/AdvReac Type Severity Reaction Status Date / Time No Known Allergies Allergy Verified 05/31/18 18:05 Physical Exam Vitals: Vital Signs Temp Pulse Pulse Pulse Resp BP Pulse Ox 06/02/18 16:28 100 06/02/18 16:19 100 06/02/18 15:10 98.8 F 06/02/18 14:56 98.1 F 06/02/18 14:26 99.2 F 125 H 18 128/62 96 06/02/18 12:37 116 H 06/02/18 12:25 108 H 06/02/18 09:28 100 06/02/18 09:17 104 H 06/02/18 08:00 99 115 H 18 06/02/18 07:11 98.4 F 99 18 156/76 96 06/01/18 23:20 108 H 16 06/01/18 23:08 110 H 16 06/01/18 21:20 98.2 F 115 H 20 124/66 06/01/18 19:15 108 H 06/01/18 19:07 104 H Intake and Output 06/02/18 06/02/18 06/02/18 06:59 14:59 22:59 Intake Total 1600 Balance 1600 Intake: Intake, IV Titration 640 Amount Sodium Chloride 0.9% 1, 640 000 ml @ 80 mls/hr IV . [id number] [facility] Rx#:[id number] Oral 960 Other: Voiding Method Bedside Commode Bedside Commode # Voids 1 - Constitutional General appearance: cooperative, no acute distress - EENT mass top left palate Eyes: abnormal pupil, poor dentition ENT: hard of hearing, NA/AT, thrush - Neck supple - Respiratory Weak Cough Respiratory: bilateral: diminished (Diminished bibasilar, no increased ) - Cardiovascular Rhythm: irregularly irregular - Gastrointestinal General gastrointestinal: normal bowel sounds, soft - Integumentary Integumentary: pale - Musculoskeletal Musculoskeletal: generalized weakness - Psychiatric Lethargic Psychiatric: intact judgment & insight Results CBC & Chem 7: 06/02/18 10:48 06/02/18 10:48 Labs: Abnormal Lab Results - Last 24 Hours (Table) 06/02/18 06/02/18 Range/Units 10:48 10:48 WBC 21.1 H (3.8-10.6) k/uL RBC 3.40 L (3.80-5.40) m/uL Hgb 9.8 L (11.4-16.0) gm/dL Hct 30.3 L (34.0-46.0) % RDW 16.3 H (11.5-15.5) % Sodium 129 L (137-145) mmol/L Chloride 93 L (98-107) mmol/L Creatinine 0.28 L (0.52-1.04) mg/dL Glucose 110 H (74-99) mg/dL Microbiology - Last 24 Hours (Table) 06/01/18 00:55 Urine Culture - Final Urine,Voided 05/31/18 18:25 Blood Culture - Preliminary Blood No Growth after 24 hours Assessment and Plan Plan: Assessment and Plan Plan: Assessment and Recommendations: 1. Squamous cell Carcinoma of the Lung with Large RUL Mass (?metastatic disease to adrenal gland) - Status Post 3/3 cycles of carboplatin and taxol - Recent PET with little/Mixed response - Radiation Oncology as response to chemotherapy did not offer sustainable response - Plan Likely for 3 more Radiation, Radiation Oncology following 2. 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 Fever and Acute Mental Status Change: - Afebrile Suince admission - Very Weak Cough, Incentive spirometer - Antibiotics - Cultures and Xray Neg this far - Steroids 4. Intertrochanter Right Hip Surgery - Status Post Fall - Orthopedics Following - Status Post ORIF - Currently in [facility]. . Recent diagnosis of bilateral pulmonary embolism, in January 2018, currently on Eliquis - Likely Hold Eliquis at this time for surgical intervention - Heparin drip and restart AC therapy post sx. 6. Acute on chronic pain - Neck and Back with evidence of focal uptake within the T3 vertebral body and ribs highly suspicious for malignancy. - The most recent PET scan showed evidence of encroachment of the anterolateral aspect of the spinal canal. - This could've contributed to the patient's weakness and loss imbalance and fall. A previous MRI did identify this in January, repeat MRI if concern for possible cord involvement. 7. 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 Oral thrush: - Add Nystatin Swish and Spit Physicain Attestation: I have completed the full history and physical of this patient and agree with above dictation by Jessa Rodney NP, dictated as a scribe.
[2018-06-02] MEDS: NYSTATIN 100,000 UNIT/ML SUSP 500,000 UNIT/5 ML CUP PO SCH ×2 (19:34→22:46)
[2018-06-02] MEDS: ALPRAZolam 0.25 MG TAB PO SCH (20:26)
--- NOTE | 2018-06-02 22:44 | PN ---
PROGRESS NOTE DATE OF SERVICE: 06/02/2018 PRESENTING COMPLAINT: Cough. INTERVAL HISTORY: This patient with dual carcinoma, status post chemotherapy, presented with acute tracheobronchitis and COPD exacerbation. Appetite is getting a bit better. Has not had a bowel movement for 2 days. Some abdominal distention, but no nausea, vomiting, more actually perky. Daughter is at the bedside. REVIEW OF SYSTEMS: Done for constitutional, cardiovascular, GI, pulmonary; relevant findings as above. CURRENT MEDICATIONS: Reviewed that include: 1. IV ceftriaxone. 2. IV Solu-Medrol. EXAMINATION: Afebrile, pulse 116, respirations 18, blood pressure 128/62, pulse ox 96% on 2L. GENERAL APPEARANCE: Sitting up, more comfortable, awake. EYES: Pupils equal. Conjunctivae pale. HEENT: External appearance of nose and ears normal. Oral cavity: Tumor mass in the roof of the mouth. NECK: JVD not raised. Mass not palpable. RESPIRATORY: Effort increased. LUNGS: Decreased breath sounds. CARDIOVASCULAR: First and second sounds normal. No edema. ABDOMEN: Soft, nontender. Liver and spleen not palpable. PSYCHIATRY: Alert, oriented x3. Mood is slightly anxious-appearing. INVESTIGATIONS: White count 21.1, hemoglobin 9.8. Sodium 129. ASSESSMENT: 1. Acute severe chronic obstructive pulmonary disease exacerbation, acute tracheobronchitis in a smoker with clinical improvement. 2. Chronic bilateral pulmonary embolism for which patient is chronically on Eliquis. 3. Moderate protein-calorie malnutrition from decreased oral intake. 4. Adenocarcinoma of the primary salivary gland, status post chemotherapy. 5. Squamous cell cancer of the lung getting chemotherapy. 6. Normocytic anemia from underlying malignancy. 7. Medical debility. 8. Syndrome of inappropriate diuretic hormone secretion. PLAN: Continue current medication and treatment plan. Patient is slowly improving. White count has started to come down. Care was discussed with the patient and daughter at the bedside. MMODL / IJN: [id number] /
[2018-06-03] MEDS: IPRATROPIUM-ALBUTEROL 3 ML NEB INHALATION SCH ×5 (03:45→19:37)
[2018-06-03] MEDS: HYDROcodone/APAP 5-325MG 1 EACH TAB PO PRN ×5 (05:17→23:59)
[2018-06-03 07:19] LABS: Anisocytosis Slight; Basophils % (A) 0 %; Eosinophils % (A) 0 %; HCT 29.2 % (34.0-46.0); Hypochromasia Slight; Lymphocytes # (A) 0.1 k/uL (1.0-4.8); Lymphocytes % (A) 1 %; MCH 28.2 pg (25.0-35.0); MCHC 30.9 g/dL (31.0-37.0); MCV 91.4 fL (80.0-100.0); Mean Platelet Volume 6.3; Monocytes # (A) 0.6 k/uL (0-1.0); Monocytes % (A) 3 %; Neutrophils # (A) 19.9 k/uL (1.3-7.7); Neutrophils % (A) 96 %; Platelet Count 346 k/uL (150-450); RDW 16.5 % (11.5-15.5); WBC 20.8 k/uL (3.8-10.6)
[2018-06-03] MEDS: LACTULOSE 20 GM/30 ML CUP PO SCH ×2 (09:23→20:38)
[2018-06-03] MEDS: MEGESTROL 400 MG/10 ML CUP PO SCH (09:24)
[2018-06-03] MEDS: PANTOPRAZOLE 40 MG TABLET PO SCH (09:24)
[2018-06-03] MEDS: DEXAMETHASONE 4 MG TAB PO SCH ×3 (09:24→23:59)
[2018-06-03] MEDS: APIXABAN 5 MG TAB PO SCH ×2 (09:24→20:38)
[2018-06-03] MEDS: cefTRIAXone IN SWFI 1,000 MG/10 ML SYRINGE IVP SCH (09:24)
[2018-06-03] MEDS: SENNOSIDES-DOCUSATE SODIUM 1 EACH TAB PO SCH ×2 (09:24→20:39)
[2018-06-03] MEDS: NYSTATIN 100,000 UNIT/ML SUSP 500,000 UNIT/5 ML CUP PO SCH ×4 (09:24→20:40)
[2018-06-03] MEDS: FERROUS SULFATE 325 MG TAB PO SCH (09:24)
[2018-06-03] MEDS: MENTHOL-ZINC OXIDE OINT 113 GM TUBE TOPICAL SCH ×2 (09:25→23:03)
--- NOTE | 2018-06-03 10:03 | P.CNPUL ---
History of Present Illness Consult date: 06/03/18 Reason for consult: dyspnea, cough, hypoxemia, pneumonia, lung mass, abnormal CXR/CT Chief complaint: Shortness of breath History of present illness: Pulmonary consult dated 06/03/2018 77-year-old female who was recently evaluated and found to have a mass in her right upper lobe. It was biopsied via fine-needle and turned out to be squamous cell carcinoma. In addition, she was also found to have a left maxillary sinus mass which was biopsied and was consistent with polymorphous adenocarcinoma, low-grade. The patient comes in on this admission complaining of temperature elevation of unclear etiology. The patient apparently was having temperature spikes the day or so prior to admission. She apparently had a chest x-ray which showed nothing acute other than the right upper lobe mass. She also a urine analysis that was normal. Because of additional temperature elevations, she was admitted for evaluation and management. She did admit to being short of breath. She does have a cough. Not producing any phlegm. No chest pain. No nausea vomiting or diarrhea. She is undergoing radiation therapy for her recently diagnosed lung cancer, which presented as a mass in the right upper lobe. 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 She is a former smoker. Does not smoke currently. No alcohol or illicit drug use. She appears to be very weak and frail. Her cough is wet and congested. She does not cough up any phlegm. She does appear to be mildly short of breath. Review of Systems A 12 point review of system is positive for shortness of breath chest congestion and minimal phlegm production and fever. She really denies pain. No nausea vomiting or diarrhea. Past Medical History Past Medical History: Cancer, Myocardial Infarction ([place]), Pulmonary Embolus ([place]) Additional Past Medical History / Comment(s): Multiple skin cancers removed, Lung CA (per daughter cancer is within neck/head.) left sinus cancer. 3 cycles of chemo complete. Apr 06 2018 was last tx. bilateral PE chronic, emphysema, adenocarcinoma primary salivary gland, squamous cell carcinoma of right lung, Last Myocardial Infarction Date:: unsure History of Any Multi-Drug Resistant Organisms: None Reported Past Surgical History: Orthopedic Surgery Additional Past Surgical History / Comment(s): ankle, right IT fracture of right femur surgery 3 weeks ago to fix it per daughter Past Anesthesia/Blood Transfusion Reactions: No Reported Reaction Past Psychological History: Anxiety Smoking Status: Former smoker Past Alcohol Use History: Occasional Past Drug Use History: None Reported - Past Family History Father Family Medical History: No Reported History, Unable to Obtain Additional Family Medical History / Comment(s): bad heart Mother Family Medical History: CVA/TIA Medications and Allergies Home Medications Medication Instructions Recorded Confirmed Type Ipratropium-Albuterol Nebulize 3 ml INHALATION RT-TID #90 02/08/18 06/01/18 Rx [Duoneb 0.5 mg-3 mg/3 ml Soln] ampul.neb Pantoprazole [Protonix] 40 mg PO DAILY #30 tablet. 02/20/18 06/01/18 Rx Apixaban [Eliquis] 5 mg PO BID 03/29/18 06/01/18 History Sennosides-Docusate Sodium 2 tab PO HS 03/29/18 06/01/18 History [Senokot-S] Megestrol [Megace] 400 mg PO DAILY #3 cup 05/01/18 06/01/18 Rx Sennosides-Docusate Sodium 1 tab PO BID #60 tablet 05/01/18 06/01/18 Rx [Senokot-S] ALPRAZolam [Xanax] 0.25 mg PO HS 05/31/18 06/01/18 History Albuterol Nebulized [Ventolin 2.5 mg INHALATION RT-Q4H PRN 05/31/18 06/01/18 History Nebulized] Bisacodyl [Dulcolax] 10 mg RECTAL DAILY PRN 05/31/18 05/31/18 History Dexamethasone [Hexadrol] 4 mg PO Q8HR 05/31/18 06/01/18 History Ferrous Sulfate [Feosol] 325 mg PO DAILY 05/31/18 06/01/18 History HYDROcodone/APAP 5-325MG [[place] 1 tab PO Q4HR PRN 05/31/18 06/01/18 History 5-325] Lactulose 10 gm PO BID 05/31/18 06/01/18 History Menthol/Zinc Oxide [Calmoseptine 1 applic TOPICAL BID 05/31/18 06/01/18 History Ointment] fentaNYL 50MCG/HR PATCH [Duragesic 50 mcg TRANSDERM Q72H 06/01/18 06/01/18 History 50MCG/HR] Allergies Allergy/AdvReac Type Severity Reaction Status Date / Time No Known Allergies Allergy Verified 05/31/18 18:05 Physical Exam Osteopathic Statement: *. No significant issues noted on an osteopathic structural exam other than those noted in the History and Physical/Consult. Vitals: Vital Signs Temp Pulse Pulse Pulse Resp BP BP 06/03/18 08:25 104 H 06/03/18 08:16 108 H 06/03/18 05:21 96.2 F L 108 H 20 151/80 151/80 06/02/18 22:30 97.9 F 129 H 16 97/61 06/02/18 20:04 104 H 06/02/18 19:56 104 H 06/02/18 16:28 100 06/02/18 16:19 100 06/02/18 15:10 98.8 F 06/02/18 14:56 98.1 F 06/02/18 14:26 99.2 F 125 H 18 128/62 06/02/18 12:37 116 H 06/02/18 12:25 108 H Pulse Ox 06/03/18 08:25 06/03/18 08:16 06/03/18 05:21 97 06/02/18 22:30 96 06/02/18 20:04 06/02/18 19:56 06/02/18 16:28 06/02/18 16:19 06/02/18 15:10 06/02/18 14:56 06/02/18 14:26 96 06/02/18 12:37 06/02/18 12:25 Intake and Output 06/02/18 06/03/18 06/03/18 22:59 06:59 14:59 Intake Total 590 640 Balance 590 640 Intake: IV 640 Sodium Chloride 0.9% 1, 640 000 ml @ 80 mls/hr IV . [id number] [facility] Rx#:[id number] Oral 590 Other: Voiding Method Bedside Commode # Voids 1 Mild conversational dyspnea, oriented, in no patricia distress. HEENT examination is grossly unremarkable. Mucous membranes are moist. No oral lesions. Nasal O2 in place. Neck supple. Full range of motion. No adenopathy thyromegaly or neck vein distention. Cardiovascular examination reveals regular rhythm rate. S1-S2 normal. No S3 or S4. No discernible murmur noted. Heart rate about 100. Heart sounds are distant. Lungs reveal coarse bilateral breath sounds. Breath sounds equal bilaterally. No wheezes. Crackles at the bases. Abdomen soft bowel sounds are heard. No masses or tenderness. Extremities are intact. No cyanosis clubbing or edema. Skin is without rash or lesion. Neurologic examination is brief but nonfocal. Results - Laboratory Findings CBC and BMP: 06/03/18 06:32 06/02/18 10:48 PT/INR, D-dimer PT 13.1 sec (9.0-12.0) H 05/31/18 18:25 INR 1.4 (<1.2) H 05/31/18 18:25 Abnormal lab findings: Abnormal Labs 05/31/18 05/31/18 05/31/18 18:25 18:25 18:25 WBC 24.4 H RBC 3.58 L Hgb 9.9 L Hct 31.8 L MCHC RDW 16.4 H Plt Count 473 H Neutrophils # 23.4 H Lymphocytes # 0.1 L PT 13.1 H INR 1.4 H Sodium 127 L Chloride 90 L Creatinine 0.30 L Glucose 119 H AST 13 L Total Protein 5.6 L Albumin 3.1 L 06/02/18 06/02/18 06/03/18 10:48 10:48 06:32 WBC 21.1 H 20.8 H RBC 3.40 L 3.20 L Hgb 9.8 L 9.0 L Hct 30.3 L 29.2 L MCHC 30.9 L RDW 16.3 H 16.5 H Plt Count Neutrophils # 19.9 H Lymphocytes # 0.1 L PT INR Sodium 129 L Chloride 93 L Creatinine 0.28 L Glucose 110 H AST Total Protein Albumin - Diagnostic Findings Chest x-ray: report reviewed (Chest x-rays labs and medications are all reviewed. Computed tomography scan reviewed.), image reviewed Assessment and Plan Assessment: Assessment Fever of unclear etiology, which may relate to tumor fever. Recent diagnosis of squamous cell carcinoma right upper lobe, currently undergoing radiation therapy Recent diagnosis of left maxillary sinus adenocarcinoma, status post 3 rounds of chemotherapy History of DVT or thrombosis History of pulmonary embolism History of skin cancer Previous history of myocardial infarction History of anxiety Previous history of tobacco use Plan: Plan dated 06/03/2018 White count is 20.8 hemoglobin 9 and hematocrit 29.2 with a platelet count 346, 000. Sodium 129 potassium 3.8 chloride 93 CO2 26 BUN and creatinine were 9 and 0.28. Urine is clean. Chest x-ray just shows the previously described right upper lobe mass which is stable. Nothing else is acutely seen on chest x-ray. Microbiology at this point as all negative or pending. The patient remains on breathing treatments and antibiotics in the form of DuoNeb 3-4 times a day and ceftriaxone. Overall prognosis is poor given her 2 cancers and CODE STATUS should be addressed by the primary service with this patient. Time with Patient: Greater than 30
[2018-06-03] MEDS: SODIUM CHLORIDE 0.9% 1,000 ML IV SCH (13:18)
--- NOTE | 2018-06-03 15:01 | PN ---
PROGRESS NOTE DATE OF SERVICE: 06/03/2018 CHIEF COMPLAINT: Short of breath and back pain. Florencia is seen today as a followup. She continues to feel tired. She has some shortness of breath. She complain of back pain, which appeared to be controlled with the current pain medication regimen. MEDICATION: Her medication reviewed in her electronic medical record. PHYSICAL EXAMINATION: She is alert, oriented x3. She does not appear to be in distress. Her vital signs temperature 96.2 afebrile, pulse 108, regular, respiration 20, blood pressure 151/80. HEENT: Normocephalic, atraumatic. There is a large mass in the left inner cheek. NECK: Supple. CHEST: Coarse breath sounds bilaterally. LUNGS: Revealed scattered rhonchi in all [place]. HEART: Regular rate and rhythm. ABDOMEN: Soft. No tenderness. EXTREMITIES: Revealed no edema. LABORATORY DATA: WBC are 20.8, hemoglobin is 9.0, hematocrit 29.2, platelets are 346. Sodium 129, potassium is 3.8, chloride is 93, BUN is 9, creatinine 0.28. IMPRESSION: 1. Fever with possible respiratory tract infection. 2. Squamous cell carcinoma of the right upper lobe of her lung with involvement of the thoracic spine causing significant pain. 3. 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 4. History of pulmonary emboli. 5. 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 RECOMMENDATION: 1. Continue current pain medication regimen. 2. The patient has been receiving palliative radiation therapy to her left upper lobe lung mass which is extending to the thoracic spine. 3. Continue Eliquis. 4. Continue bronchodilators and stereo and bronchodilator as ordered by the Pulmonary Service. 5. Continue service. MMODL / IJN: [id number] /
[2018-06-03] MEDS: LORazepam 1 MG TAB PO SCH (22:55)
[2018-06-03] MEDS: ALPRAZolam 0.25 MG TAB PO SCH (23:04)
--- NOTE | 2018-06-03 23:31 | PN ---
PROGRESS NOTE DATE OF SERVICE: 06/03/2018 PRESENT COMPLAINT: Cough. INTERVAL HISTORY: This patient with double carcinoma including, carcinoma of the lung status, post chemotherapy for palliation, presented with COPD exacerbation and tracheobronchitis. The patient has been having tachycardia felt to be from bronchodilators. Otherwise, tolerating a diet. The patient has been somewhat anxious. Daughter is present. Does feel weak and tired. REVIEW OF SYSTEMS: Done for constitutional, cardiovascular, GI, pulmonary; relevant findings as above. CURRENT MEDICATIONS: Reviewed that include: 1. DuoNeb. 2. Megace. EXAMINATION: Temperature 98.4, pulse 114, respirations 20, blood pressure 134/58, pulse ox 97% on 3L. GENERAL APPEARANCE: Sitting up in a chair, anxious-appearing. EYES: Pupils equal. Conjunctivae pale. HEENT: External nose and ears normal. Oral cavity normal. Tumor mass in the roof of the mouth. NECK: JVD not raised. Mass not palpable. RESPIRATORY: Effort increased. LUNGS: Decreased breath sounds. CARDIOVASCULAR: First and second sounds normal. No edema. ABDOMEN: Soft, nontender. Liver and spleen not palpable. PSYCHIATRY: Alert and oriented x3. Mood and affect anxious. INVESTIGATIONS: Telemetry strips shows sinus tachycardia. White count 20.8, hemoglobin 9. ASSESSMENT: 1. Acute severe chronic obstructive pulmonary disease exacerbation from acute tracheobronchitis in a smoker. 2. Chronic bilateral pulmonary embolism for which patient is chronically on Eliquis. 3. Moderate protein-calorie malnutrition from decreased oral intake. 4. Adenocarcinoma of the primary salivary gland, status post chemotherapy. 5. Squamous cell cancer of the lung getting palliative chemotherapy. 6. Normocytic anemia from malignancy. 7. Medical debility. 8. 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 9. Sinus tachycardia, probably from bronchodilators. PLAN: We will add a small dose of Lopressor, as the tachycardia is bothering the patient. Bronchodilators have been scaled back. Overall prognosis is guarded. MMODL / IJN: [id number] /
[2018-06-04] MEDS: HYDROcodone/APAP 5-325MG 1 EACH TAB PO PRN (04:44)
[2018-06-04] MEDS: IPRATROPIUM-ALBUTEROL 3 ML NEB INHALATION SCH ×5 (07:06→21:11)
[2018-06-04] MEDS ORDERED: FUROSEMIDE 10 MG/ML 4 ML VIAL IV STA (07:56)
[2018-06-04] MEDS: APIXABAN 5 MG TAB PO SCH ×2 (09:09→21:39)
[2018-06-04] MEDS: DEXAMETHASONE 4 MG TAB PO SCH ×2 (09:09→18:10)
[2018-06-04] MEDS: CEFDINIR 300 MG CAP PO SCH ×2 (09:09→21:39)
[2018-06-04] MEDS: METOPROLOL TARTRATE 12.5 MG TAB PO SCH ×3 (09:09→21:39)
[2018-06-04] MEDS: LORazepam 1 MG TAB PO SCH ×2 (09:09→16:28)
[2018-06-04] MEDS: PANTOPRAZOLE 40 MG TABLET PO SCH (09:09)
--- NOTE | 2018-06-04 11:22 | P.PN ---
Subjective Progress Note Date: 06/04/18 Principal diagnosis: Shortness of breath Progress note dated 06/04/2018 77-year-old female who was admitted with a diagnosis of temperature elevation and weakness as well as shortness of breath. The cause of the fever is not known. No clearcut infection. 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 She also has a history of recent diagnosis of left maxillary sinus adenocarcinoma, status post 3 rounds of chemotherapy. In addition, she has a history of DVT and pulmonary embolus some skin cancer myocardial infarction anxiety and previous history of tobacco use. The patient seems be relatively stable at this time. Denies any pain or shortness of breath. She is a no code. Chest x-ray shows a unchanged right upper lobe mass. Laboratory data shows a white count of 20.8 hemoglobin 9 hematocrit 29.2 and platelet count that is normal. Microbiology is negative thus far. Objective - Vital Signs Vital signs: Vital Signs Temp 96.6 F L 06/04/18 07:00 Pulse 106 H 06/04/18 07:16 Resp 20 06/04/18 07:00 BP 131/105 06/04/18 07:00 Pulse Ox 98 06/04/18 07:06 Intake & Output 06/03/18 06/04/18 06/04/18 18:59 06:59 18:59 Intake Total 240 1230 Balance 240 1230 Intake: Intake, IV Titration 640 Amount Sodium Chloride 0.9% 1, 640 000 ml @ 80 mls/hr IV . [id number] [facility] Rx#:[id number] Oral 240 590 Other: Voiding Method Bedside Commode Bedside Commode # Voids 3 1 - Exam No acute distress, oriented 3. She is very frail appearing. HEENT examination is grossly unremarkable. Mucous membranes are moist. No oral lesions. Significant alopecia. Neck supple. Full range of motion. No adenopathy thyromegaly or neck vein distention. Cardiovascular examination reveals regular rhythm rate. S1-S2 normal. No S3 or S4. No discernible murmur noted. Lungs reveal mostly clear breath sounds. There is bilateral scattered rhonchi noted. No crackles or wheezes. Abdomen soft bowel sounds are heard. No masses or tenderness. Extremities are intact. No cyanosis clubbing or edema. Skin is without rash or lesion. Neurologic examination is brief but nonfocal. - Labs CBC & Chem 7: 06/03/18 06:32 06/02/18 10:48 Labs: Microbiology - Last 24 Hours (Table) 05/31/18 18:25 Blood Culture - Preliminary Blood No Growth after 72 hours Assessment and Plan Assessment: Assessment Fever of unclear etiology, which may relate to tumor fever. Currently, the patient has no further episodes of fever or temperature elevation. Recent diagnosis of squamous cell carcinoma right upper lobe, currently undergoing radiation therapy Recent diagnosis of left maxillary sinus adenocarcinoma, status post 3 rounds of chemotherapy History of DVT History of pulmonary embolism History of skin cancer Previous history of myocardial infarction History of anxiety Previous history of tobacco use Plan: Plan dated 06/03/2018 White count is 20.8 hemoglobin 9 and hematocrit 29.2 with a platelet count 346, 000. Sodium 129 potassium 3.8 chloride 93 CO2 26 BUN and creatinine were 9 and 0.28. Urine is clean. Chest x-ray just shows the previously described right upper lobe mass which is stable. Nothing else is acutely seen on chest x-ray. Microbiology at this point as all negative or pending. The patient remains on breathing treatments and antibiotics in the form of DuoNeb 3-4 times a day and ceftriaxone. Overall prognosis is poor given her 2 cancers and CODE STATUS should be addressed by the primary service with this patient. Plan dated 06/04/2018 The patient seemed be doing a bit better today. No further episodes of temperature elevation. No pain. No difficulty breathing at this time. Short of breath on exertion though. Denies any nausea vomiting or diarrhea. No coughing up any phlegm. CODE STATUS was addressed by the primary service and that's appreciated. She remains on the updrafts as recommended. Time with Patient: Less than 30
[2018-06-04] MEDS: FERROUS SULFATE 325 MG TAB PO SCH (11:24)
[2018-06-04] MEDS: LACTULOSE 20 GM/30 ML CUP PO SCH ×2 (11:25→21:39)
[2018-06-04] MEDS: MENTHOL-ZINC OXIDE OINT 113 GM TUBE TOPICAL SCH ×2 (11:25→21:39)
[2018-06-04] MEDS: NYSTATIN 100,000 UNIT/ML SUSP 500,000 UNIT/5 ML CUP PO SCH ×4 (11:26→21:40)
[2018-06-04] MEDS: SENNOSIDES-DOCUSATE SODIUM 1 EACH TAB PO SCH ×2 (11:26→21:40)
[2018-06-04] MEDS: MEGESTROL 400 MG/10 ML CUP PO SCH (11:26)
--- NOTE | 2018-06-04 19:56 | PN ---
PROGRESS NOTE DATE OF SERVICE: 06/04/18. PRESENTING COMPLAINT: Delirious, cough. INTERVAL HISTORY: This patient with dual carcinoma getting chemotherapy for palliation, overnight became worse, more congestion in the lungs. I did order a dose of Lasix. Has become more delirious, confused. Daughter is at the bedside. The patient has been calling out her 's name and other children's name. REVIEW OF SYSTEMS: Was attempted but cannot do this as patient is rather delirious. CURRENT MEDICATIONS: Include DuoNeb, Omnicef. PHYSICAL EXAMINATION: On examination; afebrile, pulse 105, respirations 20, blood pressure 128/70, pulse ox 98% on 2 L. GENERAL APPEARANCE: Propped up in a chair, somewhat delirious, calls out names, lethargic. EYES: Pupils equal. Conjunctivae normal. HEENT: External appearance of nose and ears normal. Oral cavity dry. NECK: JVD unable to assess. Mass not palpable. RESPIRATORY: Effort increased. Lungs, some wheezing. CARDIOVASCULAR: First and second sounds, no edema. ABDOMEN: Soft, nontender. Liver and spleen not palpable. PSYCHIATRY: Patient is delirious. INVESTIGATIONS: No blood work from today. ASSESSMENT: 1. Acute severe chronic obstructive pulmonary disease exacerbation from acute tracheobronchitis in a smoker. 2. Acute delirium multifactorial. 3. Chronic bilateral pulmonary embolism for which the patient is chronically on Eliquis. 4. Moderate protein-calorie malnutrition from decreased oral intake. 5. Adenocarcinoma of the salivary gland, status post chemotherapy. 6. Squamous cell cancer of the lung with palliative chemotherapy. 7. Normocytic anemia from malignancy. 8. Medical debility. 9. 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 10.Sinus tachycardia from bronchodilators. PLAN: The patient is not doing too well. Continue current medication and treatment plan. Supportive care. ADVANCED CARE PLANNING: Care was discussed with the daughter at the bedside. Did explain to her that the patient continued to deteriorate. Her functional status is going down. The patient did get one dose of Lasix earlier today. Daughter does understand and DO NOT RESUSCITATE was instituted. Plan is the daughter has already called a sister from [place]. She does understand if the patient goes down and that we may lean towards hospice. Questions were answered. About over 20 minutes was spent in advanced care planning. MMODL / IJN: [id number] /
[2018-06-04] MEDS: IPRATROPIUM-ALBUTEROL 3 ML NEB INHALATION PRN (21:32)
[2018-06-05] MEDS: LORazepam 1 MG TAB PO SCH ×5 (01:37→23:47)
[2018-06-05] MEDS: DEXAMETHASONE 4 MG TAB PO SCH ×4 (01:37→23:47)
[2018-06-05] MEDS: HYDROcodone/APAP 5-325MG 1 EACH TAB PO PRN ×3 (03:55→20:53)
[2018-06-05] MEDS: IPRATROPIUM-ALBUTEROL 3 ML NEB INHALATION SCH ×4 (07:11→19:58)
[2018-06-05] MEDS: APIXABAN 5 MG TAB PO SCH ×2 (08:35→20:50)
[2018-06-05] MEDS: CEFDINIR 300 MG CAP PO SCH (08:38)
[2018-06-05] MEDS: LACTULOSE 20 GM/30 ML CUP PO SCH ×2 (08:41→20:50)
[2018-06-05] MEDS: NYSTATIN 100,000 UNIT/ML SUSP 500,000 UNIT/5 ML CUP PO SCH ×4 (08:41→20:49)
[2018-06-05] MEDS: METOPROLOL TARTRATE 12.5 MG TAB PO SCH ×2 (08:41→20:50)
[2018-06-05] MEDS: FERROUS SULFATE 325 MG TAB PO SCH (08:41)
[2018-06-05] MEDS: MEGESTROL 400 MG/10 ML CUP PO SCH (08:41)
[2018-06-05] MEDS: PANTOPRAZOLE 40 MG TABLET PO SCH (08:42)
[2018-06-05] MEDS: SENNOSIDES-DOCUSATE SODIUM 1 EACH TAB PO SCH ×2 (08:42→20:53)
[2018-06-05 11:20] LABS: ABG Base Excess 11.5 mmol/L; ABG HCO3 34 mmol/L (21-25); ABG Oxygen Saturation 92.5 % (94-97); ABG PCO2 41 mmHg (35-45); ABG PH 7.53 (7.35-7.45); ABG PO2 59 mmHg (83-108); ABG TCO2 35 mmol/L (19-24)
[2018-06-05] MEDS: MENTHOL-ZINC OXIDE OINT 113 GM TUBE TOPICAL SCH ×2 (11:59→20:58)
--- NOTE | 2018-06-05 12:16 | CT ---
EXAMINATION TYPE: CT brain wo con DATE OF EXAM: 06/05/2018 COMPARISON: 02/01/2018 HISTORY: 77-year-old female with confusion, altered mental status. TECHNIQUE: Examination was done in axial plane without intravenous contrast. Coronal and sagittal r econstructions performed. CT DLP: 759.6 mGycm Automated exposure control for dose reduction was used. FINDINGS: There is no evidence of acute intracranial hemorrhage, acute ischemic changes, mass, mass-effect, or extra-axial fluid collection. There is no effacement of cerebral sulci or basal subarachnoid cister ns. There is no hydrocephalus. There is no midline shift. [place]-white matter distinction is preserv ed. Mild generalized supratentorial volume loss with mild patchy white matter hypodensities in both cereb ral hemispheres. Partially visualized known destructive soft tissue adenocarcinoma involving the left maxillary sinus eroding through the posterior wall with involvement of the left head of music space. This is incompletel y imaged and assessed. Complete opacification of the left mastoid air cells and left middle ear cavity. IMPRESSION: 1. No acute intracranial abnormality seen. Mild cerebral atrophy and changes of chronic small vessel ischemic disease. 2. Partially visualized known large left-sided adenocarcinoma centered within the left maxillary sinu s and left head of music space. 3. Correlate for left-sided otomastoiditis.
--- NOTE | 2018-06-05 12:24 | XR ---
EXAMINATION TYPE: XR chest 1V DATE OF EXAM: 06/05/2018 COMPARISON: Prior chest x-ray 05/31/2018 and PET/CT 04/22/2018 HISTORY: Shortness of breath TECHNIQUE: Single frontal view of the chest is obtained. FINDINGS: Biapical pleural thickening right greater than left is again noted. Volume loss in the rig ht hemithorax. Patient is rotated. Heart size is stable. No evident pneumothorax or pleural effusion. Some basilar scarring or atelectasis is suspected. Some interstitial changes thought present at the upper lobes. The aorta is dense. IMPRESSION: Rotated exam. Chronic changes as described, difficult to exclude developing pneumonia in the right upper lobe. Right upper hemithorax shows persistent chest mass.
--- NOTE | 2018-06-05 14:27 | P.PN ---
Subjective Progress Note Date: 06/05/18 Principal diagnosis: Fever of unclear etiology, possible aspiration pneumonia Progress note dated 06/04/2018 77-year-old female who was admitted with a diagnosis of temperature elevation and weakness as well as shortness of breath. The cause of the fever is not known. No clearcut infection. 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 She also has a history of recent diagnosis of left maxillary sinus adenocarcinoma, status post 3 rounds of chemotherapy. In addition, she has a history of DVT and pulmonary embolus some skin cancer myocardial infarction anxiety and previous history of tobacco use. The patient seems be relatively stable at this time. Denies any pain or shortness of breath. She is a no code. Chest x-ray shows a unchanged right upper lobe mass. Laboratory data shows a white count of 20.8 hemoglobin 9 hematocrit 29.2 and platelet count that is normal. Microbiology is negative thus far. On 06/05/2018 patient seen in follow-up in oncology floor. She is somnolent, arousable to verbal stimuli. She has audible congestion, and wheezing to auscultation. She was 99.8 in the last 24 hours, she is tachycardic with a heart rate 1 teens to 120s BPM. Patient is on 2 L per nasal cannula and pulse ox is 94%, patient's daughter is at the bedside, and has been providing much information, she stated her mother's fentanyl patch has been increased related to increased back and neck discomfort. Patient is tachypneic, with respiratory rate in the 36 breaths per minute. White count is elevated at 20.8, blood gas was obtained on 2 L per nasal cannula and showed pO2 of 59, pCO2 41, pH of 7.53 , patient was placed on supplemental oxygen. Chest x-ray was obtained, and showed volume loss in the right hemithorax, difficult to exclude developing pneumonia in the right upper lobe, possibly related to aspiration. Brain CT was obtained and showed no acute intracranial abnormality, some mild cerebral atrophy and changes of chronic small vessel ischemic disease,. 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 Patient is status post 3 chemo therapy treatments, and radiation treatment for squamous cell carcinoma of the right upper lobe, and left maxillary sinus adenocarcinoma. CODE STATUS was discussed with the patient's family, daughter related that patient is DO NOT RESUSCITATE. Unfortunately patient has had steady decline in her overall clinical status and functioning since diagnosis of her lung and left maxillary sinus adenocarcinoma, and this decision is reasonable in view of patient's comorbidities, overall declining functional status. Objective - Vital Signs Vital signs: Vital Signs Temp 98 F 06/05/18 08:33 Pulse 114 H 06/05/18 08:33 Resp 36 H 06/05/18 08:33 BP 126/60 06/05/18 08:33 Pulse Ox 94 L 06/05/18 08:33 Intake & Output 06/04/18 06/05/18 06/05/18 18:59 06:59 18:59 Intake Total 160 595 Output Total 600 Balance -440 595 Intake: Oral 160 595 Output: Urine 600 Other: Voiding Method Bedside Commode Bedside Commode Bedside Commode # Voids 2 2 - Exam No acute distress, lethargic, but arousable to verbal stimuli HEENT examination is grossly unremarkable. Mucous membranes are moist. No oral lesions. Significant alopecia. Neck supple. Full range of motion. No adenopathy thyromegaly or neck vein distention. Cardiovascular examination reveals regular rhythm rate. S1-S2 normal. No S3 or S4. No discernible murmur noted. Lungs reveal increased chest congestion, and wheezing bilaterally Abdomen soft bowel sounds are heard. No masses or tenderness. Extremities are intact. No cyanosis clubbing or edema. Skin is without rash or lesion. Neurologic examination is brief but nonfocal. - Labs CBC & Chem 7: 06/03/18 06:32 06/02/18 10:48 Labs: Abnormal Lab Results - Last 24 Hours (Table) 06/05/18 Range/Units 11:15 ABG pH 7.53 H (7.35-7.45) ABG pO2 59 L (83-108) mmHg ABG HCO3 34 H (21-25) mmol/L ABG Total CO2 35 H (19-24) mmol/L ABG O2 Saturation 92.5 L (94-97) % Microbiology - Last 24 Hours (Table) 05/31/18 18:25 Blood Culture - Preliminary Blood No Growth after 96 hours Assessment and Plan Plan: Assessment: Fever of unclear etiology, which may relate to tumor fever. Currently, the patient has no further episodes of fever or temperature elevation. Recent diagnosis of squamous cell carcinoma right upper lobe, currently undergoing radiation therapy Recent diagnosis of left maxillary sinus adenocarcinoma, status post 3 rounds of chemotherapy History of DVT History of pulmonary embolism History of skin cancer Previous history of myocardial infarction History of anxiety Previous history of tobacco use Plan: We will initiate the patient on IV Zosyn, we will stop the Ceftin ear, continue nebulized bronchodilators, continue oral Decadron. Blood gases, brain CT results have been reviewed, CODE STATUS was discussed again with the patient's daughter, and patient called status is a DO NOT RESUSCITATE, and this is reasonable considering patient's history of malignancy and overall declining functional status. We'll continue to follow. I performed a history & physical examination of the patient and discussed their management with my nurse practitioner, Samia Womack. I reviewed the nurse practitioner's note and agree with the documented findings and plan of care. Lung sounds are positive for diffuse wheezes and extensive rhonchi. The findings and the impression was discussed with the patient. I attest to the documentation by the nurse practitioner. Time with Patient: Less than 30
[2018-06-05] MEDS: PIPERACILLIN-TAZOBACTAM 3.375 GM in DEXTROSE/WATER 1 50ML.BAG IVPB SCH ×2 (16:29→20:57)
--- NOTE | 2018-06-05 17:07 | P.PN ---
Subjective Progress Note Date: 06/05/18 Principal diagnosis: cancer, pneumonia, acute hypoxia Ms. Posadas is a pleasant white female, initially seen in consult at [facility] on 02/05/18. She had presented to her PCP with complains of pain in her right upper back, right neck and base of the skull since early 2017 , that had been progressive since. She had also been complaining of nasal congestion and fullness in the left side of her face since then. She was initially seen by ENT with CT scan of the brain and soft tissue of the neck revealing a 7.4 cm mass in the left maxillary sinus extending into the nasopharynx and oropharynx. In addition a 6.7 cm mass was seen in the right lung [place] with destruction of the T2 vertebra. The patient was admitted with progressive symptoms. She was started on IV steroids with symptomatic improvement. CT scan of the chest confirmed a 75.3 8 cm mass in the right upper lobe with invasion into the adjacent T2. A 2.2 cm nodule was seen in the left lower lobe. MRI of the thoracic spine from 02/06/18 showed no evidence of cord compression. The patient had a biopsy of the maxillary sinus mass on 02/06/18. 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 CT-guided biopsy of the lung mass from 02/11/18 was positive for squamous cell carcinoma. The patient was discharged on a fentanyl patch and Decadron. She had a PET scan on 02/11/18. This confirmed uptake in the large maxillary sinus mass but showed no adjacent adenopathy. Right upper lobe pulmonary mass also showed significant uptake. Uptake was noted in the right hilum, as well as a left lower lobe nodule. Uptake was noted in the T8 2/3 vertebral body and rib due to direct extension. The patient was seen for her first office visit on 02/16/18. She was started on Carbo - Taxol , and is s/p 3 cycles, completing those on . She required home IV hydration. She then fell and broke her rt hip and was admitted in late 04/14. PET scan on 04/22/18 showed stable findings with possibly some progression. She had ORIF on 04/28/[address] [facility]. Ms Posadas was seen in Medical Oncology office on 05/29/18 - The pt had started XRT to the RUL mass. For now, the intent is palliative. She is too weak still at this time, to have more definitive , aggressive treatment with combined chemo RT. The same was d/w the pt and family - Continue RT to complete 2 wks - Continue PT. Reassess in 3 wks with repeat scans. Further recommendations will be made depending on the pt'sPS - Labs from 05/29/18 show stable Hgb at 9.7. WBC was 17.1, and plt 508. Her chem panel showed low K+ and Na of 127. K+ supplementation has been started. - Continue Megace for increasing appetite 06/02/18 - She presented to [facility] on 06/01/18 with complaints of fevers. [facility] Culture and Imaging was completed and patient has remained afebrile since admission. Chest Xray negative for acute process. She complains of increasing Shortness of Breath, Denies chest pain. Patient 06/05/18 - Greater than 35 minutes spent with patient and 3 daughters. Ms Posadas is weaker and more lethargic then last seen. She has audible crackles while sitting at her bed and talking. Positive use of accessory muscles noted. During assessment there was obvious discussion the daughters were having that they were reluctant to discuss with mother. I asked Ms. Posadas her understanding of her current diagnosis and expectations of treatment and she was inappropriate in her intial response stating "why hasnt anyone told me I have cancer" Her responses of appropriateness did continue to be inconsistent through todays discussion. I explained the overall goal of her treatment has always been palliative, and to make her feel better. She responded as she felt fine today and thought she was doing well. Discussion with patient and family support the decision to treat comfortably as her prognosis is poor. She did not have expected response to radiation and is not a candidate for concurrent chemo/ radiation. Patient and daughters understand, although have asked me to wait to bring hospice until after they try to see if she will eat and wake up a little more by tomorrow to assess if she retained todays conversation. She is currently a No CPR/DNR. Agreed to re-assess and likely plan hospice consultation tomorrow. In the interim treatment is to continue as palliative and for the goals of comfort. Objective - Vital Signs Vital signs: Vital Signs Temp 98.4 F 07/09/18 14:15 Pulse 101 H 06/05/18 16:02 Resp 26 H 06/05/18 14:15 BP 126/70 06/05/18 14:15 Pulse Ox 97 06/05/18 14:15 Intake & Output 06/04/18 06/05/18 06/05/18 18:59 06:59 18:59 Intake Total 160 595 Output Total 600 Balance -440 595 Intake: Oral 160 595 Output: Urine 600 Other: Voiding Method Bedside Commode Bedside Commode Bedside Commode # Voids 2 2 0 - Constitutional General appearance: Present: mild distress, thin - EENT EENT Comment(s): Cataracts Eyes: Present: dentition normal ENT: Present: hard of hearing, NA/AT - Neck Neck: Present: lymphadenopathy - Respiratory Respiratory: bilateral: rhonchi (Increased effort noted), wheezing - Cardiovascular Heart rate: 113 Rhythm: irregularly irregular - Gastrointestinal General gastrointestinal: Present: soft - Integumentary Integumentary: Present: pale - Neurologic Neurologic Comment(s): Lethargic, no focal defect - Musculoskeletal Musculoskeletal: Present: generalized weakness - Psychiatric Psychiatric Comment(s): Judgement appears to be inconsistently reliable - Labs CBC & Chem 7: 06/03/18 06:32 06/02/18 10:48 Labs: Abnormal Lab Results - Last 24 Hours (Table) 06/05/18 Range/Units 11:15 ABG pH 7.53 H (7.35-7.45) ABG pO2 59 L (83-108) mmHg ABG HCO3 34 H (21-25) mmol/L ABG Total CO2 35 H (19-24) mmol/L ABG O2 Saturation 92.5 L (94-97) % Microbiology - Last 24 Hours (Table) 05/31/18 18:25 Blood Culture - Preliminary Blood No Growth after 96 hours - Imaging and Cardiology Chest x-ray: report reviewed CT Scan - head: report reviewed Assessment and Plan Plan: Assessment and Plan Plan: Assessment and Recommendations: 1. Squamous cell Carcinoma of the Lung with Large RUL Mass (?metastatic disease to adrenal gland) - Status Post 3/3 cycles of carboplatin and taxol - Recent PET with little/Mixed response - Radiation Oncology Following - Treatment this far does not appear to have offered any sustainable response to mass in Mediastinum 2. 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 3. Fever and Acute Mental Status Change: - Afebrile Since admission - Very Weak Cough, Incentive spirometer - Antibiotics - Cultures and Xray Neg this far - Steroids - CT head reviewed, Respiratory Status worsened 4. Intertrochanter Right Hip Surgery - Status Post Fall - Orthopedics Following - Status Post ORIF - Currently in [facility] 5. . Recent diagnosis of bilateral pulmonary embolism, in January 2018, currently on Eliquis - Continue Eliquis 6. Acute on chronic pain - Neck and Back with evidence of focal uptake within the T3 vertebral body and ribs highly suspicious for malignancy. - The most recent PET scan showed evidence of encroachment of the anterolateral aspect of the spinal canal. - This could've contributed to the patient's weakness and loss imbalance and fall. A previous MRI did identify this in January, repeat MRI if concern for possible cord involvement. 7. 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 Oral thrush:improved - Nystatin Swish and Spit 9. 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 Advanced Care Planning: - I had a long discussion with patient and three daughters today. Her overall prognosis is poor, and appears to be declining given the multiple factors above. The patient at this time does not agree she is weak or not strong enough to undergo further treatment, although her current mental status is not consistently appropriately. She does understand the minimal response from treatment this far on her cancer and understands she is not a candidate for further treatment. She will remain a no CPR/Full DNR. Our goal of care will continue to be palliative in nature. Patient and daughters agree and understand the plan for hospice care, but have asked to discuss more with her tomorrow and allow her to "take in" todays discussion first. Plan will be Hospice information consult tomorrow and plan for hospice facility and/or home with hospice this week. Continue supportive care. Discussed with Dr. Pimentel, who is in agreement Jessa Rodney HEAD GOLF COACH. Time with Patient: Greater than 30 (Palliative, Hospice, end of Life Discussion)
--- NOTE | 2018-06-05 21:30 | PN ---
PROGRESS NOTE DATE OF SERVICE: 06/05/18. PRESENTING COMPLAINT: Tired. INTERVAL HISTORY: This patient with double malignancy with chemotherapy for palliation has been delirious, in and out. Did given some Lasix yesterday. A bit more perky today. Patient ate a very small amounts. The patient's daughter is here from [place]. Dr. Galo saw the patient. Did order a CT scan of the brain and a chest x-ray. The patient has a slight cough, anxious. REVIEW OF SYSTEMS: Done for constitutional, cardiovascular, GI, pulmonary; relevant findings as above. CURRENT MEDICATIONS: Reviewed, that include DuoNeb, . IV Zosyn was started by Pulmonary. PHYSICAL EXAMINATION: Temperature 98, pulse 114, respirations 36, blood pressure 126/60 pulse ox 94% on 2 L. GENERAL APPEARANCE: Sitting up in a chair, a bit less delirious today, still somewhat anxious. EYES: Pupils equal. Conjunctivae normal. HEENT: External appearance of nose and ears normal. Oral cavity dry. NECK: JVD unable to assess. Mass not palpable. RESPIRATORY: Effort increased. Lungs, decreased breath sounds. Expiratory wheezing. CARDIOVASCULAR: First and second sounds normal. No edema. ABDOMEN: Soft, nontender. Liver and spleen not palpable. PSYCHIATRY: A bit less dizzy yesterday. INVESTIGATIONS: Blood gas showed a pH of 7.53. Chest x-ray, no new finding. CT scan, no evidence of obvious mets. ASSESSMENT: 1. Acute severe chronic obstructive pulmonary disease exacerbation from acute tracheobronchitis in a smoker, slow to respond. 2. Acute delirium multifactorial with mild improvement. 3. Chronic bilateral pulmonary embolism for which patient is chronically on Eliquis. 4. Moderate protein-calorie malnutrition from decreased oral intake from malignancy. 5. Adenocarcinoma salivary gland, status post chemotherapy. 6. Squamous cell cancer of the lung with palliative chemotherapy. 7. Normocytic anemia from malignancy. 8. Worsening poor functional status. 9. Advancing medical debility. 10.SIADH from malignancy. 11.Sinus tachycardia from bronchodilators. PLAN: Patient continues to do poorly. I did talk to the daughter. I think hospice will be appropriate. We will wait for other daughter to come in and address this tomorrow with the patient. Prognosis does not appear to be good. MMODL / IJN: [id number] /
[2018-06-06] MEDS: PIPERACILLIN-TAZOBACTAM 3.375 GM in DEXTROSE/WATER 1 50ML.BAG IVPB SCH ×3 (04:19→21:24)
[2018-06-06] MEDS: HYDROcodone/APAP 5-325MG 1 EACH TAB PO PRN ×4 (05:53→21:28)
[2018-06-06] MEDS: IPRATROPIUM-ALBUTEROL 3 ML NEB INHALATION SCH ×4 (07:51→19:33)
[2018-06-06] MEDS: IPRATROPIUM-ALBUTEROL 3 ML NEB INHALATION PRN (08:56)
[2018-06-06] MEDS: APIXABAN 5 MG TAB PO SCH ×2 (09:54→21:25)
[2018-06-06] MEDS: METOPROLOL TARTRATE 12.5 MG TAB PO SCH ×2 (09:54→21:25)
[2018-06-06] MEDS: PANTOPRAZOLE 40 MG TABLET PO SCH (09:54)
[2018-06-06] MEDS: LORazepam 1 MG TAB PO SCH ×3 (09:55→22:58)
[2018-06-06] MEDS: SENNOSIDES-DOCUSATE SODIUM 1 EACH TAB PO SCH ×2 (09:55→21:25)
[2018-06-06] MEDS: FERROUS SULFATE 325 MG TAB PO SCH (09:55)
[2018-06-06] MEDS: DEXAMETHASONE 4 MG TAB PO SCH ×3 (09:55→22:58)
[2018-06-06] MEDS: MEGESTROL 400 MG/10 ML CUP PO SCH (09:56)
[2018-06-06] MEDS: LACTULOSE 20 GM/30 ML CUP PO SCH ×2 (09:56→21:21)
[2018-06-06] MEDS: NYSTATIN 100,000 UNIT/ML SUSP 500,000 UNIT/5 ML CUP PO SCH ×4 (10:06→21:25)
[2018-06-06] MEDS: MENTHOL-ZINC OXIDE OINT 113 GM TUBE TOPICAL SCH ×2 (10:07→21:25)
--- NOTE | 2018-06-06 14:38 | P.PN ---
Subjective Progress Note Date: 06/06/18 Principal diagnosis: Fever of unclear etiology, possible aspiration pneumonia Progress note dated 06/04/2018 77-year-old female who was admitted with a diagnosis of temperature elevation and weakness as well as shortness of breath. The cause of the fever is not known. No clearcut infection. 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 She also has a history of recent diagnosis of left maxillary sinus adenocarcinoma, status post 3 rounds of chemotherapy. In addition, she has a history of DVT and pulmonary embolus some skin cancer myocardial infarction anxiety and previous history of tobacco use. The patient seems be relatively stable at this time. Denies any pain or shortness of breath. She is a no code. Chest x-ray shows a unchanged right upper lobe mass. Laboratory data shows a white count of 20.8 hemoglobin 9 hematocrit 29.2 and platelet count that is normal. Microbiology is negative thus far. On 06/05/2018 patient seen in follow-up in oncology floor. She is somnolent, arousable to verbal stimuli. She has audible congestion, and wheezing to auscultation. She was 99.8 in the last 24 hours, she is tachycardic with a heart rate 1 teens to 120s BPM. Patient is on 2 L per nasal cannula and pulse ox is 94%, patient's daughter is at the bedside, and has been providing much information, she stated her mother's fentanyl patch has been increased related to increased back and neck discomfort. Patient is tachypneic, with respiratory rate in the 36 breaths per minute. White count is elevated at 20.8, blood gas was obtained on 2 L per nasal cannula and showed pO2 of 59, pCO2 41, pH of 7.53 , patient was placed on supplemental oxygen. Chest x-ray was obtained, and showed volume loss in the right hemithorax, difficult to exclude developing pneumonia in the right upper lobe, possibly related to aspiration. Brain CT was obtained and showed no acute intracranial abnormality, some mild cerebral atrophy and changes of chronic small vessel ischemic disease,. There was a partially visualized known large left-sided adenocarcinoma within the left maxillary sinus and left wildlife protector space. Patient is status post 3 chemo therapy treatments, and radiation treatment for squamous cell carcinoma of the right upper lobe, and left maxillary sinus adenocarcinoma. CODE STATUS was discussed with the patient's family, daughter related that patient is DO NOT RESUSCITATE. Unfortunately patient has had steady decline in her overall clinical status and functioning since diagnosis of her lung and left maxillary sinus adenocarcinoma, and this decision is reasonable in view of patient's comorbidities, overall declining functional status. On 06/06/2018 patient seen again in follow-up. She is much more alert today, she is sitting up in the chair, she is on 2 L per nasal cannula with pulse ox of 95%, still a bit tachycardic with a heart rate in the low 100s BPM, but no fever no chills, breathing easier today, less congested. Yesterday we started the patient on Zosyn for possible aspiration. No sputum culture, blood blood and urine cultures remain negative, no new labs or chest x-rays today. Patient' s dating her back pain is under good control today, she is currently on fentanyl patch, in addition to [place] for breakthrough pain. The patient and the family had an extensive discussion with medical oncology, and the patient is not a candidate for anymore chemotherapy related to increased weakened status and failure to thrive. It was explained to the patient that starting palliative care would not preclude the use of supportive treatments. Patient is currently residing at [facility], where she plans on returning. Patient will start working with physical therapy to increase mobility, appetite remains poor, but today patient is having a better day, with improved mentation, improved respiratory status, and strength. Objective - Vital Signs Vital signs: Vital Signs Temp 98.2 F 06/05/18 20:30 Pulse 100 06/06/18 12:11 Resp 18 06/05/18 20:30 BP 108/58 06/05/18 20:30 Pulse Ox 95 06/05/18 20:30 Intake & Output 06/05/18 06/06/18 06/06/18 18:59 06:59 18:59 Intake Total 150 Output Total 600 Balance -600 150 Weight 50 kg 50 kg Intake: Intake, IV Titration 50 Amount Piperacillin-Tazobactam 3 50 .375 gm In Dextrose/Water 1 50ml.bag @ 12.5 mls/hr IVPB Q8H [facility] Rx#: [id number] Oral 100 Output: Urine 600 Other: Voiding Method Bedside Commode Bedside Commode # Voids 0 1 - Exam No acute distress, lethargic, but arousable to verbal stimuli HEENT examination is grossly unremarkable. Mucous membranes are moist. No oral lesions. Significant alopecia. Neck supple. Full range of motion. No adenopathy thyromegaly or neck vein distention. Cardiovascular examination reveals regular rhythm rate. S1-S2 normal. No S3 or S4. No discernible murmur noted. Lungs reveal coarse crackles, and wheezes, overall less congested from yesterday 's exam Abdomen soft bowel sounds are heard. No masses or tenderness. Extremities are intact. No cyanosis clubbing or edema. Skin is without rash or lesion. Neurologic examination is brief but nonfocal. - Labs CBC & Chem 7: 06/03/18 06:32 06/02/18 10:48 Labs: Microbiology - Last 24 Hours (Table) 05/31/18 18:25 Blood Culture - Preliminary Blood No Growth after 120 hours Assessment and Plan Plan: Assessment: Fever of unclear etiology, which may relate to tumor fever. Currently, the patient has no further episodes of fever or temperature elevation. Recent diagnosis of squamous cell carcinoma right upper lobe, currently undergoing radiation therapy Recent diagnosis of left maxillary sinus adenocarcinoma, status post 3 rounds of chemotherapy History of DVT History of pulmonary embolism History of skin cancer Previous history of myocardial infarction History of anxiety Previous history of tobacco use Plan: Continue current antibiotic coverage, continue nebulized bronchodilators, today patient is having a better day in terms of being more awake, sitting up in the chair, sounding less congested. Appetite remains poor, overall patient has severe generalized weakness. Palliative care was discussed with the patient and her daughter, patient is not a candidate for any more chemotherapy at this time, unfortunately she has been steadily declining in terms of her functioning since her diagnosis of the lung and left maxillary sinus adenocarcinoma. Patient was reassured that supportive care will continue. Patient will return after rehab to discharge. Patient will be meeting with hospice this afternoon. I performed a history & physical examination of the patient and discussed their management with my nurse practitioner, Samia Womack. I reviewed the nurse practitioner's note and agree with the documented findings and plan of care. Lung sounds are positive for diffuse wheezes and extensive rhonchi. The findings and the impression was discussed with the patient. I attest to the documentation by the nurse practitioner. Time with Patient: Less than 30
--- NOTE | 2018-06-06 19:04 | P.PN ---
Subjective Progress Note Date: 06/06/18 Principal diagnosis: cancer, pneumonia, acute hypoxia Ms. Posadas is a pleasant white female, initially seen in consult at [facility] on 02/05/18. She had presented to her PCP with complains of pain in her right upper back, right neck and base of the skull since early 2017 , that had been progressive since. She had also been complaining of nasal congestion and fullness in the left side of her face since then. She was initially seen by ENT with CT scan of the brain and soft tissue of the neck revealing a 7.4 cm mass in the left maxillary sinus extending into the nasopharynx and oropharynx. In addition a 6.7 cm mass was seen in the right lung [place] with destruction of the T2 vertebra. The patient was admitted with progressive symptoms. She was started on IV steroids with symptomatic improvement. CT scan of the chest confirmed a 75.3 8 cm mass in the right upper lobe with invasion into the adjacent T2. A 2.2 cm nodule was seen in the left lower lobe. MRI of the thoracic spine from 02/06/18 showed no evidence of cord compression. The patient had a biopsy of the maxillary sinus mass on 02/06/18. 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 CT-guided biopsy of the lung mass from 02/11/18 was positive for squamous cell carcinoma. The patient was discharged on a fentanyl patch and Decadron. She had a PET scan on 02/11/18. This confirmed uptake in the large maxillary sinus mass but showed no adjacent adenopathy. Right upper lobe pulmonary mass also showed significant uptake. Uptake was noted in the right hilum, as well as a left lower lobe nodule. Uptake was noted in the T8 2/3 vertebral body and rib due to direct extension. The patient was seen for her first office visit on 02/16/18. She was started on Carbo - Taxol , and is s/p 3 cycles, completing those on . She required home IV hydration. She then fell and broke her rt hip and was admitted in late 04/14. PET scan on 04/22/18 showed stable findings with possibly some progression. She had ORIF on 04/28/18 and was discharged to [facility]. Ms Posadas was seen in Medical Oncology office on 05/29/18 - The pt had started XRT to the RUL mass. For now, the intent is palliative. She is too weak still at this time, to have more definitive , aggressive treatment with combined chemo RT. The same was d/w the pt and family - Continue RT to complete 2 wks - Continue PT. Reassess in 3 wks with repeat scans. Further recommendations will be made depending on the pt'sPS - Labs from 05/29/18 show stable Hgb at 9.7. WBC was 17.1, and plt 508. Her chem panel showed low K+ and Na of 127. K+ supplementation has been started. - Continue Megace for increasing appetite 06/02/18 - She presented to [facility] on 06/01/18 with complaints of fevers. [facility] Culture and Imaging was completed and patient has remained afebrile since admission. Chest Xray negative for acute process. She complains of increasing Shortness of Breath, Denies chest pain. Patient 06/05/18 - Greater than 35 minutes spent with patient and 3 daughters. Ms Posadas is weaker and more lethargic then last seen. She has audible crackles while sitting at her bed and talking. Positive use of accessory muscles noted. During assessment there was obvious discussion the daughters were having that they were reluctant to discuss with mother. I asked Ms. Posadas her understanding of her current diagnosis and expectations of treatment and she was inappropriate in her intial response stating "why hasnt anyone told me I have cancer" Her responses of appropriateness did continue to be inconsistent through todays discussion. I explained the overall goal of her treatment has always been palliative, and to make her feel better. She responded as she felt fine today and thought she was doing well. Discussion with patient and family support the decision to treat comfortably as her prognosis is poor. She did not have expected response to radiation and is not a candidate for concurrent chemo/ radiation. Patient and daughters understand, although have asked me to wait to bring hospice until after they try to see if she will eat and wake up a little more by tomorrow to assess if she retained todays conversation. She is currently a No CPR/DNR. Agreed to re-assess and likely plan hospice consultation tomorrow. In the interim treatment is to continue as palliative and for the goals of comfort. 06/06/18 - Patient and one daughter at bedside this am. Patient is up in chair, appears a little more alert during visit, although she still has increased effort of breathing while conversating and dozing off during our discussion. It is unclear if she truly understands the health state she is in and further treatment is not an option. She continues to say, I thought I was doing better. I feel fine. Although her daughter admits when getting in chair took 3 person assist and patient was complaining of back pain and no appetite. The conversations continue to be repeated with her and daughters. THey would like to await their meeting with Dr. Celestin and the other two sisters prior to making final decision. Objective - Vital Signs Vital signs: Vital Signs Temp 98.2 F 06/05/18 20:30 Pulse 100 06/06/18 09:07 Resp 18 06/05/18 20:30 BP 108/58 06/05/18 20:30 Pulse Ox 95 06/05/18 20:30 Intake & Output 06/05/18 06/06/18 06/06/18 18:59 06:59 18:59 Intake Total 150 Output Total 600 Balance -600 150 Weight 50 kg 50 kg Intake: Intake, IV Titration 50 Amount Piperacillin-Tazobactam 3 50 .375 gm In Dextrose/Water 1 50ml.bag @ 12.5 mls/hr IVPB Q8H [facility] Rx#: [id number] Oral 100 Output: Urine 600 Other: Voiding Method Bedside Commode Bedside Commode # Voids 0 1 - Constitutional Constitutional Comment(s): Appears chronically ill appearing. General appearance: Present: mild distress, thin - EENT EENT Comment(s): Cataracts apparent bilateral Eyes: Present: EOMI, dentition normal - Labs CBC & Chem 7: 06/03/18 06:32 06/02/18 10:48 Labs: Abnormal Lab Results - Last 24 Hours (Table) 06/05/18 Range/Units 11:15 ABG pH 7.53 H (7.35-7.45) ABG pO2 59 L (83-108) mmHg ABG HCO3 34 H (21-25) mmol/L ABG Total CO2 35 H (19-24) mmol/L ABG O2 Saturation 92.5 L (94-97) % Microbiology - Last 24 Hours (Table) 05/31/18 18:25 Blood Culture - Preliminary Blood No Growth after 120 hours Assessment and Plan Plan: Assessment and Plan Plan: Assessment and Recommendations: 1. Squamous cell Carcinoma of the Lung with Large RUL Mass (?metastatic disease to adrenal gland) - Status Post 3/3 cycles of carboplatin and taxol - Recent PET with little/Mixed response - Radiation Oncology Following - Treatment this far does not appear to have offered any sustainable response to mass in Mediastinum 2. 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 3. Fever and Acute Mental Status Change: - Afebrile Since admission - Very Weak Cough, Incentive spirometer - Antibiotics - Cultures and Xray Neg this far - Steroids - CT head reviewed, Respiratory Status worsened 4. Intertrochanter Right Hip Surgery - Status Post Fall - Orthopedics Following - Status Post ORIF - Currently in Rehab [facility] 5. . Recent diagnosis of bilateral pulmonary embolism, in January 2018, currently on Eliquis - Continue Eliquis 6. Acute on chronic pain - Neck and Back with evidence of focal uptake within the T3 vertebral body and ribs highly suspicious for malignancy. - The most recent PET scan showed evidence of encroachment of the anterolateral aspect of the spinal canal. - This could've contributed to the patient's weakness and loss imbalance and fall. A previous MRI did identify this in January, repeat MRI if concern for possible cord involvement. 7. 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 Oral thrush:improved - Nystatin Swish and Spit 9. 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 Advanced Care Planning: on 06/05/18 I had a long discussion with patient and three daughters today. Her overall prognosis is poor, and appears to be declining given the multiple factors above. The patient at this time does not agree she is weak or not strong enough to undergo further treatment, although her current mental status is not consistently appropriately. She does understand the minimal response from treatment this far on her cancer and understands she is not a candidate for further treatment. She will remain a no CPR/Full DNR. Our goal of care will continue to be palliative in nature. Patient and daughters agree and understand the plan for hospice care, but have asked to discuss more with her tomorrow and allow her to "take in" todays discussion first. Plan will be Hospice information consult tomorrow and plan for hospice facility and/or home with hospice this week. Continue supportive care. Discussed with Dr. Pimentel, who is in agreement On 06/06/18 - Dr Pimentel also spoke with family and patient in length regarding disease, current status and lack of improvement in her current state. Patient and daughter will await the other two daughters this afternoon and will plan to consult hospice information meeting after speaking to Dr. Celestin this afternoon. Physician Attestation: I have completed the full history and physical of this patient and agree with above dictation, dictated as a savannah Rodney [employer].
[2018-06-07] MEDS ORDERED: IPRATROPIUM-ALBUTEROL 3 ML NEB ONE (00:41)
[2018-06-07] MEDS ORDERED: HYDROcodone/APAP 5-325MG 1 EACH TAB ONE (00:41)
--- NOTE | 2018-06-07 01:16 | PN ---
PROGRESS NOTE DATE OF SERVICE: 06/06/2018 PRESENT COMPLAINT: Tired. INTERVAL HISTORY: The patient with double malignancy and chemotherapy palliation had been delirious in and out. The patient is a bit more perky today, has been on antibiotic. The patient's both daughters are present. The patient did eat a little bit, tired. REVIEW OF SYSTEMS: Done for constitutional, cardiovascular, GI, pulmonary; relevant findings as above. CURRENT MEDICATIONS: Include: 1. IV Zosyn. 2. DuoNeb. EXAMINATION: Temperature 98.6, pulse 101, respirations 16, blood pressure 120/56, pulse ox 100% on 2L. GENERAL APPEARANCE: Sitting up in a chair, more awake, answering questions. EYES: Pupils equal. Conjunctivae pale. HEENT: External nose and ears normal. Oral cavity normal. NECK: JVD unable to assess. Mass not palpable. RESPIRATORY: Effort increased. LUNGS: Decreased breath sounds. Less wheezing. CARDIOVASCULAR: First and second sounds normal. No edema. ABDOMEN: Soft, nontender. Liver and spleen not palpable. PSYCHIATRY: Awake, answering questions. Much more awake today. INVESTIGATIONS: No blood work from today. ASSESSMENT: 1. Acute severe chronic obstructive pulmonary disease exacerbation from acute tracheobronchitis in a smoker, improved. 2. Acute delirium, multifactorial, with improvement. 3. Chronic bilateral pulmonary embolism for which patient is chronically on Eliquis. 4. Moderate protein-calorie malnutrition from decreased oral intake from malignancy. 5. Adenocarcinoma salivary gland, status post chemotherapy. 6. Squamous cell cancer of the lung with palliative chemotherapy, not responding anymore, also not responding much to radiation treatment. 7. Normocytic anemia from malignancy. 8. Worsening functional status. 9. Advanced medical debility. 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 11.Sinus tachycardia from bronchitis, improved after bronchodilators were decreased. PLAN: Continue medication and treatment plan. No change in medications currently. ADVANCED CARE PLANNING: I had a group meeting with the patient and the 2 daughters at the bedside. I did talk to the patient that I had talked to Dr. Germain from Oncology and that the patient's cancer was not responsive to treatment and that hospice was felt to be appropriate by them. She will have some waxing and waning. The patient does understand the same. I did discuss about the different medications, including scopolamine, Roxanol, Ativan and had questions about the patient being managed at home that were done. Family has already decided to use [facility] for hospice and they are already looking into it. Several questions were answered. I spoke to the hospice nurse present there, who will now be arranging for hospice at home. Additional time for advanced care planning today was more than 30 minutes. BONILLA / GEETHA: [id number] /
[2018-06-07] MEDS: PIPERACILLIN-TAZOBACTAM 3.375 GM in DEXTROSE/WATER 1 50ML.BAG IVPB SCH ×2 (05:24→13:43)
[2018-06-07] MEDS: HYDROcodone/APAP 5-325MG 1 EACH TAB PO PRN ×2 (06:08→10:43)
[2018-06-07 06:13] VITALS: BP 127/64; RESP 20; TEMP 98.2
[2018-06-07] MEDS: IPRATROPIUM-ALBUTEROL 3 ML NEB INHALATION SCH ×2 (08:36→12:10)
[2018-06-07] MEDS: METOPROLOL TARTRATE 12.5 MG TAB PO SCH (09:07)
[2018-06-07] MEDS: MEGESTROL 400 MG/10 ML CUP PO SCH (09:07)
[2018-06-07] MEDS: DEXAMETHASONE 4 MG TAB PO SCH (09:07)
[2018-06-07] MEDS: APIXABAN 5 MG TAB PO SCH (09:07)
[2018-06-07] MEDS: LACTULOSE 20 GM/30 ML CUP PO SCH (09:08)
[2018-06-07] MEDS: LORazepam 1 MG TAB PO SCH (09:17)
[2018-06-07] MEDS: PANTOPRAZOLE 40 MG TABLET PO SCH (10:42)
[2018-06-07] MEDS: FERROUS SULFATE 325 MG TAB PO SCH (10:43)
[2018-06-07] MEDS: NYSTATIN 100,000 UNIT/ML SUSP 500,000 UNIT/5 ML CUP PO SCH ×2 (10:43→16:51)
[2018-06-07] MEDS: SENNOSIDES-DOCUSATE SODIUM 1 EACH TAB PO SCH (10:43)
[2018-06-07] MEDS: MENTHOL-ZINC OXIDE OINT 113 GM TUBE TOPICAL SCH (10:59)
[2018-06-07] MEDS ORDERED: SODIUM CHLORIDE 0.65% NASAL SPRAY 44 ML BTL NASAL PRN (13:10)
--- NOTE | 2018-06-07 14:04 | P.PN ---
Subjective Progress Note Date: 06/07/18 Principal diagnosis: Fever of unclear etiology, possible aspiration pneumonia Progress note dated 06/04/2018 77-year-old female who was admitted with a diagnosis of temperature elevation and weakness as well as shortness of breath. The cause of the fever is not known. No clearcut infection. 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 She also has a history of recent diagnosis of left maxillary sinus adenocarcinoma, status post 3 rounds of chemotherapy. In addition, she has a history of DVT and pulmonary embolus some skin cancer myocardial infarction anxiety and previous history of tobacco use. The patient seems be relatively stable at this time. Denies any pain or shortness of breath. She is a no code. Chest x-ray shows a unchanged right upper lobe mass. Laboratory data shows a white count of 20.8 hemoglobin 9 hematocrit 29.2 and platelet count that is normal. Microbiology is negative thus far. On 06/05/2018 patient seen in follow-up in oncology floor. She is somnolent, arousable to verbal stimuli. She has audible congestion, and wheezing to auscultation. She was 99.8 in the last 24 hours, she is tachycardic with a heart rate 1 teens to 120s BPM. Patient is on 2 L per nasal cannula and pulse ox is 94%, patient's daughter is at the bedside, and has been providing much information, she stated her mother's fentanyl patch has been increased related to increased back and neck discomfort. Patient is tachypneic, with respiratory rate in the 36 breaths per minute. White count is elevated at 20.8, blood gas was obtained on 2 L per nasal cannula and showed pO2 of 59, pCO2 41, pH of 7.53 , patient was placed on supplemental oxygen. Chest x-ray was obtained, and showed volume loss in the right hemithorax, difficult to exclude developing pneumonia in the right upper lobe, possibly related to aspiration. Brain CT was obtained and showed no acute intracranial abnormality, some mild cerebral atrophy and changes of chronic small vessel ischemic disease,. 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 Patient is status post 3 chemo therapy treatments, and radiation treatment for squamous cell carcinoma of the right upper lobe, and left maxillary sinus adenocarcinoma. CODE STATUS was discussed with the patient's family, daughter related that patient is DO NOT RESUSCITATE. Unfortunately patient has had steady decline in her overall clinical status and functioning since diagnosis of her lung and left maxillary sinus adenocarcinoma, and this decision is reasonable in view of patient's comorbidities, overall declining functional status. On 06/06/2018 patient seen again in follow-up. She is much more alert today, she is sitting up in the chair, she is on 2 L per nasal cannula with pulse ox of 95%, still a bit tachycardic with a heart rate in the low 100s BPM, but no fever no chills, breathing easier today, less congested. Yesterday we started the patient on Zosyn for possible aspiration. No sputum culture, blood blood and urine cultures remain negative, no new labs or chest x-rays today. Patient' s dating her back pain is under good control today, she is currently on fentanyl patch, in addition to [place] for breakthrough pain. The patient and the family had an extensive discussion with medical oncology, and the patient is not a candidate for anymore chemotherapy related to increased weakened status and failure to thrive. It was explained to the patient that starting palliative care would not preclude the use of supportive treatments. Patient is currently residing at [facility], where she plans on returning. Patient will start working with physical therapy to increase mobility, appetite remains poor, but today patient is having a better day, with improved mentation, improved respiratory status, and strength. On 06/07/2018 patient seen in follow-up on oncology floor. She is sitting up in the chair, wrapped in blankets, she states she is feeling cold today, but she is awake, alert, in no acute distress. She and her family had met with [facility], and she decided to go home with hospice today. She is afebrile, she remains on 2 L per nasal cannula, pulse ox of 95%, lung sounds are positive for scattered coarse rhonchi, less wheezy on today's exam, patient is receiving nebulized bronchodilators, and Zosyn. She is having some back pain , she is currently on fentanyl and Norcos. Patient is not as perky as she was yesterday, appears weaker, and her appetite remains poor. Weaning of some nasal passages dryness, Faulkner nasal spray will be ordered for her, weak cough, the patient's requested Mucinex. Objective - Vital Signs Vital signs: Vital Signs Temp 98.2 F 06/07/18 06:12 Pulse 99 06/07/18 12:20 Resp 20 06/07/18 06:12 BP 127/64 06/07/18 06:12 Pulse Ox 95 06/07/18 06:12 Intake & Output 06/06/18 06/07/18 06/07/18 18:59 06:59 18:59 Intake Total 2280 240 Balance 2280 240 Weight 50 kg Intake: Oral 2280 240 Other: Voiding Method Bedside Commode Bedside Commode # Voids 3 1 - Exam No acute distress, lethargic, but arousable to verbal stimuli HEENT examination is grossly unremarkable. Mucous membranes are moist. No oral lesions. Significant alopecia. Neck supple. Full range of motion. No adenopathy thyromegaly or neck vein distention. Cardiovascular examination reveals regular rhythm rate. S1-S2 normal. No S3 or S4. No discernible murmur noted. Lungs reveal coarse crackles, and rhonchi Abdomen soft bowel sounds are heard. No masses or tenderness. Extremities are intact. No cyanosis clubbing or edema. Skin is without rash or lesion. Neurologic examination is brief but nonfocal. - Labs CBC & Chem 7: 06/03/18 06:32 06/02/18 10:48 Labs: Microbiology - Last 24 Hours (Table) 05/31/18 18:25 Blood Culture - Final Blood No Growth after 144 hours Assessment and Plan Plan: Assessment: Fever of unclear etiology, which may relate to tumor fever. Currently, the patient has no further episodes of fever or temperature elevation. Recent diagnosis of squamous cell carcinoma right upper lobe, currently undergoing radiation therapy Recent diagnosis of left maxillary sinus adenocarcinoma, status post 3 rounds of chemotherapy History of DVT History of pulmonary embolism History of skin cancer Previous history of myocardial infarction History of anxiety Previous history of tobacco use Plan: Patient and her family have decided to return home with hospice. This is reasonable given the patient's overall declining functional status, since patient's diagnosis of lung cancer and left adenocarcinoma. Patient is expected to be discharged home today once the final arrangements are in place. I performed a history & physical examination of the patient and discussed their management with my nurse practitioner, Samia Womack. I reviewed the nurse practitioner's note and agree with the documented findings and plan of care. Lung sounds are positive for coarse rhonchi. The findings and the impression was discussed with the patient. I attest to the documentation by the nurse practitioner. Time with Patient: Less than 30
[2018-06-07 17:04] VITALS: PULSE 108
--- NOTE | 2018-06-07 19:33 | P.PN ---
Subjective Progress Note Date: 06/07/18 Principal diagnosis: cancer, pneumonia, acute hypoxia Ms. Posadas is a pleasant white female, initially seen in consult at [facility] on 02/05/18. She had presented to her PCP with complains of pain in her right upper back, right neck and base of the skull since early 2017 , that had been progressive since. She had also been complaining of nasal congestion and fullness in the left side of her face since then. She was initially seen by ENT with CT scan of the brain and soft tissue of the neck revealing a 7.4 cm mass in the left maxillary sinus extending into the nasopharynx and oropharynx. In addition a 6.7 cm mass was seen in the right lung [place] with destruction of the T2 vertebra. The patient was admitted with progressive symptoms. She was started on IV steroids with symptomatic improvement. CT scan of the chest confirmed a 75.3 8 cm mass in the right upper lobe with invasion into the adjacent T2. A 2.2 cm nodule was seen in the left lower lobe. MRI of the thoracic spine from 02/06/18 showed no evidence of cord compression. The patient had a biopsy of the maxillary sinus mass on 02/06/18. 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 CT-guided biopsy of the lung mass from 02/11/18 was positive for squamous cell carcinoma. The patient was discharged on a fentanyl patch and Decadron. She had a PET scan on 02/11/18. This confirmed uptake in the large maxillary sinus mass but showed no adjacent adenopathy. Right upper lobe pulmonary mass also showed significant uptake. Uptake was noted in the right hilum, as well as a left lower lobe nodule. Uptake was noted in the T8 2/3 vertebral body and rib due to direct extension. The patient was seen for her first office visit on 02/16/18. She was started on Carbo - Taxol , and is s/p 3 cycles, completing those on . She required home IV hydration. She then fell and broke her rt hip and was admitted in late 04/14. PET scan on 04/22/18 showed stable findings with possibly some progression. She had ORIF on 04/28/18 and was discharged to [facility]. Ms Posadas was seen in Medical Oncology office on 05/29/18 - The pt had started XRT to the RUL mass. For now, the intent is palliative. She is too weak still at this time, to have more definitive , aggressive treatment with combined chemo RT. The same was d/w the pt and family - Continue RT to complete 2 wks - Continue PT. Reassess in 3 wks with repeat scans. Further recommendations will be made depending on the pt'sPS - Labs from 05/29/18 show stable Hgb at 9.7. WBC was 17.1, and plt 508. Her chem panel showed low K+ and Na of 127. K+ supplementation has been started. - Continue Megace for increasing appetite 06/02/18 - She presented to [facility] on 06/01/18 with complaints of fevers. [facility] Culture and Imaging was completed and patient has remained afebrile since admission. Chest Xray negative for acute process. She complains of increasing Shortness of Breath, Denies chest pain. Patient 06/05/18 - Greater than 35 minutes spent with patient and 3 daughters. Ms Posadas is weaker and more lethargic then last seen. She has audible crackles while sitting at her bed and talking. Positive use of accessory muscles noted. During assessment there was obvious discussion the daughters were having that they were reluctant to discuss with mother. I asked Ms. Posadas her understanding of her current diagnosis and expectations of treatment and she was inappropriate in her intial response stating "why hasnt anyone told me I have cancer" Her responses of appropriateness did continue to be inconsistent through todays discussion. I explained the overall goal of her treatment has always been palliative, and to make her feel better. She responded as she felt fine today and thought she was doing well. Discussion with patient and family support the decision to treat comfortably as her prognosis is poor. She did not have expected response to radiation and is not a candidate for concurrent chemo/ radiation. Patient and daughters understand, although have asked me to wait to bring hospice until after they try to see if she will eat and wake up a little more by tomorrow to assess if she retained todays conversation. She is currently a No CPR/DNR. Agreed to re-assess and likely plan hospice consultation tomorrow. In the interim treatment is to continue as palliative and for the goals of comfort. 06/06/18 - Patient and one daughter at bedside this am. Patient is up in chair, appears a little more alert during visit, although she still has increased effort of breathing while conversating and dozing off during our discussion. It is unclear if she truly understands the health state she is in and further treatment is not an option. She continues to say, I thought I was doing better. I feel fine. Although her daughter admits when getting in chair took 3 person assist and patient was complaining of back pain and no appetite. The conversations continue to be repeated with her and daughters. THey would like to await their meeting with Dr. Celestin and the other two sisters prior to making final decision. 06/07/18 - Patient seen in follow-up this am, daughter at bedside. They have agreed on hospice at home and will bedischarged today or tomorrow to continue comfort care in the home. They are comfortable with this decision. Objective - Vital Signs Vital signs: Vital Signs Temp 98.2 F 06/07/18 06:12 Pulse 108 H 06/07/18 16:00 Resp 20 06/07/18 16:00 BP 127/64 06/07/18 06:12 Pulse Ox 95 06/07/18 06:12 Intake & Output 06/07/18 06/07/18 06/08/18 06:59 18:59 06:59 Intake Total 240 1364 Output Total 600 Balance 240 764 Weight 50 kg Intake: Oral 240 844 Blood Product 520 Output: Urine 600 Other: Voiding Method Bedside Commode Bedside Commode # Voids 1 2 - Constitutional General appearance: Present: cooperative, mild distress, thin - EENT Eyes: Present: EOMI, dentition normal, normal appearance ENT: Present: hard of hearing, NA/AT, normal oropharynx - Neck Details: Supple, Trachea Midline Neck: Present: normal ROM - Respiratory Respiratory: bilateral: diminished (bibasilar), wheezing (Expiratory) - Cardiovascular Heart rate: 106 Rhythm: regular Heart sounds: normal: S1, S2 - Gastrointestinal General gastrointestinal: Present: normal bowel sounds, soft, tenderness - Integumentary Integumentary: Present: pale - Neurologic Neurologic Comment(s): No focal defects Neurologic: Present: CNII-XII intact - Musculoskeletal Musculoskeletal: Present: generalized weakness, strength equal bilaterally - Psychiatric Psychiatric: Present: A&O x's 3, appropriate affect - Labs CBC & Chem 7: 06/03/18 06:32 06/02/18 10:48 Labs: Microbiology - Last 24 Hours (Table) 05/31/18 18:25 Blood Culture - Final Blood No Growth after 144 hours Assessment and Plan Plan: Assessment and Plan Plan: Assessment and Recommendations: 1. Squamous cell Carcinoma of the Lung with Large RUL Mass (?metastatic disease to adrenal gland) - Status Post 3/3 cycles of carboplatin and taxol - Recent PET with little/Mixed response - Radiation Oncology Following - Treatment this far does not appear to have offered any sustainable response to mass in Mediastinum 2. 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 3. Fever and Acute Mental Status Change: - Afebrile Since admission - Very Weak Cough, Incentive spirometer - Antibiotics - Cultures and Xray Neg this far - Steroids - CT head reviewed, Respiratory Status worsened 4. Intertrochanter Right Hip Surgery - Status Post Fall - Orthopedics Following - Status Post ORIF - Currently in Rehab [facility] 5. . Recent diagnosis of bilateral pulmonary embolism, in January 2018, currently on Eliquis - Continue Eliquis 6. Acute on chronic pain - Neck and Back with evidence of focal uptake within the T3 vertebral body and ribs highly suspicious for malignancy. - The most recent PET scan showed evidence of encroachment of the anterolateral aspect of the spinal canal. - This could've contributed to the patient's weakness and loss imbalance and fall. A previous MRI did identify this in January, repeat MRI if concern for possible cord involvement. 7. 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 Oral thrush:improved - Nystatin Swish and Spit 9. 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 Advanced Care Planning: on 06/05/18 I had a long discussion with patient and three daughters today. Her overall prognosis is poor, and appears to be declining given the multiple factors above. The patient at this time does not agree she is weak or not strong enough to undergo further treatment, although her current mental status is not consistently appropriately. She does understand the minimal response from treatment this far on her cancer and understands she is not a candidate for further treatment. She will remain a no CPR/Full DNR. Our goal of care will continue to be palliative in nature. Patient and daughters agree and understand the plan for hospice care, but have asked to discuss more with her tomorrow and allow her to "take in" todays discussion first. Plan will be Hospice information consult tomorrow and plan for hospice facility and/or home with hospice this week. Continue supportive care. Discussed with Dr. Piemntel, who is in agreement On 06/06/18 - Dr Pimentel also spoke with family and patient in length regarding disease, current status and lack of improvement in her current state. Patient and daughter will await the other two daughters this afternoon and will plan to consult hospice information meeting after speaking to Dr. Celestin this afternoon. - Plan for patient to be discharged home today, agree with hospice care, overall poor prognosis. ALl questions from family and patient answered, discuss plan with Dr. Celestin. Jessa Rodney NP.
--- NOTE | 2018-06-08 07:12 | DS ---
DISCHARGE SUMMARY DATE OF ADMISSION: 05/31/18 DATE OF DISCHARGE: 06/07/18 FINAL DIAGNOSES: 1. Acute severe chronic obstructive pulmonary disease exacerbation from acute tracheobronchitis in a smoker. 2. Acute delirium multifactorial. 3. Chronic bilateral pulmonary embolism for which patient is chronically on Eliquis. 4. Moderate protein-calorie malnutrition from decreased oral intake from malignancy. 5. Adenocarcinoma of the salivary gland, status post chemotherapy. 6. Squamous cell cancer of the lung with palliative chemotherapy not responding anymore. 7. Normocytic anemia from malignancy. 8. Worsening functional status. 9. Advanced medical debility. 10.SIADH from malignancy. 11.Sinus tachycardia from bronchodilators. CONSULTATION: 1. Dr. Pimentel from Oncology. 2. Dr. Jain from Pulmonary. HOSPITAL COURSE: This unfortunate lady with 2 separate malignancies, not responding well to the treatment. Presented with COPD exacerbation and tracheobronchitis. Did have a CT scan of the brain, did not show any obvious METS. The patient's functional status continues to fluctuate and keeps going down. Oncology team did speak to the patient and family that speech was not working anymore. Patient finally is going to hospice with A. The patient is tolerating some diet, able to answer simple questions, is rather weak. On examination: LUNGS: Decreased breath sounds. PSYCH: Able answer some simple questions. Care was discussed with the patient and the lady from the [facility]. Discussion and discharge planning more than 35 minutes. DISCHARGE MEDICATIONS: 1. DuoNeb t.i.d. 2. Protonix 40 mg a day. 3. Eliquis 5 mg b.i.d. 4. Megace 1 mg p.o. daily. 5. Senokot S 1 tablet p.o. b.i.d. 6. Dulcolax 10 mg rectal daily p.r.n. 7. Dexamethasone 4 mg q.8. 8. Arcade 5, 1 tablet q.4h p.r.n. 9. Lactulose 10 grams p.o. b.i.d. 10.Calmoseptine topical b.i.d. 11.Duragesic 50 mcg patch every 72 hours. 12.Ativan 0.5 q.6h p.r.n. 13.Roxanol 20 mg/mL strength 5 mg p.o. q.4 p.r.n. for pain, 30 mL given. 14.Lopressor 12.5 b.i.d. 15.Seroquel 25 mg p.o. q.h.s. 16.Scopolamine patch to 72 hours p.r.n. for secretions. 17.Saline spray q.i.d. p.r.n. Start talking form was done with the daughter. [facility] website was down; hence, could not access the same. FOLLOWUP: Follow up with Dr. Oro p.r.n., follow up with the [facility] and hospice followup. Home oxygen. Discussion and discharge planning more than 35 minutes. MMODL / IJN: [id number] /
--- NOTE | 2018-06-08 12:25 | CDI ---
Last Revision, October 2017 Documentation Clarification Form Date: 06/08/18 From: Johnna Maximiliano Phyllis Kerr, Social Science Research Assistant Hours-8:30 am & 5 pm Damaris Admit Date: 05/31/2018 8:33:00 PM Patient Name: Florencia Posadas Visit Number: [id number] Discharge Date: 06/07/18 ATTENTION: The Clinical Documentation Specialists (CDI) and [facility] Coding Staff appreciate your assistance in clarifying documentation. Please respond to the clarification below the line at the bottom and electronically sign. The CDI & [facility] Coding staff will review the response and follow-up if needed. Please note: Queries are made part of the Legal Health Record. If you have any questions, please contact the author of this message via ITS. Dr. Florentin Celestin Sepsis is documented in the ED Note. History/Risk Factors: multiple malignancies WBC/Left Shift; WBC-24.4, neutrophils-23.4; Lactic acid: 1.8; Blood cultures: negative Vitals signs on admission: P-120, R-18, BP-135/67 Antibiotics: IV Maxipime, IV Vancomycin IV Bolus: Sodium Chloride 0.9% 500 ml IV 999 mls/her In your professional opinion, please clarify if these findings signify one of the following conditions, whether the condition is POA, and cause, if known: Condition Sepsis ruled out SIRS, without underlying infectious process Sepsis Severe Sepsis Septic Shock Other, please specify Unable to determine Present on Admission: Yes No SIRS Criteria..2 or more of the following may indicate SIRS: Temperature < 96.8F (36C) or > 101.0F (38.3C) Heart Rate > 90 bpm Respiratory Rate > 20 breaths/min or PaCO2 < 32 mmHg White Blood Cell Count > 12,000 or < 4,000 cells/mm3 or > 10% bands Lactate >2.0 mmol/L (>4.0 is equivalent to septic shock) Please continue to document in your progress notes and discharge summary in order to capture severity of illness and risk of mortality. Include clinical findings that support your diagnosis. __ possible sepsis POA _ MTDD
--- NOTE | 2018-06-10 22:05 | DS ---
DISCHARGE SUMMARY ADDENDUM: DATE OF ADMISSION: 05/31/2018. DATE OF DISCHARGE: 06/07/2018. CORRECTION: Number five should say: Adenocarcinoma of the maxillary sinus extending into the oral cavity. MMODL / IJN: [id number] /
== END 2018-06-07 16:40 | disposition hospice, home (50) | DRG 871 ==
LOC: EC 17:36 → 5ONC 20:33
PROVIDERS: ADMIT Hospitalist; ATTEND Hospitalist
DX: A41.9 Sepsis, unspecified organism (principal); J69.0 Pneumonitis due to inhalation of food and vomit; J44.0 Chronic obstructive pulmonary disease with (acute) lower respiratory infection; I27.82 Chronic pulmonary embolism; E44.0 Moderate protein-calorie malnutrition; C34.11 Malignant neoplasm of upper lobe, right bronchus or lung; B37.0 Candidal stomatitis; E22.2 Syndrome of inappropriate secretion of antidiuretic hormone; F05 Delirium due to known physiological condition; G72.81 Critical illness myopathy; J44.1 Chronic obstructive pulmonary disease with (acute) exacerbation; C79.89 Secondary malignant neoplasm of other specified sites; L89.151 Pressure ulcer of sacral region, stage 1; C05.1 Malignant neoplasm of soft palate; C08.9 Malignant neoplasm of major salivary gland, unspecified; C31.0 Malignant neoplasm of maxillary sinus; D63.0 Anemia in neoplastic disease; Z66 Do not resuscitate; Z51.5 Encounter for palliative care; J20.9 Acute bronchitis, unspecified; R62.7 Adult failure to thrive; I10 Essential (primary) hypertension; F41.9 Anxiety disorder, unspecified; H91.90 Unspecified hearing loss, unspecified ear; R09.02 Hypoxemia; M54.9 Dorsalgia, unspecified; I25.2 Old myocardial infarction; H26.9 Unspecified cataract; Z79.01 Long term (current) use of anticoagulants; Z79.52 Long term (current) use of systemic steroids; Z79.899 Other long term (current) drug therapy; Z92.21 Personal history of antineoplastic chemotherapy; Z92.3 Personal history of irradiation; Z86.718 Personal history of other venous thrombosis and embolism; Z87.81 Personal history of (healed) traumatic fracture; Z85.828 Personal history of other malignant neoplasm of skin; Z87.891 Personal history of nicotine dependence; Z82.3 Family history of stroke; Z82.49 Family history of ischemic heart disease and other diseases of the circulatory system
CPT/HCPCS: 36415; 36600; 70450; 71045; 71046; 74177; 80048; 80053; 81003; 82805; 83605; 83735; 84132; 84484; 85025; 85027; 85610; 87040; 87086; 93005; 94640; 94760; 96365; 96367; 99285